=== PATIENT | male | born 1940 | race Caucasian/White ===

== ENCOUNTER → 2018-06-03 15:06 | Outpatient (CLI) | payer MEDICARE, SELFPAY ==
[2018-06-03 17:43] LABS: AST(SGOT) 42 U/L (15-37); Alanine Aminotransfer ALT/SGPT 37 U/L (16-61); Albumin, Serum 3.8 g/dL (3.2-5.0); Alkaline Phosphatase 74 U/L (45-117); Anion Gap 10 (5-15); BUN 15 mg/dL (7-18); BUN/Creat Ratio 14.7 RATIO (10-20); Bilirubin, Direct 0.18 mg/dL (0.00-0.30); Calcium,Total 9.7 mg/dL (8.5-10.1); Chloride 103 mmol/L (98-107); Cholesterol 91 mg/dL (200); Creatinine, Serum 1.02 mg/dL (0.70-1.30); EST Glomerular Filtration Rate 75 mL/min (>60); Est Glom Filt Rate - Afr Amer 90 mL/min (>60); Glucose 198 mg/dL (74-106); High Density Lipoprotein 38 mg/dL; Potassium 4.1 mmol/L (3.5-5.1); Protein, Total 7.8 g/dL (6.4-8.2); Sodium Level 137 mmol/L (136-145); Triglycerides 134 mg/dL; Very Low Density Lipoprotein 27 mg/dL (5-40)
[2018-06-03 17:53] LABS: Hemoglobin A1c 7.8 % (4.2-6.3)
== END ==
PROVIDERS: Visit Provider Family Medicine
DX: E11.9 Type 2 diabetes mellitus without complications (principal)
CPT/HCPCS: 36415; 80048; 80061; 80076; 83036

== ENCOUNTER → 2018-08-23 13:28 | Outpatient (CLI) | payer MEDICARE, SELFPAY ==
--- NOTE | 2018-08-27 16:33 | LEAS_ITS ---
Arterial Study - Arterial Study Arterial Study: This is an 78-year-old male with a history of peripheral arterial occlusive disease. The patient was brought to the noninvasive vascular laboratory at this time for the purpose of bilateral noninvasive lower extremity arterial assessment. Doppler signal assessment was used to evaluate the pulses at ankle level bilaterally. The posterior tibial and dorsalis pedis pulses were triphasic bilaterally. Segmental limb pressures were obtained bilaterally. The right ankle pressure, as determined by posterior tibial pulse, was measured at 138 mmHg. The right ankle pressure, as determined by dorsalis pedis pulse, was measured at 123 mmHg. The right digital pressure was measured at 148 mmHg. The left ankle pressure, as determined by posterior tibial pulse, was measured at 150 mmHg. The left ankle pressure, as determined by dorsalis pedis pulse, was measured at 154 mmHg. The left digital pressure was measured at 154 mmHg. Pulse?volume recordings were obtained bilaterally and segmentally. Waveform amplitudes appeared to be satisfactory at all levels bilaterally, including low thigh, calf, ankle, and digital levels. Resting ankle?brachial indices were calculated bilaterally. The resting right ankle?brachial index was calculated to be 1.01. The resting left ankle?brachial index was calculated to be 1.13. Digital?brachial indices were calculated bilaterally. The right digital- brachial index was calculated to be 1.09. The left digital-brachial index was calculated to be 1.13. Impression: Based upon the findings of this resting noninvasive lower extremity arterial study, there is no evidence of significant atherosclerotic peripheral arterial occlusive disease in the lower extremities bilaterally. Triphasic waveforms were noted at ankle level bilaterally. Resting ankle?brachial indices were bilaterally normal. Digital-brachial indices were also normal bilaterally. In summary, this represents a normal resting noninvasive lower extremity arterial study bilaterally.
== END ==
PROVIDERS: Family Provider Family Medicine; PCP Family Medicine; Visit Provider Podiatrist
DX: I73.9 Peripheral vascular disease, unspecified (principal)
CPT/HCPCS: 93923

== ENCOUNTER → 2018-11-28 10:24 | Outpatient (CLI) | payer MEDICARE, SELFPAY | PROVIDERS: Family Provider Family Medicine; PCP Family Medicine; Visit Provider Family Medicine | DX: R69 Illness, unspecified (principal) ==

== ENCOUNTER → 2018-12-07 16:28 | Outpatient (CLI) | payer MEDICARE, SELFPAY | PROVIDERS: Family Provider Family Medicine; PCP Family Medicine; Visit Provider Family Medicine | DX: R30.0 Dysuria (principal) | CPT/HCPCS: 87086; 87088; 87186 ==

== ENCOUNTER → 2018-12-09 09:57 | Outpatient (CLI) | payer MEDICARE, SELFPAY ==
[2018-12-09 12:22] LABS: Color, Urine Yellow (Yellow); Glucose, Dipstick Normal (Normal); Ketone-Dipstick Negative (Negative); Leukocyte Esterase-Dipstick 500 /ul (Negative); Nitrite-Dipstick Negative (Negative); Occult Blood-Urine 10 /ul (Negative); Protein-Dipstick Negative (Negative); Specific Gravity, Urine 1.015 (1.002-1.030); Urine Bilirubin Dipstick Negative (Negative); Urine Clarity Clear (Clear); Urine Urobilinogen Normal (Normal)
[2018-12-09 12:33] LABS: Anion Gap 11 (5-15); BUN 19 mg/dL (7-18); BUN/Creat Ratio 15.7 RATIO (10-20); Calcium,Total 9.6 mg/dL (8.5-10.1); Chloride 105 mmol/L (98-107); Cholesterol 95 mg/dL (200); Creatinine, Serum 1.21 mg/dL (0.70-1.30); EST Glomerular Filtration Rate 61 mL/min (>60); Est Glom Filt Rate - Afr Amer 74 mL/min (>60); Glucose 160 mg/dL (74-106); High Density Lipoprotein 36 mg/dL; Potassium 4.5 mmol/L (3.5-5.1); Sodium Level 140 mmol/L (136-145); Triglycerides 129 mg/dL; Very Low Density Lipoprotein 26 mg/dL (5-40)
[2018-12-09 12:40] LABS: Hemoglobin A1c 8.5 % (4.2-6.3)
[2018-12-09 13:00] LABS: Vitamin D,25 Hydroxy 33.7 ng/mL (29.95-100.01)
== END ==
PROVIDERS: Family Provider Family Medicine; PCP Family Medicine; Visit Provider Family Medicine
DX: Z00.00 Encounter for general adult medical examination without abnormal findings (principal); R30.0 Dysuria; E55.9 Vitamin D deficiency, unspecified; E11.9 Type 2 diabetes mellitus without complications
CPT/HCPCS: 36415; 80048; 80061; 81002; 82306; 83036

== ENCOUNTER 2018-12-13 11:00 | Outpatient (RCR) | payer MEDICARE, SELFPAY ==
--- NOTE | 2018-10-05 15:48 | HP.PTEVAL_ITS ---
Patient's Visit Information ALCIDES LOREDO is a 78 year old M referred to Physical Therapy by JOANNA Gong with a diagnosis of CVA. Date of Evaluation: 10/05/18 Physical Therapist: Hilario Serrano DPT, OC - Visit Plan Frequency: 2x /Week Duration: 4-6 Weeks Plan: Neurocom balance test then. 2x/week for 3-4 for hip and core strength machines and table and sink and teach for I as safety allows. FW weight shift ex. Balance as indicated on neurocom - Subjective Subjective: Hips and knees not very mobile. Weak and stiff. CVA 10 years ago. Been through therapy numerous times. Neurologist recommended PT to strengthen muscle between knees and hips. Hard to get out of chair. In gym 3x/week on Nustep and back machines, Not doing anything for legs. Foot doctr referred him to neuro for weakness in legs. Uses wh walker if walking for distance but it is too short for him. Tested for arterioal problems in legs but that was OK. Has diabetic neuropathy. WEaker on R side from stroke 10 years ago. Sleep is good. On new drug for essential tremors. Not employed. Activities include puzzles and read. Gym 3x/week. No steps at home. Dresses and basic ADLs I. Feels like balance is worse at times without pattern. Uses wh walker out and about. Has rollator too small and wh walker that fits him. - Objective Walks with rollator walker too short but mod I, walks without walker on firm surface with plenty of light I, short steps and lacks FW weight shift. Needs UE to exit chair and assist to sit from supine. UE AROM WFL, R UE weaker vs L but functional. Patient is hesitant with balance especially at top of step. LE AROM WFL, lack 4 degrees ext R knee in sitting. Pt is slow moving and poor confidence with strength. HS and quads mod tight. reflexes 0/3 patella and a chilles. Sensation diminished to gross light touch in feet. Coordination to reciprocal toe and heel tap min deficits. Strength HIPS: R 3/5 and L 3+/5, can do a bridge barely and slowly. Knee ext 4 L and 4- R. ankles 4/5 B - Balance Scores Functional Gait Assessment Score: 21 % Disability: 30.0000 CATSIB Score (Max score 120 seconds): 98 - Goals Goal 1:: 23/30 FGA to diminish fall risk. Goal Time Frame: 4-6 Weeks Goal 2:: Patient able to exit chair without UE and transfer in bed I and easily Goal Time Frame: 4-6 Weeks Goal 3:: I approp HEP for hip and core strength to add to current strength and fw weight shift/balance Goal Time Frame: 4-6 Weeks Goal 4:: Pt and feel mobility is 50% improved. 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 Rehabilitation Potential: Fair - Anticipated Interventions Patient/Client Instruction: Educate patient on: Condition, Plan of Care For the Purpose of:: To increase tolerance to activity/condition/position, To improve ability of physical actions for home/community/work/leisure, To improve safety Therapeutic Exercise to Include: Strength training, Balance training, Gait and locomotor training For the Purpose of:: To increase tolerance to activity/condition/position, To improve balance Thank you for the opportunity to evaluate your patient. For Medicare and Medicare HMO plans, please review the plan of care and approve it. It will need to be FAXED BACK to us at [phone] for Medicare purposes. Please let me know if there are questions or concerns regarding this plan of care. Physician Signature: Date:
--- NOTE | 2018-10-11 11:49 | HP.PTCOM ---
PT Communication Note 10/11/[address] Iva Valdes, CONSULTANT TECHNOLOGY-C , Thank you for the referral of Polo to [facility] for balance screeening and testing. I have enclosed a copy of the results for your review. In [place], he scored low on the vestibular portion of the Sensory Organization Test. He scored low on forward and right excursion on the Limits of Stability Test. He scored slow on the Motor Control Test. With these reults in mind, I plan to see him 2x/week for 4 weeks to work on forward weight shifts, vestibular balance and LE strength adn progress to and Independent workout. Please do not heistate to call if there are questions regarding his physical therapy. Thank you. Sincerely, Hilario Serrano DPT, OC Contact Information
--- NOTE | 2018-10-11 11:52 | HP.PTCOM_ITS ---
PT Communication Note 10/11/[address] Iva Valdes, HAIR COLORIST-C , Thank you for the referral of Polo to [facility] for balance screeening and testing. I have enclosed a copy of the results for your review. In summat[place], he scored low on the vestibular portion of the Sensory Organization Test. He scored low on forward and right excursion on the Limits of Stability Test. He scored slow on the Motor Control Test. With these reults in mind, I plan to see him 2x/week for 4 weeks to work on forward weight shifts, vestibular balance and LE strength adn progress to and Independent workout. Please do not heistate to call if there are questions regarding his physical therapy. Thank you. Sincerely, Hilario Serrano DPT, OC Contact Information
--- NOTE | 2018-11-10 15:48 | HP.PTREVAL ---
Iva Valdes, ALLERGY SPECIALIST-C, It has been my pleasure to treat ALCIDES LOREDO over the last 10 visits for CVA. Please see the progress note below for an update on the physical therapy plan of care! Subjective: Brought new walker and works much better. Getting up from chair still very hard. Knee pain keeps him from getting up without UE. I can do all the ex in the gym 3x/week. Objective/Function: foot slap on both sides with gait but improved FGA by one point. Pt confident that he can continue himself. wants him to f/u in 4 weeks for compliance and to ensure progress. Plan Plan: f/u 4 weeks as needed to progress ex, check steps and transfer out of chair. Goals Goal 1:: FGA to diminish fall risk. Goal Time Frame: 4-6 Weeks Goal Progress: Progressing Goal 2:: Patient able to exit chair without UE and transfer in bed I and easily Goal Time Frame: 4-6 Weeks Goal Progress: Needs assist mod Goal 3:: I approp HEP for hip and core strength to add to current strength and fw weight shift/balance Goal Time Frame: 4-6 Weeks Goal Progress: Goal Met Goal 4:: Pt and feel mobility is 50% improved. Goal Time Frame: 6-8 Weeks Goal Progress: Goal Met Goal 5:: improved vestibular SOT score and LOS FW excursion score past 30. Goal Time Frame: 4-6 Weeks Goal Progress: not tested. Anticipated Interventions Patient/Client Instruction: Educate patient on: Condition, Plan of Care For the Purpose of:: To increase tolerance to activity/condition/position, To improve ability of physical actions for home/community/work/leisure, To improve safety Therapeutic Exercise to Include: Strength training, Balance training, Gait and locomotor training For the Purpose of:: To increase tolerance to activity/condition/position, To improve balance Please do not hesitate to contact me at [phone] by phone or if you have questions or concerns regarding this new plan of care! Sincerely, Hilario Serrano, DPT, OCS, CSCS
--- NOTE | 2018-12-13 12:03 | HP.PTDCSUM_ITS ---
HP - PT D/C Summary It has been my pleasure to treat ALCIDES LOREDO under orders from Iva Valdes, YVETTE-C, for the diagnosis of CVA for a total of 11 visit(s). Discharge Date: 12/13/18 Please see the following information for a summary of their discharge status. - Subjective Subjective: Has been busy with the holidays and many doctors appointments. Sees neurologist this afternoon. 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 Morning tremors have gotten worse. Lots of things getting worse. Has been exercising and strength is staying the same. 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 Also put on meds for UTI. A shot in both arms to boot from annual check up. exercising 3x/week until last weeks reaction to shots whcih mad e him weak and tired. Been off for the last week b/c of that. - Overall Improvement % Improvement: 60 - Objective Objective/Function: +1 FGA today. Walks with adn without rolaltor without assist, more hesitant without it. Up from chair requires UE and VC to shift weight forward which patient is understandably hesitant to do. Steps require UE to pull up to the next step adn two rails to come down. OVERALL SLOW IMPROVEMENT TO PROBLEMS THAT ARE MOSTLY DUE TO HIS NEUROPATHY AND WILL NEVER FULLY MOUNA. HE IS WILLING TO KEEP WORKING ON IT VIA GYM EXERCISES. - Goals Goal 1:: FGA to diminish fall risk. Goal Progress: Goal Met Goal 2:: Patient able to exit chair without UE and transfer in bed I and easily Goal Progress: Not Progressing Goal 3:: I approp HEP for hip and core strength to add to current strength and fw weight shift/balance Goal Progress: Goal Met Goal 4:: Pt and feel mobility is 50% improved. Goal Progress: Goal Met Goal 5:: improved vestibular SOT score and LOS FW excursion score past 30. Goal Progress: NT - Plan Plan: D/C to gym ex isacc. - D/C Information Discharge Comments: Pt to neurologist today. Will continue exercises on her own. If there are questions or concerns regarding this patient's physical therapy, please feel free to call me at [phone]. Thank you for the referral of this patient. Sincerely, Hilario Serrano, DPT, OCS, CSCS
== END 2018-12-13 19:00 | disposition home or self-care (01) ==
LOC: PT 11:00
PROVIDERS: Family Provider Family Medicine; PCP Family Medicine; Referring Provider Nurse Practitioner Acute Care; Visit Provider Nurse Practitioner Acute Care
DX: G81.91 Hemiplegia, unspecified affecting right dominant side (principal); Z86.73 Personal history of transient ischemic attack (TIA), and cerebral infarction without residual deficits
CPT/HCPCS: 97110; 97163; 97530; 97750

== ENCOUNTER → 2019-01-19 08:24 | Outpatient (CLI) | payer MEDICARE, SELFPAY ==
--- NOTE | 2019-01-18 | LES_PTH ---
PATIENT: ALCIDES LOREDO LOC: [facility] U#:[id number] AGE/SX: 85/M ROOM: RE01/19/[address]: Dr. George Fonseca MD : 1940 BED: DIS: SPEC #: [id number] RECD: 01/19/19 10:08 STATUS: [facility]ITE BO #: [id number] DEWEY: 01/18/19 00:[address]: George Fonseca DEPT: SURGICAL PATHOLOGY RECD BY: Reshma Meadows ENTERED: 01/20/19 09:02 SP TYPE: Lesion OTHR DR: Dr. Randell Sparks MD Tissues: Skin of back, NOS Procedures: Surgery Specimen Level IV HEADER OPERATION: Shave biopsy PRE-OP DIAGNOSIS: Superficial basal cell carcinoma vs other TISSUE SUBMITTED: Left superior medial midback MICROSCOPIC DIAGNOSIS Left superior medial midback, shave biopsy: Basal cell carcinoma with focal superficial ulceration, incompletely excised (0.5 cm in greatest dimension). SJ:shaina 01/20/19 COMMENT The tumor is focally present at the deep resection margin of the spcimen. Case has been reviewed in consultation with Dr. Solis who concurs with the above diagnosis. IDC:AM MICROSCOPIC DESCRIPTION Slides are reviewed. GROSS DESCRIPTION Received in fixative is one container labeled with the patient's name and designated left superior midback. The specimen consists of a piece of elias-white skin measuring 0.6 x 0.2 x 0.1 cm. The specimen is totally submitted in one cassette. / SJ:shaina 01/19/19 TC:0 CPT: 80847
== END ==
PROVIDERS: Family Provider Family Medicine; PCP Family Medicine; Referring Provider Dermatology; Visit Provider Dermatology
DX: C44.519 Basal cell carcinoma of skin of other part of trunk (principal)
CPT/HCPCS: 88305

== ENCOUNTER → 2019-03-27 | Outpatient (CLI) | payer MEDICARE, SELFPAY ==
[2019-03-07 14:44] VITALS: BMI 35.3
--- NOTE | 2019-03-27 12:44 | ECHOCS_ITS ---
Reason For Study: Afib, Aflutter Procedure This was a 2D Doppler, Color Flow transthoracic echocardiogram. The study was technically difficult. Contrast injection was performed. Exam performed in department. Left Ventricle Normal size and thickness. The estimated ejection fraction is 65 %. Unable to assess diastolic dysfunction due to arrhythmia. No regional wall motion abnormalities noted. Right Ventricle Mildly dilated right ventricle. Normal systolic function. Atria The left atrium is mildly enlarged. Normal right atrium. Normal atrial septum. Mitral Valve The mitral valve is structurally normal. No prolapse or stenosis seen. Tricuspid Valve Normal tricuspid valve. Trivial tricuspid valve insufficiency. Right ventricular systolic pressure estimated to be 24 mmHg. Aortic Valve Trisinus/trileaflet aortic valve. Mild diffuse aortic valve thickening. Pulmonic Valve The pulmonic valve is not well visualized. Great Vessels Normal aortic root. Mild atherosclerosis of the aortic arch. Normal inferior vena cava. Inferior vena cava collapse with sniff. Pericardium/Pleural No pericardial effusion. Medication Definity0.3ml given slow IV push to enhance endocardial definition. MMode/2D Measurements & Calculations LVIDd: 4.9 cm IVSd: 0.98 cm Ao root diam: 3.8 cm LVIDs: 3.4 cm LVPWd: 0.80 cm RVDd: 3.9 cm FS: 30.0 % LAV(MOD-bp): 65.1 ml LA A4 area: 23.7 cm2 LA dimension(2D): 4.6 cm LAV(MOD-bp) Indexed: 24.5 ml/m2 LAV(MOD-sp2): 55.7 ml LAV(MOD-sp4): 74.2 ml RA A4 area: 19.8 cm2 Doppler Measurements & Calculations MV E max liv: 77.3 cm/sec Ao V2 max: 90.6 cm/sec LV V1 max: 68.7 cm/sec Ao max P.4 mmHg LV V1 max P.9 mmHg Ao V2 mean: 62.4 cm/sec Ao mean P.8 mmHg Ao V2 VTI: 14.9 cm PA V2 max: 88.3 cm/sec TR max liv: 152.4 cm/sec TR max P.3 mmHg Interpretation Summary The estimated ejection fraction is 65 %. Unable to assess diastolic dysfunction due to arrhythmia. The left atrium is mildly enlarged. Trivial tricuspid valve insufficiency. Right ventricular systolic pressure estimated to be 24 mmHg. Compared to echo report dated 09/25/2017, no appreciable changes noted. Pt appears to be in atrial fibrillation. The study was technically difficult. Contrast injection was performed. Ordering Physician: Brent Ledezma Referring Physician: Randell Sparks Performed By: Dayan Burroughs, VERONICA, RVT
--- NOTE | 2019-03-27 12:44 | CDU_ITS ---
Reason For Study: TIA Rt. Velocities/BP Lt. Velocities/BP Prox CCA 79.9/18.6 cm/sec. Prox CCA 65.4/11.4 cm/sec. Mid CCA 89.1/27.8 cm/sec. Mid CCA 67.9/12.6 cm/sec. Dist CCA 64.3/21.3 cm/sec. Dist CCA 55.6/15.1 cm/sec. Prox ICA 141.2/46.2 cm/sec. Prox ECA 137.5/17.0 cm/sec. Mid ICA 112.0/33.4 cm/sec. Lt. Vert. 34.7/16.0 cm/sec. Dist ICA 66.7/27.4 cm/sec. Rt. ICA/CCA = 1.6. Prox ECA 116.5/14.7 cm/sec. Rt. Vert. 55.6/16.3 cm/sec. Right Extracranial There is intimal thickening but no significant atherosclerotic plaque noted in the right common carotid artery. There is heterogeneous, irregular atherosclerotic plaque noted in the right internal carotid artery. The atherosclerotic plaque causes acoustic shadowing. There is heterogeneous, irregular atherosclerotic plaque noted in the right external carotid artery. Antegrade flow is noted in the right vertebral artery. Left Extracranial There is heterogeneous, irregular atherosclerotic plaque noted in the left common carotid artery. There is heterogeneous, irregular atherosclerotic plaque noted in the left internal carotid artery. There is intimal thickening but no significant atherosclerotic plaque noted in the left external carotid artery. Antegrade flow is noted in the left vertebral artery. Procedure Carotid Duplex 94133. The exam was diagnostic. Exam performed in department. Interpretation Summary Moderate (50-69%) stenosis right extracranial internal carotid. Flow within the vertebral arteries is antegrade bilaterally. 2. Left internal carotid occluded. Ordering Physician: Brent Ledezma Performed By: Tanner Palumbo RVT
== END | disposition home or self-care (01) ==
PROVIDERS: Family Provider Family Medicine; PCP Family Medicine; Referring Provider Internal Medicine Cardiovascular Disease; Visit Provider Internal Medicine Cardiovascular Disease
DX: Z86.73 Personal history of transient ischemic attack (TIA), and cerebral infarction without residual deficits (principal); I48.0 Paroxysmal atrial fibrillation
CPT/HCPCS: 93306; 93880; Q9957; A4216; C8929

== ENCOUNTER → 2019-03-31 | Outpatient (CLI) | payer MEDICARE, SELFPAY ==
[2019-03-07 14:44] VITALS: BMI 35.3
--- NOTE | 2019-03-31 09:31 | STEWCON_ITS ---
Reason For Study: Atrial Fibrillation Stress Results Protocol: Dobutamine Stress Echo Maximum Predicted HR: 140 bpm Target HR: 119 bpm % Maximum Predicted HR: 90 % DurationHeart Rate Stage (mm:ss) (bpm) BP Comment Baseline 86 142/73No Chest Pain; Diluted Definity 4 ML DSE 10 MCG 3:10 96 106/70No Chest Pain DSE 20 MCG 2:57 126 147/73No Chest Pain Recovery 96 120/64No Chest Pain Stress Duration: 6:07 mm:ss Maximum Stress HR: 126 bpm METS: 1 Baseline Echocardiogram Findings The estimated ejection fraction is 65 %. Stress Echo Wall motion Data Resting WM Intermediate WM Stress WM Resting Wall Motion Wall Motion Stress No regional wall motion No regional wall motion abnormalities noted. abnormalities noted. EKG Data Atrial fibrillation. The patient was titrated from 10 mcg to a maximum of 20 mcg of dobutamine during the stress. The maximum heart rate attained was 142 beats per minute. This was 101% of maximum predicted heart rate. During dobutamine infusion, there were no ST or T wave changes noted to suggest ischemia. No clinical angina was noted. Interpretation Summary The estimated ejection fraction is 65 %. Normal, adequate, dobutamine echocardiogram. Negative for ischemia by EKG and echocardiographic criteria. No anginal symptoms noted. Baseline atrial fibrillation throughout procedure. No additional arrhythmias noted. Final LVEF is 75%. Decreased sensitivity due to poor echo windows requiring Definity agent. Test terminated due to the attainment of target heart rate. No complications. The study was technically difficult. Contrast injection was performed. Ordering Physician: Brent Ledezma Referring Physician: Randell Sparks Performed By: Jocelyne Car, RDCS, RVT
== END | disposition home or self-care (01) ==
LOC: CVS 09:28
PROVIDERS: Family Provider Family Medicine; PCP Family Medicine; Referring Provider Internal Medicine Cardiovascular Disease; Visit Provider Internal Medicine Cardiovascular Disease
DX: R06.02 Shortness of breath (principal); I48.0 Paroxysmal atrial fibrillation; E78.5 Hyperlipidemia, unspecified; Z86.79 Personal history of other diseases of the circulatory system
CPT/HCPCS: 93017; 93350; J7040; Q9957; A4216; C8928

== ENCOUNTER → 2019-07-25 | Outpatient (CLI) | payer MEDICARE, SELFPAY ==
[2019-07-18 16:25] VITALS: BMI 35.3
[2019-07-25 12:16] LABS: Absolute Lymphocyte Count 1.74 X10^3/uL (0.83-4.51); Absolute Neutrophil Count 3.2 X10^3/uL (2.0-7.7); Basophil# 0.03 X10^3/uL; Basophil% 0.5 % (0-1); Eosinophil# 0.12 X10^3/uL; Eosinophils% 2.1 % (0-5); Hematocrit 46.6 % (40-54); Hemoglobin 14.8 g/dL (13.0-16.5); Lymphocyte # 1.74 X10^3/ul (4.0); Lymphocyte % 30.2 % (19-41); Mean Corp Hgb Conc 31.8 g/dL (32-36); Mean Corpuscular Hgb 31.9 pg (27.0-32.0); Mean Corpuscular Volume 100.4 fL (80-94); Mean Platelet Vol. 10.7 fl (6.2-12.0); Monocyte# 0.57 X10^3/uL; Monocyte% 9.9 % (0-10); NRBC Flagged by Analyzer 0 % (0-5); Neutrophil % 55.4 % (47-70); Platelet Count 166 K/mm3 (150-450); RBC Distribution Width CV 15.2 % (11.6-14.6); RBC Distribution Width SD 56.1 fl (35.1-43.9); Red Blood Count 4.64 M/mm3 (4.6-6.2); White Blood Count 5.8 K/mm3 (4.4-11.0)
[2019-07-25 12:39] LABS: Anion Gap 6 (5-15); BUN 16 mg/dL (7-18); BUN/Creat Ratio 15.2 RATIO (10-20); Calcium,Total 9.5 mg/dL (8.5-10.1); Chloride 107 mmol/L (98-107); Cholesterol 89 mg/dL (200); Creatinine, Serum 1.05 mg/dL (0.70-1.30); EST Glomerular Filtration Rate 72 mL/min (>60); Est Glom Filt Rate - Afr Amer 87 mL/min (>60); Glucose 253 mg/dL (74-106); High Density Lipoprotein 33 mg/dL; Potassium 4.2 mmol/L (3.5-5.1); Sodium Level 138 mmol/L (136-145); Triglycerides 209 mg/dL; Very Low Density Lipoprotein 42 mg/dL (5-40)
== END | disposition home or self-care (01) ==
LOC: MFPLAB 09:53
PROVIDERS: Family Provider Family Medicine; PCP Family Medicine; Referring Provider Family Medicine; Visit Provider Family Medicine
DX: E78.5 Hyperlipidemia, unspecified (principal); D64.9 Anemia, unspecified; E11.9 Type 2 diabetes mellitus without complications
CPT/HCPCS: 36415; 80048; 80061; 85025

== ENCOUNTER → 2019-10-18 11:32 | Outpatient (CLI) | payer MEDICARE, SELFPAY ==
[2019-07-18 16:25] VITALS: BMI 35.3
[2019-10-18 13:59] LABS: Absolute Lymphocyte Count 1.84 X10^3/uL (0.83-4.51); Absolute Neutrophil Count 4.2 X10^3/uL (2.0-7.7); Basophil# 0.06 X10^3/uL; Basophil% 0.9 % (0-1); Eosinophil# 0.14 X10^3/uL; Hematocrit 47.3 % (40-54); Hemoglobin 14.7 g/dL (13.0-16.5); Lymphocyte # 1.84 X10^3/ul (4.0); Lymphocyte % 26.6 % (19-41); Mean Corp Hgb Conc 31.1 g/dL (32-36); Mean Corpuscular Hgb 31.3 pg (27.0-32.0); Mean Corpuscular Volume 100.9 fL (80-94); Mean Platelet Vol. 10.6 fl (6.2-12.0); Monocyte# 0.56 X10^3/uL; Monocyte% 8.1 % (0-10); NRBC Flagged by Analyzer 0 % (0-5); Neutrophil # 4.22 X10^3/uL (2.7-7.7); Neutrophil % 61.1 % (47-70); Platelet Count 166 K/mm3 (150-450); RBC Distribution Width CV 15.1 % (11.6-14.6); RBC Distribution Width SD 55.9 fl (35.1-43.9); Red Blood Count 4.69 M/mm3 (4.6-6.2); White Blood Count 6.9 K/mm3 (4.4-11.0)
[2019-10-18 14:21] LABS: Anion Gap 8 (5-15); BUN 18 mg/dL (7-18); BUN/Creat Ratio 16.8 RATIO (10-20); Calcium,Total 9.5 mg/dL (8.5-10.1); Chloride 106 mmol/L (98-107); Cholesterol 107 mg/dL (200); Creatinine, Serum 1.07 mg/dL (0.70-1.30); EST Glomerular Filtration Rate 71 mL/min (>60); Est Glom Filt Rate - Afr Amer 85 mL/min (>60); Glucose 296 mg/dL (74-106); High Density Lipoprotein 35 mg/dL; Potassium 4.5 mmol/L (3.5-5.1); Sodium Level 138 mmol/L (136-145); Triglycerides 165 mg/dL; Uric Acid 5.3 mg/dL (3.5-7.2); Very Low Density Lipoprotein 33 mg/dL (5-40)
== END ==
PROVIDERS: Family Provider Family Medicine; PCP Family Medicine; Referring Provider Family Medicine; Visit Provider Family Medicine
DX: E11.9 Type 2 diabetes mellitus without complications (principal); M10.9 Gout, unspecified; D64.9 Anemia, unspecified
CPT/HCPCS: 36415; 80048; 80061; 84550; 85025

== ENCOUNTER → 2019-11-10 12:03 | Outpatient (CLI) | payer MEDICARE, SELFPAY ==
[2019-07-18 16:25] VITALS: BMI 35.3
[2019-11-10 14:42] LABS: Vitamin B12 476 pg/mL (211-911)
[2019-11-10 14:44] LABS: Erythrocyte Sedimentation Rate 15 mm/hr (0-20)
[2019-11-10 15:06] LABS: Rheumatoid Factor < 10.0 IU/mL (<15); Thyroid Stim Hormone (TSH) 1.69 uIU/mL (0.358-3.74)
[2019-11-13 12:07] LABS: RNP Ab 0.6 AI (0.0-0.9); Smith Ab <0.2 AI (0.0-0.9)
[2019-11-13 16:04] LABS: ANTINUCLEAR ANTIBODIES DIRECT Negative (Negative)
[2019-11-13 16:07] LABS: Immunoglobulin A 362 mg/dL (61-437); Immunoglobulin G 1053 mg/dL (700-1600); PROEL- A/G Ratio 1.1 (0.7-1.7); PROEL- Albumin 3.6 g/dL (2.9-4.4); PROEL- Alpha-1 Globulin 0.2 g/dL (0.0-0.4); PROEL- Alpha-2 Globulin 0.7 g/dL (0.4-1.0); PROEL- Beta Globulin 1.2 g/dL (0.7-1.3); PROEL- Gamma Globulin 1.2 g/dL (0.4-1.8); PROEL- Globulin, Total 3.4 g/dL (2.2-3.9)
[2019-11-13 20:09] LABS: Immunoglobulin M 143 mg/dL (15-143)
== END ==
PROVIDERS: Family Provider Family Medicine; PCP Family Medicine; Referring Provider Family Medicine; Visit Provider Family Medicine
DX: R25.1 Tremor, unspecified (principal); G62.9 Polyneuropathy, unspecified; R53.83 Other fatigue
CPT/HCPCS: 36415; 82607; 82746; 82784; 84165; 84443; 85652; 86038; 86235; 86334; 86431

== ENCOUNTER → 2020-05-24 11:48 | Outpatient (CLI) | payer MEDICARE, SELFPAY ==
[2019-11-30 10:59] VITALS: BMI 35.4
[2020-05-24 14:58] LABS: Absolute Neutrophil Count 3.5 X10^3/uL (2.0-7.7); Basophil# 0.02 X10^3/uL; Basophil% 0.4 % (0-1); Eosinophil# 0.11 X10^3/uL; Eosinophils% 1.9 % (0-5); Hematocrit 36.6 % (40-54); Hemoglobin 10.3 g/dL (13.0-16.5); Lymphocyte % 24.6 % (19-41); Mean Corp Hgb Conc 28.1 g/dL (32-36); Mean Corpuscular Hgb 24.9 pg (27.0-32.0); Mean Corpuscular Volume 88.6 fL (80-94); Mean Platelet Vol. 10.6 fl (6.2-12.0); Monocyte% 10.5 % (0-10); NRBC Flagged by Analyzer 0 % (0-5); Neutrophil % 61.5 % (47-70); Platelet Count 211 K/mm3 (150-450); RBC Distribution Width CV 16.7 % (11.6-14.6); Red Blood Count 4.13 M/mm3 (4.6-6.2); White Blood Count 5.7 K/mm3 (4.4-11.0)
[2020-05-24 15:16] LABS: BNP,B-Type NATRIURETIC PEPTIDE 80.8 pg/mL (0-100)
[2020-05-24 15:22] LABS: ALB/GLOB Ratio 0.9 RATIO (0.9-2.4); AST(SGOT) 26 U/L (15-37); Alanine Aminotransfer ALT/SGPT 23 U/L (16-61); Albumin, Serum 3.5 g/dL (3.2-5.0); Alkaline Phosphatase 98 U/L (45-117); Anion Gap 8 (5-15); BUN 17 mg/dL (7-18); BUN/Creat Ratio 18.2 RATIO (10-20); Calcium,Total 9.1 mg/dL (8.5-10.1); Chloride 104 mmol/L (98-107); Creatinine, Serum 0.93 mg/dL (0.70-1.30); EST Glomerular Filtration Rate 83 mL/min (>60); Est Glom Filt Rate - Afr Amer 100 mL/min (>60); Globulin 3.7 g/dL (2.2-4.2); Glucose 230 mg/dL (74-106); Potassium 4.4 mmol/L (3.5-5.1); Protein, Total 7.2 g/dL (6.4-8.2); Sodium Level 137 mmol/L (136-145); Thyroid Stim Hormone (TSH) 0.89 uIU/mL (0.358-3.74)
== END ==
PROVIDERS: PCP Family Medicine; Visit Provider Family Medicine
DX: M25.473 Effusion, unspecified ankle (principal)
CPT/HCPCS: 36415; 80053; 83880; 84443; 85025

== ENCOUNTER → 2021-05-15 | Outpatient (CLI) | payer MEDICARE, SELFPAY ==
[2019-11-30 10:59] VITALS: BMI 35.4
--- NOTE | 2021-05-15 | LES_PTH ---
PATIENT: ALCIDES LOREDO LOC: [facility] U#:[id number] AGE/SX: 80/M ROOM: RE05/15/[address]: Dr. George Fonseca MD : 1940 BED: DIS: 05/15/2021 SPEC #: [id number] RECD: 05/15/21 10:52 STATUS: MAITE BO #: [id number] DEWEY: 05/15/21 00:[address]: George Fonseca DEPT: SURGICAL PATHOLOGY RECD BY: Jin Beth ENTERED: 05/15/21 10:53 SP TYPE: Lesion OTHR DR: Dr. Randell Sparks MD Tissues: Skin of nose, NOS Procedures: Surgery Specimen Level IV HEADER OPERATION: Biopsy PRE-OP DIAGNOSIS: Pearly telangiectatic papule; BCC vs other TISSUE SUBMITTED: Nasal root MICROSCOPIC DIAGNOSIS Nasal root lesion, shave biopsy: Basal cell carcinoma with ulceration and associated acute inflammation. SJ:shaina 05/16/2021 MICROSCOPIC DESCRIPTION Slides are reviewed. GROSS DESCRIPTION Received in fixative is one container labeled with the patient's name and designated nasal root. The specimen consists of a shave biopsy of elias-white skin measuring 0.7 x 0.5 cm and up to 0.1 cm in thickness. The entire specimen is submitted in one cassette. It will be bisected at the time of embedding. / SJ:rg 05/15/21 TC:0 CPT: [id number]
== END | disposition home or self-care (01) ==
LOC: LABSPEC 10:04
PROVIDERS: PCP Family Medicine; Referring Provider Dermatology; Visit Provider Dermatology
DX: D48.5 Neoplasm of uncertain behavior of skin (principal)
CPT/HCPCS: 88305

== ENCOUNTER → 2021-08-15 09:33 | Outpatient (CLI) | payer MEDICARE, SELFPAY ==
[2021-08-15 10:51] LABS: Anion Gap 6 (5-15); BUN 15 mg/dL (7-18); BUN/Creat Ratio 16.8 RATIO (10-20); Chloride 104 mmol/L (98-107); Cholesterol 89 mg/dL (200); Creatinine, Serum 0.89 mg/dL (0.70-1.30); EST Glomerular Filtration Rate 86 mL/min (>60); Est Glom Filt Rate - Afr Amer 104 mL/min (>60); Glucose 185 mg/dL (74-106); High Density Lipoprotein 39 mg/dL; Potassium 4.2 mmol/L (3.5-5.1); Sodium Level 136 mmol/L (136-145); T4 Free Direct 1.33 ng/dL (0.76-1.46); Thyroid Stim Hormone (TSH) 1.41 uIU/mL (0.358-3.74); Triglycerides 91 mg/dL; Very Low Density Lipoprotein 18 mg/dL (5-40)
== END ==
PROVIDERS: PCP Family Medicine; Referring Provider Family Medicine; Visit Provider Family Medicine
DX: Z00.00 Encounter for general adult medical examination without abnormal findings (principal); E03.9 Hypothyroidism, unspecified
CPT/HCPCS: 36415; 80048; 80061; 84439; 84443; 84481

== ENCOUNTER 2022-01-26 13:07 | Outpatient (CLI) | payer MEDICARE, SELFPAY ==
--- NOTE | 2022-01-26 13:12 | CT_ITS ---
STUDY: CT ABDOMEN AND PELVIS WITH CONTRAST REASON FOR EXAM: Male, 81 years old. Diverticulitis RADIATION DOSAGE (If Supplied By Facility): CTDIvol = ( 18.74 ) mGy, DLP = ( 1317.48 ) mGycm TECHNIQUE: Transaxial images were obtained from the dome of the diaphragm to the symphysis pubis with oral contrast. Oral and amp; IV Readi-CAT and amp; 100mL Isovue-300 was administered. Sagittal and coronal images were reconstructed. Individualized dose optimization techniques were used for this CT. COMPARISON: None. FINDINGS: Mild degree of increased linear markings at the lung bases suggestive of bibasilar scarring with thickening of the major fissures. Coronary artery calcification. There is decreased attenuation of the liver consistent with steatosis. There are multiple gallstones. Normal spleen. Normal pancreas. Normal bilateral adrenal glands. Normal right kidney. Normal left kidney. Normal visualized stomach. Normal small intestine. There is a 4.8 cm x 4.2 cm x 5.2 cm soft tissue mass in the cecum at the level of the ileocecal valve. Impacted fecal material should be ruled out. Correlation with endoscopy is recommended. The appendix is visualized and appears normal. There is diffuse atherosclerotic calcification of the abdominal aorta and its major visceral branches, without a demonstrated aneurysm. Normal inferior vena cava. There is borderline retroperitoneal lymphadenopathy with enlarged nodes no greater than 10mm in the short axis diameter. Small caliber urinary bladder. Normal abdominal wall. There are degenerative changes of the visualized lumbar spine. Grade 1 anterolisthesis of L5 on S1 with spondylolysis of the pars interarticularis of the L5 vertebrae. CT/Abdomen/Pelvis WITH Contrast IMPRESSION: Fatty infiltration of the liver. Multiple gallstones. Filling defect in the cecum as described. This may represent either a neoplastic mass versus fecal material. Correlation with endoscopy is recommended. Electronically Signed: Solomon Rowell MD at 15:06 [facility] ,
[2022-01-26 13:26] LABS: CREATININE FINGERSTICK 0.8 mg/dL (0.70-1.30); EGFR FINGERSTICK > 60.0000 mL/min (>60)
== END 2022-01-26 23:59 | disposition home or self-care (01) ==
PROVIDERS: PCP Family Medicine; Referring Provider Internal Medicine Gastroenterology; Visit Provider Internal Medicine Gastroenterology
DX: R10.9 Unspecified abdominal pain (principal)
CPT/HCPCS: 74177; Q9967

== ENCOUNTER → 2022-04-08 | Outpatient (CLI) | payer MEDICARE, SELFPAY ==
[2022-04-08 13:21] LABS: Anion Gap 6 (5-15); BUN 18 mg/dL (7-18); BUN/Creat Ratio 19.6 RATIO (10-20); Calcium,Total 9.2 mg/dL (8.5-10.1); Chloride 104 mmol/L (98-107); Cholesterol 91 mg/dL (200); Creatinine, Serum 0.92 mg/dL (0.70-1.30); EST Glomerular Filtration Rate 84 mL/min (>60); Est Glom Filt Rate - Afr Amer 101 mL/min (>60); Glucose 146 mg/dL (74-106); High Density Lipoprotein 37 mg/dL; Potassium 4.2 mmol/L (3.5-5.1); Sodium Level 138 mmol/L (136-145); T4 Free Direct 1.51 ng/dL (0.76-1.46); Thyroid Stim Hormone (TSH) 0.74 uIU/mL (0.358-3.74); Triglycerides 94 mg/dL; Very Low Density Lipoprotein 19 mg/dL (5-40)
== END | disposition home or self-care (01) ==
LOC: MFPLAB 10:49
PROVIDERS: PCP Family Medicine; Visit Provider Family Medicine
DX: E11.9 Type 2 diabetes mellitus without complications (principal); E03.9 Hypothyroidism, unspecified
CPT/HCPCS: 36415; 80048; 80061; 84439; 84443; 84481

== ENCOUNTER 2022-06-23 10:47 | Day surgery (SDC) | payer MEDICARE, SELFPAY ==
--- NOTE | 2022-06-23 11:02 | PCM.HP.BLA ---
History and Physical Date of Admission: 06/23/22 POLO LOREDO, is a 81 M who presents to the office today for Follow up visit. Polo established with this clinic 01.08.22 for evaluation of urgent diarrhea causing incontinence that has been interrupting his life. He was also [facility] to [facility] and started on PO iron. No history of colonoscopy and does not wish to have one in the future; also does not want to pursue surgical options. CT 01.26.22 found colon cancer in cecum and ascending colon. Medical history includes Diabetes I (metformin, glipizide, lantus), dementia, Parkinsons, tremor, urinary incontinence (urology), IBS, CVA (2007), gout. 01.20 [facility] work from last [facility] brought in with abnormals as follows: cholesterol 89L, HDL 33L, triglyceride 183H, HgbA1C 7.2, AST 37H, RBC 4.11L HGB 12.6L,, hematocrit 38.0L, RDW 17.6H, lymphs%18.2L, positive stool occult. CT abd/pel 01.26.22 found liver steatosis, multiple gallstones, 4.8x4.2x5.2 cm soft tissue mass in the cecum at the level of the ileocecal valve possible impaction versus neoplastic mass recommend correlation with endoscopy, degenerative changes of lumbar spine, borderline lymphadenopathy. Medications recommended by this clinic include protonix 40mg BID; reglan 5mg BID; sucralfate. Plan last visit 02.05.22: Colon cancer ? possible colonic mass in cecal and ascending colon, likely cause of anemia and LGIB and thereby diarrhea. Fecal incontinence ? doing better with cessation of metformin and initiation of actos with good control of BS. Diarrhea ? start sucralfate liquid for dysphagia and diarrhea. Possible gastrocolic reflux with dumping, start low dose reglan as CT did show floor in his stomach. Reports that he is feel good. Diarrhea occurs once every couple of weeks, however it is urgent. Denies incontinent episodes. Wondering if blood in stool r/t possible to esophageal ulcer. [facility] is handling anemia. ROS Const Constitutional: No fatigue, malaise, night sweats, weight change, sleep problems, abnormal sleep pattern or change in appetite ENT ENT: No difficulty swallowing, hoarseness or sore throat Cardio Cardiology: No chest pain at rest Gastro GI: No abdominal pain, belching, bloating, change in bowel habits, change in stool character, coffee ground emesis, constipation, cramping, diarrhea, heartburn, difficulty swallowing, feeling full early, excessive flatus, incontinent of stools, Vomiting blood/hematemesis, Blood in stool, loose stools, Black,tarry stools, nausea/dyspepsia, pain with swallowing, vomiting or other Musc Musculoskeletal: No joint pain Skin Skin: No yellowing of the eye or itchy eyes Neuro Neurology: No behavioral changes Psych Psychiatric: No abnormal sleep pattern, No anxiety, No behavioral changes, No change in appetite and No depression Endo Endocrine: No fatigue or weight change Aller/Imm Allergy/Immunologic: No itchy eyes Luis/Lymp Hematologic/Lymphatic: No easy bleeding or easy bruising Exam Const General: cooperative and comfortable Nutritional Appearance: average body habitus and well nourished [facility] Head: normal to inspection Ears: hearing grossly normal bilaterally Nose: external nose normal Face and sinus: normal facial exam Mouth: oral mucosae normal Throat: posterior oropharynx normal Eyes General: appearance normal, both eyes and all related structures Neck Neck: normal visual inspection Chest Chest palpation & inspection: normal inspection of the chest and normal palpation of entire chest wall Resp Effort & Inspection: normal respiratory effort Auscultation: Bilateral: Clear to Auscultation Cardio Palpation: normal PMI Rate: regular rate Rhythm: regular rhythm GI Inspection: normal to inspection Auscultation: normal bowel sounds Percussion: normal to percussion Palpation: no hepatosplenomegaly Skin General: no rashes or lesions noted Neuro General: patient alert Extrem General: normal to inspection Psych Affect: normal affect Quality Reporting Tobacco Screening ([facility] 138) Smoking Status: Never smoker Assessment and Plan Assessment and Plan (1) Colon cancer: ?Status:?Acute ?Plan - Dr. Hui Friend, DO: Patient is still refusing to have a colonoscopy despite the findings of his CT scan, some blood in his stool and his progressive anemia.? He has agreed to undergo a capsule endoscopy to evaluate his stomach and small bowel for possible other etiologies of GI blood loss anemia. (2) Fecal incontinence: ?Status:?Acute ?Plan - Dr. Hui Friend, DO: His fecal incontinence is almost completely resolved after stopping metformin therapy and introducing Actos.? His blood sugar has been ranging from 80-140 on only Actos therapy.? The patient significant other requested we increase his Actos to 45 mg a day.? I will give him a short-term increase but he has to discuss this with his primary care physician. (3) Diarrhea: ?Status:?Acute Plan Details Other Medications: ?New: ? pioglitazone (Actos) 45 mg? PO DAILY 30 tabs 3RF ? ? ? peg 3350-electrolytes 236-22.74-6.74 -5.86 gram (Golytely) ?? until fecal effluent is clear 240 mL? PO Q10M 4,000 mL 0RF ? ? I have re-examined the patient. There are no clinical changes since date of exam.
[2022-06-23 11:35] VITALS: BP 123/69; PULSE 89; RESP 18; TEMP 36.6; O2SAT 99; BMI 32.8
--- NOTE | 2022-06-23 12:00 | COLBX_PTH ---
PATIENT: ALCIDES LOREDO LOC: EN U#:[id number] AGE/SX: 81/M ROOM: RE06/23/[address]: Dr. Ez Stanley DO : 1940 BED: DIS: 06/23/2022 SPEC #: [id number] RECD: 06/23/22 18:04 STATUS: MAITE ANUPAM #: [id number] DEWEY: 06/23/22 12:[address]: Ez Stanley DEPT: SURGICAL PATHOLOGY RECD BY: Eileen Moreno ENTERED: 06/24/22 09:12 SP TYPE: COLON BX DEJAN DR: Dr. Randell Sparks MD Tissues: A - Ascending colon B - Cecum, NOS C - Transverse colon Procedures: Surgery Specimen Level IV HEADER OPERATION: Colonoscopy (MAC), polyp biopsy, biopsies PRE-OP DIAGNOSIS: Colon cancer, fecal incontinence, diarrhea TISSUE SUBMITTED: A ? Ascending colon polyp biopsy, B ? Cecal mass biopsy, C ? Transverse colon mass biopsy MICROSCOPIC DIAGNOSIS A. Ascending colon polyp, biopsy: Tubular adenoma. B. Cecal mass, biopsy: A fragment of blood clot. See comment. C. Transverse colon mass, biopsy: Fragments of tubulovillous adenoma. Negative for carcinoma. See comment. SJ:rg 06/25/2022 COMMENT B. Colonic tissue is not identified in the specimen. C. Correlation with clinical, endoscopic findings and appropriate follow up are necessary. MICROSCOPIC DESCRIPTION Slides are reviewed. GROSS DESCRIPTION A - Received in fixative is one container labeled with the patient's name and designated ascending colon polyp biopsy. The specimen consists of one irregular fragment of light elias soft tissue that measures 0.3 x 0.3 x 0.1 cm. The specimen is totally submitted in one cassette. B - Received in fixative is one container labeled with the patient's name and designated cecal mass biopsy. The specimen consists of a fragment of hemorrhagic tissue measuring 0.3 x 0.2 x 0.1 cm. The specimen is totally submitted in one cassette. C - Received in fixative is one container labeled with the patient's name and designated transverse colon mass biopsy. The specimen consists of multiple irregular fragments of light elias soft tissue that in aggregate measure 1.2 x 0.3 x 0.1 cm. The specimen is totally submitted in one cassette. / SCOOBY:shaina 06/24/2022 TC:1 CPT: 21797 x3
[2022-06-23 12:10] LABS: Bedside Glucose 147 mg/dL (74-106)
[2022-06-23 13:20] VITALS: BP 123/69; BP 137/80; PULSE 77; RESP 16; TEMP 36.6; O2SAT 92
[2022-06-23 13:25] VITALS: BP 123/69; BP 130/82; PULSE 81; RESP 16; O2SAT 92
[2022-06-23 13:30] VITALS: BP 123/69; BP 131/78; PULSE 81; RESP 16; O2SAT 92
[2022-06-23 13:35] VITALS: BP 117/79; BP 123/69; PULSE 83; RESP 16; TEMP 36.5; O2SAT 94
--- NOTE | 2022-06-23 13:36 | OP.COLON_ITS ---
Patient Name: Polo Guerrero Procedure Date: 06/23/2022 12:07 PM Date of : 1940 Age: 81 Procedure: Colonoscopy Indications: Screening for colorectal malignant neoplasm Providers: Ez Stanley DO Medicines: Monitored Anesthesia Care Patient Profile: This is an 81 year old male. Refer to note in patient chart for documentation of history and physical. Last Colonoscopy: none. The patient's first colonoscopy is today. Complications: No immediate complications. Procedure: Pre-Anesthesia Assessment: - Prior to the procedure, a History and Physical was performed, and patient medications and allergies were reviewed. The patient is competent. The risks and benefits of the procedure and the sedation options and risks were discussed with the patient. All questions were answered and informed consent was obtained. Patient identification and proposed procedure were verified by the physician in the pre-procedure area. Mental Status Examination: alert and oriented. Airway Examination: normal oropharyngeal airway and neck mobility. Respiratory Examination: clear to auscultation. CV Examination: normal. Prophylactic Antibiotics: The patient does not require prophylactic antibiotics. Prior Anticoagulants: The patient has taken no previous anticoagulant or antiplatelet agents. ASA Grade Assessment: II - A patient with mild systemic disease. After reviewing the risks and benefits, the patient was deemed in satisfactory condition to undergo the procedure. The anesthesia plan was to use moderate sedation / analgesia (conscious sedation). Immediately prior to administration of medications, the patient was re-assessed for adequacy to receive sedatives. The heart rate, respiratory rate, oxygen saturations, blood pressure, adequacy of pulmonary ventilation, and response to care were monitored throughout the procedure. The physical status of the patient was re-assessed after the procedure. After I obtained informed consent, the scope was passed under direct vision. Throughout the procedure, the patient's blood pressure, pulse, and oxygen saturations were monitored continuously. The Colonoscope was introduced through the anus and advanced to the cecum, identified by appendiceal orifice and ileocecal valve. The colonoscopy was performed without difficulty. The patient tolerated the procedure well. The quality of the bowel preparation was fair. Scope In: 12:26:01 PM Scope Withdrawal Time 0 hours 23 minutes 20 seconds Scope Out: 1:14:17 PM Total Procedure Duration Time 0 hours 48 minutes 16 seconds Findings: The perianal and digital rectal examinations were normal. A 19 mm polyp was found in the sigmoid colon. The polyp was sessile. A 9 mm polyp was found in the transverse colon ascending colon cecum. The polyp was sessile. A frond-like/villous, polypoid and submucosal partially obstructing large mass was found in the transverse colon. The mass was partially circumferential (involving two-thirds of the lumen circumference). The mass measured four cm in length. In addition, its diameter measured five mm. No bleeding was present. This was biopsied with a cold forceps for histology. Verification of patient identification for the specimen was done. Estimated blood loss was minimal. A frond-like/villous non-obstructing large mass was found in the ascending colon. The mass was non-circumferential. The mass measured three cm in length. In addition, its diameter measured five mm. No bleeding was present. This was biopsied with a cold forceps for histology. Verification of patient identification for the specimen was done. Estimated blood loss was minimal. An ulcerated partially obstructing large mass was found in the cecum. The mass was non-circumferential. Oozing was present. This was biopsied with a cold forceps for histology. Verification of patient identification for the specimen was done. Estimated blood loss was minimal. Impression: - Preparation of the colon was fair. - One 19 mm polyp in the sigmoid colon. - One 9 mm polyp in the transverse colon in the ascending colon in the cecum. - Malignant partially obstructing tumor in the transverse colon. Biopsied. - Likely malignant tumor in the ascending colon. Biopsied. - Malignant partially obstructing tumor in the cecum. Biopsied. Recommendation: - Discharge patient to home. - Resume previous diet. - Continue present medications. - Await pathology results. - Refer to a surgeon today. - Repeat colonoscopy is recommended because the bowel preparation was poor and for surveillance of multiple adenomas. The colonoscopy date will be determined after pathology results from today's exam become available for review. Procedure Code(s): --- Professional --- 02081, Colonoscopy, flexible; with biopsy, single or multiple CPT copyright 2017 [employer]. All rights reserved. The codes documented in this report are preliminary and upon lead installer review may be revised to meet current compliance requirements. Ez Stanley DO 06/23/2022 1:36:04 PM This report has been signed electronically. Number of Addenda: 1 Note Initiated On: 06/23/2022 12:07 PM Addendum Number: 1 Addendum Date: 09/02/2022 6:06:46 AM MAC was used as sedation for this procedure. Ez Stanley DO 09/02/2022 6:06:50 AM This report has been signed electronically.
--- NOTE | 2022-06-23 13:37 | OP.CCLET_ITS ---
09/02/2022 Randell Sparks MD [address] [id number] Re : Colonoscopy procedure for Polo Blanctal Dear Dr. Sparks This procedure was performed on Thursday, June 23, 2022. My impressions and recommendations are as follows: Impressions : - Preparation of the colon was fair. - One 19 mm polyp in the sigmoid colon. - One 9 mm polyp in the transverse colon in the ascending colon in the cecum. - Malignant partially obstructing tumor in the transverse colon. Biopsied. - Likely malignant tumor in the ascending colon. Biopsied. - Malignant partially obstructing tumor in the cecum. Biopsied. Recommendations : - Discharge patient to home. - Resume previous diet. - Continue present medications. - Await pathology results. - Refer to a surgeon today. - Repeat colonoscopy is recommended because the bowel preparation was poor and for surveillance of multiple adenomas. The colonoscopy date will be determined after pathology results from today's exam become available for review. My findings are described in the full procedure note, which is enclosed. If I can be of further assistance, please feel free to contact me at . Sincerely, Ez Stanley DO 06/23/2022 1:36:04 PM This report has been signed electronically.
[2022-06-23 13:48] VITALS: BP 123/69
== END 2022-06-23 14:56 | disposition home or self-care (01) ==
LOC: EN 10:53 → AC 10:53
PROVIDERS: PCP Family Medicine; Referring Provider Family Medicine; Visit Provider Internal Medicine Gastroenterology
PROC: 0DJD8ZZ Inspection of Lower Intestinal Tract, Via Natural or Artificial Opening Endoscopic (ICD-10-PCS; CPT 45378; principal; 2022-06-23 11:55)
DX: D12.2 Benign neoplasm of ascending colon (principal); G20 Parkinson's disease; F03.90 Unspecified dementia, unspecified severity, without behavioral disturbance, psychotic disturbance, mood disturbance, and anxiety; C18.9 Malignant neoplasm of colon, unspecified; I48.0 Paroxysmal atrial fibrillation; E11.9 Type 2 diabetes mellitus without complications; D12.3 Benign neoplasm of transverse colon; I10 Essential (primary) hypertension; Z86.73 Personal history of transient ischemic attack (TIA), and cerebral infarction without residual deficits; G47.33 Obstructive sleep apnea (adult) (pediatric); E78.5 Hyperlipidemia, unspecified; E03.9 Hypothyroidism, unspecified; Z87.19 Personal history of other diseases of the digestive system; K21.9 Gastro-esophageal reflux disease without esophagitis; Z90.49 Acquired absence of other specified parts of digestive tract; Z79.899 Other long term (current) drug therapy; K63.89 Other specified diseases of intestine; Z79.84 Long term (current) use of oral hypoglycemic drugs; K58.9 Irritable bowel syndrome, unspecified; M10.9 Gout, unspecified
CPT/HCPCS: 45380; 82962; 88305; J7120; J2405

== ENCOUNTER → 2022-07-06 | Outpatient (CLI) | payer MEDICARE, SELFPAY ==
--- NOTE | 2022-07-06 10:08 | RAD_ITS ---
STUDY: X-RAY CHEST REASON FOR EXAM: Male, 81 years old. Colon mass TECHNIQUE: PA and lateral views of the chest. COMPARISON: Comparison is made with prior study done 09/24/2017. FINDINGS: Hyperinflation Increased markings at the lung bases more prominent on the left side suggestive of a bibasilar scarring. There is no demonstrated pleural abnormality. Normal size heart. Normal mediastinum and mark. Normal visualized pulmonary arteries. There is atherosclerotic calcification of the aortic arch with tortuosity. There are diffuse degenerative changes of the visualized thoracic spine. There is degenerative osteoarthritis of the bilateral shoulders. Calcification of the splenic artery. RAD/Chest PA and Lateral IMPRESSION: Hyperinflation. Increased markings at the lung bases worse on the left side suggestive of scarring. Electronically Signed: Solomon Rowell MD at 11:03 EDT ,
[2022-07-06 10:22] LABS: Hematocrit 40.5 % (40-54); Hemoglobin 12.7 g/dL (13.0-16.5); Mean Corp Hgb Conc 31.4 g/dL (32-36); Mean Corpuscular Hgb 30.7 pg (27.0-32.0); Mean Corpuscular Volume 97.8 fL (80-94); Mean Platelet Vol. 9.7 fl (6.2-12.0); Platelet Count 183 K/mm3 (150-450); RBC Distribution Width CV 17.1 % (11.6-14.6); RBC Distribution Width SD 61.6 fl (35.1-43.9); Red Blood Count 4.14 M/mm3 (4.6-6.2); White Blood Count 7.2 K/mm3 (4.4-11.0)
[2022-07-06 10:55] LABS: ALB/GLOB Ratio 0.8 RATIO (0.9-2.4); AST(SGOT) 23 U/L (15-37); Alanine Aminotransfer ALT/SGPT 21 U/L (16-61); Albumin, Serum 3.3 g/dL (3.2-5.0); Alkaline Phosphatase 140 U/L (45-117); Anion Gap 5 (5-15); BUN 16 mg/dL (7-18); BUN/Creat Ratio 18.4 RATIO (10-20); Calcium,Total 9.1 mg/dL (8.5-10.1); Chloride 105 mmol/L (98-107); Creatinine, Serum 0.87 mg/dL (0.70-1.30); EST Glomerular Filtration Rate 89 mL/min (>60); Est Glom Filt Rate - Afr Amer 108 mL/min (>60); Globulin 4.1 g/dL (2.2-4.2); Glucose 158 mg/dL (74-106); Magnesium 1.9 mg/dL (1.6-2.6); Potassium 4.3 mmol/L (3.5-5.1); Protein, Total 7.4 g/dL (6.4-8.2); Sodium Level 138 mmol/L (136-145)
== END | disposition home or self-care (01) ==
PROVIDERS: PCP Family Medicine; Referring Provider Surgery; Visit Provider Surgery
DX: K63.89 Other specified diseases of intestine (principal); C18.9 Malignant neoplasm of colon, unspecified; E11.9 Type 2 diabetes mellitus without complications
CPT/HCPCS: 36415; 71046; 80053; 82378; 83036; 83735; 85027

== ENCOUNTER → 2022-07-14 | Outpatient (CLI) | payer MEDICARE, OTHER, SELFPAY ==
--- NOTE | 2022-07-14 13:10 | CDU_ITS ---
Reason For Study: CAROTID STENOSIS Rt. Velocities/BP Lt. Velocities/BP Prox CCA 93.4/21.6 cm/sec. Prox CCA 97.4/13.9 cm/sec. Mid CCA 88.2/21.6 cm/sec. Mid CCA 79.0/9.0 cm/sec. Dist CCA 102.5/26.9 cm/sec. Dist CCA 67.1/10.6 cm/sec. Prox ICA 193.8/53.3 cm/sec. Prox ECA 135.7/13.3 cm/sec. Mid ICA 182.9/55.5 cm/sec. Lt. Vert. 69.9/22.6 cm/sec. Dist ICA 167.5/42.4 cm/sec. Rt. ICA/CCA = 193.8/88.2=2.2. Prox ECA 145.5/18.2 cm/sec. Rt. Vert. 83.1/25.9 cm/sec. Right Extracranial There is intimal thickening but no significant atherosclerotic plaque noted in the right common carotid artery. There is heterogeneous, irregular atherosclerotic plaque noted in the right internal carotid artery. There is heterogeneous, irregular atherosclerotic plaque noted in the right external carotid artery. Antegrade flow is noted in the right vertebral artery. There is heterogeneous, irregular atherosclerotic plaque noted in the right bulb. Left Extracranial There is heterogeneous, irregular atherosclerotic plaque noted in the left common carotid artery. The left internal carotid artery is occluded. There is heterogeneous, smooth atherosclerotic plaque noted in the left external carotid artery. Antegrade flow is noted in the left vertebral artery. There is heterogeneous, irregular atherosclerotic plaque noted in the left bulb. Procedure Carotid Duplex [id number]. The exam was diagnostic. The study was technically difficult. Due to deep respirations and arrhythmia. Exam performed in department. VL/Carotid Duplex Ultrasound Interpretation Summary Irregular calcific plaque with shadowing at the proximal right internal carotid artery with 50 to 69% stenosis. Less than 50% stenosis right external carotid artery Occluded left internal carotid artery. Less than 50% stenosis left external carotid artery Patent antegrade vertebral arteries bilaterally No hemodynamically significant change bilaterally from the previous examination of March 27, 2019 Ordering Physician: Josh Ruiz Referring Physician: Randell Sparks Performed By: Jocelyne Car, VERONICA, RVT
== END | disposition home or self-care (01) ==
LOC: CVS 13:09
PROVIDERS: PCP Family Medicine; Referring Provider Surgery; Visit Provider Surgery
DX: Z86.73 Personal history of transient ischemic attack (TIA), and cerebral infarction without residual deficits (principal)
CPT/HCPCS: 93880

== ENCOUNTER → 2022-07-14 | Outpatient (CLI) | payer MEDICARE, OTHER, SELFPAY ==
--- NOTE | 2022-07-14 12:22 | EKG12_ITS ---
Test Reason : PREOP Blood Pressure : / mmHG Vent. Rate : 096 BPM Atrial Rate : 153 BPM P-R Int : 000 ms QRS Dur : 096 ms QT Int : 356 ms P-R-T Axes : 000 -16 059 degrees QTc Int : 449 ms Atrial fibrillation with PVC's Low voltage QRS Abnormal ECG Reconfirmed by SHARON JUÁREZ, HANDY ([id number]), brands editor JAIRON JARAMILLO ([id number]) on 07/17/2022 1:40:05 PM Referred By: Josh Ruiz Confirmed By:HANDY HERRERA MD
--- NOTE | 2022-07-14 14:41 | CASEMGMT ---
ABI CHURCH Assessment: TC to pt for initial transition planning/care coordination assessment. Pt sig other completed assessment over the phone with pt permission. ABI CHURCH introduced self and role at [facility], pt voices understanding and consents to assessment.Care providers, pharmacy, and demographics verified/updated. Admitting Dx: lap hand assist open extended r marly colectomy PCP:Clare Specialists:Friend, GI; Sara OR; EFREM Potts; sherice Fonseca; Lyly, pulsushila Preferred Pharmacy: [facility] Insurance: [facility], [facility] Prescription Benefit: yes LW/HPOA: Pt has DPOA on file at [facility]. Tiesha Meadows is his DPOA. LNOK: Tiesha Meadows, sig other Living Arrangements: Pt lives with sig other in a single story apt with no steps to enter. Sig other states that pt needs assistance with putting on his compression stockings but otherwise is I in ADL's. Transportation: Pt does not drive, sig other transports pt to medical appts. DME/HHC/SNF: Pt has a BGM as well as insulin with sufficient supplies for both. Pt has 3 walkers, raised toilet seat as well as bipap. Pt has had [facility] in the past and been to [facility]. Pt sig other states that pt would like to return home after hospital stay. She states she will see how pt does and then see as he has previously had a stroke and is 6 ft 5in and 280#. She states she cannot take care of him if he needs great assistance at home. CM to follow. Advised pt/sig other to ask CM if any further question/concerns/needs arise when hospitalized, voices understanding. Pt Goal: Home Plan: TBD
== END | disposition home or self-care (01) ==
LOC: PAT 08-10 09:49
PROVIDERS: PCP Family Medicine Geriatric Medicine; Referring Provider Surgery; Visit Provider Surgery
DX: Z01.818 Encounter for other preprocedural examination (principal)
CPT/HCPCS: 93005

== ENCOUNTER 2022-07-21 11:44 | Inpatient (IN) | payer MEDICARE, OTHER, SELFPAY ==
--- NOTE | 2022-07-20 18:00 | SUR.PREOP ---
talked with dr pham's office earlier today about plan for patient after colonoscopy tomorow and if pt is to stay overnight for surgery on wednesday. trupti ALFARO said that yes, pt is supposed to stay overnight wednesday night for surgery on wednesday this info given to surgery sectretary and pt is supposed to stay wednesday night
[2022-07-21] VITALS (10 sets, daily range): BP systolic 105–144; BP diastolic 40–87; PULSE 75–87; RESP 16–94; TEMP 36.4–37.1; O2SAT 94–97; BMI 33.5
--- NOTE | 2022-07-21 | COLBX_PTH ---
PATIENT: ALCIDES LOREDO LOC: MS3 U#:[id number] AGE/SX: 81/M ROOM: OK317 RE07/23/[address]: Dr. Josh Ruiz MD : 1940 BED: 1 DIS: 07/24/2022 SPEC #: [id number] RECD: 07/21/22 12:37 STATUS: MAITE BO #: [id number] DEWEY: 07/21/22 00:[address]: Josh Ruiz DEPT: SURGICAL PATHOLOGY RECD BY: Jin Beth ENTERED: 07/22/22 11:36 SP TYPE: COLON BX OTHR DR: Dr. Randell Sparks MD Tissues: A - Descending colon B - Sigmoid colon biopsy Procedures: Surgery Specimen Level IV HEADER OPERATION: Colonoscopy (MAC) with biopsy and tattoo PRE-OP DIAGNOSIS: Cecal mass TISSUE SUBMITTED: A ? Descending colon polyp, B ? Distal sigmoid colon polyp MICROSCOPIC DIAGNOSIS A. Descending colon polyp, biopsy: Consistent with fragments of serrated adenoma. B. Distal sigmoid colon polyp, biopsy: Tubulovillous adenoma. AM:shaina 07/23/2022 MICROSCOPIC DESCRIPTION Slides are reviewed. GROSS DESCRIPTION A - Received in fixative is one container labeled with the patient's name and designated descending colon polyp. The specimen consists of multiple irregular fragments of light elias soft tissue that in aggregate measure 1.5 x 0.5 x 0.1 cm. The specimen is totally submitted in one cassette. B - Received in fixative is one container labeled with the patient's name and designated sigmoid colon polyp. The specimen consists of one irregular fragment of light elias soft tissue that measures 1.2 x 0.7 x 0.4 cm. The specimen is bisected and totally submitted in one cassette. / AM:shaina 07/22/2022 TC:5 CPT: 22058 x2
--- NOTE | 2022-07-21 09:10 | PCM.HP.BLA ---
History and Physical Date of Admission: 07/21/22 Visit Reasons:?2 COLON LESIONS Chief Complaint: discuss colon mass/ surgery Account Development Executive Required: No Is patient in pain?: No Allergies niacin Allergy (Intermediate, Verified 07/06/22 12:25) rashadhesive Adverse Reaction (Verified 07/06/22 12:25) Other: takes skin off, inflamed Medications Multivitamin 1 tab PO DAILY VITAMIN 05/10/15 [History Confirmed 07/06/22] allopurinol 100 mg tablet 100 mg PO DAILYCM gout 05/10/15 [History Confirmed 07/06/22] docusate sodium 100 mg capsule 100 mg PO BID constipation 05/10/15 [History Confirmed 07/06/22] finasteride 5 mg tablet 5 mg PO DAILY prostate 05/10/15 [History Confirmed 07/06/22] tamsulosin 0.4 mg capsule 0.4 mg PO DAILY prostate 05/10/15 [History Confirmed 07/06/22] trazodone 100 mg tablet 100 mg PO QHS sleep/mental health 05/10/15 [History Confirmed 07/06/22] trospium 20 mg tablet 20 mg PO QHS bladder 05/10/15 [History Confirmed 07/06/22] glipizide 5 mg tablet 5 mg PO BIDAC diabetes 08/30/15 [History Confirmed 07/06/22] cyanocobalamin (vitamin B-12) 500 mcg tablet 1,000 mcg PO DAILY@0800 supplement 09/24/17 [History Confirmed 07/06/22] ipratropium bromide 42 mcg (0.06 %) nasal spray 2 spray NS TID breathing 09/24/17 [History Confirmed 07/06/22] levothyroxine 150 mcg tablet 150 mcg PO .COMPLEX thyroid 03/06/19 [History Confirmed 07/06/22] loratadine 10 mg tablet 10 mg PO BID allergies 03/06/19 [History Confirmed 07/06/22] quinapril 10 mg tablet 20 mg PO BID 03/07/19 [History Confirmed 07/06/22] doxycycline hyclate 20 mg tablet 20 mg PO BID ocular rosaca 07/18/19 [History Confirmed 07/06/22] Lantus SoloStar Pen 30 units subcut QHS diabetes 11/30/19 [History Confirmed 07/06/22] magnesium oxide 400 mg (241.3 mg magnesium) tablet 400 mg PO BID 11/30/19 [History Confirmed 07/06/22] pioglitazone 45 mg tablet (Actos) 45 mg PO DAILY #30 tabs 04/16/22 [Rx Confirmed 07/06/22] apixaban 2.5 mg tablet (Eliquis) 2.5 mg PO BID 06/19/22 [History Confirmed 07/06/22] atorvastatin 20 mg tablet 20 mg PO QHS 06/19/22 [History Confirmed 07/06/22] cholecalciferol (vitamin D3) 125 mcg (5,000 unit) tablet (Vitamin D3) 50,000 unit PO QMONTH 06/19/22 [History Confirmed 07/06/22] donepezil 5 mg tablet (Aricept) 5 mg PO DAILY 06/19/22 [History Confirmed 07/06/22] ferrous sulfate 325 mg (65 mg iron) tablet 325 mg PO BID 06/19/22 [History Confirmed 07/06/22] melatonin 10 mg tablet 10 mg PO QHS 06/19/22 [History Confirmed 07/06/22] methylcellulose (laxative) 500 mg tablet (Citrucel) 500 mg PO BID 06/19/22 [History Confirmed 07/06/22] metoclopramide HCl 5 mg tablet 5 mg PO QHS 06/19/22 [History Confirmed 07/06/22] pantoprazole 40 mg tablet,delayed release 40 mg PO DAILY 06/19/22 [History Confirmed 07/06/22] propranolol 20 mg tablet 20 mg PO DAILY 06/19/22 [History Confirmed 07/06/22] psyllium husk 0.4 gram capsule (Metamucil) 0.4 g PO BID 06/19/22 [History Confirmed 07/06/22] ropinirole 0.5 mg tablet 0.5 mg PO TID parkinsons 06/19/22 [History Confirmed 07/06/22] sucralfate 1 gram tablet (Carafate) 1 g PO BID esophageal ulcers 06/19/22 [History Confirmed 07/06/22] PFSH Medical History?(Updated 07/06/22 @ 13:[address] Josh Ruiz MD) Asthma BiPAP (biphasic positive airway pressure) dependence Cardiology follow-up encounter Carotid artery disease Diabetes mellitus type 2 with neurological manifestations Diabetes mellitus, type II Difficulty swallowing DM (diabetes mellitus), type 2 with peripheral vascular complications Essential hypertension Gastric reflux Hepatitis History of atrial fibrillation History of CVA (cerebrovascular accident) (2007) History of echocardiogram History of GI bleed History of pericarditis (08/2017) History of stress test Hyperlipidemia Hypothyroidism Non-smoker Obstructive sleep apnea Ocular rosacea Parkinson's disease Paroxysmal atrial fibrillation Peripheral vascular disease due to secondary diabetes Prostate disease Restless legs Short-term memory loss Stroke/cerebrovascular accident Urinary incontinence Venous (peripheral) insufficiency Walker as ambulation aid Wears glasses Wears hearing aid Surgical History?(Updated 07/06/22 @ 13:[address] Josh Ruiz MD) H/O basal cell carcinoma excision History of appendectomy History of cataract extraction History of colonoscopy (~05/2022) Status post surgical removal of malignant neoplasm of skin Family History? Father CAD (coronary artery disease) HypertensionMother Hypertension Social History? Smoking Status:? Never smoker alcohol intake:? never substance use type:? does not use seatbelt use:? always do you feel safe at home:? Yes HPI HPI HPI: ALCIDES LOREDO, is a 81 M who presents to the office today for surgical consultation regarding colonic malignancy.? The patient is referred by Dr. Ez Stanley and a written copy my surgical consult recommendations will return to him.? Primary care is Dr. Randell Sparks.? The patient also receives [facility] care from [facility].? He was first seen by Dr. Ez Stanley on January 08, 2022 for evaluation of urgent diarrhea and anemia requiring oral iron therapy.? The patient refused a colonoscopy.? A CT scan was performed on January 26, 2022 suggesting colon cancer in the cecum and ascending colon.? In addition liver steatosis and multiple gallstones was identified.? The mass in the cecum measured 4.8 cm x 4.2 x 5.2 cm.? There is borderline retroperitoneal adenopathy noted.? At that time his stool was Hemoccult positive and his hemoglobin was 12.6 with a hematocrit of 38.? The patient's diarrhea had been improved by utilization of metformin and Actos.? The patient had a capsule endoscopy done May 07, 2022.? Multiple nonbleeding AVMs were seen throughout the small bowel.? Poor visualization of the large bowel despite a colonoscopy.? But suspected tumor seen with active bleeding.? Colonoscopy was again recommended but the patient declined.? There is evidence however that that Ez Friend was able to complete a colonoscopy on June 23, 2022.? This showed a 19 mm polyp in the sigmoid that was sessile.? A 9 mm polyp in the transverse colon.? A frond-like villous polypoid submucosal partially obstructing large mass found in the transverse colon.? A frond-like villous nonobstructing large mass found in the ascending colon.? An ulcerated partially obstructing large mass found in the cecum.? Pathology suggested cecal mass had blood clot.? Transverse colon mass was a tubulovillous adenoma.? The ascending colon polyp was a tubular adenoma.? The patient's bowel prep was noted to be fair to poor. Pertinent laboratory of April 08, 2022 showed a glucose at that time of 146 with a BUN of 18 and creatinine 0.92 Additional records suggest March 27, 2019 carotid duplex exam obtained by Dr. Tamir Lopez demonstrated 50 to 69% stenosis of the right internal carotid artery with an occluded left internal carotid artery.? He has a history of remote CVA in 2007.? Paroxysmal atrial fibrillation.? In addition type 2 diabetes mellitus and obstructive sleep apnea.? He has bladder outlet obstruction.? Among his other medications he is on apixaban 2.5 mg twice daily. The patient states that he initially declined colonoscopy per Dr. Hui Friend because he has been very anxious entire life as his father at age 51 after dental surgery which then stimulated a myocardial infarction. The patient receives some of his primary care health through Dr. Randell Sparks and [place] through the [facility]. Patient himself denies myocardial infarction.? He did have a CVA approximately 2004.? He is diabetic but he does state that he does check his blood sugar daily at home. His greatest weight was over 300 pounds.? His current weight is 285 pounds.? He is not very mobile.? He presents with a walker device.? 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 Because of leg swelling he wears bilateral lower extremity support hose provided to him by the [facility].? The patient does not get much physical activity. He denies chest pain.? He denies shortness of breath.? He states at a youngster he had some asthma but nothing significant.? He does not climb a flight of stairs.? He does wear CPAP at night but does not require supplemental oxygen.? He states that he was a minimal cigarette smoker in the past.? He was not aware of bibasilar pulmonary scarring on his chest x-ray at least based upon symptoms. He denies any focal neurologic changes currently ROS General General: Yes colon cancer; No weight change, appetite, fatigue, breast cancer or weakness HEENT HEENT: Yes difficulty swallowing; No eye injury, eye surgery, swollen glands or hoarseness Endo Endocrine: Yes diabetes mellitus; No thyroid disease, thyroid cancer, Hair loss, heat intolerance or cold intolerance Musc Musculoskeletal: Yes arthritis and gout; No back problems, rheumatoid arthritis or joint pain Cardio Cardiovascular: Yes atrial fibrillation and high blood pressure; No murmur, pacemaker, heart disease, heart attack, heart stent, palpitations, shortness of breat with exertion or chest pain Psych Psychiatric: No depression, anxiety or hearing voices Resp Respiratory: Yes shortness of breath, Yes sleep apnea, Yes cough, Yes COPD, Yes asthma, Yes emphysema and No wheezing Gastro Gastrointestinal: No abdominal pain, No nausea or vomiting, Yes diarrhea, Yes constipation, Yes blood in stool, Yes acid reflux, No hemorrhoids, No ulcers, No gallbladder problem and No black,tarry stools Luis Hematologic: Yes blood thinners, No blood disorders, Yes bleeding and Yes anemia Neuro Neurologic: No weakness Exam Const General: cooperative, comfortable and no acute distress Nutritional Appearance: obese Orientation: alert, awake and oriented x3 HENMT Head: normal to inspection Eyes General: appearance normal, both eyes and all related structures Neck Neck: normal visual inspection Carotids: normal carotid upstroke Chest Other: Scoliosis, clear breath sounds, Resp Effort & Inspection: normal respiratory effort Auscultation: clear to auscultation bilaterally Cardio Rate: regular rate Rhythm: regular rhythm GI Auscultation: normal bowel sounds Other: Well-healed right periumbilical vertical pararectus incision Musc Cervical Spine: normal cervical lordosis Skin Other: Bilateral extremity support hose on that her zippered Neuro General: patient alert and patient awake Extrem Other: un steady wide-based gait with significant effort to come to a full standing position secondary to knee and hip joint instability Psych Appearance: grossly normal Assessment and Plan Assessment and Plan (1) Colonic mass: ?Status:?Acute (2) Diarrhea: ?Status:?Acute (3) Colon cancer: ?Status:?Acute (4) Diabetes mellitus, type II: ?Status:?Chronic (5) Carotid artery disease: ?Status:?Chronic ?Comment: per carotid U/S 02/06/2013 done @ [facility] (6) Paroxysmal atrial fibrillation: ?Status:?Chronic (7) History of CVA (cerebrovascular accident): ?Status:?Chronic ?Comment: Left hemispheric/left carotid occlusion (8) Obstructive sleep apnea: ?Status:?Chronic ?Comment: Uses CPAP (9) Venous (peripheral) insufficiency: ?Status:?Chronic ? ? ? Orders: Orders Comprehensive Metabolic Profil Today K63.89 - Other specified diseases of intestine ? Magnesium Today K63.89 - Other specified diseases of intestine ? CBC-Complete Blood Cnt No Diff Today K63.89 - Other specified diseases of intestine ? Chest PA and Lateral Today K63.89 - Other specified diseases of intestine ? Carcinoembryonic Antigen Today C18.9 - Malignant neoplasm of colon, unspecified, K63.89 - Other specified diseases of intestine ? Carotid Duplex Ultrasound Today I77.9 - Disorder of arteries and arterioles, unspecified, Z86.73 - Personal history of transient ischemic attack (TIA), and cerebral infarction without residual deficits ? Hemoglobin A1c Today E11.9 - Type 2 diabetes mellitus without complications ? Medications: Discontinued peg 3350-electrolytes 236-22.74-6.74 -5.86 gram (Golytely) ?? until fecal effluent is clear ?? Discontinued Reason:? Order Completed 240 mL? PO Q10M 4,000 mL 0RF ? ? peg 3350-electrolytes 236-22.74-6.74 -5.86 gram (Golytely) ?? until fecal effluent is clear ?? Discontinued Reason:? Order Completed 240 mL? PO Q10M 4,000 mL 0RF ? ? Plan 81-year-old gentleman with a very complicated presentation.? He would appear to have a cecal malignancy with blood loss anemia.? Additional mass of the ascending colon and transverse colon.? Bowel prep was fair to poor.? Biopsies do not confirm malignancy however CT imaging suggests.? The patient has been hesitant to pursue colonoscopy based upon his father's demise after medical treatment. Patient states that Dr. Randell Sparks provides much of his care although he does get some support through the [facility].? He is accompanied by long-term live-in significant other.? She also participated in assisting with care and treatment options. He has occlusion of his left carotid and needs updating of his carotid duplex.? He is anticoagulated because of his atrial fibrillation will need to have this held prior to his colonoscopy and surgery. I made him aware that his chest x-ray was abnormal he will continue to use his CPAP machine and continue to stress activity and maximize his pulmonary condition. He has prostate disorder with outlet obstruction and incontinence.? He will need to be managed perioperatively with a Benoit catheter. His Parkinson's disease is not yet to the point of critical nature.? The patient does have a wide-based somewhat unsteady gait and does rely upon a walker.? He is quite tall and large at 6 foot 5 inch and 285 pounds. We do not yet know the location of his transverse colon lesion.? I am recommending a repeat colonoscopy for cecal biopsy and tattooing of the transverse colon lesion.? Because of his age and medical complexity we will then plan to proceed the following day with hopeful a laparoscopic possible hand-assisted possible open extended right colectomy.? I anticipate also a laparoscopic cholecystectomy because of his abnormal gallbladder on CT imaging.? I anticipate an enhanced recovery program and bilateral transversus abdominis plane block.? Patient is aware that conversion to hand-assisted or open might be required.? He is aware of the potential need for diverting ileostomy or colostomy.? He is aware of the potential that there is already metastatic disease. He has venous insufficiency and we will need to mobilize him as soon as possible postoperatively.? We will need to involve physical therapy.? In addition I will need to utilize the hospitalist service to assist with his multiple medical management including his atrial fibrillation and diabetes and history of stroke. He has had an opportunity to ask any questions answered.? We will schedule procedure at his discretion. Copy: [facility] and Dr. Randell Sparks and Dr. Hui Friend Josh Ruiz M.D., F.A.C.S. I have re-examined the patient. There are no clinical changes since date of exam. Josh Ruiz M.D., F.A.C.S.
[2022-07-21] MEDS: Lactated Ringers 1,000 ML 15 ML IV (09:25)
[2022-07-21 10:31] LABS: Bedside Glucose 124 mg/dL (74-106)
--- NOTE | 2022-07-21 11:36 | OP.CCLET_ITS ---
07/21/2022 Randell Sparks MD [address] [id number] Re : Colonoscopy procedure for Polo Blanctal Dear Dr. Sparks This procedure was performed on Thursday, July 21, 2022. My impressions and recommendations are as follows: Impressions : - Non-thrombosed external hemorrhoids, non-thrombosed internal hemorrhoids, internal hemorrhoids that prolapse with straining, but spontaneously regress to the resting position (Grade II) and enlarged prostate found on digital rectal exam. - Tumor in the cecum. - Tumor in the ascending colon. - Tumor in the proximal transverse colon. Tattooed. - One 7 mm polyp in the mid descending colon, removed with a hot snare. Resected and retrieved. - One 15 mm polyp in the distal sigmoid colon, removed with a hot snare. Resected and retrieved. Clips were placed. Recommendations : - Repeat colonoscopy in 1 year for surveillance Plan for right colectomy tomorrow. - Continue present medications. My findings are described in the full procedure note, which is enclosed. If I can be of further assistance, please feel free to contact me at Doctor phone number(s): Work: . Sincerely, Josh Ruiz MD 07/21/2022 11:36:15 AM This report has been signed electronically.
--- NOTE | 2022-07-21 11:36 | OP.COLON_ITS ---
Patient Name: Polo Guerrero Procedure Date: 07/21/2022 10:52 AM Date of : 1940 Age: 81 Procedure: Colonoscopy Indications: Therapeutic procedure Providers: Josh Riuz MD Referring MD: Josh Ruiz MD Medicines: See the Anesthesia note for documentation of the administered medications Patient Profile: Last Colonoscopy: within the past month. Complications: No immediate complications. Procedure: Pre-Anesthesia Assessment: - Prior to the procedure, a History and Physical was performed, and patient medications and allergies were reviewed. The patient's tolerance of previous anesthesia was also reviewed. The risks and benefits of the procedure and the sedation options and risks were discussed with the patient. All questions were answered, and informed consent was obtained. Prior Anticoagulants: The patient has taken no previous anticoagulant or antiplatelet agents. ASA Grade Assessment: III - A patient with severe systemic disease. After reviewing the risks and benefits, the patient was deemed in satisfactory condition to undergo the procedure. After I obtained informed consent, the scope was passed under direct vision. Throughout the procedure, the patient's blood pressure, pulse, and oxygen saturations were monitored continuously. The adult colonoscope was introduced through the anus and advanced to the cecum, identified by appendiceal orifice and ileocecal valve. The colonoscopy was performed without difficulty. The patient tolerated the procedure well. The quality of the bowel preparation was good. Scope In: 11:00:03 AM Scope Out: 11:26:44 AM Total Procedure Duration Time 0 hours 26 minutes 41 seconds Findings: The digital rectal exam findings include non-thrombosed external hemorrhoids, non-thrombosed internal hemorrhoids, internal hemorrhoids that prolapse with straining, but spontaneously regress to the resting position (Grade II) and enlarged prostate. A frond-like/villous non-obstructing large mass was found in the cecum. The mass was non-circumferential. A fungating mass was found in the ascending colon. No bleeding was present. A frond-like/villous non-obstructing large mass was found in the proximal transverse colon. The mass was non-circumferential. No bleeding was present. Area was tattooed with an injection of 4 mL of Ayah ink. A 7 mm polyp was found in the mid descending colon. The polyp was sessile. The polyp was removed with a hot snare. Resection and retrieval were complete. A 15 mm polyp was found in the distal sigmoid colon. The polyp was sessile. The polyp was removed with a hot snare. Resection and retrieval were complete. To prevent bleeding post-intervention, two hemostatic clips were successfully placed. There was no bleeding at the end of the procedure. Impression: - Non-thrombosed external hemorrhoids, non-thrombosed internal hemorrhoids, internal hemorrhoids that prolapse with straining, but spontaneously regress to the resting position (Grade II) and enlarged prostate found on digital rectal exam. - Tumor in the cecum. - Tumor in the ascending colon. - Tumor in the proximal transverse colon. Tattooed. - One 7 mm polyp in the mid descending colon, removed with a hot snare. Resected and retrieved. - One 15 mm polyp in the distal sigmoid colon, removed with a hot snare. Resected and retrieved. Clips were placed. Recommendation: - Repeat colonoscopy in 1 year for surveillance Plan for right colectomy tomorrow. - Continue present medications. Procedure Code(s): --- Professional --- 85197, Colonoscopy, flexible; with removal of tumor(s), polyp(s), or other lesion(s) by snare technique 96351, Colonoscopy, flexible; with directed submucosal injection(s), any substance Diagnosis Code(s): --- Professional --- D49.0, Neoplasm of unspecified behavior of digestive system D12.4, Benign neoplasm of descending colon D12.5, Benign neoplasm of sigmoid colon K64.1, Second degree hemorrhoids K64.4, Residual hemorrhoidal skin tags N40.0, Benign prostatic hyperplasia without lower urinary tract symptoms CPT copyright 2017 [employer]. All rights reserved. The codes documented in this report are preliminary and upon pencil maker review may be revised to meet current compliance requirements. Josh Ruiz MD 07/21/2022 11:36:15 AM This report has been signed electronically. Number of Addenda: 0 Note Initiated On: 07/21/2022 10:52 AM
[2022-07-21] MEDS: Lactated Ringers 1,000 ML 40 ML IV (12:35)
[2022-07-21] MEDS: metroNIDAZOLE 500 MG Tablet 1000 MG PO ×3 (12:57→22:07)
--- NOTE | 2022-07-21 15:33 | CHAPLAIN ---
Type of Pastoral Visit _x__ Initial Visit ___ Follow-up Visit ___ On-call Visit ___ General Patient Visit ___ Spiritual Assessment ___ Family Conference ___ Bereavement ___ Rapid Response ___ Code Blue ___ Other (describe below) Pastoral Care Referral From _x__ Patient ___ Family ___ Nurse ___ Physician ___ Computer Installation Engineer ___ Semiconductor Assembler ___ Other (describe below) Sacrament/Intervention _x__ Active listening ___ Anointing ___ Roman Catholic ___ Bereavement ___ Communion ___ Noreen exploration ___ _x__ Life review _x__ Prayer ___ Reconciliation ___ Sacrament of Sick _x__ Supportive presence ___ Wedding ___ Other (describe below) Pastoral Comments offer of support to patient and his significant other; pt will have surgery tomorrow and that could be good or bad depending... according to the patient; discussion about his feelings and perspective on situation; pt admits to some anxiety and says that I have not been in hospital since I was [age] years old; pt says that his family is all scattered out of state but [facility] is the one with him now; ptis member of local taoism and would like prayer spoken for him
[2022-07-21] MEDS: Polyethylene Glycol 3350 BOWEL PREP PO (15:52)
[2022-07-21 21:45] LABS: Bedside Glucose 259 mg/dL (74-106)
[2022-07-22] VITALS (16 sets, daily range): BP systolic 107–144; BP diastolic 67–93; PULSE 83–103; RESP 15–18; TEMP 36.2–36.6; O2SAT 94–100; BMI 33.5
--- NOTE | 2022-07-22 | IMM_PTH ---
PATIENT: ALCIDES LOREDO LOC: MS3 U#:[id number] AGE/SX: 81/M ROOM: PA317 RE07/23/[address]: Dr. Josh Ruiz MD : 1940 BED: 1 DIS: 07/24/2022 SPEC #: [id number] RECD: 07/27/22 13:44 STATUS: SOUT REQ #: [id number] DEWEY: 07/22/22 00:[address]: Josh Ruiz DEPT: IMMUNOHISTOCHEMISTRY RECD BY: Reshma Meadows ENTERED: 07/27/22 13:46 SP TYPE: IMMUNO OTHR DR: MD Dr. Dinorah Thompson MD Dr. Mary Catherine Sementi, MD Brent Chavez Dr., MD Dr. Eric Jopperi, DO MD Dr. Dion King MD Dr. James Mooney, MD Dr. Jonathan Vogt, DO Dr. Dannielle Sigala, DO Dr. Jh Schulte, DO MD Dr. Shaq Jaimes MD Dr. Prakash Chand, MD Dr. Paul Nielsen, MD Dr. Paige Pierce, MD Dr. Ryan Burkholder, MD Danielle Knoble, HEAD OF HISTORY-C Ashley May, HEAD OF HISTORY-C Tissues: C - Right colon Procedures: MSH2 (add) MLH-1 (add) MSH6 (add) Anti-PMS2 (add) DURBIN-2 (add) KI-67 (add) P53 (add) HER-2-GILMAR (initial) PHYSICIAN [facility] INSTIT[facility] [address] [address] SPECIMEN INFORMATION: Tissue Source: C - Right colon, extended right hemicolectomy Clinical Info: Colonic mass, colon cancer, abnormal gallbladder on CT Specimen Number: [id number] CPT code: 99400, 99353 x7 METHODOLOGY: Deparaffinized sections of prefer/formalin-fixed tissue or PAP/DQ stained slides are incubated with monoclonal/polyclonal antibodies/oligonucleotide probes. Localization is made via biotin free immunoperoxidase method. Appropriate controls are performed and reacted as expected. Results on target cell population are indicated in the following table: RESULTS: ANTIBODY / CLONE RESULT Her-2neu (CB11) negative (0) DURBIN-2 (SP21) positive MLH-1 (M1) negative MSH2 (25D12) positive MSH6 (44) positive PMS2 (SVX4894) positive Ki-67 (30-9) positive, high P53 (DO-7) negative These tests were developed and their performance characteristics determined by [facility]. They may not have been cleared or approved by the U.S. Food and Drug Administration. The FDA has determined that such clearance or approval is not necessary. The above immunohistochemical/dualISH markers are ordered and reviewed by the Pathologist. INTERPRETATION: C. Right colon, extended right hemicolectomy: Invasive adenocarcinoma. Result of Microsatellite Instability Study: Positive (loss of mismatch protein; microsatellite instability detected). Complete loss of MLH1. SJ:shaina 07/28/2022
--- NOTE | 2022-07-22 | COL._PTH ---
PATIENT: ALCIDES LOREDO LOC: MS3 U#:[id number] AGE/SX: 81/M ROOM: OK317 RE07/23/[address]: Dr. Josh Ruiz MD : 1940 BED: 1 DIS: 07/24/2022 SPEC #: [id number] RECD: 07/22/22 10:51 STATUS: MAITE BO #: [id number] DEWEY: 07/22/22 00:[address]: Josh Ruiz DEPT: SURGICAL PATHOLOGY RECD BY: Jin Beth ENTERED: 07/22/22 11:51 SP TYPE: COLON OTHR DR: Dr. Randell Sparks MD Tissues: A - Gallbladder, NOS B - Liver, NOS C - Colon, NOS Procedures: PAS with Diastase (control) Trichrome (control) Special Stain Group II PAS Stain (control) Surgery Specimen Level III Surgery Specimen Level V Surgery Specimen Level Retic (control) Iron Stain (control) HEADER OPERATION: ERAS, laparoscopic, open extended right colectomy PRE-OP DIAGNOSIS: Colonic mass, colon cancer, abnormal gallbladder on CT TISSUE SUBMITTED: A ? Gallbladder, B ? Liver biopsy, C ? Extended right colon MICROSCOPIC DIAGNOSIS A. Gallbladder, cholecystectomy: Chronic cholecystitis and cholelithiasis. B. Liver, biopsy: Consistent with cirrhosis. Negative for metastatic carcinoma. See microscopic description. C. Right colon, extended right hemicolectomy: Cecum - Moderate to poorly differentiated carcinoma with mucinous differentiation Ascending colon - Well differentiated adenocarcinoma arising in the background of tubulovillous adenoma, Transverse colon - Tubulovillous adenoma. See cancer summary in the comment section. SJ:shaina 07/27/2022 COMMENT C. COLON CANCER SUMMARY Procedure: Extended right hemicolectomy Tumor site: Cecum and ascending colon Tumor size: Cecum ? 7 x 5.5 x 1.8 cm Ascending colon ? 3.5 x 1 x 1 cm Histologic type: Cecum ? adenocarcinoma with mucinous differentiation (mucinous differentiation is noted in ~50% of the tumor) Ascending colon ? adenocarcinoma Histologic grade: Cecum ? grade 2-3, moderately to poorly differentiated Ascending colon tumor ? well differentiated Tumor extension: Cecal mass - tumor invades through the muscularis propria into pericolonic adipose tissue. Ascending colon mass - tumor invades into the submucosa. Margins: All margins are uninvolved by invasive carcinoma, high grade dysplasia, intramucosal carcinoma and adenoma. - The cecal mass is 10.9 cm away from the closest proximal resection margin. - Ascending colon mass also is 14.5 cm from the closest proximal margin. Treatment effect: No known presurgical therapy. Lymphvascular invasion: Not identified Perineural invasion: Not identified Type of polyp in which invasive carcinoma arose: Ascending colon tumor arising in the background of tubulovillous adenoma. Tumor deposits: None identified Regional lymph nodes: Number of lymph nodes examined: 22 Number of lymph nodes involved: 0 Ancillary studies: See microsatellite instability study by IHC ([id number]) for complete details. Positive (loss of mismatch protein; microsatellite instability detected). Complete loss of MLH1 Additional pathologic findings: Tubulovillous adenoma transverse colon (4.6 cm from distal resection margin). PATHOLOGIC STAGE: pT3(m) pN0 pMx The above summary is in compliance with [employer] [place] [employer] (CAP) Cancer Protocols Checklist and [place] [employer] Joint Committee on Cancer (AJCC), Staging Manual, 8th Ed. Please make reference to previous specimen ([id number]) ascending colon polyp, biopsy with diagnosis of tubular adenoma, cecal mass, biopsy with diagnosis of a fragment of blood clot and transverse colon mass, biopsy with diagnosis of fragments of tubulovillous adenoma. Case has been reviewed in consultation with Dr. Solis who concurs with the above diagnosis. IDC:AM MICROSCOPIC DESCRIPTION Slides are reviewed. The specimen shows liver parenchymal tissue with replacement of normal lobular architecture into multiple nodules divided by fibrous septae. Hepatocytes in the fibrous septae appears to show mild reactive changes. Significant inflammation is not seen in the nodules. Fibrous septae in between the nodules show mild to moderate chronic inflammation. Interface inflammation is not seen. Iron stain shows absent iron. Trichrome stain and reticulin stain highlights the fibrous septae. PAS stain with and without diastase do not show any abnormal accumulation of protein. All stains are performed with appropriate matched controls. No evidence of metastatic carcinoma. GROSS DESCRIPTION A - Received is one container labeled with the patient's name and designated gallbladder. The specimen consists of a gallbladder measuring 9.3 x 3 x 2.5 cm. The external surface is smooth and glistening. Focally, it is granular, hemorrhagic and contains cautery artifact. The lumen of the gallbladder contains yellow-green mucoid bile and multiple calculi ranging in size from <0.1 to 2 cm in greatest dimension. The mucosa is bile-stained and without any mass lesions. The gallbladder wall averages 0.2 cm in thickness and is free of mass lesions. Surgical Aide sections of the gallbladder and the cystic duct at margin of resection are submitted in one cassette. / AM: 07/22/2022 B - Received in fixative is one container labeled with the patient's name and designated liver biopsy. The specimen consists of an elongated fragment of elias tissue measuring 0.7 x 0.2 x 0.1 cm. The specimen is totally submitted in one cassette. / AM: 07/22/2022 C - Received fresh labeled with the patient's name and designated extended right colon. The specimen consists of a colectomy specimen received fresh. The colonic portion measures 32 cm in length. The attached small bowel segment measures 9.5 cm in length. Located 2 cm distal to the ileocecal valve and within the cecum is a fungating, firm, indurated mass measuring 7 x 5.5 x 1.8 cm. At a distance of 5 cm distal to the ileocecal valve is a second polypoid mass measuring 3.5 x 1 x 1 cm and located 4.6 cm from the distal margin of resection is a third polypoid mass measuring 6 x 4 x 1.8 cm. The large fungating mass in the cecum is located approximately 10.9 cm from its closest (proximal) mucosal small bowel margin of excision. An appendix is not present. The serosal surfaces adjacent to the lesions are inked in black ink. Serial sections of the fungating mass from the cecum reveal extension into underlying soft tissue. Serial sections of the other lesions distal to ileocecal valve and close to distal margin of resection do not reveal extension into underlying soft tissue. The attached fibrofatty tissue contains a number of nodules resembling lymph nodes. Surgical Aide sections are submitted as follows: 1 - proximal and distal mucosal margins, 2 - ileocecal valve, 3-5 - large fungating mass of cecum, 6-9 - polypoid mass distal to ileocecal valve, 10-12 - polypoid mass near distal margin of resection 13 - sales utility representative uninvolved sections of small and large bowel, 14-20 - multiple lymph nodes in each cassette. Note, sections are submitted after additional fixation. / AM:shaina 07/23/2022 TC:0 CPT: 91421, 62986, 94043, 25542 x5
[2022-07-22 05:51] LABS: Absolute Lymphocyte Count 1.51 X10^3/uL (0.83-4.51); Absolute Neutrophil Count 4.7 X10^3/uL (2.0-7.7); Basophil# 0.02 X10^3/uL; Basophil% 0.3 % (0-1); Eosinophil# 0.05 X10^3/uL; Eosinophils% 0.7 % (0-5); Hematocrit 40.8 % (40-54); Hemoglobin 12.9 g/dL (13.0-16.5); Lymphocyte # 1.51 X10^3/ul (0.83-4.51); Lymphocyte % 21.5 % (19-41); Mean Corp Hgb Conc 31.6 g/dL (32-36); Mean Corpuscular Hgb 30.1 pg (27.0-32.0); Mean Corpuscular Volume 95.1 fL (80-94); Mean Platelet Vol. 9.6 fl (6.2-12.0); Monocyte# 0.75 X10^3/uL; Monocyte% 10.7 % (0-10); NRBC Flagged by Analyzer 0 % (0-5); Neutrophil # 4.66 X10^3/uL (2.7-7.7); Neutrophil % 66.4 % (47-70); Platelet Count 190 K/mm3 (150-450); RBC Distribution Width CV 16.3 % (11.6-14.6); RBC Distribution Width SD 57.1 fl (35.1-43.9); Red Blood Count 4.29 M/mm3 (4.6-6.2)
[2022-07-22 05:55] LABS: Bedside Glucose 106 mg/dL (74-106)
[2022-07-22 06:17] LABS: Anion Gap 4 (5-15); BUN 7 mg/dL (7-18); BUN/Creat Ratio 7.8 RATIO (10-20); Calcium,Total 9.5 mg/dL (8.5-10.1); Chloride 106 mmol/L (98-107); EST Glomerular Filtration Rate 86 mL/min (>60); Est Glom Filt Rate - Afr Amer 104 mL/min (>60); Estimated Creatinine Clearance 78.38 ml/min; Glucose 150 mg/dL (74-106); Potassium 3.6 mmol/L (3.5-5.1); Sodium Level 139 mmol/L (136-145)
--- NOTE | 2022-07-22 06:38 | NURSING ---
pt to AC via bed
--- NOTE | 2022-07-22 06:58 | DCINST_ITS ---
Discharge Instructions Procedure General Surgery Diet Discharge Diet: Light diet - advance as tolerated (if you have questions about your diet instructions, please talk to you doctor.) Activity Discharge Activity: May Not Drive (for 3-5 days or while taking narcotic pain medicine.) and May Shower Lifting Restrictions: 10 pounds Dressing / Incision Call your doctor if your incision/area has: Continuous Slow Oozing, Sudden Increased Bleeding, Increased Pain/ Swelling, Increased Redness and Foul Smelling Discharge Call your doctor if you observe: Fever of 101 or Higher Suture Line Care: Avoid Pulling/Pushing and Avoid Pinching/Bending Remove Dressing in: 2 days Additional Dressing/Incision Instructions:: Change or remove dressing in 4 days. Leave steri-strips in place for 1 week. You may resume your Eliquis on Wednesday, July 27, 2022 Follow Up Care Please Follow Up With: Josh Ruiz MD When: Call [phone] to make an appointment to be seen in about 10 days. Test Results: Test results from this visit will be discussed in further detail at your follow- up appointment, if applicable. 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 Prescriptions: New oxycodone 5 mg Tablet 5 mg PO Q4H PRN PRN (Reason: Pain Score 4-5) 3 Days Qty: 10 0RF Continued quinapril 10 mg tablet 20 mg PO DAILY doxycycline hyclate 20 mg tablet 20 mg PO BID magnesium oxide 400 mg (241.3 mg magnesium) tablet 400 mg PO BID pioglitazone [Actos] 45 mg tablet 45 mg PO DAILY Qty: 30 3RF Citrucel 500 mg tablet 500 mg PO DAILY allopurinol 100 MG tablet 100 mg PO DAILYCM tamsulosin 0.4 MG capsule 0.4 mg PO DAILY trazodone 100 MG tablet 100 mg PO QHS docusate sodium 100 MG capsule 100 mg PO BID finasteride 5 MG tablet 5 mg PO DAILY trospium 20 MG tablet 20 mg PO QHS Label Comments: bladder Multivitamin 1 tab PO DAILY levothyroxine 150 mcg tablet 225 mcg PO MOWEFR Label Comments: 150 mcg PO ; 1 tab daily 1/2 tab extra on m w f loratadine 10 mg tablet 10 mg PO DAILY glipizide 5 MG tablet 5 mg PO BIDAC Lantus SoloStar Pen 30 units SC QHS cyanocobalamin (vitamin B-12) 500 MCG tablet 1,000 mcg PO DAILY@0800 ipratropium bromide 15 ML spray,non-aerosol 2 spray NS TID PRN (Reason: ALLERGIES) atorvastatin 20 mg Tablet 20 mg PO QHS donepezil [Aricept] 5 mg Tablet 5 mg PO DAILY ferrous sulfate 325 mg (65 mg iron) Tablet 325 mg PO TID propranolol 20 mg Tablet 20 mg PO BID cholecalciferol (vitamin D3) [Vitamin D3] 125 mcg (5,000 unit) Tablet 50,000 unit PO QMONTH melatonin 10 mg Tablet 10 mg PO QHS psyllium husk [Metamucil] 0.4 gram Capsule 0.4 g PO BID ropinirole 0.5 mg tablet 1 mg PO TID Eliquis 2.5 mg tablet 5 mg PO BID polyethylene glycol 3350 [Miralax] 17 gram Powder In Packet 17 g PO DAILY levothyroxine 150 mcg Tablet 150 mcg PO [facility] zctmovtc-teosaidnx-idjgbxqcu 3.5-10,000-10 mg-unit-mg/gram Cream 1 applic TOPICAL DAILY roczsdrjsl-bfxoxhwcupww-tyevcs 1-1-4 % Gel 1 ea TOPICAL DAILY metoclopramide HCl 5 mg tablet 5 mg PO QHS Qty: 30 5RF Rx Instructions: administer 30 minutes before meals pantoprazole 40 mg tablet,delayed release (DR/EC) 40 mg PO DAILY Qty: 30 5RF sucralfate [Carafate] 1 gram tablet 1 g PO BID Qty: 60 5RF Referrals / Follow Up: Randell Sparks MD [Primary Care Provider] -
[2022-07-22] MEDS: Acetaminophen 500 MG Tablet 1000 MG PO (07:30)
[2022-07-22] MEDS: Gabapentin 600 MG Tablet PO (07:30)
[2022-07-22] MEDS: Cefotetan 2 GM in 0.9% NS 100 ML IV (07:45)
[2022-07-22] MEDS: Magnesium 2 GM IV (08:27)
[2022-07-22] MEDS: Lactated Ringers 1,000 ML 40 ML IV ×2 (08:45→22:14)
[2022-07-22] MEDS: Bupivacaine 0.25% 30 ML Vial (11:15)
[2022-07-22] MEDS: BUPIVACAINE LIPOSOME/PF 20 ML VIAL OPERA.SITE (11:15)
--- NOTE | 2022-07-22 11:17 | OP.PCM_ITS ---
Report of Operation Date of Procedure: 07/22/22 Pre-Operative Diagnosis: cecum, ascending colon, transverse colon masses. Chronic cholecystitis cholelithiasis Post-Operative Diagnosis: Cecum, ascending colon, transverse colon masses Chronic cholecystitis cholelithiasis Suspected cirrhosis Surgery/Procedure Performed:: Laparoscopic extended right colectomy. Laparoscopic cholecystectomy Kayden-Cut needle core right liver biopsy Laparoscopically guided bilateral transverses abdominal plane block Description of Surgical Findings:: Timeout and informed consent was obtained. 81-year-old gentleman was taken to the operating placed supine on the table underwent general endotracheal ovation esthesia and cefotetan 2 g were given to venously preoperatively the abdomen was sterilely prepped and draped Ioban draping was used as well Exparel diluted with 0.25% Marcaine diluted with saline 250 cc was used for the transabdominal pain block and and local administration. Superior to the umbilicus local was instilled vertical incision was created sharp dissection carried down through the subtenons tissue holding sutures of 0 Vicryl placed varies needle inserted saline drop test performed the abdomen was insufflated with CO2 to a pressure of 12 mmHg pressure 10 mm trocar inserted 10 the laparoscope inserted no maternal trocar injuries inspection revealed that the liver had a diffuse very heavy coarse nodular feel. Clinically this was felt to be consistent with cirrhosis. A 5 mm trocar was placed in the epigastrium and 2 more 5 mm trochars were placed in the right mid abdomen. The gallbladder was addressed first the peritoneum overlying the infundibulum was carefully bluntly dissected free hemostasis was copiously obtained with Hem-o-cuco clips were needed harmonic scalpel cystic duct identified the cystic artery identified small hole in the very dependent portion of the gallbladder released some stones which were rapidly aspirated free. The critical view was achieved 2 Hem-o-cuco clips were placed on the cystic duct st ump and one on the gallbladder prior to transecting it cystic artery was clipped twice proximally once distally. The gallbladder is then dissected free from the liver bed using the harmonic. The gallbladder was immediately placed in retrieval bag. I exited that in the umbilicus and changed out the 10 mm port for a 10 mm Handy. A very tiny incision was made in the right upper quadrant and 14-gauge Kayden-Cut needle was inserted under visualization Kayden-Cut core biopsy was taken the right lobe of the liver hemostasis attained electrocautery that was submitted on Telfa in formalin immediately. The Ayah ink dye was noted to be in the mid transverse colon's to slightly to the left transverse colon. The greater omentum was raised off of the transverse colon for the entire length using the harmonic scalpel. Then the white line of Toldt on the right was incised completely freeing up the ascending colon and terminal ileum. Once I had superb mobilization of the colon I then extended the supraumbilical incision incorporated that with one of my 5 mm port sites placed in wound medium wound protector was able to remove the colon out this defect and then tediously and carefully transected the mesentery at its root using the harmonic scalpel and where needed Hem-o-cuco clips. Complete hemostasis was intact. Was able to get distal to the Ayah ink marked areas which represented the most distal of the 3 known tumors. Transected the terminal ileum with a 75 mm NANCY stapler and then did the same of the transverse colon the specimen was delivered from the field. A functional end-to-end anastomosis created by placing this terminal ileum to the side of the transverse colon 4-0 silk suture was placed 2 small enterotomies were made the stapler was inserted approximating the small and large bowel [id number] stapler was then fired. The enterotomy site was closed with a TA 60. A crotch suture of 4-0 silk was placed. A portion of the staple line was reinforced by overlapping some of the fibrofatty tissue present with a running 4-0 silk. Hemostasis was intact. The lumen was widely patent. The bowel was nicely viable. There has been no spillage. Was dropped back within the abdomen the abdomen was reinsufflated the bowel was inspected and noted to be nicely intact the greater omentum was placed overlying. Now the trochars were then removed gowns and gloves were changed. The midline fascia was closed with a running #1 PDS. It is of note that at the very start of the operation I did a bilateral transabdominal plane block under laparoscopic visualization with the local as provided above. Very careful inspection was performed bilaterally and I felt that I had good regional block. Multiple needle punctures and injections were performed to provide what was felt to be a dense block. At the end of the operation now having close the midline fascia I placed additional local into the fascia surrounding that incision as well as in the subcutaneous tissues. Wounds including the port sites and midline fascia were closed with interrupted or running subicular 4-0 Monocryl. Steri-Strips Telfa OpSite dressings applied. Sponge and instrument and needle counts were reported to the surgeon to be correct. Specimen gallbladder and core right lobe liver biopsy and extended right colectomy, blood loss 50 cc. Drains none. The patient was taken to recovery room in satisfactory addition without apparent complication Josh Ruiz M.D., F.A.C.S. Surgeon: Josh Ruiz Type of Anesthesia: General and Local Anesthesiologist: Juan Hicks
--- NOTE | 2022-07-22 12:03 | PN.HOSP_ITS ---
Documented by User: Staci Gamez NP-C 07/22/22 12:14 Subjective Subjective Patient seen and examined in PACU. Patient awakens to verbal stimuli however patient is still drowsy. Patient currently denies any pain. Objective Data Objective Data Vital Signs: Vital Signs Temp Pulse Resp BP Pulse Ox O2 Del Method O2 Flow Rate 97.8 F 91 16 130/73 H 96 Nasal Cannula 4 07/22/22 11:45 07/22/22 12:00 07/22/22 12:00 07/22/22 12:00 07/22/22 12:00 07/22/22 12:00 07/22/22 12:00 Oxygen Flow Rate (L/min) 4 Oxygen Delivery Method Nasal Cannula Weight: 281 lb 15.539 oz Body Mass Index (BMI) 33.5 Intake & Output: Intake and Output for Last 24 Hours 07/20/22 07/21/22 07/22/22 23:59 23:59 23:59 Intake Total 918 / 918 1204 / 1204 Output Total 150 / 150 250 / 250 Balance 768 / 768 954 / 954 Lab / Micro Data Result Diagrams: 07/22/22 05:42 07/22/22 05:42 Labs: Laboratory Results - last 24 hr 07/21/22 21:24: POC Glucose 259 H 07/22/22 05:30: POC Glucose 106 07/22/22 05:42: WBC 7.0, RBC 4.29 L, Hgb 12.9 L, Hct 40.8, MCV 95.1 H, MCH 30.1, MCHC 31.6 L, RDW Std Deviation 57.1 H, RDW Coeff of Mariluz 16.3 H, Plt Count 190, MPV 9.6, Immature Gran % (Auto) 0.400, Neut % (Auto) 66.4, Lymph % (Auto) 21.5, Barber % (Auto) 10.7 H, Eos % (Auto) 0.7, Baso % (Auto) 0.3, Absolute Neuts (auto) 4.7, Absolute Lymphs (auto) 1.51, Nucleated RBC % 0 07/22/22 05:42: Sodium 139, Potassium 3.6, Chloride 106, Carbon Dioxide 29.0, Anion Gap 4 L, BUN 7, Creatinine 0.90, Estim Creat Clear Calc 78.38, Est GFR (MDRD) Af Amer 104, Est GFR (MDRD) Non-Af 86, BUN/Creatinine Ratio 7.8 L, Glucose 150 H, Calcium 9.5 Physical Exam Const Constitutional Narrative: Patient lethargic following general anesthesia for surgery Orientation / Consciousness: lethargic HEENT head/scalp atraumatic and moist oral mucous membranes Head and Scalp: normocephalic Eyes conjunctivae normal and no scleral icterus Neck no lymphadenopathy and supple Resp normal respiratory effort, normal air movement and clear to auscultation bilaterally Effort and Inspection: able to speak in complete sentences and symmetric chest movement Cardio regular rate, regular rhythm, S1 normal heart sound and S2 normal heart sound Rate: tachycardic GI normal to inspection, nondistended, normoactive bowel sounds, soft to palpation and non-tender Extremity normal to inspection, full ROM and no clubbing, cyanosis or edema Neuro moves all extremities, no focal motor deficits and no sensory deficits noted Assessment & Plan Assessment/Plan (1) Colon cancer: (2) Longstanding persistent atrial fibrillation: (3) Diabetes mellitus, type II: PLAN: Plan 1. Paroxysmal A. fib -Restart Eliquis at surgeon's discretion -Continue propranolol -CBC and BMP ordered daily 2. Hyperlipidemia -Continue atorvastatin 3. Dementia -Continue Aricept 4. Diabetes mellitus type 2 -Continue Lantus -ACH S blood sugars are sliding scale insulin ordered 5. Hypothyroidism -Continue levothyroxine 6. Hypertension -Continue lisinopril 7. BPH -Continue trospium, finasteride, tamsulosin. 8. Status post colectomy and cholecystectomy -PT ordered -Clear liquid diet -Pain management regimen ordered per surgeon -Encourage I-S DVT prophylaxis-SCDs This patient was seen by Staci Gamez NP-C under the supervision of Dr. Schulte. 14 minutes spent in clinical coordination of patient's plan of care. Documented by User: Dr. Jh Schulte DO 07/22/22 16:06 Objective Data Lab / Micro Data Result Diagrams: 07/22/22 05:42 07/22/22 05:42 Assessment & Plan Assessment/Plan (1) Colon cancer: (2) Longstanding persistent atrial fibrillation: (3) Diabetes mellitus, type II: Charges/Coding Addendum Addendum: Patient was seen and salmon today independently of Rossana Gamez, he underwent surgery for a right hemicolectomy due to colon cancer, at the same time a cholecystectomy was performed and a liver biopsy. Patient has been refusing treatment for suspected colon cancer for several months. Past medical history includes BPH, dementia, Parkinson's disease, type 2 diabetes, and essential hypertension. On examination he appeared older than his stated age, he was a poor informant. Vital signs as documented. Skin warm and dry and without overt rashes. Neck without JVD, neck was supple, trachea midline, thyroid was normal. Lungs clear bilaterally, normal air movement was noted. Heart exam notable for irregular rhythm, normal sounds and absence of murmurs, rubs or gallops. Abdomen unremarkable and without evidence of organomegaly, masses, or abdominal aortic enlargement. Bowel sounds are present, abdomen is not distended. Extremities nonedematous, no cyanosis was noted, no clubbing was noted. Neuro: Cranial nerves II through XII are grossly intact, no focal motor deficits were noted, sensation to light touch and pinprick intact, motor exam 5/5 throughout. Psych: Patient is alert, he is a poor informant, he does not appear anxious or a gitated. Impression: #1 type 2 diabetes-patient's blood sugars will be monitored with fingerstick blood sugars, sliding scale insulin will be administered per fingerstick reading #2 persistent atrial fibrillation-patient is on rate limiting medication (propranolol) and was taking Eliquis as an outpatient. The Eliquis will be held at this time #3 hyperlipidemia-patient is on atorvastatin #4 dementia-patient takes Aricept as an outpatient, this will be continued #5 essential hypertension-patient's home medications or the equivalent will be continued #6 Parkinson's disease-continue outpatient meds-Requip #7 rosacea-patient is on several medications for rosacea, these will be continued during his hospitalization #8 iron deficiency anemia-secondary to chronic GI blood loss from colon cancer- patient's hemoglobin today was 12.9, his iron can be held while he is in the hospital. #9 chronic obstructive pulmonary disease-patient will be placed on albuterol aerosols as needed #10 hypothyroidism-patient is on Synthroid, this will be continued #11 cerebrovascular disease #12 peripheral vascular disease secondary to type 2 diabetes #13 BPH-patient takes Flomax, this will be continued #14 chronic use of anticoagulants-patient is chronically on Eliquis, this will be held at least for the time being. I have reviewed Rossana Gamez's progress note including her medical assessment a nd plan of care and with the above additions endorse it. Total clinical time spent by myself addressing the patient's medical issues, reviewing the data, and collaborating with patient's care team: 25 minutes Visit Charges OBSV E&M: 33345 Subsequent observation care L3
--- NOTE | 2022-07-22 12:16 | CHAPLAIN ---
Type of Pastoral Visit ___ Initial Visit _x__ Follow-up Visit ___ On-call Visit ___ General Patient Visit ___ Spiritual Assessment ___ Family Conference ___ Bereavement ___ Rapid Response ___ Code Blue ___ Other (describe below) Pastoral Care Referral From ___ Patient _x__ Family ___ Nurse ___ Physician ___ Customer Advocate ___ Strand And Binder Controller ___ Other (describe below) Sacrament/Intervention _x__ Active listening ___ Anointing ___ Oriental Orthodox ___ Bereavement ___ Communion ___ Noreen exploration ___ ___ Life review ___ Prayer ___ Reconciliation ___ Sacrament of Sick ___ Supportive presence ___ Wedding ___ Other (describe below) Pastoral Comments SO is in room at this time while patient is in recovery; SO states that we had some good news as DR spoke of great success in surgery; final results will not be known for a few days but SO speaks of being encouraged, hopeful, and thankful to God for answering my prayers; SO is talkative about the experience; SO says she is thankful for the support of the internal audit senior manager
[2022-07-22] MEDS: Insulin Lispro 100 UNIT/ML INSULN.PEN SC ×3 (12:23→22:12)
[2022-07-22 12:30] LABS: Bedside Glucose 221 mg/dL (74-106)
--- NOTE | 2022-07-22 14:17 | CASEMGMT ---
ABI CHURCH in to discuss NEIL form with patient. ABI CHURCH explained NEIL form, patient voiced understanding. Pt states he cannot sign the form now. Asked patient if he would like ABI CHURCH to call his sig other and he states he does not want to. Made him aware ABI CHURCH will state on form that he did not want to sign and give him a copy. Filed in chart. Pt provided with a copy of NEIL form. Patient had no further questions or concerns at this time.
[2022-07-22] MEDS: 0.9% Saline Lock 10 ML Syringe IV (15:27)
[2022-07-22] MEDS: HYDROmorphone 0.5 MG/0.5 ML SYRINGE IV (15:27)
[2022-07-22] MEDS: Tamsulosin HCl 0.4 MG Capsule PO (15:31)
[2022-07-22] MEDS: Pantoprazole Sodium 40 MG Tablet PO (15:31)
[2022-07-22] MEDS: Finasteride 5 MG Tablet PO (15:32)
[2022-07-22] MEDS: Loratadine 10 MG Tablet PO (15:32)
[2022-07-22] MEDS: Donepezil HCl 5 MG Tablet PO (15:32)
--- NOTE | 2022-07-22 16:28 | PN.SURG_ITS ---
Subjective Subjective Patient found resting in bed. He does not appear to be in any distress Objective Data Objective Data Vital Signs: Vital Signs Temp Pulse Resp BP Pulse Ox O2 Del Method O2 Flow Rate 97.8 F 90 18 140/93 H 96 Room Air 2 07/22/22 15:15 07/22/22 15:15 07/22/22 15:15 07/22/22 15:15 07/22/22 15:15 07/22/22 15:15 07/22/22 14:01 Oxygen Flow Rate (L/min) 2 Oxygen Delivery Method Room Air Weight: 281 lb 15.539 oz Body Mass Index (BMI) 33.5 Intake & Output: Intake and Output for Last 24 Hours 07/20/22 07/21/22 07/22/22 23:59 23:59 23:59 Intake Total 918 / 918 1400 / 1400 Output Total 150 / 150 400 / 400 Balance 768 / 768 1000 / 1000 Lab / Micro Data Result Diagrams: 07/22/22 05:42 07/22/22 05:42 Labs: Laboratory Results - last 24 hr 07/21/22 21:24: POC Glucose 259 H 07/22/22 05:30: POC Glucose 106 07/22/22 05:42: WBC 7.0, RBC 4.29 L, Hgb 12.9 L, Hct 40.8, MCV 95.1 H, MCH 30.1, MCHC 31.6 L, RDW Std Deviation 57.1 H, RDW Coeff of Mariluz 16.3 H, Plt Count 190, MPV 9.6, Immature Gran % (Auto) 0.400, Neut % (Auto) 66.4, Lymph % (Auto) 21.5, Braxton % (Auto) 10.7 H, Eos % (Auto) 0.7, Baso % (Auto) 0.3, Absolute Neuts (auto) 4.7, Absolute Lymphs (auto) 1.51, Nucleated RBC % 0 07/22/22 05:42: Sodium 139, Potassium 3.6, Chloride 106, Carbon Dioxide 29.0, Anion Gap 4 L, BUN 7, Creatinine 0.90, Estim Creat Clear Calc 78.38, Est GFR (MDRD) Af Amer 104, Est GFR (MDRD) Non-Af 86, BUN/Creatinine Ratio 7.8 L, Glucose 150 H, Calcium 9.5 07/22/22 12:13: POC Glucose 221 H Physical Exam Resp Resp Narrative: Poor respiratory effort, diminished in the bases Assessment & Plan Assessment/Plan (1) Colonic mass: PLAN: I have vigorously encouraged the patient that early mobilization is critical to his recovery. With nursing present I have instructed the patient that I do expect mobilization today. Even if that is just simply getting this set at the bedside at his body frame and weight I feel that it is incredibly important to get him to participate in his activity. It is of note that in the operating room he had significant difficulty just transferring himself from the transfer bed to the operating room table. Preoperatively he did admit to quite a sedentary lifestyle. He therefore presents already and had deconditioned status. Josh Ruiz M.D., F.A.C.S.
[2022-07-22 16:56] LABS: Bedside Glucose 197 mg/dL (74-106)
[2022-07-22] MEDS: Sucralfate 1 GM Tablet PO (22:11)
[2022-07-22] MEDS: Docusate Sodium 100 MG Capsule PO (22:12)
[2022-07-22] MEDS: Tolterodine Tartrate 2 MG CAP.SA PO (22:12)
[2022-07-22] MEDS: Propranolol 10 MG Tablet 20 MG PO (22:13)
[2022-07-22] MEDS: Insulin Glargine-YFGN 100 UNIT/ML Pen 30 UNIT SC (22:13)
[2022-07-22] MEDS: Atorvastatin Calcium 20 MG Tablet PO (22:14)
[2022-07-22] MEDS: Metoclopramide 5 MG TABLET PO (22:14)
[2022-07-22] MEDS: Psyllium 1 PACKET PO (22:14)
[2022-07-22] MEDS: Magnesium Chloride 64 MG Delay Rel.Tablet 128 MG PO (22:14)
[2022-07-22] MEDS: Pramipexole Di-HCl 0.5 MG Tablet PO (22:14)
[2022-07-22] MEDS: MELATONIN 10 MG TABLET PO (22:14)
[2022-07-22 22:45] LABS: Bedside Glucose 176 mg/dL (74-106)
[2022-07-23] VITALS (8 sets, daily range): BP systolic 106–129; BP diastolic 56–68; PULSE 79–96; RESP 16–18; TEMP 36.6–36.9; O2SAT 92–96
[2022-07-23] MEDS: oxyCODONE 5 MG Tablet PO ×2 (04:36→14:26)
--- NOTE | 2022-07-23 05:16 | NURSING ---
Patient ambulated 3 laps during nightshift - 1 lap after midnight & 2 before.
[2022-07-23 05:32] LABS: Hematocrit 37.5 % (40-54); Hemoglobin 11.8 g/dL (13.0-16.5); Mean Corp Hgb Conc 31.5 g/dL (32-36); Mean Corpuscular Hgb 29.9 pg (27.0-32.0); Mean Corpuscular Volume 95.2 fL (80-94); Mean Platelet Vol. 9.8 fl (6.2-12.0); Platelet Count 167 K/mm3 (150-450); RBC Distribution Width CV 16.3 % (11.6-14.6); RBC Distribution Width SD 57.9 fl (35.1-43.9); Red Blood Count 3.94 M/mm3 (4.6-6.2); White Blood Count 8.9 K/mm3 (4.4-11.0)
[2022-07-23 05:57] LABS: ALB/GLOB Ratio 0.8 RATIO (0.9-2.4); AST(SGOT) 25 U/L (15-37); Alanine Aminotransfer ALT/SGPT 22 U/L (16-61); Albumin, Serum 2.9 g/dL (3.2-5.0); Alkaline Phosphatase 118 U/L (45-117); Anion Gap 5 (5-15); BUN 6 mg/dL (7-18); BUN/Creat Ratio 6.7 RATIO (10-20); Calcium,Total 8.4 mg/dL (8.5-10.1); Chloride 105 mmol/L (98-107); Creatinine, Serum 0.89 mg/dL (0.70-1.30); EST Glomerular Filtration Rate 87 mL/min (>60); Est Glom Filt Rate - Afr Amer 105 mL/min (>60); Estimated Creatinine Clearance 79.26 ml/min; Globulin 3.6 g/dL (2.2-4.2); Glucose 182 mg/dL (74-106); Potassium 3.8 mmol/L (3.5-5.1); Protein, Total 6.5 g/dL (6.4-8.2); Sodium Level 138 mmol/L (136-145)
--- NOTE | 2022-07-23 06:00 | PCM.PN.SRG ---
Subjective Subjective Patient notes mid abdominal discomfort likely from his incision. He did undergo an extensive tap block during surgery. He has however been able to get up out of bed and he has been ambulating in the halls with assistance. No current nausea. Objective Data Objective Data Vital Signs: Vital Signs Temp Pulse Resp BP Pulse Ox O2 Del Method O2 Flow Rate 98.3 F 96 16 129/68 H 93 Room Air 2 07/23/22 02:15 07/23/22 02:15 07/23/22 02:15 07/23/22 02:15 07/23/22 02:15 07/23/22 02:15 07/22/22 14:01 Oxygen Flow Rate (L/min) 2 Oxygen Delivery Method Room Air Weight: 273 lb 5.971 oz Body Mass Index (BMI) 33.5 Intake & Output: Intake and Output for Last 24 Hours 07/21/22 07/22/22 07/23/22 23:59 23:59 23:59 Intake Total 918 / 918 1793.33 / 2443.33 650 / 650 Output Total 150 / 150 650 / 1000 350 / 350 Balance 768 / 768 1143.33 / 1443.33 300 / 300 Lab / Micro Data Result Diagrams: 07/23/22 05:05 07/23/22 05:05 Labs: Laboratory Results - last 24 hr 07/22/22 05:42: Sodium 139, Potassium 3.6, Chloride 106, Carbon Dioxide 29.0, Anion Gap 4 L, BUN 7, Creatinine 0.90, Estim Creat Clear Calc 78.38, Est GFR (MDRD) Af Amer 104, Est GFR (MDRD) Non-Af 86, BUN/Creatinine Ratio 7.8 L, Glucose 150 H, Calcium 9.5 07/22/22 12:13: POC Glucose 221 H 07/22/22 16:22: POC Glucose 197 H 07/22/22 22:05: POC Glucose 176 H 07/23/22 05:05: WBC 8.9, RBC 3.94 L, Hgb 11.8 L, Hct 37.5 L, MCV 95.2 H, MCH 29.9, MCHC 31.5 L, RDW Std Deviation 57.9 H, RDW Coeff of Mariluz 16.3 H, Plt Count 167, MPV 9.8 07/23/22 05:05: Sodium 138, Potassium 3.8, Chloride 105, Carbon Dioxide 28.0, Anion Gap 5, BUN 6 L, Creatinine 0.89, Estim Creat Clear Calc 79.26, Est GFR (MDRD) Af Amer 105, Est GFR (MDRD) Non-Af 87, BUN/Creatinine Ratio 6.7 L, Glucose 182 H, Calcium 8.4 L, Total Bilirubin 1.10 H, AST 25, ALT 22, Alkaline Phosphatase 118 H, Total Protein 6.5, Albumin 2.9 L, Globulin 3.6, Albumin/Globulin Ratio 0.8 L Physical Exam Narrative Patient is much more alert. He appears comfortable in no distress. Resp normal respiratory effort Resp Narrative: Still diminished in his bases. GI GI Narrative: Abdomen is soft, slightly distended, dressings are clean and dry, bowel sounds are present. Assessment & Plan Assessment/Plan (1) Colonic mass: PLAN: Plan Preop CEA level was 6. The patient is actually making good progress. I suspect the mid abdominal discomfort is his incision required for specimen removal. I have continue to encourage him to spend the majority of the day out of bed. We will continue to proceed with the ERAS protocol. Josh Ruiz M.D., F.A.C.S.
[2022-07-23] MEDS: Levothyroxine 150 MCG Tablet PO (06:34)
[2022-07-23] MEDS: Insulin Lispro 100 UNIT/ML INSULN.PEN SC ×4 (06:34→21:19)
[2022-07-23] MEDS: Pramipexole Di-HCl 0.5 MG Tablet PO ×3 (06:34→21:21)
[2022-07-23] MEDS: Sucralfate 1 GM Tablet PO ×2 (06:35→21:18)
[2022-07-23 07:05] LABS: Bedside Glucose 182 mg/dL (74-106)
[2022-07-23] MEDS: Magnesium Chloride 64 MG Delay Rel.Tablet 128 MG PO ×2 (08:20→21:21)
[2022-07-23] MEDS: Propranolol 10 MG Tablet 20 MG PO ×2 (08:21→21:20)
[2022-07-23] MEDS: Lisinopril 20 MG Tablet PO (08:21)
[2022-07-23] MEDS: Tamsulosin HCl 0.4 MG Capsule PO (08:22)
[2022-07-23] MEDS: Psyllium 1 PACKET PO ×2 (08:22→21:21)
[2022-07-23] MEDS: Loratadine 10 MG Tablet PO (08:22)
[2022-07-23] MEDS: Donepezil HCl 5 MG Tablet PO (08:22)
[2022-07-23] MEDS: Gabapentin 100 MG Capsule PO ×3 (08:22→16:51)
[2022-07-23] MEDS: Allopurinol 100 MG Tablet PO (08:22)
[2022-07-23] MEDS: Docusate Sodium 100 MG Capsule PO ×2 (08:22→21:18)
[2022-07-23] MEDS: Enoxaparin 30 MG/0.3 ML Syringe SC (08:23)
[2022-07-23] MEDS: Finasteride 5 MG Tablet PO (08:23)
[2022-07-23] MEDS: Pantoprazole Sodium 40 MG Tablet PO (08:26)
--- NOTE | 2022-07-23 10:58 | CASEMGMT ---
07/14/22 14:41 - Case Management Note by Lea Gaitan Acct Num: [id number] : 1940 Patient Age: 81 RN CM Assessment: TC to pt for initial transition planning/care coordination assessment. Pt sig other completed assessment over the phone with pt permission. RN CM introduced self and role at [facility], pt voices understanding and consents to assessment.Care providers, pharmacy, and demographics verified/updated. Admitting Dx: lap hand assist open extended r marly colectomy PCP:Clare Specialists:Jaden, GI; ETHAN Ruiz; PottsEFREM; sherice Fonseca; carter Desouza Preferred Pharmacy: [facility] [place] Insurance: [facility], [facility] Prescription Benefit: yes LW/HPOA: Pt has DPOA on file at [facility]. Tiesha Meadows is his DPOA. LNOK: Tiesha Meadows, sig other Living Arrangements: Pt lives with sig other in a single story apt with no steps to enter. Sig other states that pt needs assistance with putting on his compression stockings but otherwise is I in ADL's. Transportation: Pt does not drive, sig other transports pt to medical appts. DME/HHC/SNF: Pt has a BGM as well as insulin with sufficient supplies for both. Pt has 3 walkers, raised toilet seat as well as bipap. Pt has had [facility] HHC in the past and been to [facility]. Pt sig other states that pt would like to return home after hospital stay. She states she will see how pt does and then see as he has previously had a stroke and is 6 ft 5in and 280#. She states she cannot take care of him if he needs great assistance at home. CM to follow. Advised pt/sig other to ask CM if any further question/concerns/needs arise when hospitalized, voices understanding. Pt Goal: Home Plan: TBD Initialized on 07/14/22 14:41 - END OF NOTE
[2022-07-23 11:15] LABS: Bedside Glucose 183 mg/dL (74-106)
--- NOTE | 2022-07-23 14:20 | PN.HOSP_ITS ---
Documented by User: Ashley May NP, BLOCK TESTER-C 07/23/22 14:30 Subjective Subjective Patient seen and examined. Reports abdominal pain. Denies nausea, vomiting. Tolerating diet. Has not yet moved bowels. Objective Data Objective Data Vital Signs: Vital Signs Temp Pulse Resp BP Pulse Ox O2 Del Method O2 Flow Rate 98.4 F 93 18 111/56 L 92 Room Air 2 07/23/22 11:47 07/23/22 11:47 07/23/22 11:47 07/23/22 11:47 07/23/22 11:47 07/23/22 11:47 07/22/22 14:01 Oxygen Flow Rate (L/min) 2 Oxygen Delivery Method Room Air Weight: 273 lb 5.971 oz Body Mass Index (BMI) 33.5 Intake & Output: Intake and Output for Last 24 Hours 07/21/22 07/22/22 07/23/22 23:59 23:59 23:59 Intake Total 918 / 918 1793.33 / 2443.33 1979.33 / 1979.33 Output Total 150 / 150 650 / 1000 950 / 950 Balance 768 / 768 1143.33 / 1443.33 1029.33 / 1029.33 Lab / Micro Data Result Diagrams: 07/23/22 05:05 07/23/22 05:05 Labs: Laboratory Results - last 24 hr 07/22/22 16:22: POC Glucose 197 H 07/22/22 22:05: POC Glucose 176 H 07/23/22 05:05: WBC 8.9, RBC 3.94 L, Hgb 11.8 L, Hct 37.5 L, MCV 95.2 H, MCH 29.9, MCHC 31.5 L, RDW Std Deviation 57.9 H, RDW Coeff of Mariluz 16.3 H, Plt Count 167, MPV 9.8 07/23/22 05:05: Sodium 138, Potassium 3.8, Chloride 105, Carbon Dioxide 28.0, Anion Gap 5, BUN 6 L, Creatinine 0.89, Estim Creat Clear Calc 79.26, Est GFR (MDRD) Af Amer 105, Est GFR (MDRD) Non-Af 87, BUN/Creatinine Ratio 6.7 L, Glucose 182 H, Calcium 8.4 L, Total Bilirubin 1.10 H, AST 25, ALT 22, Alkaline Phosphatase 118 H, Total Protein 6.5, Albumin 2.9 L, Globulin 3.6, Albumin/Globulin Ratio 0.8 L 07/23/22 06:30: POC Glucose 182 H 07/23/22 10:52: POC Glucose 183 H Physical Exam Const alert and oriented x3 HEENT normocephalic and moist oral mucous membranes Eyes PERRL, EOMs intact bilaterally and conjunctivae normal Neck no lymphadenopathy Resp clear to auscultation bilaterally Auscultation: diminished lung sounds Cardio regular rate, regular rhythm and no murmurs Peripheral Pulses: pulses 2+ throughout GI normal to inspection, nondistended, normoactive bowel sounds, non-tender and non-distended GI Narrative: Dressings clean, dry and intact Extremity normal to inspection Skin no rashes or lesions noted Lesions: no lesions Rashes: no rashes Trauma: no lacerations or abrasions Neuro CN's II-XII intact bilaterally, no focal motor deficits, no sensory deficits noted and deep tendon reflexes 2+ bilaterally Psych mental status grossly normal and affect normal Assessment & Plan Assessment/Plan (1) Colonic mass: PLAN: Plan 1. Colon mass-surgery following. Underwent laparoscopic extended right colectomy with laparoscopic cholecystectomy as well as right liver biopsy. Man agement per surgery. 2. Type 2 diabetes uopyateu-Fwee-Fhcen with sliding scale insulin. 3. Persistent atrial fibrillation-Eliquis held. Continue propanolol. 4. Hypertension-stable, continue home regimen. 5. Hyperlipidemia-continue statin. 6. Dementia, unknown behavioral disturbance history-continue Aricept. 7. Parkinson's disease-on Requip. 8. Rosacea-continue home regimen. 9. Iron deficiency anemia/chronic blood loss related to colon cancer-stable, trend CBC. 10. COPD-as needed albuterol aerosol. 11. History of CVA-continue statin. Eliquis on hold. 12. Peripheral vascular disease-continue statin. 13. BPH-continue Flomax. DVT prophylaxis- SCDs This patient was seen by JOANNA Paredes under the supervision of Dr. Schulte. Time spent examining patient, reviewing data and subsequent management of care: 14 minutes Documented by User: Dr. Jh Schulte DO 07/23/22 17:18 Objective Data Lab / Micro Data Result Diagrams: 07/23/22 05:05 07/23/22 05:05 Assessment & Plan Assessment/Plan (1) Colonic mass: Charges/Coding Addendum Addendum: Patient was seen and examined independently of Ashley May, he is alert, he has been walking in the ow[place] today and appears to be walking with minimal assistance. Blood sugars appear to be under fair control. On examination he appeared in good health and spirits. Vital signs as documented. Skin warm and dry and without overt rashes. Neck without JVD, neck was supple, trachea midline, thyroid was normal. Lungs clear bilaterally, normal air movement was noted. Heart exam notable for irregular rhythm, normal sounds and absence of murmurs, rubs or gallops. Abdomen- abdomen is not distended. Extremities nonedematous, no cyanosis was noted, no clubbing was noted. Neuro: Cranial nerves II through XII are grossly intact, no focal motor deficits were noted, sensation to light touch and pinprick intact, motor exam 5/5 throughout. Psych: Patient is alert and oriented x3, he does not appear anxious or depressed, he does not appear agitated. #1 type 2 diabetes-patient's blood sugars will be monitored with fingerstick bl ood sugars, sliding scale insulin will be administered per fingerstick reading #2 persistent atrial fibrillation-patient is on rate limiting medication (propranolol) and was taking Eliquis as an outpatient.? The Eliquis will be held at this time #3 hyperlipidemia-patient is on atorvastatin #4 dementia-patient takes Aricept as an outpatient, this will be continued #5 essential hypertension-patient's home medications or the equivalent will be continued #6 Parkinson's disease-continue outpatient meds-Requip #7 rosacea-patient is on several medications for rosacea, these will be held during his hospitalization, I talked with his material dispatcher office yesterday #8 iron deficiency anemia-secondary to chronic GI blood loss from colon cancer- patient's hemoglobin today was 12.9, his iron can be held while he is in the hospital. #9 chronic obstructive pulmonary disease-at this time, I do not believe the patient needs aerosol treatments #10 hypothyroidism-patient is on Synthroid, this will be continued #11 cerebrovascular disease #12 peripheral vascular disease secondary to type 2 diabetes #13 BPH-patient takes Flomax, this will be continued #14 chronic use of anticoagulants-patient is chronically on Eliquis, this will be held at least for the time being. I have reviewed Ashley May's progress note including her medical assessment and plan of care and with the above additions endorse it. Total clinical time spent by myself addressing the patient's medical issues, reviewing the data, and collaborating with patient's care team: 22 minutes Visit Charges Inpatient E&M: 47954 Subs Hosp L2
[2022-07-23] MEDS: Acetaminophen 325 MG Tablet 650 MG PO (16:14)
--- NOTE | 2022-07-23 16:29 | CASEMGMT ---
Social Work - MS3 Handoff from Francesca BURNETTE for need for referral to snf level of care. Met with patient in room, introducing to self and social work role. Reviewed discharge planning, and possible need for snf facility. Patient in agreement with this and voiced preference to go to [facility] transitional care unit. This short story writer provided patient with a list of snf facilities and patient's geographic region, including quality and data resource information; Medicare star ratings. Verbally reviewed list with the patient, including which facilities are known to be in the patient's insurance network. Patient maintains first choice is the [place] transitional care unit, and second choice if the [place] T[facility] does not have a bed would be [facility]. Confirmed with Lea nurse director of casework services on discharge timeframe which is anticipated to be Wednesday. Referral to Vashti at the [facility] transitional care unit. There would be a bed available and Vashti will review referral and start precert. Updated patient. Patient requested this short story writer update the patient significant other. Phone call with patient's significant other, Tiesha Meadows ([phone]). Updated to discharge planning process. Reviewed that snf facility is dependent on insurance approval. Significant other did express concern about bringing the patient home immediately after discharge, but did acknowledge that patient has had home health care in the past. Significant other did express hope that snf facility, even for a very short time to allow patient to gain strength will work out. Emotional support provided. Plan: [facility] TCU pending insurance precertification. Patient and significant other would like to be updated when updates are known. -LUIS Kaiser, SHOE SPRAYER
[2022-07-23 16:30] LABS: Bedside Glucose 197 mg/dL (74-106)
[2022-07-23] MEDS: Tolterodine Tartrate 2 MG CAP.SA PO (21:19)
[2022-07-23] MEDS: Atorvastatin Calcium 20 MG Tablet PO (21:20)
[2022-07-23] MEDS: Insulin Glargine-YFGN 100 UNIT/ML Pen 30 UNIT SC (21:20)
[2022-07-23] MEDS: MELATONIN 10 MG TABLET PO (21:21)
[2022-07-23] MEDS: Metoclopramide 5 MG TABLET PO (21:21)
[2022-07-23 22:15] LABS: Bedside Glucose 181 mg/dL (74-106)
[2022-07-24 03:00] VITALS: BP 118/67; PULSE 89; RESP 15; TEMP 36.8; O2SAT 96
--- NOTE | 2022-07-24 06:27 | PCM.PN.SRG ---
Subjective Subjective Patient notes generalized abdominal soreness. No nausea. Had an egg last night. No flatus or stool. He does have some difficulty getting out of bed and into bed. Once up and moving he does very well. He has been able to ambulate 400 feet. Objective Data Objective Data Vital Signs: Vital Signs Temp Pulse Resp BP Pulse Ox O2 Del Method O2 Flow Rate 98.3 F 89 15 118/67 96 Bi-pap 2 07/24/22 03:00 07/24/22 03:00 07/24/22 03:00 07/24/22 03:00 07/24/22 03:00 07/24/22 03:00 07/22/22 14:01 Oxygen Flow Rate (L/min) 2 Oxygen Delivery Method Bi-pap Weight: 273 lb 9.498 oz Body Mass Index (BMI) 33.5 Intake & Output: Intake and Output for Last 24 Hours 07/22/22 07/23/22 07/24/22 23:59 23:59 23:59 Intake Total 1793.33 / 2443.33 2479.33 / 2829.33 350 / 350 Output Total 650 / 1000 950 / 1050 100 / 100 Balance 1143.33 / 1443.33 1529.33 / 1779.33 250 / 250 Lab / Micro Data Result Diagrams: 07/23/22 05:05 07/23/22 05:05 Labs: Laboratory Results - last 24 hr 07/23/22 06:30: POC Glucose 182 H 07/23/22 10:52: POC Glucose 183 H 07/23/22 16:06: POC Glucose 197 H 07/23/22 21:13: POC Glucose 181 H Physical Exam Narrative Alert, comfortable, no acute distress, no IV fluid running, no IV medications Resp normal respiratory effort GI GI Narrative: Soft, obese, diffusely tender, very active bowel sounds, dressings clean and dry Assessment & Plan Assessment/Plan (1) Colonic mass: PLAN: 81-year-old gentleman making excellent progress. My understanding is that perhaps home health can be arranged. I anticipate discharge tomorrow. I have continued to encourage him to mobilize. He does find a hospital bed particularly challenging to get in of and out of. He may have better luck at his own home. He is already on a transitional diet. Pain medicine is oral. Josh Ruiz M.D., F.A.C.S.
[2022-07-24] MEDS: Insulin Lispro 100 UNIT/ML INSULN.PEN SC ×3 (06:48→15:55)
[2022-07-24] MEDS: Levothyroxine 75 MCG Tablet PO (06:48)
[2022-07-24] MEDS: Levothyroxine 150 MCG Tablet PO (06:48)
[2022-07-24] MEDS: Pramipexole Di-HCl 0.5 MG Tablet PO ×2 (06:48→13:35)
[2022-07-24] MEDS: Sucralfate 1 GM Tablet PO (06:48)
[2022-07-24 07:10] LABS: Bedside Glucose 220 mg/dL (74-106)
[2022-07-24 07:23] LABS: Absolute Lymphocyte Count 1.64 X10^3/uL (0.83-4.51); Absolute Neutrophil Count 5.8 X10^3/uL (2.0-7.7); Basophil# 0.02 X10^3/uL; Basophil% 0.2 % (0-1); Eosinophil# 0.12 X10^3/uL; Eosinophils% 1.4 % (0-5); Hematocrit 35.5 % (40-54); Hemoglobin 11.3 g/dL (13.0-16.5); Lymphocyte # 1.64 X10^3/ul (0.83-4.51); Lymphocyte % 18.9 % (19-41); Mean Corp Hgb Conc 31.8 g/dL (32-36); Mean Corpuscular Hgb 30.9 pg (27.0-32.0); Mean Platelet Vol. 10.3 fl (6.2-12.0); Monocyte% 11.5 % (0-10); NRBC Flagged by Analyzer 0 % (0-5); Neutrophil # 5.83 X10^3/uL (2.7-7.7); Neutrophil % 67.4 % (47-70); Platelet Count 159 K/mm3 (150-450); RBC Distribution Width CV 16.7 % (11.6-14.6); RBC Distribution Width SD 59.7 fl (35.1-43.9); Red Blood Count 3.66 M/mm3 (4.6-6.2); White Blood Count 8.7 K/mm3 (4.4-11.0)
[2022-07-24 07:43] LABS: Anion Gap 6 (5-15); BUN 9 mg/dL (7-18); BUN/Creat Ratio 11.2 RATIO (10-20); Calcium,Total 8.5 mg/dL (8.5-10.1); Chloride 107 mmol/L (98-107); EST Glomerular Filtration Rate 97 mL/min (>60); Est Glom Filt Rate - Afr Amer 118 mL/min (>60); Estimated Creatinine Clearance 88.17 ml/min; Glucose 221 mg/dL (74-106); Potassium 3.2 mmol/L (3.5-5.1); Sodium Level 139 mmol/L (136-145)
[2022-07-24] MEDS: Loratadine 10 MG Tablet PO (07:48)
[2022-07-24] MEDS: Docusate Sodium 100 MG Capsule PO (07:48)
[2022-07-24] MEDS: Propranolol 10 MG Tablet 20 MG PO (07:48)
[2022-07-24] MEDS: Donepezil HCl 5 MG Tablet PO (07:48)
[2022-07-24] MEDS: Magnesium Chloride 64 MG Delay Rel.Tablet 128 MG PO (07:48)
[2022-07-24] MEDS: Allopurinol 100 MG Tablet PO (07:48)
[2022-07-24] MEDS: Gabapentin 100 MG Capsule PO ×2 (07:48→12:03)
[2022-07-24] MEDS: Tamsulosin HCl 0.4 MG Capsule PO (07:49)
[2022-07-24] MEDS: Psyllium 1 PACKET PO (07:49)
[2022-07-24] MEDS: Pantoprazole Sodium 40 MG Tablet PO (07:49)
[2022-07-24] MEDS: Lisinopril 20 MG Tablet PO (07:49)
[2022-07-24] MEDS: Enoxaparin 30 MG/0.3 ML Syringe SC (07:49)
[2022-07-24] MEDS: Finasteride 5 MG Tablet PO (07:50)
[2022-07-24 08:09] VITALS: BP 124/66; PULSE 92; RESP 18; TEMP 36.8; O2SAT 95
[2022-07-24 09:52] VITALS: O2SAT 94
[2022-07-24 11:25] LABS: Bedside Glucose 219 mg/dL (74-106)
--- NOTE | 2022-07-24 11:53 | CASEMGMT ---
Social Work SW spoke w/pt, let him know that based on PT/OT notes, he may not be approved to go to TCU. Pt states understanding, is concerned about going home however. He states it is difficult to get in and out of bed. He would be agreeable to home health should TCU not be approved. SW explained will keep him informed of what the insurance says once we hear back. Pt states understanding. SW will continue to follow. LUIS Aviles
--- NOTE | 2022-07-24 11:59 | CASEMGMT ---
Social Work POA for Healthcare scanned into summary tab of echart, with Living Will provision initialed. Tiesha Meadows is listed as pt's healthcare POA. LUIS Aviles
--- NOTE | 2022-07-24 12:21 | PCM.PN.HOSP ---
Documented by User: Ashley May NP, [employer] 07/24/22 12:25 Subjective Subjective Patient reports episode of difficulty swallowing during breakfast with feeling of food getting stuck. Ambulating without difficulty. Abdominal pain improved. Objective Data Objective Data Vital Signs: Vital Signs Temp Pulse Resp BP Pulse Ox O2 Del Method O2 Flow Rate 98.3 F 92 18 124/66 H 94 Room Air 2 07/24/22 08:09 07/24/22 08:09 07/24/22 08:09 07/24/22 08:09 07/24/22 09:52 07/24/22 08:15 07/22/22 14:01 Oxygen Flow Rate (L/min) 2 Oxygen Delivery Method Room Air Weight: 273 lb 9.498 oz Body Mass Index (BMI) 33.5 Intake & Output: Intake and Output for Last 24 Hours 07/22/22 07/23/22 07/24/22 23:59 23:59 23:59 Intake Total 1793.33 / 2443.33 2479.33 / 2829.33 1250 / 1250 Output Total 650 / 1000 950 / 1050 300 / 300 Balance 1143.33 / 1443.33 1529.33 / 1779.33 950 / 950 Lab / Micro Data Result Diagrams: 07/24/22 06:15 07/24/22 06:15 Labs: Laboratory Results - last 24 hr 07/23/22 16:06: POC Glucose 197 H 07/23/22 21:13: POC Glucose 181 H 07/24/22 06:15: WBC 8.7, RBC 3.66 L, Hgb 11.3 L, Hct 35.5 L, MCV 97.0 H, MCH 30.9, MCHC 31.8 L, RDW Std Deviation 59.7 H, RDW Coeff of Mariluz 16.7 H, Plt Count 159, MPV 10.3, Immature Gran % (Auto) 0.600, Neut % (Auto) 67.4, Lymph % (Auto) 18.9 L, [place] % (Auto) 11.5 H, Eos % (Auto) 1.4, Baso % (Auto) 0.2, Absolute Neuts (auto) 5.8, Absolute Lymphs (auto) 1.64, Nucleated RBC % 0 07/24/22 06:15: Sodium 139, Potassium 3.2 L, Chloride 107, Carbon Dioxide 26.0, Anion Gap 6, BUN 9, Creatinine 0.80, Estim Creat Clear Calc 88.17, Est GFR (MDRD) Af Amer 118, Est GFR (MDRD) Non-Af 97, BUN/Creatinine Ratio 11.2, Glucose 221 H, Calcium 8.5 07/24/22 06:47: POC Glucose 220 H 07/24/22 11:01: POC Glucose 219 H Physical Exam Const alert and oriented x3 HEENT normocephalic and moist oral mucous membranes Eyes PERRL, EOMs intact bilaterally and conjunctivae normal Neck no lymphadenopathy Resp clear to auscultation bilaterally Auscultation: diminished lung sounds Cardio regular rate, regular rhythm and no murmurs Peripheral Pulses: pulses 2+ throughout GI normal to inspection, nondistended, normoactive bowel sounds, non-tender and non-distended GI Narrative: Dressings intact Extremity normal to inspection Skin no rashes or lesions noted Lesions: no lesions Rashes: no rashes Trauma: no lacerations or abrasions Neuro CN's II-XII intact bilaterally, no focal motor deficits, no sensory deficits noted and deep tendon reflexes 2+ bilaterally Psych mental status grossly normal and affect normal Assessment & Plan Assessment/Plan (1) Colonic mass: PLAN: Plan 1. Colon mass-surgery following.? Underwent laparoscopic extended right colectomy with laparoscopic cholecystectomy as well as right liver biopsy.? Management per surgery. 2.? Type 2 diabetes yrupqnme-Mcqf-Dmbtn with sliding scale insulin. 3.? Persistent atrial fibrillation-Eliquis held.? Continue propanolol. 4.? Hypertension-stable, continue home regimen. 5.? Hyperlipidemia-continue statin. 6.? Dementia, unknown behavioral disturbance history-continue Aricept. 7.? Parkinson's disease-on Requip. 8.? Rosacea-continue home regimen. 9.? Iron deficiency anemia/chronic blood loss related to colon cancer-stable, trend CBC. 10.? COPD-as needed albuterol aerosol. 11.? History of CVA-continue statin.? Eliquis on hold. 12.? Peripheral vascular disease-continue statin. 13.? BPH-continue Flomax. DVT prophylaxis- SCDs This patient was seen by JOANNA Paredes under the supervision of Dr. Schulte. Time spent examining patient, reviewing data and subsequent management of care: 12 minutes Documented by User: Dr. Jh Schulte, 07/24/22 16:23 Objective Data Lab / Micro Data Result Diagrams: 07/24/22 06:15 07/24/22 06:15 Assessment & Plan Assessment/Plan (1) Colonic mass: Charges/Coding Addendum Addendum: Patient was seen and examined today independently of Ashley May, he appeared medically stable today and I talked with surgery who was okay with the patient going to TCU for rehab services. On examination he appeared in good health and spirits. Vital signs as documented. Skin warm and dry and without overt rashes. Neck without JVD, neck was supple, trachea midline, thyroid was normal. Lungs clear bilaterally, normal air movement was noted. Heart exam notable for irregular rhythm, normal sounds and absence of murmurs, rubs or gallops. Abdomen- abdomen is not distended.? Extremities nonedematous, no cyanosis was noted, no clubbing was noted.? Neuro: Cranial nerves II through XII are grossly intact, no focal motor deficits were noted, sensation to light touch and pinprick intact, motor exam 5/5 throughout.? Psych: Patient is alert and oriented x3, he does not appear anxious or depressed, he does not appear agitated. #1 type 2 diabetes-patient's blood sugars will be monitored with fingerstick blood sugars, sliding scale insulin will be administered per fingerstick reading #2 persistent atrial fibrillation-patient is on rate limiting medication (propranolol) and was taking Eliquis as an outpatient.? The Eliquis will be held at this time #3 hyperlipidemia-patient is on atorvastatin #4 dementia-patient takes Aricept as an outpatient, this will be continued #5 essential hypertension-patient's home medications or the equivalent will be continued #6 Parkinson's disease-continue outpatient meds-Requip #7 rosacea-patient is on several medications for rosacea, these will be held during his hospitalization, I talked with his plastic surgery specialist office yesterday #8 iron deficiency anemia-secondary to chronic GI blood loss from colon cancer-patient's hemoglobin today was 12.9, his iron can be held while he is in the hospital. #9 chronic obstructive pulmonary disease-at this time, I do not believe the patient needs aerosol treatments #10 hypothyroidism-patient is on Synthroid, this will be continued #11 cerebrovascular disease #12 peripheral vascular disease secondary to type 2 diabetes #13 BPH-patient takes Flomax, this will be continued #14 chronic use of anticoagulants-patient is chronically on Eliquis, this will be held at least for the time being. #15 colonic neoplasm-probable colon carcinoma-await pathology report I completed documentation for the patient be transferred to TCU this afternoon, I talked with Dr. Ruiz and this was okay with . I have reviewed Ashley May's progress note including her medical assessment and plan of care and with the above additions endorse it. Total clinical time spent by myself addressing the patient's medical issues, reviewing the data, and collaborating with patient's care team: 35 minutes Visit Charges Inpatient E&M: 78658 Subs Hosp L3
[2022-07-24] MEDS: Potassium Chloride Oral Tablet 20 MEQ 40 MEQ PO (12:34)
[2022-07-24 13:32] VITALS: BP 114/66; PULSE 101; RESP 20; TEMP 36.7; O2SAT 96
--- NOTE | 2022-07-24 14:18 | CASEMGMT ---
Addendum entered by Lea Gaitan 07/24/22 14:51: Pt received approval for [facility] TCU unit, pt notified. Original Note: ABI CHURCH in to pt room to discuss HHC should pt be denied by insurance for TCU. Pt states that if that is the case he is agreeable to HHC. Patient was provided a list of HHC providers including quality and resource use data and consistent with the patient?s preferred geographic region, medical needs, and insurance network. Patient states he would like to discuss with his sig other prior to deciding. ABI CHURCH to check back.
--- NOTE | 2022-07-24 14:58 | PCM.TXEXTCAR ---
Diet Diet Order/Speech Therapy: 07/23/22 06:05 Diet: Transitional Is pt able to select menu?: Yes Diet Comments: As tolerated per protocol Routine Orders/Code Status Routine Lab Work: BMP (in one week) and - (Fingerstick blood sugars fasting and 4 pm:Humalog SQ per blood sugar: 011=790: 5 units, 251-300:8 units, 301-350:12 units) Code Status: Full Code Wound(s) ABDOMEN: Wound Type: Surgical Incision Therapies Weight Bearing: Full weight bearing Problem/Diagnosis (1) Colonic mass: Status: Acute Code(s): K63.89 - Other specified diseases of intestine (2) Colon cancer: Status: Acute Code(s): C18.9 - Malignant neoplasm of colon, unspecified Plan 1. Colon mass-suspected to be cancer-surgery following. Underwent laparoscopic extended right colectomy with laparoscopic cholecystectomy as well as right liver biopsy. Management per surgery. 2. Type 2 diabetes hfqzfjme-Vkoh-Zjchv with sliding scale insulin. 3. Persistent atrial fibrillation-Eliquis held. Continue propanolol. 4. Hypertension-stable, continue home regimen. 5. Hyperlipidemia-continue statin. 6. Dementia, unknown behavioral disturbance history-continue Aricept. 7. Parkinson's disease-on Requip. 8. Rosacea-continue home regimen. 9. Iron deficiency anemia/chronic blood loss related to colon cancer-stable, trend CBC. 10. COPD-as needed albuterol aerosol. 11. History of CVA-continue statin. Eliquis on hold. 12. Peripheral vascular disease-continue statin. 13. BPH-continue Flomax. DVT prophylaxis- SCDs This patient was seen by JOANNA Paredes under the supervision of Dr. Schulte. Time spent examining patient, reviewing data and subsequent management of care: 14 minutes Allergies/Procedures Done in Hospital Allergies niacin Allergy (Intermediate, Verified 07/21/22 09:45) rash adhesive Adverse Reaction (Verified 07/21/22 09:45) Other: takes skin off, inflamed Procedures: - (laparoscopic extended right colectomy, laparoscopic cholecystectomy, right liver biopsy(needle)) Type of Care/Length of Stay Estimated LOS: Convalescent Care Less Than 30 days Type of Care Needed: Skilled Rehab Potential: Good Prognosis: Good Additional Orders/Day of Discharge H&P will serve as current which was dated: 07/21/22 Day of Discharge: 07/24/22 Dietary and Speech Recommendations Dietitian Recommendations/Changes: ADAT to Regular diet when medically able. Continue Ensure Enlive BID 120mL Follow Up Care Please Follow Up With: Josh Ruiz MD Discharge Plan Admission Admit Date/Time: 07/23/22 08:34 Primary Reason for Your Visit: Colon masses x3 Attending Provider: Josh Ruiz Primary Care Provider: Randell Sparks Consulting Providers: Tara Lion ; Dinorah Bonilla ; Bibi Bianchi ; Carrillo Ortiz ; Brent Santos ; Hilario Baires ; Kayla Yost ; Dion Roa ; Abdi Perez ; Jossue Knight ; Dannielle Sigala ; Jh Schulte ; Padma Fang ; Shaq Duran ; Kishan Dash ; Randell Sparks ; Vandana Canales ; Damir Canela ; Staci Gamez ; Ashley May SEWAGE DISPOSAL WORKER Instructions Additional Instructions / Restrictions: Dressing off in 3 days, then may shower Discharge Orders/Prescriptions Prescriptions: New oxycodone 5 mg Tablet 5 mg PO Q4H PRN PRN (Reason: Pain Score 4-5) 3 Days Qty: 10 0RF acetaminophen [Tylenol] 325 mg Tablet 650 mg PO Q6H PRN PRN (Reason: Pain Score 1-10/Temp > 100.7 F) Qty: 0 0RF enoxaparin 30 mg/0.3 mL Syringe 30 mg subcut DAILY Qty: 0 0RF Rx Instructions: stop om 07/27/22 Ensure Enlive 0.08 gram-1.5 kcal/mL Liquid 120 ml PO BID Qty: 0 0RF gabapentin 100 mg Capsule 100 mg PO TIDCM Qty: 0 0RF oxycodone 5 mg tablet 5 mg PO Q6H PRN (Reason: pain) 7 Days Qty: 10 0RF Continued quinapril 10 mg tablet 20 mg PO DAILY doxycycline hyclate 20 mg tablet 20 mg PO BID magnesium oxide 400 mg (241.3 mg magnesium) tablet 400 mg PO BID pioglitazone [Actos] 45 mg tablet 45 mg PO DAILY Qty: 30 3RF Citrucel 500 mg tablet 500 mg PO DAILY allopurinol 100 MG tablet 100 mg PO DAILYCM tamsulosin 0.4 MG capsule 0.4 mg PO DAILY trazodone 100 MG tablet 100 mg PO QHS docusate sodium 100 MG capsule 100 mg PO BID finasteride 5 MG tablet 5 mg PO DAILY trospium 20 MG tablet 20 mg PO QHS Label Comments: bladder Multivitamin 1 tab PO DAILY levothyroxine 150 mcg tablet 225 mcg PO MOWEFR Label Comments: 150 mcg PO ; 1 tab daily 1/2 tab extra on m w Lantus SoloStar Pen 30 units SC QHS cyanocobalamin (vitamin B-12) 500 MCG tablet 1,000 mcg PO DAILY@0800 ipratropium bromide 15 ML spray,non-aerosol 2 spray NS TID PRN (Reason: ALLERGIES) atorvastatin 20 mg Tablet 20 mg PO QHS ferrous sulfate 325 mg (65 mg iron) Tablet 325 mg PO TID propranolol 20 mg Tablet 20 mg PO BID cholecalciferol (vitamin D3) [Vitamin D3] 125 mcg (5,000 unit) Tablet 50,000 unit PO QMONTH melatonin 10 mg Tablet 10 mg PO QHS psyllium husk [Metamucil] 0.4 gram Capsule 0.4 g PO BID ropinirole 0.5 mg tablet 1 mg PO TID polyethylene glycol 3350 [Miralax] 17 gram Powder In Packet 17 g PO DAILY levothyroxine 150 mcg Tablet 150 mcg PO [facility] aumofhwx-dusxahudy-lrqnglufp 3.5-10,000-10 mg-unit-mg/gram Cream 1 applic TOPICAL DAILY npwbtntfuv-yvedaplabbcw-epeybj 1-1-4 % Gel 1 ea TOPICAL DAILY metoclopramide HCl 5 mg tablet 5 mg PO QHS Qty: 30 5RF Rx Instructions: administer 30 minutes before meals pantoprazole 40 mg tablet,delayed release (DR/EC) 40 mg PO DAILY Qty: 30 5RF sucralfate [Carafate] 1 gram tablet 1 g PO BID Qty: 60 5RF Changed donepezil [Aricept] 5 mg Tablet 10 mg PO DAILY Qty: 1 0RF Held Eliquis 2.5 mg tablet 5 mg PO BID Hold Instructions: resume 07/27/22 Discontinued loratadine 10 mg tablet 10 mg PO DAILY glipizide 5 MG tablet 5 mg PO BIDAC Referrals / Follow Up: Randell Sparks MD [Primary Care Provider] - Within 2 Weeks (after discharge from TCU) Josh Ruiz MD [Med Staff - Active Staff] - See Referral Note (in 1-2 weeks after discharge from TCU) Disposition Disposition (needs filled in before D/C Order can be placed): [facility]
--- NOTE | 2022-07-24 15:59 | CASEMGMT ---
Social Work SW faxed orders to TCU, updated pt and SO of discharge today. Pt declined this SW calling other family to inform of transfer. Copies of orders on pt file and originals with pt. Vashti with TCU informed pt will transfer today. JEANIE Gerardo
[2022-07-24 18:06] LABS: Bedside Glucose 257 mg/dL (74-106)
--- NOTE | 2022-07-27 11:35 | DS.PCM_ITS ---
Providers Date of Admission: 07/21/22 Date of Discharge: 07/24/22 Primary Care Physician: Dr. Randell Sparks MD Consultations 07/22/22 13:53 Consult: Hospitalist Routine Consulting Provider: [facility] Reason for Consult: General medical conditions (DM, HTN) EMERGENT Consult: No MD Notified: Yes Date Notified: 07/22/22 Time Notified: 11:35 Method of Notification: Verbal Method of Consult:: In-Person Diagnosis Discharge Diagnosis (1) Colonic mass: Status: Acute Code(s): K63.89 - Other specified diseases of intestine Medications at Discharge Home Medications Multivitamin 1 tab PO DAILY VITAMIN 05/10/15 allopurinol 100 mg tablet 100 mg PO DAILYCM gout 05/10/15 docusate sodium 100 mg capsule 100 mg PO BID constipation 05/10/15 finasteride 5 mg tablet 5 mg PO DAILY prostate 05/10/15 tamsulosin 0.4 mg capsule 0.4 mg PO DAILY prostate 05/10/15 trazodone 100 mg tablet 100 mg PO QHS sleep/mental health 05/10/15 trospium 20 mg tablet 20 mg PO QHS bladder 05/10/15 cyanocobalamin (vitamin B-12) 500 mcg tablet 1,000 mcg PO DAILY@0800 supplement 09/24/17 ipratropium bromide 42 mcg (0.06 %) nasal spray 2 spray NS TID PRN ALLERGIES 09/24/17 levothyroxine 150 mcg tablet 225 mcg PO MOWEFR thyroid 03/06/19 quinapril 10 mg tablet 20 mg PO DAILY BP 03/07/19 doxycycline hyclate 20 mg tablet 20 mg PO BID ocular rosaca 07/18/19 Lantus SoloStar Pen 30 units subcut QHS diabetes 11/30/19 magnesium oxide 400 mg (241.3 mg magnesium) tablet 400 mg PO BID supplement 11/30/19 atorvastatin 20 mg tablet 20 mg PO QHS cholesterol 06/19/22 cholecalciferol (vitamin D3) 125 mcg (5,000 unit) tablet (Vitamin D3) 50,000 unit PO QMONTH supplement 06/19/22 ferrous sulfate 325 mg (65 mg iron) tablet 325 mg PO TID iron 06/19/22 melatonin 10 mg tablet 10 mg PO QHS sleep 06/19/22 propranolol 20 mg tablet 20 mg PO BID BP 06/19/22 psyllium husk 0.4 gram capsule (Metamucil) 0.4 g PO BID bowels 06/19/22 sucralfate 1 gram tablet (Carafate) 1 g PO BID esophageal ulcers #60 tabs 07/10/22 ivermectin 1 %-metronidazole 1 %-niacinamide 4 % topical gel 1 ea topical DAILY ROSECA 07/13/22 levothyroxine 150 mcg tablet 150 mcg PO SUTUTHSA thyroid 07/13/22 ikuxtbnh-pkbftvzub-zhmupvitw 3.5 mg-10,000 unit-10 mg/gram top cream 1 applic topical DAILY LEFT EYE 07/13/22 polyethylene glycol 3350 17 gram oral powder packet (Miralax) 17 g PO DAILY constipation 07/13/22 apixaban 2.5 mg tablet (Eliquis) 5 mg PO BID blood thinner 07/17/22 methylcellulose (laxative) 500 mg tablet (Citrucel) 500 mg PO DAILY bowels 07/17/22 ropinirole 0.5 mg tablet 1 mg PO TID parkinsons 07/17/22 acetaminophen 325 mg tablet (Tylenol) 650 mg PO Q6H PRN PRN Pain Score 1-10/Temp > 100.7 F #0 tabs 07/24/22 donepezil 5 mg tablet (Aricept) 10 mg PO DAILY memory 07/24/22 enoxaparin 30 mg/0.3 mL subcutaneous syringe 30 mg subcut DAILY blood thinner 07/24/22 food supplemt, lactose-reduced 0.08 gram-1.5 kcal/mL oral liquid (Ensure Enlive) 120 ml PO BID supplement 07/24/22 gabapentin 100 mg capsule 100 mg PO TIDCM nerve pain 07/24/22 metoclopramide HCl 5 mg tablet 5 mg PO QHS stomach 07/24/22 oxycodone 5 mg tablet 5 mg PO Q4H PRN PRN Pain Score 4-5 3 days #10 tabs 07/24/22 pantoprazole 40 mg tablet,delayed release 40 mg PO DAILY acid reflux 07/24/22 pioglitazone 45 mg tablet (Actos) 45 mg PO DAILY diabetes 07/24/22 Hospital Course Operations - (Laparoscopic extended right colectomy. Laparoscopic cholecystectomy Kayden-Cut needle core right liver biopsy Laparoscopically guided bilateral transverses abdominal plane block) Procedures Colonoscopy Summary of Care Provided Minutes Spent on Discharge: 25 Hospital Course: Patient presented for a colonoscopy on 07/21 secondary to a colonic mass. Dr. Ruiz performed a colonoscopy on 07/21 which demonstrated the following: Findings: ?? ? The digital rectal exam findings include non-thrombosed external ?? ? hemorrhoids, non-thrombosed internal hemorrhoids, internal hemorrhoids ?? ? that prolapse with straining, but spontaneously regress to the resting ?? ? position (Grade II) and enlarged prostate. ?? ? A frond-like/villous non-obstructing large mass was found in the cecum. ?? ? The mass was non-circumferential. ?? ? A fungating mass was found in the ascending colon. No bleeding was ?? ? present. ?? ? A frond-like/villous non-obstructing large mass was found in the ?? ? proximal transverse colon. The mass was non-circumferential. No bleeding ?? ? was present. Area was tattooed with an injection of 4 mL of Ayah ink. ?? ? A 7 mm polyp was found in the mid descending colon. The polyp was ?? ? sessile. The polyp was removed with a hot snare. Resection and retrieval ?? ? were complete. ?? ? A 15 mm polyp was found in the distal sigmoid colon. The polyp was ?? ? sessile. The polyp was removed with a hot snare. Resection and retrieval ?? ? were complete. To prevent bleeding post-intervention, two hemostatic ?? ? clips were successfully placed. There was no bleeding at the end of the ?? ? procedure. Patient was admitted over night in preparation for a right hemicolectomy the following day. Patient was provided ERAS protocol for mechanical and oral bowel preparation. Dr. Ruiz performed a Laparoscopic extended right colectomy. Laparoscopic cholecystectomy. Kayden-Cut needle core right liver biopsy. Laparoscopically guided bilateral transverses abdominal plane block on 07/22. Patient tolerated the procedure well. He had an uneventful hospitalization. Patient is requiring further rehabilitation at discharge, as patient's significant other is not capable of taking care of the patient immediately post- operatively. Insurance approved patient to be discharged to transitional care unit at [facility]. Upon discharge, patient was tolerating transitional diet well. He has been ambulating. Denies nausea, vomiting, fever. Patient had met criteria to be transferred to TCU. Physical Exam GI soft to palpation Inspection: incision intact and healing well Palpation: soft and tender other (generalized) Weight / BMI Weight Weight: 273 lb 9.498 oz Body Mass Index (BMI) 33.5 ABG / Lab / Microbiology Data Result Diagrams: 07/24/22 06:15 07/24/22 06:15 Microbiology: Microbiology 07/24/22 14:45 Nasal Secretion SARS-CoV-2 Antigen (Rapid) - Final D/C Instructions Discharge Diet: Light diet - advance as tolerated (if you have questions about your diet instructions, please talk to you doctor.) May shower in (days): 1 Call your doctor if your incision/area has: Continuous Slow Oozing, Sudden Increased Bleeding, Increased Pain/ Swelling, Increased Redness and Foul Smelling Discharge Call your doctor if you observe: Fever of 101 or Higher Suture Line Care: Avoid Pulling/Pushing and Avoid Pinching/Bending Additional Dressing/Incision Instructions: Change or remove dressing in 4 days. Leave steri-strips in place for 1 week. You may resume your Eliquis on Wednesday, July 27, 2022 Please Follow Up With: Josh Ruiz MD When: Call [phone] to make an appointment to be seen in about 10 days. Meaningful Use Info Meaningful Use Diagnoses (Choose all that apply): None applicable Discharge Plan Admission Admit Date/Time: 07/23/22 08:34 Primary Reason for Your Visit: Colon masses x3 Attending Provider: Josh Ruiz Primary Care Provider: Randell Sparks Consulting Providers: Tara Lion ; Dinorah Bonilla ; Bibi Bianchi ; Carrillo Ortiz ; Brent Santos ; Hilario Baires ; Kayla Yost ; Dion Roa ; Abdi Perez ; Jossue Knight ; Dannielle Sigala ; Jh Schulte ; Padma Fang ; Shaq Duran ; Kishan Dash ; Randell Sparks ; Vandana Canales ; Damir Canela ; Staci Gamez ; Ashley May CERTIFIED RESIDENTIAL MEDICATION AIDE Instructions Additional Instructions / Restrictions: Dressing off in 3 days, then may shower Discharge Orders/Prescriptions Prescriptions: New oxycodone 5 mg Tablet 5 mg PO Q4H PRN PRN (Reason: Pain Score 4-5) 3 Days Qty: 10 0RF acetaminophen [Tylenol] 325 mg Tablet 650 mg PO Q6H PRN PRN (Reason: Pain Score 1-10/Temp > 100.7 F) Qty: 0 0RF Continued quinapril 10 mg tablet 20 mg PO DAILY doxycycline hyclate 20 mg tablet 20 mg PO BID magnesium oxide 400 mg (241.3 mg magnesium) tablet 400 mg PO BID Citrucel 500 mg tablet 500 mg PO DAILY allopurinol 100 MG tablet 100 mg PO DAILYCM tamsulosin 0.4 MG capsule 0.4 mg PO DAILY trazodone 100 MG tablet 100 mg PO QHS docusate sodium 100 MG capsule 100 mg PO BID finasteride 5 MG tablet 5 mg PO DAILY trospium 20 MG tablet 20 mg PO QHS Label Comments: bladder Multivitamin 1 tab PO DAILY levothyroxine 150 mcg tablet 225 mcg PO MOWEFR Label Comments: 150 mcg PO ; 1 tab daily 1/2 tab extra on m w f Lantus SoloStar Pen 30 units SC QHS cyanocobalamin (vitamin B-12) 500 MCG tablet 1,000 mcg PO DAILY@0800 ipratropium bromide 15 ML spray,non-aerosol 2 spray NS TID PRN (Reason: ALLERGIES) atorvastatin 20 mg Tablet 20 mg PO QHS ferrous sulfate 325 mg (65 mg iron) Tablet 325 mg PO TID propranolol 20 mg Tablet 20 mg PO BID cholecalciferol (vitamin D3) [Vitamin D3] 125 mcg (5,000 unit) Tablet 50,000 unit PO QMONTH melatonin 10 mg Tablet 10 mg PO QHS psyllium husk [Metamucil] 0.4 gram Capsule 0.4 g PO BID ropinirole 0.5 mg tablet 1 mg PO TID polyethylene glycol 3350 [Miralax] 17 gram Powder In Packet 17 g PO DAILY levothyroxine 150 mcg Tablet 150 mcg PO SUTUTHSA nwnkzegf-rhalfidtv-kemvoekwx 3.5-10,000-10 mg-unit-mg/gram Cream 1 applic TOPICAL DAILY [id number]-nxhxqdxkslnn-zcnfjc 1-1-4 % Gel 1 ea TOPICAL DAILY sucralfate [Carafate] 1 gram tablet 1 g PO BID Qty: 60 5RF Held Eliquis 2.5 mg tablet 5 mg PO BID Hold Instructions: resume 07/27/22 Discontinued loratadine 10 mg tablet 10 mg PO DAILY glipizide 5 MG tablet 5 mg PO BIDAC donepezil [Aricept] 5 mg Tablet 5 mg PO DAILY No Action donepezil [Aricept] 5 mg tablet 10 mg PO DAILY pioglitazone [Actos] 45 mg tablet 45 mg PO DAILY metoclopramide HCl 5 mg tablet 5 mg PO QHS Rx Instructions: administer 30 minutes before meals pantoprazole 40 mg tablet,delayed release (DR/EC) 40 mg PO DAILY gabapentin 100 mg capsule 100 mg PO TIDCM enoxaparin 30 mg/0.3 mL syringe 30 mg subcut DAILY Rx Instructions: stop om 07/27/22 Ensure Enlive 0.08 gram-1.5 kcal/mL liquid 120 ml PO BID Referrals / Follow Up: Randell Sparks MD [Primary Care Provider] - Within 2 Weeks (after discharge from TCU) Josh Ruiz MD [Med Staff - Active Staff] - See Referral Note (in 1-2 weeks after discharge from TCU) Disposition Disposition (needs filled in before D/C Order can be placed): Detention Facility Charges/Coding Visit Charges Inpatient E&M: 00947 Disch Hosp (No charge; post-op)
== END 2022-07-24 18:03 | disposition skilled nursing facility (03) | DRG 330 ==
LOC: EN 12:24 → MS3 12:40
PROVIDERS: Nurse Practitioner Family; Physician Assistant; Admitting Provider Surgery; PCP Family Medicine; Referring Provider Family Medicine; Visit Provider Surgery
PROC: 0DJD8ZZ Inspection of Lower Intestinal Tract, Via Natural or Artificial Opening Endoscopic (ICD-10-PCS; CPT 45378; principal; 2022-07-21 10:25)
PROC: (CPT 44205; principal; 2022-07-22 07:10)
DX: C18.2 Malignant neoplasm of ascending colon (principal); I48.19 Other persistent atrial fibrillation; K80.10 Calculus of gallbladder with chronic cholecystitis without obstruction; C18.0 Malignant neoplasm of cecum; D12.3 Benign neoplasm of transverse colon; D50.9 Iron deficiency anemia, unspecified; E11.49 Type 2 diabetes mellitus with other diabetic neurological complication; G25.81 Restless legs syndrome; E11.51 Type 2 diabetes mellitus with diabetic peripheral angiopathy without gangrene; J44.9 Chronic obstructive pulmonary disease, unspecified; K74.60 Unspecified cirrhosis of liver; G20 Parkinson's disease; D12.4 Benign neoplasm of descending colon; D12.5 Benign neoplasm of sigmoid colon; E03.9 Hypothyroidism, unspecified; E78.5 Hyperlipidemia, unspecified; I10 Essential (primary) hypertension; K21.9 Gastro-esophageal reflux disease without esophagitis; G47.33 Obstructive sleep apnea (adult) (pediatric); I87.2 Venous insufficiency (chronic) (peripheral); I65.29 Occlusion and stenosis of unspecified carotid artery; K64.1 Second degree hemorrhoids; K64.4 Residual hemorrhoidal skin tags; L71.9 Rosacea, unspecified; Z86.73 Personal history of transient ischemic attack (TIA), and cerebral infarction without residual deficits; Z87.19 Personal history of other diseases of the digestive system; Z85.828 Personal history of other malignant neoplasm of skin; N40.0 Benign prostatic hyperplasia without lower urinary tract symptoms
CPT/HCPCS: 36415; 80048; 80053; 82962; 85025; 85027; 87426; 88304; 88305; 88307; 88309; 88313; 88341; 88342; 92610; 94762; 97162; 97166; 97530; 97535; 99251; J7120; A4216; A4648; G0463

== ENCOUNTER 2022-07-24 18:15 | Inpatient (IN) | payer MEDICARE, OTHER, SELFPAY ==
[2022-07-24 20:01] VITALS: BP 117/64; PULSE 89; RESP 20; TEMP 36; O2SAT 95
--- NOTE | 2022-07-24 20:01 | NURSING ---
Per dayshift RN, pharmacist called stating patient needs to provide from home: doxycyline, sycegnvhdb-okuvzquxzmcjx-jlpgxy, neomycin-polymixin pramoxine eye gtts and requests last dose taken of vitamin d qmonth. 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 Pt. rep (Tiesha) as listed on facesheet contacted via telephone at this time and states she will bring in needed medications tomorrow. Tiesha states needed medications are related to patient rosacea that he has on his face and left eye
[2022-07-24 20:21] VITALS: PULSE 97; RESP 16; O2SAT 96
[2022-07-24 20:29] VITALS: BP 106/66; PULSE 72
[2022-07-24 20:36] VITALS: BMI 32.5
[2022-07-24] MEDS: Metoclopramide 5 MG TABLET PO (22:12)
[2022-07-24] MEDS: Ferrous Sulfate 325 MG Tablet PO (22:12)
[2022-07-24] MEDS: MELATONIN 10 MG TABLET PO (22:12)
[2022-07-24] MEDS: Pramipexole Di-HCl 0.5 MG Tablet PO (22:12)
[2022-07-24] MEDS: Atorvastatin Calcium 20 MG Tablet PO (22:12)
[2022-07-24] MEDS: traZODone 100 MG Tablet PO (22:12)
[2022-07-24] MEDS: Tolterodine Tartrate 2 MG CAP.SA PO (22:13)
[2022-07-24] MEDS: Insulin Glargine-YFGN 100 UNIT/ML Pen 30 UNIT SC (22:14)
[2022-07-24] MEDS: 0.9% Saline Lock 10 ML Syringe IV (22:18)
--- NOTE | 2022-07-24 22:33 | HP.PCM_ITS ---
[facility] - General General Date of Admission: 07/24/22 Date of Service: 07/27/22 Chief Complaint: Here for rehab. HPI Narrative ALCIDES LOREDO, is a 81 Male who presents with followin07/21/2022 Dr. Ruiz colonoscopy showed hemorrhoids, Cecal tumor, Ascending tumor, Proximal transverse colon tumor. Right colectomy recommended. 07/22/2022 Dr. Ruiz performed laparoscopic extended right colectomy, laparoscopic cholecystectomy, right liver biopsy. Laparoscopic guided bilateral transverses abdominal plane block. 07/23/2022 Abdominal pain, no bowel movement yet. 07/24/2022 Dysphagia with breakfast, abdominal pain improved. 07/24/2022 Admit to TCU with debility, here for rehabilitation, strenghthening, prior to discharge home with significant other. [facility] Medical History Asthma BiPAP (biphasic positive airway pressure) dependence Cardiology follow-up encounter Carotid artery disease Diabetes mellitus type 2 with neurological manifestations Diabetes mellitus, type II Difficulty swallowing DM (diabetes mellitus), type 2 with peripheral vascular complications Essential hypertension Gastric reflux Hepatitis History of atrial fibrillation History of CVA (cerebrovascular accident) (2007) History of echocardiogram History of GI bleed History of pericarditis (08/2017) History of stress test Hyperlipidemia Hypothyroidism Insulin dependent diabetes mellitus Longstanding persistent atrial fibrillation Non-smoker Obstructive sleep apnea Ocular rosacea Parkinson's disease Paroxysmal atrial fibrillation Peripheral vascular disease due to secondary diabetes Prostate disease Restless legs Short-term memory loss Skin tear Stroke/cerebrovascular accident Urinary incontinence Venous (peripheral) insufficiency Walker as ambulation aid Wears glasses Wears hearing aid Home Medications Multivitamin 1 tab PO DAILY VITAMIN 05/10/15 [History Last Taken Unknown] allopurinol 100 mg tablet 100 mg PO DAILYCM gout 05/10/15 [History Last Taken Unknown] docusate sodium 100 mg capsule 100 mg PO BID constipation 05/10/15 [History Last Taken 09/24/17] finasteride 5 mg tablet 5 mg PO DAILY prostate 05/10/15 [History Last Taken Unknown] tamsulosin 0.4 mg capsule 0.4 mg PO DAILY prostate 05/10/15 [History Last Taken Unknown] trazodone 100 mg tablet 100 mg PO QHS sleep/mental health 05/10/15 [History Last Taken Unknown] trospium 20 mg tablet 20 mg PO QHS bladder 05/10/15 [History Last Taken Unknown] cyanocobalamin (vitamin B-12) 500 mcg tablet 1,000 mcg PO DAILY@0800 supplement 09/24/17 [History Last Taken Unknown] ipratropium bromide 42 mcg (0.06 %) nasal spray 2 spray NS TID PRN ALLERGIES 09/24/17 [History Last Taken Unknown] levothyroxine 150 mcg tablet 225 mcg PO MOWEFR thyroid 03/06/19 [History Last Taken 06/23/22 08:00] quinapril 10 mg tablet 20 mg PO DAILY BP 03/07/19 [History Last Taken 07/21/22] doxycycline hyclate 20 mg tablet 20 mg PO BID ocular rosaca 07/18/19 [History Last Taken Unknown] Lantus SoloStar Pen 30 units subcut QHS diabetes 11/30/19 [History Last Taken Unknown] magnesium oxide 400 mg (241.3 mg magnesium) tablet 400 mg PO BID supplement 11/30/19 [History Last Taken Unknown] atorvastatin 20 mg tablet 20 mg PO QHS cholesterol 06/19/22 [History Last Taken Unknown] cholecalciferol (vitamin D3) 125 mcg (5,000 unit) tablet (Vitamin D3) 50,000 unit PO QMONTH supplement 06/19/22 [History Last Taken Unknown] ferrous sulfate 325 mg (65 mg iron) tablet 325 mg PO TID iron 06/19/22 [History Last Taken 07/17/22] melatonin 10 mg tablet 10 mg PO QHS sleep 06/19/22 [History Last Taken Unknown] propranolol 20 mg tablet 20 mg PO BID BP 06/19/22 [History Last Taken 07/21/22] psyllium husk 0.4 gram capsule (Metamucil) 0.4 g PO BID bowels 06/19/22 [History Last Taken Unknown] sucralfate 1 gram tablet (Carafate) 1 g PO BID esophageal ulcers #60 tabs 07/10/22 [Rx Last Taken Unknown] ivermectin 1 %-metronidazole 1 %-niacinamide 4 % topical gel 1 ea topical DAILY ROSECA 07/13/22 [History Last Taken Unknown] levothyroxine 150 mcg tablet 150 mcg PO SUTUTHSA thyroid 07/13/22 [History Last Taken 07/21/22] uquazpla-eeharmryv-sjljxdvbl 3.5 mg-10,000 unit-10 mg/gram top cream 1 applic topical DAILY LEFT EYE 07/13/22 [History Last Taken Unknown] polyethylene glycol 3350 17 gram oral powder packet (Miralax) 17 g PO DAILY constipation 07/13/22 [History Last Taken Unknown] apixaban 2.5 mg tablet (Eliquis) 5 mg PO BID blood thinner 07/17/22 [History Last Taken 07/17/22] methylcellulose (laxative) 500 mg tablet (Citrucel) 500 mg PO DAILY bowels 07/17/22 [History Last Taken Unknown] ropinirole 0.5 mg tablet 1 mg PO TID parkinsons 07/17/22 [History Last Taken 07/21/22] acetaminophen 325 mg tablet (Tylenol) 650 mg PO Q6H PRN PRN Pain Score 1-10/Temp > 100.7 F #0 tabs 07/24/22 [Rx Last Taken Unknown] donepezil 5 mg tablet (Aricept) 10 mg PO DAILY memory 07/24/22 [History Last Taken Unknown] enoxaparin 30 mg/0.3 mL subcutaneous syringe 30 mg subcut DAILY blood thinner 07/24/22 [History Last Taken Unknown] food supplemt, lactose-reduced 0.08 gram-1.5 kcal/mL oral liquid (Ensure Enlive) 120 ml PO BID supplement 07/24/22 [History Last Taken Unknown] gabapentin 100 mg capsule 100 mg PO TIDCM nerve pain 07/24/22 [History Last Taken Unknown] metoclopramide HCl 5 mg tablet 5 mg PO QHS stomach 07/24/22 [History Last Taken Unknown] oxycodone 5 mg tablet 5 mg PO Q4H PRN PRN Pain Score 4-5 3 days #10 tabs 07/24/22 [Rx Last Taken Unknown] pantoprazole 40 mg tablet,delayed release 40 mg PO DAILY acid reflux 07/24/22 [History Last Taken Unknown] pioglitazone 45 mg tablet (Actos) 45 mg PO DAILY diabetes 07/24/22 [History Last Taken Unknown] Allergy/AdvReac Type Severity Reaction Status Date / Time niacin Allergy Intermediate rash Verified 07/21/22 09:45 adhesive AdvReac Other: Verified 07/21/22 09:45 takes skin off, inflamed Family History Father CAD (coronary artery disease) Hypertension Mother Hypertension Surgical History H/O basal cell carcinoma excision History of appendectomy History of cataract extraction History of colonoscopy (~05/2022) Status post surgical removal of malignant neoplasm of skin Social History (Updated 07/24/22 @ 22:[address] Erasmo Dumas MD) household members: significant other Smoking Status: Never smoker alcohol intake: never substance use type: does not use seatbelt use: always do you feel safe at home: Yes ROS Constitutional Constitutional: Denies chills, fever(s) or weight gain ENT HEENT: Denies headache(s), nasal congestion or nasal discharge Cardiovascular Cardiovascular: Denies chest pain or palpitations Respiratory/Chest Respiratory/Chest: Denies cough, excessive phlegm production or shortness of breath with exertion Gastrointestinal Gastrointestinal: Denies abdominal pain, nausea or vomiting Genitourinary Genitourinary: Denies dysuria Musculoskeletal Musculoskeletal: Denies joint pain or joint swelling Integumentary Integumentary: Denies rash or wounds Neurologic Neurologic: Denies focal weakness, numbness or tingling Psychiatric Psychiatric: Denies anxiety, auditory hallucinations, depression, homicidal ideation or suicidal ideation Vital Signs Vital Signs Vital Signs: 07/24/22 20:01 Temperature 96.8 F L Temperature Source Temporal Pulse Rate 89 Respiratory Rate 20 H Blood Pressure 117/64 Blood Pressure Mean 81 Blood Pressure Source Monitor Pulse Ox 95 Oxygen Delivery Method Room Air Weight Weight: 124.284 kg Body Mass Index (BMI) 32.5 Physical Exam Const alert General Appearance: cooperative HEENT normocephalic Eyes PERRL and EOMs intact bilaterally Neck supple, no JVD and no carotid bruits Resp normal respiratory effort, normal air movement and clear to auscultation bilaterally Cardio regular rate and regular rhythm GI normal to inspection, nondistended, normoactive bowel sounds, non-tender and non-distended GI Narrative: Abdominal incisions dressed. Extremity normal capillary refill General Extremity: Negative for edema Skin no rashes or lesions noted General Skin Exam: no breakdown Psych affect normal Appearance: appropriate Results Lab / Micro Data Result Diagrams: 07/27/22 05:17 07/27/22 05:17 Assessment & Plan Assessment/Plan (1) Debility: (2) Colon cancer: (3) Gout: (4) Benign prostatic hyperplasia: (5) Insomnia: (6) Overactive bladder: (7) Diabetes mellitus: (8) Allergic rhinitis: (9) Hypothyroidism: (10) Sleep apnea: (11) Hypomagnesemia: (12) Alzheimer disease: (13) Atrial fibrillation: (14) Hyperlipidemia: (15) Gastroparesis: (16) Gastroesophageal reflux disease: (17) Restless leg syndrome: PLAN: Plan 81 year old male with below past medical history significant for colon cancer, hospitalized for right colectomy per Dr. Ruiz 07/22/2022, admitted to TCU with debility, here for rehabilitation, strenghening, prior to discharge home with significant oher. * Debility - PT/OT. * Dysphagia - ST. * Pain - Tylenol 1000mg q6h prn pain (1-3), Oxycodone 5mg q4h prn pain (4-10). * Bowel - Miralax 17gm daily, Colace 100mg bid, Citrucel 2gm daily, Metamucil 1 packet po bid. * Adult immunization - Administer pneumonia vaccine, covid19 vaccine, flu vaccine as appropriate. * DVT prophylaxis - Lovenox 30mg sc daily. * Gout - Allopurinol 100mg daily. * Atrial fibrillation - Propranolol 20mg bid, Eliquis 5mg bid. * Hyperlipidemia - Atorvastatin 20mg qhs. * Vitamin B12 deficiency - B12 1000mcg daily. * Alzheimer Disease - Donepezil 10mg daily. * Rosacea - Doxycycline 50mg daily. * Nutrition - Ensure Enlive 120ml po bid, MVI daily. * Vitamin D deficiency - D 1.25mg qmonth. * Iron deficiency anemia - Ferrous sulfate 325mg po tidcm. * BPH - Finasteride 5mg daily, Tamsulosin 0.4mg daily. * Diabetic polyneuropathy - Gabapentin 100mg po tid. * Diabetes Mellitus II - Glargine 30 units qhs, Pioglitazone 45mg daily, Glucagon 1mg im x 1 prn. * Allergic rhinitis - Atrovent 2 sprays nasal tid prn. * Hypothyroidism - Levothyroxine 150mcg 4 days/week, 225mcg 3 days/week. * Coronary Artery Disease - Propranolol 20mg bid, Lisinopril 20mg daily. * Hypomagnesemia - Magnesium chloride 128mg bid. * Insomnia- Trazodone 100mg qhs, Melatonin 10mg qhs. * Skin irritation - Calmoseptine topical bid. * Gastroparesis - Reglan 5mg qhs. * GERD - Pantoprazole 40mg daily, Sucralfate 1gm bid. * Restless leg syndrome - Mirapex 0.5mg tid. * Overactive bladder - Tolterodine 2mg qhs.
--- NOTE | 2022-07-25 03:00 | NURSING ---
HS blood glucose did not transfers, RN RESEARCH obtained at 2100 with result 175
[2022-07-25] MEDS: Pantoprazole Sodium 40 MG Tablet PO (05:44)
[2022-07-25] MEDS: Levothyroxine 150 MCG Tablet PO (05:44)
[2022-07-25] MEDS: Propranolol 10 MG Tablet 20 MG PO ×2 (05:44→17:42)
[2022-07-25] MEDS: Tamsulosin HCl 0.4 MG Capsule PO (05:44)
[2022-07-25] MEDS: Donepezil HCl 10 MG Tablet PO (05:44)
[2022-07-25] MEDS: Magnesium Chloride 64 MG Delay Rel.Tablet 128 MG PO ×2 (05:44→17:42)
[2022-07-25] MEDS: Docusate Sodium 100 MG Capsule PO ×2 (05:44→17:42)
[2022-07-25] MEDS: Lisinopril 20 MG Tablet PO (05:44)
[2022-07-25] MEDS: Pramipexole Di-HCl 0.5 MG Tablet PO ×3 (05:44→22:22)
[2022-07-25] MEDS: Psyllium 1 PACKET PO ×2 (05:45→17:42)
[2022-07-25] MEDS: Polyethylene Glycol 3350 17 GM PACKET PO (05:45)
[2022-07-25] MEDS: Enoxaparin 30 MG/0.3 ML Syringe SC (05:45)
[2022-07-25] MEDS: Menthol/Lanolin/Calamine/Znox 113 GM Tube 1 APPLIC TOPICAL ×2 (06:00→17:48)
[2022-07-25 06:35] LABS: Bedside Glucose 176 mg/dL (74-106)
[2022-07-25] MEDS: Finasteride 5 MG Tablet PO (06:36)
--- NOTE | 2022-07-25 06:37 | NURSING ---
Baseline careplan provided to patient
[2022-07-25 08:18] LABS: Absolute Lymphocyte Count 1.26 X10^3/uL (0.83-4.51); Absolute Neutrophil Count 5.6 X10^3/uL (2.0-7.7); Basophil# 0.03 X10^3/uL; Basophil% 0.4 % (0-1); Eosinophil# 0.14 X10^3/uL; Eosinophils% 1.8 % (0-5); Hematocrit 38.7 % (40-54); Lymphocyte # 1.26 X10^3/ul (0.83-4.51); Lymphocyte % 15.8 % (19-41); Mean Corpuscular Volume 96.8 fL (80-94); Mean Platelet Vol. 10.5 fl (6.2-12.0); Monocyte# 0.91 X10^3/uL; Monocyte% 11.4 % (0-10); NRBC Flagged by Analyzer 0 % (0-5); Neutrophil # 5.61 X10^3/uL (2.7-7.7); Platelet Count 195 K/mm3 (150-450); RBC Distribution Width CV 16.7 % (11.6-14.6); RBC Distribution Width SD 59.3 fl (35.1-43.9)
[2022-07-25] MEDS: Acetaminophen 500 MG Tablet 1000 MG PO (08:21)
[2022-07-25] MEDS: Gabapentin 100 MG Capsule PO ×3 (08:21→17:48)
[2022-07-25] MEDS: Cyanocobalamin 500 MCG Tablet 1000 MCG PO (08:21)
[2022-07-25] MEDS: Ferrous Sulfate 325 MG Tablet PO ×3 (08:22→17:44)
[2022-07-25] MEDS: Allopurinol 100 MG Tablet PO (08:22)
[2022-07-25] MEDS: Sucralfate 1 GM Tablet PO ×2 (08:22→17:42)
[2022-07-25] MEDS: Multivitamins,Therapeutic Tablet 1 TABLET PO (08:22)
[2022-07-25] MEDS: Pioglitazone Hydrochloride 45 MG Tablet PO (08:23)
[2022-07-25] MEDS: Methylcellulose 2 GM Bottle PO (08:23)
[2022-07-25] MEDS: 0.9% Saline Lock 10 ML Syringe IV (08:30)
[2022-07-25 08:36] LABS: Anion Gap 6 (5-15); BUN 13 mg/dL (7-18); BUN/Creat Ratio 14.4 RATIO (10-20); Calcium,Total 9.2 mg/dL (8.5-10.1); Chloride 109 mmol/L (98-107); EST Glomerular Filtration Rate 85 mL/min (>60); Est Glom Filt Rate - Afr Amer 103 mL/min (>60); Estimated Creatinine Clearance 78.38 ml/min; Glucose 213 mg/dL (74-106); Potassium 3.6 mmol/L (3.5-5.1); Sodium Level 140 mmol/L (136-145)
[2022-07-25] MEDS: Tuberculin,Purif.prot.deriv. 50 TU/ML Vial 0.1 ML ID (09:46)
--- NOTE | 2022-07-25 09:48 | NURSING ---
Therapy noted pt had skin to to right elbow, pt stated he hit his elbow on the bathroom hand rail. DSD appiled.
[2022-07-25 10:36] LABS: Bedside Glucose 175 mg/dL (74-106)
[2022-07-25 16:00] VITALS: BP 112/61; PULSE 86; RESP 18; TEMP 36.8; O2SAT 95
[2022-07-25 16:40] LABS: Bedside Glucose 226 mg/dL (74-106)
[2022-07-25 16:40] LABS: Bedside Glucose 270 mg/dL (74-106)
[2022-07-25] MEDS: Glucerna Shake 120 ML LIQUID PO (17:47)
[2022-07-25 22:00] LABS: Bedside Glucose 226 mg/dL (74-106)
[2022-07-25] MEDS: traZODone 100 MG Tablet PO (22:22)
[2022-07-25] MEDS: Metoclopramide 5 MG TABLET PO (22:22)
[2022-07-25] MEDS: Atorvastatin Calcium 20 MG Tablet PO (22:22)
[2022-07-25] MEDS: MELATONIN 10 MG TABLET PO (22:22)
[2022-07-25] MEDS: Tolterodine Tartrate 2 MG CAP.SA PO (22:23)
[2022-07-25] MEDS: Insulin Glargine-YFGN 100 UNIT/ML Pen 30 UNIT SC (22:23)
[2022-07-25 22:30] VITALS: O2SAT 94
[2022-07-26] MEDS: Enoxaparin 30 MG/0.3 ML Syringe SC (05:48)
[2022-07-26] MEDS: Docusate Sodium 100 MG Capsule PO ×2 (05:48→17:11)
[2022-07-26] MEDS: Pantoprazole Sodium 40 MG Tablet PO (05:49)
[2022-07-26] MEDS: Propranolol 10 MG Tablet 20 MG PO ×2 (05:49→17:11)
[2022-07-26] MEDS: Donepezil HCl 10 MG Tablet PO (05:49)
[2022-07-26] MEDS: Levothyroxine 150 MCG Tablet PO (05:49)
[2022-07-26] MEDS: Magnesium Chloride 64 MG Delay Rel.Tablet 128 MG PO ×2 (05:49→17:10)
[2022-07-26 05:50] VITALS: BP 119/69; PULSE 100; TEMP 36.4
[2022-07-26] MEDS: Menthol/Lanolin/Calamine/Znox 113 GM Tube 1 APPLIC TOPICAL ×2 (05:50→17:11)
[2022-07-26] MEDS: Finasteride 5 MG Tablet PO (05:50)
[2022-07-26] MEDS: Sucralfate 1 GM Tablet PO ×2 (05:50→17:10)
[2022-07-26] MEDS: Tamsulosin HCl 0.4 MG Capsule PO (05:50)
[2022-07-26] MEDS: Lisinopril 20 MG Tablet PO (05:50)
[2022-07-26] MEDS: Pramipexole Di-HCl 0.5 MG Tablet PO ×3 (05:51→21:58)
[2022-07-26] MEDS: Polyethylene Glycol 3350 17 GM PACKET PO (06:01)
--- NOTE | 2022-07-26 06:03 | NURSING ---
Pt wishes to have creams applied after faced washed. Would like Metamucil after breakfast.
[2022-07-26 07:01] LABS: Bedside Glucose 183 mg/dL (74-106)
[2022-07-26] MEDS: Pioglitazone Hydrochloride 45 MG Tablet PO (08:05)
[2022-07-26] MEDS: Ferrous Sulfate 325 MG Tablet PO ×3 (08:05→17:11)
[2022-07-26] MEDS: Methylcellulose 2 GM Bottle PO (08:05)
[2022-07-26] MEDS: Multivitamins,Therapeutic Tablet 1 TABLET PO (08:05)
[2022-07-26] MEDS: Allopurinol 100 MG Tablet PO (08:05)
[2022-07-26] MEDS: Psyllium 1 PACKET PO ×2 (08:05→17:10)
[2022-07-26] MEDS: Cyanocobalamin 500 MCG Tablet 1000 MCG PO (08:06)
[2022-07-26] MEDS: Neomycin/Polymyxin/Dexameth OINT 3.5GM OPTH.TUBE 1 APPLIC TOPICAL (08:06)
[2022-07-26] MEDS: Glucerna Shake 120 ML LIQUID PO ×3 (08:09→17:13)
[2022-07-26] MEDS: Gabapentin 100 MG Capsule PO ×3 (08:09→17:13)
[2022-07-26 10:00] VITALS: PULSE 80; RESP 16; O2SAT 94
[2022-07-26 11:41] LABS: Bedside Glucose 299 mg/dL (74-106)
[2022-07-26 14:51] VITALS: BP 109/61; PULSE 89; RESP 14; TEMP 37; O2SAT 94
[2022-07-26] MEDS: 0.9% Saline Lock 10 ML Syringe IV (17:11)
[2022-07-26 17:16] LABS: Bedside Glucose 285 mg/dL (74-106)
[2022-07-26 21:30] LABS: Bedside Glucose 205 mg/dL (74-106)
[2022-07-26] MEDS: traZODone 100 MG Tablet PO (21:58)
[2022-07-26] MEDS: Metoclopramide 5 MG TABLET PO (21:59)
[2022-07-26] MEDS: Tolterodine Tartrate 2 MG CAP.SA PO (21:59)
[2022-07-26] MEDS: MELATONIN 10 MG TABLET PO (21:59)
[2022-07-26 22:00] VITALS: BP 133/71; PULSE 92; RESP 20; TEMP 36.8; O2SAT 96
[2022-07-26] MEDS: Insulin Glargine-YFGN 100 UNIT/ML Pen 40 UNIT SC (22:00)
[2022-07-26] MEDS: Atorvastatin Calcium 20 MG Tablet PO (22:00)
--- NOTE | 2022-07-26 22:00 | NURSING ---
Pt reports increased moist, productive cough since 4pm today. Denies dysphagia. Significant other in to visit today per pt and he denies that she was ill or has been around anyone else who has been ill. Denies chest pain, myalgias, arthralgias, or loss of taste or smell. Clear, thin nasal drainage which is not a new finding. Reports clear, white sputum of medium consistency. Reports shortness of breath. Is unable to lay flat, on either side, or sit upright in bed without any relief. No conversational dyspnea noted. Pt is mildly distressed. HS meds administered. Vitals obtained and recorded. Lungs w/ rales to rt base, rhonchi to lt base, and fine crackles noted to b/l upper lobes posterior which clears w/ cough. HR slightly irregular.
--- NOTE | 2022-07-26 22:30 | NURSING ---
Pagekatina Dumas w/ immediate return phone call. Updated on pt's assessment and vital signs. New orders received for CXR PA and lateral, repeat CBC w/ diff and BMP tomorrow, rapid COVID swab- if positive obtain PCR, and Levaquin 500 mg po daily x 7 days w/ first dose tonight.
--- NOTE | 2022-07-26 22:55 | RAD_ITS ---
STUDY: X-RAY CHEST REASON FOR EXAM: Male, 81 years old. Productive cough, adventitious lung sounds TECHNIQUE: PA and lateral views of the chest. COMPARISON: 07/06/22 FINDINGS: There is hyperinflation of the lungs consistent with chronic obstructive lung disease (COPD). No acute airspace disease. Normal size heart. Normal mediastinum and mark. Normal visualized pulmonary arteries. Normal visualized aortic arch and descending thoracic aorta. Normal visualized thoracic spine. Normal visualized ribs, clavicles, and shoulders. There is no demonstrated abnormality of the visualized soft tissue structures of the upper abdomen. RAD/Chest PA and Lateral IMPRESSION: No acute cardiopulmonary disease Electronically Signed: Diego Webb DO at 0:04 EDT ,
[2022-07-26] MEDS: levoFLOXacin 500 MG Tablet PO (23:00)
[2022-07-27 05:39] LABS: Absolute Lymphocyte Count 1.16 X10^3/uL (0.83-4.51); Absolute Neutrophil Count 4.6 X10^3/uL (2.0-7.7); Basophil# 0.02 X10^3/uL; Basophil% 0.3 % (0-1); Eosinophil# 0.17 X10^3/uL; Eosinophils% 2.4 % (0-5); Hematocrit 35.3 % (40-54); Hemoglobin 11.2 g/dL (13.0-16.5); Lymphocyte # 1.16 X10^3/ul (0.83-4.51); Lymphocyte % 16.7 % (19-41); Mean Corp Hgb Conc 31.7 g/dL (32-36); Mean Corpuscular Hgb 30.6 pg (27.0-32.0); Mean Corpuscular Volume 96.4 fL (80-94); Mean Platelet Vol. 10.3 fl (6.2-12.0); Monocyte# 0.87 X10^3/uL; Monocyte% 12.5 % (0-10); NRBC Flagged by Analyzer 0 % (0-5); Neutrophil # 4.61 X10^3/uL (2.7-7.7); Neutrophil % 66.4 % (47-70); Platelet Count 174 K/mm3 (150-450); RBC Distribution Width CV 16.3 % (11.6-14.6); RBC Distribution Width SD 57.9 fl (35.1-43.9); Red Blood Count 3.66 M/mm3 (4.6-6.2)
[2022-07-27] MEDS: Polyethylene Glycol 3350 17 GM PACKET PO (05:48)
[2022-07-27] MEDS: Levothyroxine 150 MCG Tablet 225 MCG PO (05:50)
[2022-07-27] MEDS: Propranolol 10 MG Tablet 20 MG PO ×2 (05:54→17:48)
[2022-07-27] MEDS: Tamsulosin HCl 0.4 MG Capsule PO (05:54)
[2022-07-27] MEDS: Finasteride 5 MG Tablet PO (05:54)
[2022-07-27] MEDS: Pramipexole Di-HCl 0.5 MG Tablet PO ×3 (05:55→21:39)
[2022-07-27] MEDS: Docusate Sodium 100 MG Capsule PO ×2 (05:55→17:49)
[2022-07-27] MEDS: Sucralfate 1 GM Tablet PO ×2 (05:55→16:41)
[2022-07-27] MEDS: Magnesium Chloride 64 MG Delay Rel.Tablet 128 MG PO ×2 (05:55→17:48)
[2022-07-27] MEDS: Pantoprazole Sodium 40 MG Tablet PO (05:55)
[2022-07-27] MEDS: Lisinopril 20 MG Tablet PO (05:56)
[2022-07-27] MEDS: APIXABAN 5 MG TABLET PO ×2 (05:56→17:47)
[2022-07-27] MEDS: Menthol/Lanolin/Calamine/Znox 113 GM Tube 1 APPLIC TOPICAL ×2 (05:57→17:44)
[2022-07-27] MEDS: Donepezil HCl 10 MG Tablet PO (05:57)
[2022-07-27] MEDS: 0.9% Saline Lock 10 ML Syringe IV (06:01)
[2022-07-27 06:08] LABS: Anion Gap 5 (5-15); BUN 16 mg/dL (7-18); BUN/Creat Ratio 17.4 RATIO (10-20); Calcium,Total 8.9 mg/dL (8.5-10.1); Chloride 110 mmol/L (98-107); Creatinine, Serum 0.92 mg/dL (0.70-1.30); EST Glomerular Filtration Rate 84 mL/min (>60); Est Glom Filt Rate - Afr Amer 101 mL/min (>60); Estimated Creatinine Clearance 76.67 ml/min; Glucose 233 mg/dL (74-106); Potassium 3.9 mmol/L (3.5-5.1); Sodium Level 141 mmol/L (136-145)
[2022-07-27 06:10] VITALS: BP 108/62; PULSE 92; TEMP 35.5; O2SAT 95
--- NOTE | 2022-07-27 06:12 | NURSING ---
Declines to have scheduled creams applied at this time until after bathing. Will report to oncoming nurse.
[2022-07-27 06:46] LABS: Bedside Glucose 212 mg/dL (74-106)
[2022-07-27] MEDS: Allopurinol 100 MG Tablet PO (08:04)
[2022-07-27] MEDS: Cyanocobalamin 500 MCG Tablet 1000 MCG PO (08:04)
[2022-07-27] MEDS: Methylcellulose 2 GM Bottle PO (08:04)
[2022-07-27] MEDS: Ferrous Sulfate 325 MG Tablet PO ×3 (08:04→17:46)
[2022-07-27] MEDS: Pioglitazone Hydrochloride 45 MG Tablet PO (08:04)
[2022-07-27] MEDS: Glucerna Shake 120 ML LIQUID PO ×3 (08:04→17:59)
[2022-07-27] MEDS: Multivitamins,Therapeutic Tablet 1 TABLET PO (08:04)
[2022-07-27] MEDS: Gabapentin 100 MG Capsule PO ×3 (08:04→17:59)
[2022-07-27] MEDS: Neomycin/Polymyxin/Dexameth OINT 3.5GM OPTH.TUBE 1 APPLIC TOPICAL (08:05)
--- NOTE | 2022-07-27 10:11 | PCM.DC.SUM ---
Providers Date of Admission: 07/24/22 Primary Care Physician: Dr. Randell Sparks MD Reason For Visit: COLON CANCER Diagnosis Discharge Diagnosis (1) Debility: Status: Acute Code(s): R53.81 - Other malaise (2) Colon cancer: Status: Acute Code(s): C18.9 - Malignant neoplasm of colon, unspecified (3) Gout: Status: Acute Code(s): M10.9 - Gout, unspecified (4) Benign prostatic hyperplasia: Status: Acute Code(s): N40.0 - Benign prostatic hyperplasia without lower urinary tract symptoms (5) Insomnia: Status: Acute Code(s): G47.00 - Insomnia, unspecified (6) Overactive bladder: Status: Acute Code(s): N32.81 - Overactive bladder (7) Diabetes mellitus: Status: Acute Code(s): E11.9 - Type 2 diabetes mellitus without complications (8) Allergic rhinitis: Status: Acute Code(s): J30.9 - Allergic rhinitis, unspecified (9) Hypothyroidism: Status: Acute Code(s): E03.9 - Hypothyroidism, unspecified (10) Sleep apnea: Status: Acute Code(s): G47.30 - Sleep apnea, unspecified (11) Hypomagnesemia: Status: Acute Code(s): E83.42 - Hypomagnesemia (12) Alzheimer disease: Status: Acute Code(s): G30.9 - Alzheimer's disease, unspecified; F02.80 - Dementia in other diseases classified elsewhere without behavioral disturbance (13) Atrial fibrillation: Status: Acute Code(s): I48.91 - Unspecified atrial fibrillation (14) Hyperlipidemia: Status: Acute Code(s): E78.5 - Hyperlipidemia, unspecified (15) Gastroparesis: Status: Acute Code(s): K31.84 - Gastroparesis (16) Gastroesophageal reflux disease: Status: Acute Code(s): K21.9 - Gastro-esophageal reflux disease without esophagitis (17) Restless leg syndrome: Status: Acute Code(s): G25.81 - Restless legs syndrome Medications at Discharge Home Medications Multivitamin 1 tab PO DAILY VITAMIN 05/10/15 allopurinol 100 mg tablet 100 mg PO DAILYCM gout 05/10/15 docusate sodium 100 mg capsule 100 mg PO BID constipation 05/10/15 finasteride 5 mg tablet 5 mg PO DAILY prostate 05/10/15 tamsulosin 0.4 mg capsule 0.4 mg PO DAILY prostate 05/10/15 trazodone 100 mg tablet 100 mg PO QHS sleep/mental health 05/10/15 trospium 20 mg tablet 20 mg PO QHS bladder 05/10/15 cyanocobalamin (vitamin B-12) 500 mcg tablet 1,000 mcg PO DAILY@0800 supplement 09/24/17 ipratropium bromide 42 mcg (0.06 %) nasal spray 2 spray NS TID PRN ALLERGIES 09/24/17 levothyroxine 150 mcg tablet 225 mcg PO MOWEFR thyroid 03/06/19 quinapril 10 mg tablet 20 mg PO DAILY BP 03/07/19 doxycycline hyclate 20 mg tablet 20 mg PO BID ocular rosaca 07/18/19 Lantus SoloStar Pen 30 units subcut QHS diabetes 11/30/19 magnesium oxide 400 mg (241.3 mg magnesium) tablet 400 mg PO BID supplement 11/30/19 atorvastatin 20 mg tablet 20 mg PO QHS cholesterol 06/19/22 cholecalciferol (vitamin D3) 125 mcg (5,000 unit) tablet (Vitamin D3) 50,000 unit PO QMONTH supplement 06/19/22 ferrous sulfate 325 mg (65 mg iron) tablet 325 mg PO TID iron 06/19/22 melatonin 10 mg tablet 10 mg PO QHS sleep 06/19/22 propranolol 20 mg tablet 20 mg PO BID BP 06/19/22 psyllium husk 0.4 gram capsule (Metamucil) 0.4 g PO BID bowels 06/19/22 sucralfate 1 gram tablet (Carafate) 1 g PO BID esophageal ulcers #60 tabs 07/10/22 ivermectin 1 %-metronidazole 1 %-niacinamide 4 % topical gel 1 ea topical DAILY ROSECA 07/13/22 levothyroxine 150 mcg tablet 150 mcg PO SUTUTHSA thyroid 07/13/22 dxukmwfb-qrwqcqftd-sbckgosvs 3.5 mg-10,000 unit-10 mg/gram top cream 1 applic topical DAILY LEFT EYE 07/13/22 polyethylene glycol 3350 17 gram oral powder packet (Miralax) 17 g PO DAILY constipation 07/13/22 apixaban 2.5 mg tablet (Eliquis) 5 mg PO BID blood thinner 07/17/22 methylcellulose (laxative) 500 mg tablet (Citrucel) 500 mg PO DAILY bowels 07/17/22 ropinirole 0.5 mg tablet 1 mg PO TID parkinsons 07/17/22 acetaminophen 325 mg tablet (Tylenol) 650 mg PO Q6H PRN PRN Pain Score 1-10/Temp > 100.7 F #0 tabs 07/24/22 donepezil 5 mg tablet (Aricept) 10 mg PO DAILY memory 07/24/22 enoxaparin 30 mg/0.3 mL subcutaneous syringe 30 mg subcut DAILY blood thinner 07/24/22 food supplemt, lactose-reduced 0.08 gram-1.5 kcal/mL oral liquid (Ensure Enlive) 120 ml PO BID supplement 07/24/22 gabapentin 100 mg capsule 100 mg PO TIDCM nerve pain 07/24/22 metoclopramide HCl 5 mg tablet 5 mg PO QHS stomach 07/24/22 oxycodone 5 mg tablet 5 mg PO Q4H PRN PRN Pain Score 4-5 3 days #10 tabs 07/24/22 pantoprazole 40 mg tablet,delayed release 40 mg PO DAILY acid reflux 07/24/22 pioglitazone 45 mg tablet (Actos) 45 mg PO DAILY diabetes 07/24/22 Weight / BMI Weight Weight: 273 lb 15.989 oz Body Mass Index (BMI) 32.5 ABG / Lab / Microbiology Data Result Diagrams: 07/27/22 05:17 07/27/22 05:17 Laboratory: Laboratory Results - last 24 hr 07/26/22 11:15: POC Glucose 299 H 07/26/22 16:56: POC Glucose 285 H 07/26/22 21:06: POC Glucose 205 H 07/27/22 05:17: Sodium 141, Potassium 3.9, Chloride 110 H, Carbon Dioxide 26.0, Anion Gap 5, BUN 16, Creatinine 0.92, Estim Creat Clear Calc 76.67, Est GFR (MDRD) Af Amer 101, Est GFR (MDRD) Non-Af 84, BUN/Creatinine Ratio 17.4, Glucose 233 H, Calcium 8.9 07/27/22 05:17: WBC 7.0, RBC 3.66 L, Hgb 11.2 L, Hct 35.3 L, MCV 96.4 H, MCH 30.6, MCHC 31.7 L, RDW Std Deviation 57.9 H, RDW Coeff of Mariluz 16.3 H, Plt Count 174, MPV 10.3, Immature Gran % (Auto) 1.700 H, Neut % (Auto) 66.4, Lymph % (Auto) 16.7 L, [place] % (Auto) 12.5 H, Eos % (Auto) 2.4, Baso % (Auto) 0.3, Absolute Neuts (auto) 4.6, Absolute Lymphs (auto) 1.16, Nucleated RBC % 0 07/27/22 06:21: POC Glucose 212 H Microbiology: Microbiology 07/26/22 22:35 Nasal Secretion SARS-CoV-2 Antigen (Rapid) - Final Radiography Diagnostic Testing: Radiology Impression Chest X-Ray 07/26/22 22:55 IMPRESSION: No acute cardiopulmonary disease Electronically Signed: Diego Webb DO at 0:04 EDT Reading Location ID and State: [address] [place] [address] Tel , Service support , D/C Instructions Please Follow Up With: Josh Ruiz MD Discharge Plan Admission Admit Date/Time: 07/24/22 18:43 Attending Provider: Erasmo Dumas Chi Primary Care Provider: Randell Sparks Discharge Orders/Prescriptions Prescriptions: No Action quinapril 10 mg tablet 20 mg PO DAILY doxycycline hyclate 20 mg tablet 20 mg PO BID magnesium oxide 400 mg (241.3 mg magnesium) tablet 400 mg PO BID Citrucel 500 mg tablet 500 mg PO DAILY allopurinol 100 MG tablet 100 mg PO DAILYCM tamsulosin 0.4 MG capsule 0.4 mg PO DAILY trazodone 100 MG tablet 100 mg PO QHS docusate sodium 100 MG capsule 100 mg PO BID finasteride 5 MG tablet 5 mg PO DAILY trospium 20 MG tablet 20 mg PO QHS Label Comments: bladder Multivitamin 1 tab PO DAILY levothyroxine 150 mcg tablet 225 mcg PO MOWEFR Label Comments: 150 mcg PO ; 1 tab daily 1/2 tab extra on m w f Lantus SoloStar Pen 30 units SC QHS cyanocobalamin (vitamin B-12) 500 MCG tablet 1,000 mcg PO DAILY@0800 ipratropium bromide 15 ML spray,non-aerosol 2 spray NS TID PRN (Reason: ALLERGIES) atorvastatin 20 mg Tablet 20 mg PO QHS ferrous sulfate 325 mg (65 mg iron) Tablet 325 mg PO TID propranolol 20 mg Tablet 20 mg PO BID cholecalciferol (vitamin D3) [Vitamin D3] 125 mcg (5,000 unit) Tablet 50,000 unit PO QMONTH melatonin 10 mg Tablet 10 mg PO QHS psyllium husk [Metamucil] 0.4 gram Capsule 0.4 g PO BID ropinirole 0.5 mg tablet 1 mg PO TID Eliquis 2.5 mg tablet 5 mg PO BID Hold Instructions: resume 07/27/22 polyethylene glycol 3350 [Miralax] 17 gram Powder In Packet 17 g PO DAILY levothyroxine 150 mcg Tablet 150 mcg PO SUTUTHSA hvhijwfv-volxaimte-ybcodfngf 3.5-10,000-10 mg-unit-mg/gram Cream 1 applic TOPICAL DAILY mthvyszqil-cfvjvlwvmdvm-nltqyg 1-1-4 % Gel 1 ea TOPICAL DAILY oxycodone 5 mg Tablet 5 mg PO Q4H PRN PRN (Reason: Pain Score 4-5) 3 Days Qty: 10 0RF acetaminophen [Tylenol] 325 mg Tablet 650 mg PO Q6H PRN PRN (Reason: Pain Score 1-10/Temp > 100.7 F) Qty: 0 0RF donepezil [Aricept] 5 mg tablet 10 mg PO DAILY pioglitazone [Actos] 45 mg tablet 45 mg PO DAILY metoclopramide HCl 5 mg tablet 5 mg PO QHS Rx Instructions: administer 30 minutes before meals pantoprazole 40 mg tablet,delayed release (DR/EC) 40 mg PO DAILY gabapentin 100 mg capsule 100 mg PO TIDCM enoxaparin 30 mg/0.3 mL syringe 30 mg subcut DAILY Rx Instructions: stop om 07/27/22 Ensure Enlive 0.08 gram-1.5 kcal/mL liquid 120 ml PO BID sucralfate [Carafate] 1 gram tablet 1 g PO BID Qty: 60 5RF Referrals / Follow Up: Randell Sparks MD [Primary Care Provider] -
--- NOTE | 2022-07-27 11:07 | PCM.PN.SRG ---
Subjective Subjective Bowel complaint. He is sitting in a chair. Denies abdominal pain. Appears to be tolerating a diet. Objective Data Objective Data Vital Signs: Vital Signs Temp Pulse Resp BP Pulse Ox O2 Del Method 95.9 F L 92 20 H 108/62 95 Room Air 07/27/22 06:10 07/27/22 06:10 07/26/22 22:00 07/27/22 06:10 07/27/22 06:10 07/27/22 06:10 Oxygen Delivery Method Room Air Weight: 273 lb 15.989 oz Body Mass Index (BMI) 32.5 Intake & Output: Intake and Output for Last 24 Hours 07/25/22 07/26/22 07/27/22 23:59 23:59 23:59 Intake Total 540 / 540 780 / 780 120 / 120 Balance 540 / 540 780 / 780 120 / 120 Lab / Micro Data Result Diagrams: 07/27/22 05:17 07/27/22 05:17 Labs: Laboratory Results - last 24 hr 07/26/22 11:15: POC Glucose 299 H 07/26/22 16:56: POC Glucose 285 H 07/26/22 21:06: POC Glucose 205 H 07/27/22 05:17: Sodium 141, Potassium 3.9, Chloride 110 H, Carbon Dioxide 26.0, Anion Gap 5, BUN 16, Creatinine 0.92, Estim Creat Clear Calc 76.67, Est GFR (MDRD) Af Amer 101, Est GFR (MDRD) Non-Af 84, BUN/Creatinine Ratio 17.4, Glucose 233 H, Calcium 8.9 07/27/22 05:17: WBC 7.0, RBC 3.66 L, Hgb 11.2 L, Hct 35.3 L, MCV 96.4 H, MCH 30.6, MCHC 31.7 L, RDW Std Deviation 57.9 H, RDW Coeff of Mariluz 16.3 H, Plt Count 174, MPV 10.3, Immature Gran % (Auto) 1.700 H, Neut % (Auto) 66.4, Lymph % (Auto) 16.7 L, [place] % (Auto) 12.5 H, Eos % (Auto) 2.4, Baso % (Auto) 0.3, Absolute Neuts (auto) 4.6, Absolute Lymphs (auto) 1.16, Nucleated RBC % 0 07/27/22 06:21: POC Glucose 212 H Micro: Microbiology 07/26/22 22:35 Nasal Secretion SARS-CoV-2 Antigen (Rapid) - Final Radiography Diagnostic Testing: Radiology Impression Chest X-Ray 07/26/22 22:55 IMPRESSION: No acute cardiopulmonary disease Electronically Signed: Diego Webb DO at 0:04 EDT Reading Location ID and State: [facility] / [place] Tel , Service support , Physical Exam GI GI Narrative: Abdomen soft, dressings were removed incisions clean and dry Assessment & Plan Assessment/Plan (1) Colonic mass: PLAN: Plan Right colon masses x3. Pathology pending Postoperative course progressing well. Patient states he had coughing eating a dry donut. He has been cautioned about risk to his epigastric incision and herniation. Pathology still pending. I anticipate further outpatient follow-up in the office. Josh Ruiz M.D., F.A.C.S.
[2022-07-27 11:40] LABS: Bedside Glucose 252 mg/dL (74-106)
--- NOTE | 2022-07-27 14:14 | PHA.CONS_ITS ---
TCU RX Drug Regimen Review Subjective: 81 YOM admitted to TCU post hospitalization at [facility] for a right colectomy. Admitted to TCU for rehabilitation and strengthening prior to discharge. Objective: Allergies niacin Allergy (Intermediate, Verified 07/21/22 09:45) rash adhesive Adverse Reaction (Verified 07/21/22 09:45) Other: takes skin off, inflamed Current Medications Generic Name Dose Route Start Last Admin Trade Name Freq PRN Reason Stop Dose Admin Acetaminophen 1,000 mg 07/24/22 23:06 07/25/22 08:21 Acetaminophen 500 Mg Tablet PO 1,000 mg Q6H PRN PRN Administration Pain Score 1-3 Allopurinol 100 mg 07/25/22 08:00 07/27/22 08:04 Allopurinol 100 Mg Tablet PO 100 mg DAILYCM ENRIQUE Administration Apixaban 5 mg 07/27/22 06:00 07/27/22 05:56 Apixaban 5 Mg Tablet PO 5 mg BID ENRIQUE Administration Atorvastatin Calcium 20 mg 07/24/22 22:00 07/26/22 22:00 Atorvastatin Calcium 20 Mg Tablet PO 20 mg QHS ENRIQUE Administration Calamine/Phenol 1 applic 07/25/22 06:00 07/27/22 05:57 Menthol/Lanolin/Calamine/Znox 113 Gm Tube TOPICAL 1 applic BID ENRIQUE Administration Protocol Cyanocobalamin 1,000 mcg 07/25/22 08:00 07/27/22 08:04 Cyanocobalamin 500 Mcg Tablet PO 1,000 mcg DAILYCM ENRIQUE Administration Dextrose 0 gm 07/24/22 18:54 Dextrose 50%-Water 25 Gm/50 Ml Disp.Syrin IV X1 PRN Hypoglycemia Protocol Docusate Sodium 100 mg 07/25/22 06:00 07/27/22 05:55 Docusate Sodium 100 Mg Capsule PO 100 mg BID ENRIQUE Administration Donepezil HCl 10 mg 07/25/22 06:00 07/27/22 05:57 Donepezil Hcl 10 Mg Tablet PO 10 mg DAILY ENRIQUE Administration Doxycycline Hyclate 20 mg 07/25/22 18:00 07/27/22 05:56 Doxycycline Hyclate 20 Mg Tablet PO 20 mg BID ENRIQUE Administration Ergocalciferol 1.25 mg 08/17/22 06:00 Ergocalciferol 1.25 Mg (50, 000 Unit) Capsule PO QMONTH ENRIQUE Ferrous Sulfate 325 mg 07/24/22 22:00 07/27/22 08:04 Ferrous Sulfate 325 Mg Tablet PO 325 mg TIDCM [facility] Administration Finasteride 5 mg 07/25/22 06:00 07/27/22 05:54 Finasteride 5 Mg Tablet PO 5 mg DAILY ENRIQUE Administration Gabapentin 100 mg 07/25/22 07:45 07/27/22 08:04 Gabapentin 100 Mg Capsule PO 100 mg TIDCM [facility] Administration Glucagon 1 mg 07/24/22 18:54 Glucagon 1 Mg/Ml Syringe IM X1 PRN Hypoglycemia Insulin Glargine 40 unit 07/26/22 22:00 07/26/22 22:00 Insulin Glargine-Yfgn 100 Unit/Ml Pen SC 40 unit QHS [facility] Administration Ipratropium [place] 2 spray 07/24/22 18:40 Ipratropium [place] 0.06% Nasal [place] NASAL TID PRN ALLERGIES Levofloxacin 500 mg 07/26/22 22:39 07/26/22 23:00 Levofloxacin 500 Mg Tablet PO 500 mg QHS [facility] Administration Levothyroxine Sodium 150 mcg 07/25/22 06:00 07/26/22 05:49 Levothyroxine 150 Mcg Tablet PO 150 mcg SuTuThSa@0600 [facility] Administration Levothyroxine Sodium 225 mcg 07/27/22 06:00 07/27/22 05:50 Levothyroxine 150 Mcg Tablet PO 225 mcg MoWeFr@0600 [facility] Administration Lisinopril 20 mg 07/25/22 06:00 07/27/22 05:56 Lisinopril 20 Mg Tablet PO 20 mg DAILY [facility] Administration Magnesium Chloride 128 mg 07/25/22 06:00 07/27/22 05:55 Magnesium Chloride 64 Mg Delay Rel.Tablet PO 128 mg BID ENRIQUE Administration Melatonin 10 mg 07/24/22 22:00 07/26/22 21:59 Melatonin 10 Mg Tablet PO 10 mg QHS [facility] Administration Methylcellulose 2 gm 07/25/22 08:00 07/27/22 08:04 Methylcellulose 2 Gm Bottle PO 2 gm DAILYCM [facility] Administration Metoclopramide HCl 5 mg 07/24/22 22:00 07/26/22 21:59 Metoclopramide 5 Mg Tablet PO 5 mg QHS [facility] Administration Multivitamins 1 tablet 07/25/22 08:00 07/27/22 08:04 Multivitamins,Therapeutic Tablet PO 1 tablet BREAKFAST ENRIQUE Administration Neomycin/Polymyxin/Dexamethasone 1 applic 07/26/22 06:00 07/27/22 08:05 Neomycin/Polymyxin/Dexameth Oint 3.5gm Opth.Tube TOPICAL 1 applic DAILY ENRIQUE Administration Ivermectin- 1 each 07/26/22 06:00 07/27/22 08:06 Metronidazol-Niacin TOPICAL 1 each 1-1-4 % Gel DAILY ENRIQUE Administration Nutritional Formula (Lactose Free) 120 ml 07/25/22 12:45 07/27/22 08:04 Glucerna Shake 120 Ml Liquid PO 120 ml TIDCM ENRIQUE Administration Oxycodone HCl 5 mg 07/24/22 18:40 Oxycodone 5 Mg Tablet PO Q4H PRN PRN Pain Score 4-10 Pantoprazole Sodium 40 mg 07/25/22 06:00 07/27/22 05:55 Pantoprazole Sodium 40 Mg Tablet PO 40 mg DAILY ENRIQUE Administration Pioglitazone HCl 45 mg 07/25/22 08:00 07/27/22 08:04 Pioglitazone Hydrochloride 45 Mg Tablet PO 45 mg DAILYCM [facility] Administration Polyethylene Glycol 17 gm 07/25/22 06:00 07/27/22 05:48 Polyethylene Glycol 3350 17 Gm Packet PO 17 gm DAILY [facility] Administration Pramipexole Dihydrochloride 0.5 mg 07/24/22 22:00 07/27/22 05:55 Pramipexole Di-Hcl 0.5 Mg Tablet PO 0.5 mg TID ENRIQUE Administration Propranolol HCl 20 mg 07/25/22 06:00 07/27/22 05:54 Propranolol 10 Mg Tablet PO 20 mg BID [facility] Administration Psyllium Hydrophilic Mucilloid 1 packet 07/26/22 08:00 07/27/22 08:12 Psyllium 1 Packet PO Not Given BIDCM [facility] Sodium Chloride 10 - 40 ml 07/24/22 21:56 07/27/22 06:01 0.9% Saline Lock 10 Ml Syringe IV 10 ml UD PRN Administration SALINE FLUSH Sucralfate 1 gm 07/25/22 07:00 07/27/22 05:55 Sucralfate 1 Gm Tablet PO 1 gm BIDAC ENRIQUE Administration Tamsulosin HCl 0.4 mg 07/25/22 06:00 07/27/22 05:54 Tamsulosin Hcl 0.4 Mg Capsule PO 0.4 mg DAILY ENRIQUE Administration Tolterodine Tartrate 2 mg 07/24/22 22:00 07/26/22 21:59 Tolterodine Tartrate 2 Mg Cap.Sa PO 2 mg QHS ENRIQUE Administration Trazodone HCl 100 mg 07/24/22 22:00 07/26/22 21:58 Trazodone 100 Mg Tablet PO 100 mg QHS ENRIQUE Administration Tuberculin PPD 0.1 ml 08/01/22 10:00 Tuberculin,Purif.Prot.Deriv. 50 Tu/Ml Vial ID 08/01/22 10:01 X1 ONE Problem List (Last Updated 07/27/22 @ 11:[address] Josh Ruiz MD) Colonic mass (Acute) Restless leg syndrome (Acute) Gastroesophageal reflux disease (Acute) Gastroparesis (Acute) Hyperlipidemia (Acute) Atrial fibrillation (Acute) Alzheimer disease (Acute) Hypomagnesemia (Acute) Sleep apnea (Acute) Hypothyroidism (Acute) Allergic rhinitis (Acute) Diabetes mellitus (Acute) Overactive bladder (Acute) Insomnia (Acute) Benign prostatic hyperplasia (Acute) Gout (Acute) Colon cancer (Acute) Debility (Acute) Vital Signs Temp Pulse Resp BP Pulse Ox O2 Del Method 95.9 F L 92 20 H 108/62 95 Room Air 07/27/22 06:10 07/27/22 06:10 07/26/22 22:00 07/27/22 06:10 07/27/22 06:10 07/27/22 06:10 Oxygen Delivery Method Room Air Weight: 124.284 kg Body Mass Index (BMI) 32.5 Sodium 141 mmol/L (136-145) 07/27/22 05:17 Potassium 3.9 mmol/L (3.5-5.1) 07/27/22 05:17 Chloride 110 mmol/L (98-107) H 07/27/22 05:17 Carbon Dioxide 26.0 mmol/L (21.0-32.0) 07/27/22 05:17 Anion Gap 5 (5-15) 07/27/22 05:17 BUN 16 mg/dL (7-18) 07/27/22 05:17 Creatinine 0.92 mg/dL (0.70-1.30) 07/27/22 05:17 Est GFR (MDRD) Af Amer 101 mL/min (>60) 07/27/22 05:17 Est GFR (MDRD) Non-Af 84 mL/min (>60) 07/27/22 05:17 BUN/Creatinine Ratio 17.4 RATIO (10-20) 07/27/22 05:17 Glucose 233 mg/dL (74-106) H 07/27/22 05:17 Assessment/Plan: 1.Pain - Tylenol 1000mg q6h prn pain (1-5), Oxycodone 5mg q4h prn pain (4-10). Resident has received 2 tablets of acetaminophen for a pain score of 3 in the abdominal area. Patient reports pain of 0 post-medication. No oxycodone has been used yet. Please continue to monitor for increased pain, PRN usage, constipation, and respiratory depression. Last documented bowel movement 07/26/22 2. Bowel - Miralax 17gm daily, Colace 100mg bid, Citrucel 2gm daily, Metamucil 1 packet po bid. Please continue to monitor for constipation. Last documented bowel movement 07/26/22 3. Gout - Allopurinol 100mg daily. Please continue to monitor for S/S of gout, and uric acid level (last 5.3 mg/dl)? 4. Atrial fibrillation/CAD - Propranolol 20mg bid, Eliquis 5mg bid, Lisinopril 20mg daily. Please continue to monitor BP (last 108/62), HR (last 92), S/S of bleeding, hemoglobin (last 11.2g/dL), sodium (last 141mmol/L), potassium (last 3.9mmol/L), and renal function. Eliquis is appropriate for renal function and age. 5. Hyperlipidemia - Atorvastatin 20mg qhs. Please continue to monitor lipid panel (last 04/08/22) and muscle pain.? 6. Vitamin B12 deficiency - B12 1000mcg daily. Please continue to monitor vitamin B level (476 last 11/10/19) 7. Rosacea - Doxycycline 20mg BID. Please continue to monitor for rosacea, nausea/vomiting and diarrhea? 8. Nutrition - MVI daily. Please continue to monitor? 9. Vitamin D deficiency - D 1.25mg once monthly. Please continue to monitor vitamin D level (33.7 last 12/09/18)? 10. Iron deficiency anemia - Ferrous sulfate 325mg po tidcm. Please continue to monitor hemoglobin (last 11.2g/dL), constipation and dark stools. 11. BPH - Finasteride 5mg daily, Tamsulosin 0.4mg daily.? Please continue to monitor BP (108/62), urinary retention and S/S of BPH.? 12. Diabetes Mellitus II - Glargine 40 units qhs, Pioglitazone 45mg daily, Glucagon 1mg IM x 1 prn.? Please continue to monitor glucose (last 233mg/dL), S/S of hypoglycemia, A1c (last 07/06/22 7.0%), and PRN usage. Has not used glucagon yet? 13. Restless leg syndrome - Mirapex 0.5mg tid. Please continue to monitor for S/S of RLS. CrCl of 88.8 mL/min no dose adjustment needed. Please continue to monitor.? 14. Alzheimer's Disease - Donepezil 10mg daily. Please continue to monitor resident neurologic function, vivid dreams/nightmares 15. Allergic rhinitis - Atrovent 2 sprays nasal tid prn. Please continue to monitor for PRN usage, and S/S of allergies. Has not used yet? 16. Hypothyroidism - Levothyroxine 150mcg 4 days/week, 225mcg 3 days/week. Please continue to monitor TSH (last 04/08/22 0.74) and for S/S of hypo/hyperthyroidism.? 17. Hypomagnesemia - Magnesium chloride 128mg bid. Please continue to monitor magnesium level (1.9 mg/dl) 18. Insomnia- Trazodone 100mg qhs, Melatonin 10mg qhs. Please continue to monitor patient sleeping habits, BP (108/62), and HR (92)? 19. Gastroparesis - Reglan 5mg qhs. Please continue to monitor for S/S of gastroparesis? 20. GERD - Pantoprazole 40mg daily, Sucralfate 1gm bid. Please continue to monitor for S/S of GERD and diarrhea. May also encourage non-pharmacologic treatments to help minimize GERD flare-ups. 21. Overactive bladder - Tolterodine 2mg qhs. Please continue to monitor for S/S of overactive bladder, and dry mouth? Assessment/Plan for indications treated with psychotropic medications: 22. Diabetic polyneuropathy - Gabapentin 100mg po tid. Based on CrCl of 88.8 mL/min, the recommended dose of gabapentin is 3600mg/day. Please consider a GDR by 12/2022 if clinically indicated, thank you. Please continue to monitor for confusion and renal function. Medical chart and medication regimen reviewed. The following medication irregularities or issues were identified: 1. Diabetic polyneuropathy - Gabapentin 100mg po tid. Based on CrCl of 88.8 mL/min, the recommended dose of gabapentin is 3600mg/day. Please consider a GDR by 12/2022 if clinically indicated, thank you. Please continue to monitor for confusion and renal function. 2. Vitamin B12 level: Please consider having a B12 level drawn as the resident has not had one done since 11/10/19. Thank you 3. Vitamin D level: Please consider having a vitamin D level drawn as the resident has not had one done since 12/09/18. Thank you 4. Levofloxacin 500 mg PO QHS: Please consider adding an indication for medication or discontinue. Thank you Date of Note:: 07/27/22
[2022-07-27 15:01] VITALS: BP 116/59; PULSE 86; RESP 18; TEMP 36.1; O2SAT 93
--- NOTE | 2022-07-27 15:25 | CASEMGMT ---
Social Work Met with patient to complete initial assessment. Introduced self and role. S.O. present in room. Pt granted permission to complete assessment with SO present. Verified contacts. Discussed code status and MOLST form. Pt confirms full code. MOLST communicated to Dr and placed in chart. Explained [facility] with [facility]D 07/29 and continued stay is not guaranteed with each review. Pts goal is to return home with SO. SW to continue to follow for DC planning. Gladis Arango, CANCELING MACHINE OPERATOR SUPERVISOR MAPPING
--- NOTE | 2022-07-27 16:21 | CHAPLAIN ---
Type of Pastoral Visit ___ Initial Visit _x__ Follow-up Visit ___ On-call Visit ___ General Patient Visit ___ Spiritual Assessment ___ Family Conference ___ Bereavement ___ Rapid Response ___ Code Blue ___ Other (describe below) Pastoral Care Referral From _x__ Patient ___ Family ___ Nurse ___ Physician ___ Vp [employer] ___ Animal Doctor ___ Other (describe below) Sacrament/Intervention _x__ Active listening ___ Anointing ___ Anabaptism ___ Bereavement ___ Communion ___ Noreen exploration ___ _x__ Life review _x_ Prayer ___ Reconciliation ___ Sacrament of Sick _x__ Supportive presence ___ Wedding ___ Other (describe below) Pastoral Comments follow up to patient that was met last week in [facility]; pt describes his current situation and has positive attitude about his results; pt states that he has a goal to be discharged in next couple of days because I have to be home before my 82th birthday on Wednesday; pt said his only needs at this time are to overcome any boredom and to see reduction in how many pills he must take; pt welcomes presence and prayer
[2022-07-27] MEDS: Psyllium 1 PACKET PO (16:41)
[2022-07-27 16:50] LABS: Bedside Glucose 248 mg/dL (74-106)
--- NOTE | 2022-07-27 16:52 | NURSING ---
Updated pt and in room on positive covid patient and employee.
[2022-07-27] MEDS: Insulin Lispro 100 UNIT/ML INSULN.PEN SC (17:43)
[2022-07-27 21:31] LABS: Bedside Glucose 373 mg/dL (74-106)
[2022-07-27 21:34] VITALS: PULSE 100; RESP 16; O2SAT 92
[2022-07-27] MEDS: Insulin Glargine-YFGN 100 UNIT/ML Pen 40 UNIT SC (21:35)
[2022-07-27] MEDS: levoFLOXacin 500 MG Tablet PO (21:38)
[2022-07-27] MEDS: Tolterodine Tartrate 2 MG CAP.SA PO (21:38)
[2022-07-27] MEDS: Atorvastatin Calcium 20 MG Tablet PO (21:38)
[2022-07-27] MEDS: traZODone 100 MG Tablet PO (21:38)
[2022-07-27] MEDS: Metoclopramide 5 MG TABLET PO (21:39)
[2022-07-27] MEDS: MELATONIN 10 MG TABLET PO (21:39)
[2022-07-28] MEDS: Polyethylene Glycol 3350 17 GM PACKET PO (05:59)
[2022-07-28] MEDS: Donepezil HCl 10 MG Tablet PO (05:59)
[2022-07-28] MEDS: Tamsulosin HCl 0.4 MG Capsule PO (05:59)
[2022-07-28] MEDS: Lisinopril 20 MG Tablet PO (06:00)
[2022-07-28] MEDS: Propranolol 10 MG Tablet 20 MG PO ×2 (06:00→17:27)
[2022-07-28] MEDS: Levothyroxine 150 MCG Tablet PO (06:00)
[2022-07-28] MEDS: APIXABAN 5 MG TABLET PO ×2 (06:00→17:27)
[2022-07-28] MEDS: Sucralfate 1 GM Tablet PO ×2 (06:00→17:25)
[2022-07-28] MEDS: Pantoprazole Sodium 40 MG Tablet PO (06:00)
[2022-07-28] MEDS: Pramipexole Di-HCl 0.5 MG Tablet PO ×3 (06:00→21:27)
[2022-07-28] MEDS: Docusate Sodium 100 MG Capsule PO ×2 (06:00→17:26)
[2022-07-28] MEDS: Magnesium Chloride 64 MG Delay Rel.Tablet 128 MG PO ×2 (06:01→17:27)
[2022-07-28] MEDS: Finasteride 5 MG Tablet PO (06:01)
[2022-07-28] MEDS: Neomycin/Polymyxin/Dexameth OINT 3.5GM OPTH.TUBE 1 APPLIC TOPICAL (06:08)
[2022-07-28 06:26] LABS: Bedside Glucose 193 mg/dL (74-106)
[2022-07-28] MEDS: Pioglitazone Hydrochloride 45 MG Tablet PO (08:14)
[2022-07-28] MEDS: Insulin Lispro 100 UNIT/ML INSULN.PEN SC ×2 (08:14→12:05)
[2022-07-28] MEDS: Cyanocobalamin 500 MCG Tablet 1000 MCG PO (08:14)
[2022-07-28] MEDS: Ferrous Sulfate 325 MG Tablet PO ×3 (08:14→17:25)
[2022-07-28] MEDS: Glucerna Shake 120 ML LIQUID PO ×3 (08:14→17:24)
[2022-07-28] MEDS: Multivitamins,Therapeutic Tablet 1 TABLET PO (08:14)
[2022-07-28] MEDS: Allopurinol 100 MG Tablet PO (08:14)
[2022-07-28] MEDS: Psyllium 1 PACKET PO (08:15)
[2022-07-28] MEDS: Methylcellulose 2 GM Bottle PO (08:15)
[2022-07-28] MEDS: Gabapentin 100 MG Capsule PO ×3 (08:18→17:24)
[2022-07-28 11:40] LABS: Bedside Glucose 226 mg/dL (74-106)
[2022-07-28 14:20] VITALS: BP 123/56; PULSE 97; RESP 19; TEMP 35.4; O2SAT 92
[2022-07-28 15:01] VITALS: PULSE 74
--- NOTE | 2022-07-28 15:12 | CASEMGMT ---
Social Work SW notified by therapy pt requesting DC home 07/30. SW spoke with pt and pt confirmed request. IDT agreeable. Pt requesting outpatient therapy at [facility] for PT/OT. Denies DME needs. to transport. Care plan meeting held with pt and tomorrow to confirm and finalize. Plan: DC home with 07/30, [facility] PT/OT YOMAIRA SpencerW
--- NOTE | 2022-07-28 15:28 | NURSING ---
Updated regarding covid positive staff member
[2022-07-28 16:50] LABS: Bedside Glucose 237 mg/dL (74-106)
[2022-07-28] MEDS: Insulin Lispro 100 UNIT/ML INSULN.PEN 10 UNIT SC (17:29)
[2022-07-28] MEDS: Menthol/Lanolin/Calamine/Znox 113 GM Tube 1 APPLIC TOPICAL (17:39)
--- NOTE | 2022-07-28 17:41 | NURSING ---
dr dumas spoke with pt about DC, pt requesting Dr Dumas to be his new PCP.
--- NOTE | 2022-07-28 19:04 | DS.PCM_ITS ---
Providers Date of Admission: 07/24/22 Primary Care Physician: Dr. Randell Sparks MD Reason For Visit: COLON CANCER Diagnosis Discharge Diagnosis (1) Colonic mass: Status: Acute Code(s): K63.89 - Other specified diseases of intestine Plan 81 year old male with below past medical history significant for colon cancer, hospitalized for right colectomy per Dr. Ruiz 07/22/2022, admitted to TCU with debility, here for rehabilitation, strenghening, prior to discharge home with significant oher. * Debility - PT/OT. * Dysphagia - ST. * Pain - Tylenol 1000mg q6h prn pain (1-3), Oxycodone 5mg q4h prn pain (4-10). * Bowel - Miralax 17gm daily, Colace 100mg bid, Citrucel 2gm daily, Metamucil 1 packet po bid. * Adult immunization - Administer pneumonia vaccine, covid19 vaccine, flu vaccine as appropriate. * DVT prophylaxis - Lovenox 30mg sc daily. * Gout - Allopurinol 100mg daily. * Atrial fibrillation - Propranolol 20mg bid, Eliquis 5mg bid. * Hyperlipidemia - Atorvastatin 20mg qhs. * Vitamin B12 deficiency - B12 1000mcg daily. * Alzheimer Disease - Donepezil 10mg daily. * Rosacea - Doxycycline 50mg daily. * Nutrition - Ensure Enlive 120ml po bid, MVI daily. * Vitamin D deficiency - D 1.25mg qmonth. * Iron deficiency anemia - Ferrous sulfate 325mg po tidcm. * BPH - Finasteride 5mg daily, Tamsulosin 0.4mg daily. * Diabetic polyneuropathy - Gabapentin 100mg po tid. * Diabetes Mellitus II - Glargine 30 units qhs, Pioglitazone 45mg daily, Glucagon 1mg im x 1 prn. * Allergic rhinitis - Atrovent 2 sprays nasal tid prn. * Hypothyroidism - Levothyroxine 150mcg 4 days/week, 225mcg 3 days/week. * Coronary Artery Disease - Propranolol 20mg bid, Lisinopril 20mg daily. * Hypomagnesemia - Magnesium chloride 128mg bid. * Insomnia- Trazodone 100mg qhs, Melatonin 10mg qhs. * Skin irritation - Calmoseptine topical bid. * Gastroparesis - Reglan 5mg qhs. * GERD - Pantoprazole 40mg daily, Sucralfate 1gm bid. * Restless leg syndrome - Mirapex 0.5mg tid. * Overactive bladder - Tolterodine 2mg qhs. Medications at Discharge Home Medications Multivitamin 1 tab PO DAILY VITAMIN 05/10/15 allopurinol 100 mg tablet 100 mg PO DAILYCM gout 05/10/15 docusate sodium 100 mg capsule 100 mg PO BID constipation 05/10/15 finasteride 5 mg tablet 5 mg PO DAILY prostate 05/10/15 tamsulosin 0.4 mg capsule 0.4 mg PO DAILY prostate 05/10/15 trazodone 100 mg tablet 100 mg PO QHS sleep/mental health 05/10/15 trospium 20 mg tablet 20 mg PO QHS bladder 05/10/15 cyanocobalamin (vitamin B-12) 500 mcg tablet 1,000 mcg PO DAILY@0800 supplement 09/24/17 ipratropium bromide 42 mcg (0.06 %) nasal spray 2 spray NS TID PRN ALLERGIES 09/24/17 levothyroxine 150 mcg tablet 225 mcg PO MOWEFR thyroid 03/06/19 quinapril 10 mg tablet 20 mg PO DAILY BP 03/07/19 doxycycline hyclate 20 mg tablet 20 mg PO BID ocular rosaca 07/18/19 Lantus SoloStar Pen 30 units subcut QHS diabetes 11/30/19 magnesium oxide 400 mg (241.3 mg magnesium) tablet 400 mg PO BID supplement 11/30/19 atorvastatin 20 mg tablet 20 mg PO QHS cholesterol 06/19/22 cholecalciferol (vitamin D3) 125 mcg (5,000 unit) tablet (Vitamin D3) 50,000 unit PO QMONTH supplement 06/19/22 ferrous sulfate 325 mg (65 mg iron) tablet 325 mg PO TID iron 06/19/22 melatonin 10 mg tablet 10 mg PO QHS sleep 06/19/22 propranolol 20 mg tablet 20 mg PO BID BP 06/19/22 psyllium husk 0.4 gram capsule (Metamucil) 0.4 g PO BID bowels 06/19/22 sucralfate 1 gram tablet (Carafate) 1 g PO BID esophageal ulcers #60 tabs 07/10/22 ivermectin 1 %-metronidazole 1 %-niacinamide 4 % topical gel 1 ea topical DAILY ROSECA 07/13/22 levothyroxine 150 mcg tablet 150 mcg PO SUTUTHSA thyroid 07/13/22 moikbpcv-yuhfcwzhh-ijmyztaks 3.5 mg-10,000 unit-10 mg/gram top cream 1 applic topical DAILY LEFT EYE 07/13/22 polyethylene glycol 3350 17 gram oral powder packet (Miralax) 17 g PO DAILY constipation 07/13/22 apixaban 2.5 mg tablet (Eliquis) 5 mg PO BID blood thinner 07/17/22 methylcellulose (laxative) 500 mg tablet (Citrucel) 500 mg PO DAILY bowels 07/17/22 ropinirole 0.5 mg tablet 1 mg PO TID parkinsons 07/17/22 donepezil 5 mg tablet (Aricept) 10 mg PO DAILY memory 07/24/22 gabapentin 100 mg capsule 100 mg PO TIDCM nerve pain 07/24/22 metoclopramide HCl 5 mg tablet 5 mg PO QHS stomach 07/24/22 pantoprazole 40 mg tablet,delayed release 40 mg PO DAILY acid reflux 07/24/22 pioglitazone 45 mg tablet (Actos) 45 mg PO DAILY diabetes 07/24/22 acetaminophen 500 mg tablet 1,000 mg PO Q6H PRN PRN Pain Score 1-3 #0 tabs 07/28/22 Hospital Course Operations colectomy (Right.) Procedures None Summary of Care Provided Minutes Spent on Discharge: 35 Hospital Course: 81 year old male with below past medical history significant for colon cancer, hospitalized for right colectomy per Dr. Ruiz 07/22/2022, admitted to TCU with debility, here for rehabilitation, strenghening, prior to discharge home with significant oher. Discharge home with significant other 07/30/2022, Mytonomy PT/OT. Physical Exam Const alert General Appearance: cooperative HEENT normocephalic Eyes PERRL and EOMs intact bilaterally Neck supple, no JVD and no carotid bruits Resp normal respiratory effort, normal air movement and clear to auscultation bilaterally Cardio regular rate and regular rhythm GI normal to inspection, nondistended, normoactive bowel sounds, non-tender and non-distended Extremity normal capillary refill General Extremity: Negative for edema Skin no rashes or lesions noted General Skin Exam: no breakdown Psych affect normal Appearance: appropriate Weight / BMI Weight Weight: 125.554 kg Body Mass Index (BMI) 32.5 ABG / Lab / Microbiology Data Result Diagrams: 07/27/22 05:17 07/27/22 05:17 Laboratory: Laboratory Results - last 24 hr 07/27/22 21:11: POC Glucose 373 H 07/28/22 06:04: POC Glucose 193 H 07/28/22 10:58: POC Glucose 226 H 07/28/22 16:29: POC Glucose 237 H Microbiology: Microbiology 07/26/22 22:35 Nasal Secretion SARS-CoV-2 Antigen (Rapid) - Final D/C Instructions Discharge Diet: No restrictions Discharge Activity: Return to Normal Activity, May Shower and Use Walker Weight Bearing Status: Weight bearing as tolerated Call your doctor if you observe: Fever of 101 or Higher, Inability to urinate, Inability to have a bowel movement, Shortness of breath, Dizziness, Fainting spells, Swelling in the ankles, Chest pain and Uncontrolled pain Additional Instructions: Discharge home with significant other 07/30/2022, Mytonomy PT/OT. Please Follow Up With: Josh Ruiz MD When: As scheduled. Meaningful Use Info Meaningful Use Diagnoses (Choose all that apply): None applicable Discharge Plan Admission Admit Date/Time: 07/24/22 18:15 Primary Reason for Your Visit: Debility. Attending Provider: Erasmo Dumas Chi Primary Care Provider: Randell Sparks Instructions Additional Instructions / Restrictions: Discharge home with significant other 07/30/2022, Mytonomy PT/OT. Discharge Orders/Prescriptions Prescriptions: New acetaminophen 500 mg Tablet 1,000 mg PO Q6H PRN PRN (Reason: Pain Score 1-3) Qty: 0 0RF Continued quinapril 10 mg tablet 20 mg PO DAILY doxycycline hyclate 20 mg tablet 20 mg PO BID magnesium oxide 400 mg (241.3 mg magnesium) tablet 400 mg PO BID Citrucel 500 mg tablet 500 mg PO DAILY allopurinol 100 MG tablet 100 mg PO DAILYCM tamsulosin 0.4 MG capsule 0.4 mg PO DAILY trazodone 100 MG tablet 100 mg PO QHS docusate sodium 100 MG capsule 100 mg PO BID finasteride 5 MG tablet 5 mg PO DAILY trospium 20 MG tablet 20 mg PO QHS Label Comments: bladder Multivitamin 1 tab PO DAILY levothyroxine 150 mcg tablet 225 mcg PO MOWEFR Label Comments: 150 mcg PO ; 1 tab daily 1/2 tab extra on m w Lantus SoloStar Pen 30 units SC QHS cyanocobalamin (vitamin B-12) 500 MCG tablet 1,000 mcg PO DAILY@0800 ipratropium bromide 15 ML spray,non-aerosol 2 spray NS TID PRN (Reason: ALLERGIES) atorvastatin 20 mg Tablet 20 mg PO QHS ferrous sulfate 325 mg (65 mg iron) Tablet 325 mg PO TID propranolol 20 mg Tablet 20 mg PO BID cholecalciferol (vitamin D3) [Vitamin D3] 125 mcg (5,000 unit) Tablet 50,000 unit PO QMONTH melatonin 10 mg Tablet 10 mg PO QHS psyllium husk [Metamucil] 0.4 gram Capsule 0.4 g PO BID ropinirole 0.5 mg tablet 1 mg PO TID Eliquis 2.5 mg tablet 5 mg PO BID Hold Instructions: resume 07/27/22 polyethylene glycol 3350 [Miralax] 17 gram Powder In Packet 17 g PO DAILY levothyroxine 150 mcg Tablet 150 mcg PO [facility] wjuzfuwj-ybqupbjsj-vmwfvladf 3.5-10,000-10 mg-unit-mg/gram Cream 1 applic TOPICAL DAILY dbrmjahgzl-iyghcvkjxwnb-tnygrb 1-1-4 % Gel 1 ea TOPICAL DAILY donepezil [Aricept] 5 mg tablet 10 mg PO DAILY pioglitazone [Actos] 45 mg tablet 45 mg PO DAILY metoclopramide HCl 5 mg tablet 5 mg PO QHS Rx Instructions: administer 30 minutes before meals pantoprazole 40 mg tablet,delayed release (DR/EC) 40 mg PO DAILY gabapentin 100 mg capsule 100 mg PO TIDCM sucralfate [Carafate] 1 gram tablet 1 g PO BID Qty: 60 5RF Discontinued oxycodone 5 mg Tablet 5 mg PO Q4H PRN PRN (Reason: Pain Score 4-5) 3 Days Qty: 10 0RF acetaminophen [Tylenol] 325 mg Tablet 650 mg PO Q6H PRN PRN (Reason: Pain Score 1-10/Temp > 100.7 F) Qty: 0 0RF enoxaparin 30 mg/0.3 mL syringe 30 mg subcut DAILY Rx Instructions: stop om 07/27/22 Ensure Enlive 0.08 gram-1.5 kcal/mL liquid 120 ml PO BID Referrals / Follow Up: Erasmo Dumas Chi, MD [Med Staff - Active Staff] - Within 1 Week Disposition Disposition (needs filled in before D/C Order can be placed): Home, Self Care
[2022-07-28] MEDS: Tolterodine Tartrate 2 MG CAP.SA PO (21:26)
[2022-07-28] MEDS: MELATONIN 10 MG TABLET PO (21:26)
[2022-07-28] MEDS: traZODone 100 MG Tablet PO (21:27)
[2022-07-28] MEDS: Metoclopramide 5 MG TABLET PO (21:27)
[2022-07-28] MEDS: Atorvastatin Calcium 20 MG Tablet PO (21:28)
[2022-07-28] MEDS: Insulin Glargine-YFGN 100 UNIT/ML Pen 40 UNIT SC (21:29)
[2022-07-28 21:31] LABS: Bedside Glucose 190 mg/dL (74-106)
[2022-07-29] MEDS: APIXABAN 5 MG TABLET PO ×2 (05:47→17:30)
[2022-07-29] MEDS: Docusate Sodium 100 MG Capsule PO ×2 (05:47→17:30)
[2022-07-29] MEDS: Finasteride 5 MG Tablet PO (05:47)
[2022-07-29] MEDS: Propranolol 10 MG Tablet 20 MG PO ×2 (05:47→17:30)
[2022-07-29] MEDS: Pantoprazole Sodium 40 MG Tablet PO (05:47)
[2022-07-29] MEDS: Magnesium Chloride 64 MG Delay Rel.Tablet 128 MG PO ×2 (05:47→17:30)
[2022-07-29] MEDS: Donepezil HCl 10 MG Tablet PO (05:49)
[2022-07-29] MEDS: Tamsulosin HCl 0.4 MG Capsule PO (05:50)
[2022-07-29] MEDS: Pramipexole Di-HCl 0.5 MG Tablet PO ×3 (05:51→22:01)
[2022-07-29] MEDS: Levothyroxine 150 MCG Tablet 225 MCG PO (05:56)
[2022-07-29 06:00] VITALS: BP 135/64; PULSE 78
[2022-07-29] MEDS: Neomycin/Polymyxin/Dexameth OINT 3.5GM OPTH.TUBE 1 APPLIC TOPICAL (06:02)
[2022-07-29] MEDS: Lisinopril 20 MG Tablet PO (06:05)
[2022-07-29 06:35] LABS: Bedside Glucose 162 mg/dL (74-106)
[2022-07-29] MEDS: Methylcellulose 2 GM Bottle PO (07:56)
[2022-07-29] MEDS: Psyllium 1 PACKET PO ×2 (07:56→17:31)
[2022-07-29] MEDS: Ferrous Sulfate 325 MG Tablet PO ×3 (07:56→17:30)
[2022-07-29] MEDS: Insulin Lispro 100 UNIT/ML INSULN.PEN 10 UNIT SC ×3 (07:56→17:30)
[2022-07-29] MEDS: Sucralfate 1 GM Tablet PO ×2 (07:56→17:31)
[2022-07-29] MEDS: Pioglitazone Hydrochloride 45 MG Tablet PO (07:56)
[2022-07-29] MEDS: Cyanocobalamin 500 MCG Tablet 1000 MCG PO (07:56)
[2022-07-29] MEDS: Allopurinol 100 MG Tablet PO (07:56)
[2022-07-29] MEDS: Multivitamins,Therapeutic Tablet 1 TABLET PO (07:56)
[2022-07-29] MEDS: Glucerna Shake 120 ML LIQUID PO (08:00)
[2022-07-29] MEDS: Gabapentin 100 MG Capsule PO ×3 (08:00→17:30)
--- NOTE | 2022-07-29 09:16 | CASEMGMT ---
Social Work IDT met with patient and SO for care plan meeting. Discussed patient's progress in PT/OT/SN. Explained [employer] insurance with NRD 07/29. Confirmed with pt and SO, DC remains 07/30 with [employer] PT/OT. No DME needs. No other needs. Gladis Arango, STORAGE SPECIALIST ACCOUNT UNDERWRITER
[2022-07-29 12:00] LABS: Bedside Glucose 225 mg/dL (74-106)
[2022-07-29 16:00] VITALS: BP 128/69; PULSE 96; RESP 17; TEMP 36.5; O2SAT 98
[2022-07-29 16:11] LABS: Bedside Glucose 210 mg/dL (74-106)
--- NOTE | 2022-07-29 16:28 | NURSING ---
pt notified that a patient was positivie for covid19, pt stated that he did not way anyone notified.
[2022-07-29] MEDS: Menthol/Lanolin/Calamine/Znox 113 GM Tube 1 APPLIC TOPICAL (17:31)
[2022-07-29 20:00] VITALS: PULSE 86; RESP 16; O2SAT 95
[2022-07-29 21:35] LABS: Bedside Glucose 176 mg/dL (74-106)
[2022-07-29] MEDS: traZODone 100 MG Tablet PO (22:01)
[2022-07-29] MEDS: Insulin Glargine-YFGN 100 UNIT/ML Pen 40 UNIT SC (22:01)
[2022-07-29] MEDS: Atorvastatin Calcium 20 MG Tablet PO (22:01)
[2022-07-29] MEDS: Metoclopramide 5 MG TABLET PO (22:01)
[2022-07-29] MEDS: MELATONIN 10 MG TABLET PO (22:01)
[2022-07-29] MEDS: Tolterodine Tartrate 2 MG CAP.SA PO (22:01)
[2022-07-30 05:15] VITALS: BP 119/75; PULSE 85; RESP 16
[2022-07-30] MEDS: Donepezil HCl 10 MG Tablet PO (05:20)
[2022-07-30] MEDS: Lisinopril 20 MG Tablet PO (05:20)
[2022-07-30] MEDS: Tamsulosin HCl 0.4 MG Capsule PO (05:20)
[2022-07-30] MEDS: Levothyroxine 150 MCG Tablet PO (05:20)
[2022-07-30] MEDS: Propranolol 10 MG Tablet 20 MG PO (05:20)
[2022-07-30] MEDS: APIXABAN 5 MG TABLET PO (05:21)
[2022-07-30] MEDS: Finasteride 5 MG Tablet PO (05:21)
[2022-07-30] MEDS: Magnesium Chloride 64 MG Delay Rel.Tablet 128 MG PO (05:21)
[2022-07-30] MEDS: Polyethylene Glycol 3350 17 GM PACKET PO (05:21)
[2022-07-30] MEDS: Docusate Sodium 100 MG Capsule PO (05:21)
[2022-07-30] MEDS: Pramipexole Di-HCl 0.5 MG Tablet PO (05:22)
[2022-07-30] MEDS: Menthol/Lanolin/Calamine/Znox 113 GM Tube 1 APPLIC TOPICAL (05:22)
[2022-07-30] MEDS: Pantoprazole Sodium 40 MG Tablet PO (05:24)
[2022-07-30] MEDS: Neomycin/Polymyxin/Dexameth OINT 3.5GM OPTH.TUBE 1 APPLIC TOPICAL (05:27)
[2022-07-30 06:30] LABS: Bedside Glucose 169 mg/dL (74-106)
[2022-07-30] MEDS: Psyllium 1 PACKET PO (08:38)
[2022-07-30] MEDS: Methylcellulose 2 GM Bottle PO (08:39)
[2022-07-30] MEDS: Gabapentin 100 MG Capsule PO (08:39)
[2022-07-30] MEDS: Ferrous Sulfate 325 MG Tablet PO (08:39)
[2022-07-30] MEDS: Sucralfate 1 GM Tablet PO (08:39)
[2022-07-30] MEDS: Cyanocobalamin 500 MCG Tablet 1000 MCG PO (08:39)
[2022-07-30] MEDS: Allopurinol 100 MG Tablet PO (08:39)
[2022-07-30] MEDS: Multivitamins,Therapeutic Tablet 1 TABLET PO (08:40)
[2022-07-30] MEDS: Insulin Lispro 100 UNIT/ML INSULN.PEN 10 UNIT SC (08:40)
[2022-07-30] MEDS: Pioglitazone Hydrochloride 45 MG Tablet PO (08:50)
[2022-07-30 10:29] VITALS: BP 101/54; PULSE 83; RESP 18; TEMP 2.4; TEMP 36.3; O2SAT 100
[2022-07-30 10:33] VITALS: O2SAT 100
--- NOTE | 2022-07-30 15:39 | CASEMGMT ---
Social Work BIMS (10/13) and PHQ-9 () for MDS assessment. Gladis Arango, REAL ESTATE OFFICE MANAGER WATER SKI ASSEMBLER
--- NOTE | 2022-07-31 10:59 | NURSING ---
Dairy Manufacturing Technologist Note: MDS Section F complete.
--- NOTE | 2022-08-05 11:08 | MDS.RN ---
Information for the mds was obtained from review of the clinical record, interview of resident, staff, and direct observation of resident's care.
== END 2022-07-30 10:35 | disposition home or self-care (01) | DRG 949 ==
PROVIDERS: Admitting Provider Family Medicine Geriatric Medicine; PCP Family Medicine; Visit Provider Family Medicine Geriatric Medicine
DX: Z48.815 Encounter for surgical aftercare following surgery on the digestive system (principal); I48.11 Longstanding persistent atrial fibrillation; C18.9 Malignant neoplasm of colon, unspecified; E11.42 Type 2 diabetes mellitus with diabetic polyneuropathy; D50.9 Iron deficiency anemia, unspecified; E03.9 Hypothyroidism, unspecified; G25.81 Restless legs syndrome; E11.51 Type 2 diabetes mellitus with diabetic peripheral angiopathy without gangrene; E11.59 Type 2 diabetes mellitus with other circulatory complications; F02.80 Dementia in other diseases classified elsewhere, unspecified severity, without behavioral disturbance, psychotic disturbance, mood disturbance, and anxiety; G30.9 Alzheimer's disease, unspecified; Z79.4 Long term (current) use of insulin; K31.84 Gastroparesis; I10 Essential (primary) hypertension; K21.9 Gastro-esophageal reflux disease without esophagitis; M10.9 Gout, unspecified; E78.5 Hyperlipidemia, unspecified; E55.9 Vitamin D deficiency, unspecified; G47.33 Obstructive sleep apnea (adult) (pediatric); I25.10 Atherosclerotic heart disease of native coronary artery without angina pectoris; L71.9 Rosacea, unspecified; E53.8 Deficiency of other specified B group vitamins; Z79.01 Long term (current) use of anticoagulants; N32.81 Overactive bladder; N40.0 Benign prostatic hyperplasia without lower urinary tract symptoms; Z79.899 Other long term (current) drug therapy; Z79.890 Hormone replacement therapy; R33.8 Other retention of urine; N40.1 Benign prostatic hyperplasia with lower urinary tract symptoms
CPT/HCPCS: 36415; 71046; 80048; 82962; 85025; 87811; 92610; 97110; 97116; 97162; 97166; 97530; 97535; A4216

== ENCOUNTER → 2022-07-30 | Outpatient (CLI) | payer MEDICARE, OTHER, SELFPAY ==
[2022-07-30 12:33] LABS: Absolute Neutrophil Count 4.9 X10^3/uL (2.0-7.7); Basophil# 0.04 X10^3/uL; Basophil% 0.5 % (0-1); Eosinophil# 0.14 X10^3/uL; Eosinophils% 1.9 % (0-5); Hematocrit 37.1 % (40-54); Hemoglobin 11.7 g/dL (13.0-16.5); Lymphocyte % 19.9 % (19-41); Mean Corp Hgb Conc 31.5 g/dL (32-36); Mean Corpuscular Hgb 30.2 pg (27.0-32.0); Mean Corpuscular Volume 95.6 fL (80-94); Mean Platelet Vol. 10.4 fl (6.2-12.0); Monocyte# 0.65 X10^3/uL; Monocyte% 8.6 % (0-10); NRBC Flagged by Analyzer 0 % (0-5); Neutrophil # 4.85 X10^3/uL (2.7-7.7); Neutrophil % 64.3 % (47-70); Platelet Count 247 K/mm3 (150-450); RBC Distribution Width CV 16.3 % (11.6-14.6); RBC Distribution Width SD 57.8 fl (35.1-43.9); Red Blood Count 3.88 M/mm3 (4.6-6.2); White Blood Count 7.5 K/mm3 (4.4-11.0)
[2022-07-30 13:01] LABS: ALB/GLOB Ratio 0.6 RATIO (0.9-2.4); AST(SGOT) 49 U/L (15-37); Alanine Aminotransfer ALT/SGPT 59 U/L (16-61); Albumin, Serum 2.5 g/dL (3.2-5.0); Alkaline Phosphatase 260 U/L (45-117); Anion Gap 7 (5-15); BUN 19 mg/dL (7-18); BUN/Creat Ratio 23.3 RATIO (10-20); Calcium,Total 9.2 mg/dL (8.5-10.1); Chloride 109 mmol/L (98-107); Creatinine, Serum 0.81 mg/dL (0.70-1.30); EST Glomerular Filtration Rate 96 mL/min (>60); Est Glom Filt Rate - Afr Amer 116 mL/min (>60); Globulin 4.3 g/dL (2.2-4.2); Glucose 205 mg/dL (74-106); Potassium 3.9 mmol/L (3.5-5.1); Protein, Total 6.8 g/dL (6.4-8.2); Sodium Level 141 mmol/L (136-145); Thyroid Stim Hormone (TSH) 0.34 uIU/mL (0.358-3.74)
[2022-07-30 13:36] LABS: Hepatitis C Antibody Non-Reactive (Nonreactive); Vitamin D,25 Hydroxy 40.7 ng/mL
== END | disposition home or self-care (01) ==
LOC: POLAB3 11:58
PROVIDERS: PCP Family Medicine Geriatric Medicine; Visit Provider Family Medicine Geriatric Medicine
DX: E11.65 Type 2 diabetes mellitus with hyperglycemia (principal); E55.9 Vitamin D deficiency, unspecified; R53.83 Other fatigue; Z13.89 Encounter for screening for other disorder
CPT/HCPCS: 36415; 80053; 82306; 84443; 85025; 86803

== ENCOUNTER 2022-09-07 13:00 | Outpatient (RCR) | payer MEDICARE, OTHER, SELFPAY ==
--- NOTE | 2022-08-11 12:56 | HP.OTEVAL ---
Patient's Visit Information ALCIDES LOREDO is a 82 year old M, referred to Occupational Therapy by Dr. Erasmo Dumas MD, with a diagnosis of debility. Date of Evaluation: 08/11/22 Occupational Therapist: Laure Stanley, KRISTAR/Kemi, CHT - Subjective pt arrives to OT with dx debility and decline in ADLs. pt states he just was also dx with colon Cancer- sx was 07/22/22- pt states he was in hospital for 5 days on TCU. pt d/c on 07/28/22. pt states he does have some trouble standing from seated position unless he has arm on chairs- can not walk long distance as he was doing prior to sx. 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 pt and pts family would like him to get strength back. - ADLs Comments: pt lives with sig. other one story apt two bedroom two bathroom-. pt ambulates with rollator with bench-. WW. has lift chair. raised toilet chair. grab bars in bath with walk in shower. pt states he is ind, with bathing and dressing- stands in shower. can get small meals. back to reading - Pain hips /hands 1 Pain Intensity Range: 1 - ROM ROM Comments: pt demo ROM WNL - Strength Shoulder: right shoulder # left 14/18# peak force Elbow: right 06/17 left Assembly Line Upholsterer: right 38# left 40# Lateral Pinch: right 6# left 4# Tripod Pinch: right 5# left 7# Strength Comments: pt demo with generalized weakness increasing need of assist with functional mobility - Quick DASH-Disab of Arm,Shoulder& Hand Quick DASH Score: 32.5000 - Goals Goal:: pt will demo a increase in peak force resistance of UE by 10# or greater indicating increase in pts functional strength by d.c. pt will demo a increase in bilateral solar energy sales specialist strength by 10# to increase pts ind. with ADLs and IADLs by d/c - Rehabilitation General Assessment: pt demo with a decrease in UB strength and endurance increasing need of assistance with functional transfers and mobility- pt would benefit from skilled OT services 1-2x week for 4 weeks to initiate UB strengthening and transition to health and wellness program. pt agrees to POC. Rehabilitation Potential: Good - Anticipated Interventions Strengthening, Caregiver Training, Home Program, Other Other Interventions: transition to health and wellness program - Visit Plan Frequency: 1-2x /Week Duration: 4 Weeks General Plan: will initiate free wt UB strengthening and transition to gym eq. as kelly. and as restrictions allow. TEXT: Thank you for the opportunity to evaluate your patient. For Medicare and Medicare HMO plans, please review the plan of care and approve it. It will need to be FAXED BACK to us at [phone] for Medicare purposes. Please let me know if there are questions or concerns regarding this plan of care. Physician Signature: Date:
--- NOTE | 2022-08-12 07:00 | HP.PTEVAL ---
Patient's Visit Information ALCIDES LOREDO is a 82 year old M referred to Physical Therapy by Dr. Erasmo Dumas MD with a diagnosis of Generalized Weakness. Date of Evaluation: 08/11/22 Physical Therapist: Darby Gutierrez DPT - Visit Plan Frequency: 2x /Week Duration: 4 Weeks Plan: Focus on LE and core strength/stabilization, proprioception and endurance. No more than#20 lifting restriction - Subjective Patient reports that he needs new legs. From the knees up he feels weakness into the hips that he does not feel other places. No pain just weakness. This weakness has been going on for years. Its a combo of CVA (15 years ago), Parkinsons, OA, old age and decreased activity. He had abdominal surgery Jul 22 due to colon cancer- has a follow up on Aug 25 to see what comes next. He has had one fall- Jul- in [employer]- had to go to the ER- then had home therapy. He does not have the strength to get up out of a chair. He has used a rollator for about 3 years- he uses it all the time. No OCONNOR, blurred vision. Does report dizziness- sometimes when he stands up its there and then its gone. He was coming in 3x a week for 12 years then COVID hit- has not been back since for Health and Wellness- they feel like its okay to come back. Compression stockings- to his knees- he wears them unless he is in bed- has been in them about a year. Single story home with his with no stairs. Does have a lift chair PMHx/Meds: see chart. - Objective Posture: FH, SS, increased kyphosis- can correct with verbal and tactile cues but does not maintain. Gait: short steps- forward lean on FWW- decreased stride length. Transfers: requires UE A from chair. Stairs: asc/desc 8 recip with 2 HR- poor endurance. ROM: WFL. Strength: Core: fair minus, Right: Hip: 4/5, Knee: 4+/5, Ankle: 5/5 Left: Hip: 4+/5, Knee: 5/5, Ankle: 5/5. Flex: HS: severe, Gastroc: severe - Balance/Special Test Scores Functional Gait Assessment Score: 15 % Disability: 50.0000 Lower Extremity Functional Score: 30 TUG Test Time Seconds: 27 - Goals Goal 1:: Patient will be I with HEP and progression Goal Time Frame: 4-6 Weeks Goal 2:: Patient will sit to stand without UE A Goal Time Frame: 4-6 Weeks Goal 3:: Patient will asc/desc 8 recip x 3 trips without SOB Goal Time Frame: 4-6 Weeks Goal 4:: Patient will report 80% improvement Goal Time Frame: 4-6 Weeks - Rehabilitation Potential Physical Therapy Diagnosis: Patient presents with hypomobility- he has decreased LE and core strength/stabilization, flex and muscular endurance leading to poor posture and decreased ability to perform ADL's. Rehabilitation Potential: Good - Anticipated Interventions Patient/Client Instruction: Educate patient on: Benefits of Fitness Program Therapeutic Exercise to Include: Strength training, Endurance training, Balance training, Coordination, Agility training, Body mechanics, Postural training, Gait and locomotor training, Neuromotor development, Dynamic Lumbar Stabilization, Scapular Strength/Stabilization For the Purpose of:: To improve muscle performance and motor function Cryotherapy (ice pack, ice massage): Yes Thermo therapy (hot pack): Yes Ultrasound (thermal/non thermal): No Thank you for the opportunity to evaluate your patient. For Medicare and Medicare HMO plans, please review the plan of care and approve it. It will need to be FAXED BACK to us at [phone] for Medicare purposes. For Medicare only, by signing this I certify the plan of care. Please let me know if there are questions or concerns regarding this plan of care. Physician Signature: Date:
--- NOTE | 2022-09-07 13:07 | HP.OTDCSUM_ITS ---
It has been my pleasure to treat ALCIDES LOREDO under orders from Dr. Erasmo Dumas MD, for the diagnosis of debility for a total of 6 visit(s). Please see the following information for a summary of their discharge status. % Improvement: 75 Objective/Function: right family day care provider strength 405# Left 45# this is increase from initial eval. right lateral pinch 8# left 6# this is increase from initial eval. right tripod pinch 6# left 4# this also increased. FET2 shoulder testing peak force from initial eval did stay the same- pt is demo transitions from sit to stand at IND level. Pt and pts family agree to d/c so they can transition to health and wellness program. Patient Goals: Regain Strength, Be More Independent in ADLS Goal:: pt will demo a increase in peak force resistance of UE by 10# or greater indicating increase in pts functional strength by d.c. pt will demo a increase in bilateral family day care provider strength by 10# to increase pts ind. with ADLs and IADLs by d/c Plan: D/C Discharge Comments: pt was seen for 6 OT visits to increase strength and endurance for pt to perform ADLs at a KRYSTYNA level- pt and pts family also state they are transitioning to a health and wellness program to continue to improve his strength. family and pt agree to D/C. If there are questions or concerns regarding this patient's occupational therapy, please fell free to call me at [phone]. Thank you for the referral of this patient. Sincerely, Laure Stanley, OTR/L, CHT
== END 2022-09-07 19:00 | disposition home or self-care (01) ==
LOC: PT 13:00
PROVIDERS: PCP Family Medicine Geriatric Medicine; Referring Provider Family Medicine Geriatric Medicine; Visit Provider Family Medicine Geriatric Medicine
DX: R53.81 Other malaise (principal)
CPT/HCPCS: 97110; 97162; 97166; 97530

== ENCOUNTER → 2022-09-07 | Outpatient (CLI) | payer MEDICARE, OTHER, SELFPAY ==
--- NOTE | 2022-09-07 15:32 | CT_ITS ---
STUDY: CT CHEST, ABDOMEN T PELVIS WITH CONTRAST REASON FOR EXAM: Male, 82 years old. COLON CANCER. IV CONTRAST ONLY PER DR. LEE RADIATION DOSAGE (If Supplied By Facility): CTDIvol = ( 25.62 ) mGy, DLP = ( 2382.97 ) mGycm TECHNIQUE: Transaxial imaging was performed following intravenous administration of IV 100mL Isovue-370. Individualized dose optimization techniques were used for this CT. COMPARISON: No relevant priors. FINDINGS: CHEST The lungs demonstrate moderate fibrosis in both lower lobes. There is mild lingular fibrosis. Posterior medially in the right base on series 6 image 90 there is a 5 mm micronodule. There is no demonstrated pleural abnormality. Normal heart and pericardium. No evidence of mediastinal adenopathy. There is diffuse distention of the esophagus mild degree. This could be due to distal esophageal stricture. Occult mass cannot be excluded. Normal hilar regions. Normal unenhanced pulmonary arteries. Normal aorta arch and descending thoracic aorta. Normal osseous structures. There is no demonstrated abnormality of the visualized upper abdomen. ABDOMEN The visualized lung bases are unremarkable. The visualized portions of the heart are within normal limits. Normal liver. Inflammatory changes seen extending anteriorly from the caudal aspect of the right lobe of the liver into the mid abdominal region. Surgical clips are seen in this region. There are findings suggestive of right hemicolectomy. There is moderate sigmoid diverticulosis. There is no evidence of diverticulitis. The stomach is incompletely distended limiting evaluation. The small bowel is normal in appearance. Normal gallbladder and extrahepatic biliary system. Normal spleen. Age concordant pancreatic atrophy. Normal bilateral adrenal glands. Mild cortical thinning of the kidneys. Renal function and excretion. Normal abdominal aorta. Normal inferior vena cava. Normal retroperitoneum. Normal abdominal wall. Diffuse degenerative change lower thoracic spine lower lumbar spine. No evidence of lytic or sclerotic metastatic disease. PELVIS Normal urinary bladder. Normal visualized small intestine. Mild sigmoid diverticulosis. There is no pelvic fluid. There is no pelvic lymphadenopathy or mass lesion. Normal visualized pelvic arteries. Normal abdominal wall. Normal osseous structures. CT/CT Chest, Abd, Pel w/Contrast IMPRESSION: Probable prior right hemicolectomy. Inflammatory change seen extending caudally from the right lobe of the liver likely representing normal postoperative change. Other etiology cannot be completely excluded. Micronodule right lower lobe. Distended esophagus which could be due to distal esophageal stricture or could be due to occult mass. Mild cortical thinning of the kidneys. Degenerative changes of the lower thoracic and lower lumbar spine. Electronically Signed: Jh Mabry MD, ISHA at 16:35 EDT ,
== END | disposition home or self-care (01) ==
LOC: CT 15:28
PROVIDERS: PCP Family Medicine; Referring Provider Internal Medicine Medical Oncology; Visit Provider Internal Medicine Medical Oncology
DX: C18.9 Malignant neoplasm of colon, unspecified (principal)
CPT/HCPCS: 71260; 74177; Q9967

== ENCOUNTER 2022-09-15 08:49 | Day surgery (SDC) | payer MEDICARE, OTHER, SELFPAY ==
--- NOTE | 2022-09-15 09:14 | HP.PCM_ITS ---
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 Is patient in pain?: No Allergies niacin Allergy (Intermediate, Verified 09/11/22 12:54) rashadhesive Adverse Reaction (Verified 09/11/22 12:54) Other: takes skin off, inflamed Medications Multivitamin 1 tab PO DAILY VITAMIN 05/10/15 [History Confirmed 09/11/22] allopurinol 100 mg tablet 100 mg PO DAILYCM gout 05/10/15 [History Confirmed 09/11/22] docusate sodium 100 mg capsule 100 mg PO BID constipation 05/10/15 [History Confirmed 09/11/22] finasteride 5 mg tablet 5 mg PO DAILY prostate 05/10/15 [History Confirmed 09/11/22] tamsulosin 0.4 mg capsule 0.4 mg PO DAILY prostate 05/10/15 [History Confirmed 09/11/22] trazodone 100 mg tablet 100 mg PO QHS sleep/mental health 05/10/15 [History Confirmed 09/11/22] trospium 20 mg tablet 20 mg PO QHS bladder 05/10/15 [History Confirmed 09/11/22] cyanocobalamin (vitamin B-12) 500 mcg tablet 1,000 mcg PO DAILY@0800 supplement 09/24/17 [History Confirmed 09/11/22] ipratropium bromide 42 mcg (0.06 %) nasal spray 2 spray NS TID PRN ALLERGIES 09/24/17 [History Confirmed 09/11/22] levothyroxine 150 mcg tablet 225 mcg PO MOWEFR thyroid 03/06/19 [History Confirmed 09/11/22] quinapril 10 mg tablet 20 mg PO DAILY BP 03/07/19 [History Confirmed 09/11/22] doxycycline hyclate 20 mg tablet 20 mg PO BID ocular rosaca 07/18/19 [History Confirmed 09/11/22] Lantus SoloStar Pen 30 units subcut QHS diabetes 11/30/19 [History Confirmed 09/11/22] magnesium oxide 400 mg (241.3 mg magnesium) tablet 400 mg PO BID supplement 11/30/19 [History Confirmed 09/11/22] atorvastatin 20 mg tablet 20 mg PO QHS cholesterol 06/19/22 [History Confirmed 09/11/22] cholecalciferol (vitamin D3) 125 mcg (5,000 unit) tablet (Vitamin D3) 50,000 unit PO QMONTH supplement 06/19/22 [History Confirmed 09/11/22] ferrous sulfate 325 mg (65 mg iron) tablet 325 mg PO TID iron 06/19/22 [History Confirmed 09/11/22] melatonin 10 mg tablet 10 mg PO QHS sleep 06/19/22 [History Confirmed 09/11/22] propranolol 20 mg tablet 20 mg PO BID BP 06/19/22 [History Confirmed 09/11/22] psyllium husk 0.4 gram capsule (Metamucil) 0.4 g PO BID bowels 06/19/22 [History Confirmed 09/11/22] sucralfate 1 gram tablet (Carafate) 1 g PO BID esophageal ulcers #60 tabs 07/10/22 [Rx Confirmed 09/11/22] ivermectin 1 %-metronidazole 1 %-niacinamide 4 % topical gel 1 ea topical DAILY ROSECA 07/13/22 [History Confirmed 09/11/22] levothyroxine 150 mcg tablet 150 mcg PO SUTUTHSA thyroid 07/13/22 [History Confirmed 09/11/22] gzxeuaxg-cxjawsylk-qelzlnfmx 3.5 mg-10,000 unit-10 mg/gram top cream 1 applic topical DAILY LEFT EYE 07/13/22 [History Confirmed 09/11/22] polyethylene glycol 3350 17 gram oral powder packet (Miralax) 17 g PO DAILY constipation 07/13/22 [History Confirmed 09/11/22] apixaban 2.5 mg tablet (Eliquis) 5 mg PO BID blood thinner 07/17/22 [History Confirmed 09/11/22] methylcellulose (laxative) 500 mg tablet (Citrucel) 500 mg PO DAILY bowels 07/17/22 [History Confirmed 09/11/22] ropinirole 0.5 mg tablet 1 mg PO TID parkinsons 07/17/22 [History Confirmed 09/11/22] donepezil 5 mg tablet (Aricept) 10 mg PO DAILY memory 07/24/22 [History Confirmed 09/11/22] gabapentin 100 mg capsule 100 mg PO TIDCM nerve pain 07/24/22 [History Confirmed 09/11/22] metoclopramide HCl 5 mg tablet 5 mg PO QHS stomach 07/24/22 [History Confirmed 09/11/22] pantoprazole 40 mg tablet,delayed release 40 mg PO DAILY acid reflux 07/24/22 [History Confirmed 09/11/22] pioglitazone 45 mg tablet (Actos) 45 mg PO DAILY diabetes 07/24/22 [History Confirmed 09/11/22] acetaminophen 500 mg tablet 1,000 mg PO Q6H PRN PRN Pain Score 1-3 #0 tabs 07/01 [Rx Confirmed 09/11/22] glipizide 5 mg tablet 5 mg PO BID 08/27/22 [History Confirmed 09/11/22] PFSH Medical History? 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 Diabetes mellitus, type II Difficulty swallowing DM (diabetes mellitus), type 2 with peripheral vascular complications Essential hypertension Gastric reflux Hepatitis History of atrial fibrillation History of CVA (cerebrovascular accident) (2007) History of echocardiogram History of GI bleed History of pericarditis (08/2017) History of stress test Hyperlipidemia Hypothyroidism Insulin dependent diabetes mellitus Longstanding persistent atrial fibrillation Non-smoker Obstructive sleep apnea Ocular rosacea Parkinson's disease Paroxysmal atrial fibrillation Peripheral vascular disease due to secondary diabetes Prostate disease Restless legs Short-term memory loss Skin tear Stroke/cerebrovascular accident Urinary incontinence Venous (peripheral) insufficiency Walker as ambulation aid Wears glasses Wears hearing aid Surgical History? H/O basal cell carcinoma excision History of appendectomy History of cataract extraction History of colonoscopy (~05/2022) Status post surgical removal of malignant neoplasm of skin Family History?(Updated 09/11/22 @ 12:50 by Darby Wednesday) Father CAD (coronary artery disease) Hypertension Heart diseaseMother HypertensionSister Breast cancer CVA (cerebral vascular accident)Brother Kidney disease Social History? household members:? significant other Smoking Status:? Never smoker alcohol intake:? never substance use type:? does not use seatbelt use:? always do you feel safe at home:? Yes HPI HPI HPI: 82-year-old gentleman is referred back by Dr. Dion Andrade for surgical consultation regarding potential distal esophageal problems.? It is of note that I had him hospitalized from July 21 through July 24, 2022 and performed a laparoscopic stated right hemicolectomy with laparoscopic cholecystectomy and Kayden-Cut core biopsy of the liver and a bilateral tap block.? Pathology showed chronic cholecystitis cholelithiasis and cirrhosis of the liver moderately to poorly differentiated carcinoma with mucinous differentiation invading through the muscularis propria.? The ascending colon lesion was well differentiated adenocarcinoma arising the background of tubulovillous adenoma.? The transverse colon lesion was a tubulovillous adenoma.? 22 lymph nodes were negative.? Stage IIa. Had a CT of the chest abdomen pelvis on September 07, 2022.? This suggested changes from his right hemicolectomy.? Distended esophagus possible distal esophageal stricture cannot exclude mass.The patient is being referred for surgical consultation evaluation regarding this distal esophageal problem. By report the patient's actually had trouble swallowing for multiple years.? Bread in particular will cause trouble.? He senses discomfort in the superior retrosternal area.? He has never had an upper endoscopy.? As noted prior to his colon surgery he had declined colonoscopy and an upper endoscopy.? In lieu of that on June 03, 2022 he did agree to allowing Dr. Stanley to have a capsule endoscopy performed.? There were felt to be possibly an ulcer.? [place] to be nonbleeding AVMs of the small bowel.? There is felt to be possibly a colon tumor. ROS General General: Yes fatigue and colon cancer; No weight change, appetite, breast cancer or weakness HEENT HEENT: Yes difficulty swallowing; No eye injury, eye surgery, swollen glands or hoarseness Endo Endocrine: Yes diabetes mellitus; No thyroid disease, thyroid cancer, Hair loss, heat intolerance or cold intolerance Skin Skin: No rash or changing moles Musc Musculoskeletal: Yes arthritis; No back problems, rheumatoid arthritis, gout or joint pain Cardio Cardiovascular: Yes atrial fibrillation and high blood pressure; No murmur, pacemaker, heart disease, heart attack, heart stent, palpitations, shortness of breat with exertion or chest pain Psych Psychiatric: No depression, anxiety or hearing voices Resp Respiratory: No shortness of breath, Yes sleep apnea, Yes cough, No COPD, No asthma, No emphysema and No wheezing Gastro Gastrointestinal: No abdominal pain, No nausea or vomiting, Yes diarrhea, No constipation, No blood in stool, No acid reflux, No hemorrhoids, Yes ulcers, No gallbladder problem and No black,tarry stools Luis Hematologic: Yes blood thinners, No blood disorders, No bleeding, No anemia and No blood clots Neuro Neurologic: No system reviewed and no additional complaints, except as documented, No as per HPI, No abnormal gait, No abnormal hearing, No abnormal movements, No abnormal speech, No behavioral changes, No burning sensations, No confusion, No convulsions, No disequilibrium, No dizziness, No localized weakness, No frequent falls, No headache(s), No lack of coordination, No loss of vision, No memory loss, Yes numbness, No other visual disturbances, No radicular pain, No restless legs, No sensory deficit, No syncope, Yes tingling, No tremor(s), No weakness and No other Exam Const General: cooperative, comfortable and no acute distress HENMT Head: normal to inspection Neck Neck: normal visual inspection Chest Chest palpation & inspection: normal inspection of the chest Resp Effort & Inspection: normal respiratory effort Auscultation: clear to auscultation bilaterally Cardio Rate: regular rate Rhythm: regular rhythm GI Palpation: soft Other: Nicely healed epigastric midline incision, abdomen soft and nontender Skin General: no rashes or lesions noted Neuro General: patient alert, patient awake and patient oriented x3 Extrem Other: Bilateral lower extremity support hose in place Psych Appearance: grossly normal Assessment and Plan Assessment and Plan (1) Esophagus disorder: ?Status:?Acute ?Comment: Distended esophagus R/O obstruction ?Plan: I recommended the patient esophagogastroduodenoscopy with possible biopsy or polypectomy or dilatation if indicated.? He is aware of the technique, benefit, risk, alternatives.? We will schedule and proceed at his discretion.? I appreciate the opportunity of assisting with the surgical care.? We will schedule and proceed at patient discretion.? He is aware that due to the chronicity of his disease that great care will be taken if dilatation is required. Copy: Dr. Randell Sparks and Dr. Dion Ruiz M.D., F.A.C.S. I have re-examined the patient. There are no clinical changes since date of exam. Josh Ruiz M.D., F.A.C.S.
[2022-09-15 09:29] VITALS: BP 115/76; PULSE 78; RESP 18; TEMP 36.4; O2SAT 96; BMI 33.5
[2022-09-15] MEDS: Lactated Ringers 1,000 ML 15 ML IV (09:39)
[2022-09-15 10:00] LABS: Bedside Glucose 164 mg/dL (74-106)
--- NOTE | 2022-09-15 10:00 | IMM_PTH ---
PATIENT: ALCIDES LOREDO LOC: EN U#:[id number] AGE/SX: 82/M ROOM: RE09/15/[address]: Dr. Josh Ruiz MD : 1940 BED: DIS: 09/15/2022 SPEC #: [id number] RECD: 09/15/22 12:46 STATUS: MAITE ANUPAM #: [id number] DEWEY: 09/15/22 10:[address]: Josh Ruiz DEPT: IMMUNOHISTOCHEMISTRY RECD BY: Reshma Meadows ENTERED: 09/15/22 12:46 SP TYPE: IMMUNO OTHR DR: Dr. Randell Sparks MD Tissues: A - Stomach, NOS Procedures: H Pylori (initial) PHYSICIAN & INSTITUTION [place] [id number] SPECIMEN INFORMATION: Tissue Source: A ? Antral biopsy Clinical Info: Esophagus disorder, distended esophagus Specimen Number: [id number] CPT code: 28593 METHODOLOGY: Deparaffinized sections of prefer/formalin-fixed tissue or PAP/DQ stained slides are incubated with monoclonal/polyclonal antibodies/oligonucleotide probes. Localization is made via biotin free immunoperoxidase method. Appropriate controls are performed and reacted as expected. Results on target cell population are indicated in the following table: RESULTS: ANTIBODY / CLONE RESULT Block A H Pylori (polyclonal) negative These tests were developed and their performance characteristics determined by [facility]. They may not have been cleared or approved by the U.S. Food and Drug Administration. The FDA has determined that such clearance or approval is not necessary. The above immunohistochemical/dualISH markers are ordered and reviewed by the Pathologist. INTERPRETATION: A. Antral biopsy: Negative for Helicobacter pylori organisms. AM:shaina 09/16/2022
--- NOTE | 2022-09-15 10:00 | EGD_PTH ---
PATIENT: ALCIDES LOREDO LOC: EN U#:[id number] AGE/SX: 82/M ROOM: RE09/15/[address]: Dr. Josh Ruiz MD : 1940 BED: DIS: 09/15/2022 SPEC #: [id number] RECD: 09/15/22 10:31 STATUS: MAITE ANUPAM #: [id number] DEWEY: 09/15/22 10:[address]: Josh Ruiz DEPT: SURGICAL PATHOLOGY RECD BY: Eileen Moreno ENTERED: 09/15/22 12:17 SP TYPE: EGD BIOPSY OT DR: Dr. Randell Sparks MD Tissues: A - Gastric mucous membrane B - Esophagus, NOS Procedures: Special Stain Group II Surgery Specimen Level IV Alcian Blue/PAS (control) HEADER OPERATION: EGD ([facility]) PRE-OP DIAGNOSIS: Esophagus disorder, distended esophagus, rule out obstruction TISSUE SUBMITTED: A ? Antral biopsy, H. pylori, B ? Distal esophagus biopsy MICROSCOPIC DIAGNOSIS A. Gastric antrum, biopsy: Mild chronic gastritis. See comment. B. Distal esophagus, biopsy: Gastroesophageal junctional mucosa with chronic inflammation. No evidence of goblet cell metaplasia. See comment. AM:shaina 09/16/2022 COMMENT A. The results of immunohistochemistry for Helicobacter pylori will be reported separately ([id number]). B. Alcian blue/PAS stain with matched control supports the above diagnosis. MICROSCOPIC DESCRIPTION Slides are reviewed. GROSS DESCRIPTION A - Received in fixative is one container labeled with the patient's name and designated antrum biopsy. The specimen consists of one irregular fragment of light elias soft tissue that measures 0.4 x 0.3 x 0.1 cm. The specimen is totally submitted in one cassette. B - Received in fixative is one container labeled with the patient's name and designated distal esophagus biopsy. The specimen consists of two irregular fragments of light elias soft tissue that in aggregate measure 0.6 x 0.4 x 0.1 cm. The specimen is totally submitted in one cassette. / SJ:shaina 09/15/2022 TC:3 CPT: 26809 x2, 65184
[2022-09-15 10:25] VITALS: BP 110/69; BP 115/76; PULSE 71; RESP 18; TEMP 36.7; O2SAT 93
--- NOTE | 2022-09-15 10:27 | OP.EGD_ITS ---
Patient Name: Polo Guerrero Procedure Date: 09/15/2022 10:01 AM Date of : 1940 Age: 82 Procedure: Upper GI endoscopy Indications: Dysphagia Providers: Josh Ruiz MD Medicines: See the Anesthesia note for documentation of the administered medications Complications: No immediate complications. Procedure: Pre-Anesthesia Assessment: - Prior to the procedure, a History and Physical was performed, and patient medications and allergies were reviewed. The patient's tolerance of previous anesthesia was also reviewed. The risks and benefits of the procedure and the sedation options and risks were discussed with the patient. All questions were answered, and informed consent was obtained. Prior Anticoagulants: The patient has taken no previous anticoagulant or antiplatelet agents. ASA Grade Assessment: II - A patient with mild systemic disease. After reviewing the risks and benefits, the patient was deemed in satisfactory condition to undergo the procedure. After obtaining informed consent, the endoscope was passed under direct vision. Throughout the procedure, the patient's blood pressure, pulse, and oxygen saturations were monitored continuously. The gastroscope was introduced through the mouth, and advanced to the second part of duodenum. The upper GI endoscopy was accomplished without difficulty. The patient tolerated the procedure well. Scope In: 10:10:35 AM Scope Out: 10:18:25 AM Total Procedure Duration Time 0 hours 7 minutes 50 seconds Findings: Esophagitis with no bleeding was found 40 cm from the incisors. Biopsies were taken with a cold forceps for histology. A 1 cm hiatal hernia was present. Non-bleeding grade I varices were found in the middle third of the esophagus,. No red nina signs were present. Diffuse mildly erythematous mucosa without bleeding was found in the gastric antrum. Biopsies were taken with a cold forceps for histology. The examined duodenum was normal. Impression: - Reflux esophagitis. Biopsied. - 1 cm hiatal hernia. - Non-bleeding grade I esophageal varices. - Erythematous mucosa in the antrum.Biopsies were taken with a cold forceps for histology. - Normal examined duodenum. Recommendation: - Discharge patient to home. - Resume previous diet. - Continue present medications. - Telephone my office for pathology results in 1 week. I did not find clinical support for the CT imaging of stricture or stenosis of the distal esophagus. Patient may have a motility disorder but that would require manometry and the patient is otherwise doing well enough not to pursue this at this time. Procedure Code(s): --- Professional --- 10980, Esophagogastroduodenoscopy, flexible, transoral; with biopsy, single or multiple Diagnosis Code(s): --- Professional --- K21.0, Gastro-esophageal reflux disease with esophagitis K44.9, Diaphragmatic hernia without obstruction or gangrene I85.00, Esophageal varices without bleeding K31.89, Other diseases of stomach and duodenum R13.10, Dysphagia, unspecified CPT copyright 2017 [employer]. All rights reserved. The codes documented in this report are preliminary and upon barrel raiser review may be revised to meet current compliance requirements. Josh Ruiz MD 09/15/2022 10:27:24 AM This report has been signed electronically. Number of Addenda: 0 Note Initiated On: 09/15/2022 10:01 AM
--- NOTE | 2022-09-15 10:27 | OP.CCLET_ITS ---
09/15/2022 Dion Andrade MD [address] [facility] [address] [place] [address] Re : Upper GI endoscopy procedure for Polo Guerrero Dear Dr. Andrade This procedure was performed on Thursday, September 15, 2022. My impressions and recommendations are as follows: Impressions : - Reflux esophagitis. Biopsied. - 1 cm hiatal hernia. - Non-bleeding grade I esophageal varices. - Erythematous mucosa in the antrum.Biopsies were taken with a cold forceps for histology. - Normal examined duodenum. Recommendations : - Discharge patient to home. - Resume previous diet. - Continue present medications. - Telephone my office for pathology results in 1 week. I did not find clinical support for the CT imaging of stricture or stenosis of the distal esophagus. Patient may have a motility disorder but that would require manometry and the patient is otherwise doing well enough not to pursue this at this time. My findings are described in the full procedure note, which is enclosed. If I can be of further assistance, please feel free to contact me at Doctor phone number(s): Work: . Sincerely, Josh Ruiz MD 09/15/2022 10:27:24 AM This report has been signed electronically.
[2022-09-15 10:30] VITALS: BP 115/76; BP 87/51; PULSE 75; RESP 18; O2SAT 96
[2022-09-15 10:35] VITALS: BP 111/67; BP 115/76; PULSE 79; RESP 18; O2SAT 95
[2022-09-15 10:40] VITALS: BP 105/67; BP 115/76; PULSE 79; RESP 18; TEMP 36.7; O2SAT 96
[2022-09-15 10:55] VITALS: BP 115/76
== END 2022-09-15 11:18 | disposition home or self-care (01) ==
LOC: EN 08:50 → AC 08:51
PROVIDERS: PCP Family Medicine; Referring Provider Family Medicine; Visit Provider Surgery
PROC: 0DJ08ZZ Inspection of Upper Intestinal Tract, Via Natural or Artificial Opening Endoscopic (ICD-10-PCS; CPT 43235; principal; 2022-09-15 09:55)
DX: K29.50 Unspecified chronic gastritis without bleeding (principal); C22.9 Malignant neoplasm of liver, not specified as primary or secondary; I85.00 Esophageal varices without bleeding; G20 Parkinson's disease; E11.51 Type 2 diabetes mellitus with diabetic peripheral angiopathy without gangrene; K74.60 Unspecified cirrhosis of liver; E11.49 Type 2 diabetes mellitus with other diabetic neurological complication; I48.11 Longstanding persistent atrial fibrillation; Z79.4 Long term (current) use of insulin; K21.00 Gastro-esophageal reflux disease with esophagitis, without bleeding; K44.9 Diaphragmatic hernia without obstruction or gangrene; R13.10 Dysphagia, unspecified; J45.909 Unspecified asthma, uncomplicated; I10 Essential (primary) hypertension; E03.9 Hypothyroidism, unspecified; E78.5 Hyperlipidemia, unspecified; G25.81 Restless legs syndrome; R32 Unspecified urinary incontinence; N32.81 Overactive bladder; G47.00 Insomnia, unspecified; G47.33 Obstructive sleep apnea (adult) (pediatric); Z87.19 Personal history of other diseases of the digestive system; Z86.010 Personal history of colon polyps; Z80.3 Family history of malignant neoplasm of breast; Z82.3 Family history of stroke; Z86.73 Personal history of transient ischemic attack (TIA), and cerebral infarction without residual deficits; Z85.828 Personal history of other malignant neoplasm of skin; Z85.030 Personal history of malignant carcinoid tumor of large intestine
CPT/HCPCS: 43239; 82962; 88305; 88313; 88342; J7120; J2405

== ENCOUNTER → 2022-11-06 | Outpatient (CLI) | payer MEDICARE, OTHER, SELFPAY ==
[2022-11-06 12:35] LABS: Anion Gap 4 (5-15); BUN 14 mg/dL (7-18); Calcium,Total 9.6 mg/dL (8.5-10.1); Chloride 106 mmol/L (98-107); Cholesterol 119 mg/dL (200); Creatinine, Serum 0.87 mg/dL (0.70-1.30); EST Glomerular Filtration Rate 88 mL/min (>60); Est Glom Filt Rate - Afr Amer 107 mL/min (>60); Glucose 143 mg/dL (74-106); High Density Lipoprotein 45 mg/dL; Potassium 4.4 mmol/L (3.5-5.1); Sodium Level 140 mmol/L (136-145); Triglycerides 163 mg/dL; Very Low Density Lipoprotein 33 mg/dL (5-40)
[2022-11-06 12:44] LABS: Hemoglobin A1c 6.9 % (3.8-5.6)
== END | disposition home or self-care (01) ==
LOC: MFPLAB 10:32
PROVIDERS: PCP Family Medicine; Referring Provider Family Medicine; Visit Provider Family Medicine
DX: E11.9 Type 2 diabetes mellitus without complications (principal)
CPT/HCPCS: 36415; 80048; 80061; 83036

== ENCOUNTER 2022-12-09 00:29 | Emergency (ER) | payer MEDICARE, OTHER, SELFPAY ==
[2022-12-09 00:30] VITALS: BP 156/81; PULSE 79; RESP 16; TEMP 36.4; O2SAT 98; BMI 35.6
--- NOTE | 2022-12-09 00:44 | CT_ITS ---
EXAM: CT brain without contrast HISTORY: head injury TECHNIQUE: CT Head or Brain W/O Contrast Injection A radiation dose optimization technique was used for this scan. COMPARISON: None. LIMITATIONS: None. BRAIN: Chronic left basal ganglia infarct. VENTRICLES: Ex vacuo dilatation of the left lateral ventricle. Bilateral periventricular hypoattenuation, nonspecific however likely represents chronic microvascular ischemic changes. EXTRA-AXIAL SPACES: No hemorrhages, fluid collections, or masses. CALVARIUM/SKULL BASE: Normal. FACE/SINUSES: Visualized portions normal. SOFT TISSUES: Right superior periauricular intermediate density within the subcutaneous tissues, likely hematoma. OTHER: Vascular calcifications. Status post left ophthalmologic surgery. CT/Brain/Head without Contrast IMPRESSION: No intracranial hemorrhage or depressed calvarial fracture. Chronic left basal ganglia infarct. Electronically Signed: Jossue Ruvalcaba MD at 1:28 EST ,
--- NOTE | 2022-12-09 00:44 | CT_ITS ---
INDICATION: injury EXAMINATION: CT CERVICAL SPINE - CT Spine Cervical W/O Contrast Injection TECHNIQUE: Helically acquired images were obtained of the cervical spine. 2D reformatted images were reviewed. A radiation dose optimization technique was used for this scan. COMPARISON: None. FINDINGS: ALIGNMENT: Nonspecific straightening of the normal cervical lordosis. VERTEBRAL BODIES: No fracture or acute abnormality. DISC SPACES: Multilevel degenerative changes with intervertebral disc space narrowing and disc osteophyte complex formation and uncovertebral facet hypertrophy worst between C5 and T1 contributing to moderate to severe spinal canal and neuroforaminal narrowing, left greater than right. Prominent pannus formation posterior to the dens. POSTERIOR ELEMENTS: Normal. SPINAL CANAL: Normal. PARASPINAL SOFT TISSUES: Normal. LUNG APICES: Visualized portions normal. OTHER: None. CT/Spine Cervical without Contras IMPRESSION: No acute fracture or subluxation. Moderate to severe degenerative changes. Electronically Signed: Jossue Ruvalcaba MD at 1:32 EST ,
--- NOTE | 2022-12-09 00:44 | RAD_ITS ---
INDICATION: injury EXAMINATION/TECHNIQUE: X-RAY - XR Pelvis 1 or 2 Views COMPARISON: None. FINDINGS: PELVIC BONES: No displaced fracture, destructive or sclerotic lesions. Note that overlapping bowel shadows may however obscure fine detail. Sacroiliac joints are unremarkable. No widening of the pubic symphysis. Degenerative changes in the visualized spine. HIPS: The articular structures are unremarkable. No displaced fracture seen in this frontal view. SOFT TISSUES: No soft tissue swelling or gas. Vascular calcifications. RAD/Pelvis 1 or 2 Views IMPRESSION: No evidence of displaced pelvic or hip fracture. Electronically Signed: Jossue Ruvalcaba MD at 1:13 EST ,
[2022-12-09] MEDS: Lidocaine 2% (20 ml mdv) 20 ML Vial INFILT (01:00)
--- NOTE | 2022-12-09 02:11 | EX.ED.DYSGE1 ---
HPI History of Present Illness Chief Complaint: Fall Narrative Narrative: Patient is 82-year-old male with past medical history of diabetes atrial fibrillation previous stroke hypertension hyperlipidemia and long-term use of anticoagulation as well as debility and he states he uses a walker to get around. He reports roughly 1 hour prior to arrival he was in the closet with his walker taking his shirt off when he lost his balance as he was pulling the shirt over his head and fell down. He reports striking his head and right arm. He denies any loss of consciousness. The patient's significant other states that she saw the event happened and that she agrees there was no LOC. She states that she cannot get the patient up and therefore called EMS to bring him in for evaluation. Patient and significant other state that he was not on the ground for more than 20 to 30 minutes. However based on the trauma to his head and history of blood thinner use there was concern that he had underlying brain injury and that his wound would need sutured. Patient does state his tetanus status is up-to-date 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 Diabetes mellitus, type II Difficulty swallowing DM (diabetes mellitus), type 2 with peripheral vascular complications Essential hypertension Gastric reflux Hepatitis History of atrial fibrillation History of CVA (cerebrovascular accident) (2007) History of echocardiogram History of GI bleed History of pericarditis (08/2017) History of stress test Hyperlipidemia Hypothyroidism Insulin dependent diabetes mellitus Longstanding persistent atrial fibrillation Non-smoker Obstructive sleep apnea Ocular rosacea Parkinson's disease Paroxysmal atrial fibrillation Peripheral vascular disease due to secondary diabetes Prostate disease Restless legs Short-term memory loss Skin tear Stroke/cerebrovascular accident Urinary incontinence Venous (peripheral) insufficiency Walker as ambulation aid Wears glasses Wears hearing aid Home Medications Multivitamin 1 tab PO DAILY VITAMIN 05/10/15 [History Last Taken Unknown] allopurinol 100 mg tablet 100 mg PO DAILYCM gout 05/10/15 [History Last Taken Unknown] docusate sodium 100 mg capsule 100 mg PO BID constipation 05/10/15 [History Last Taken 09/24/17] finasteride 5 mg tablet 5 mg PO DAILY prostate 05/10/15 [History Last Taken Unknown] tamsulosin 0.4 mg capsule 0.4 mg PO DAILY prostate 05/10/15 [History Last Taken Unknown] trazodone 100 mg tablet 100 mg PO QHS sleep/mental health 05/10/15 [History Last Taken Unknown] trospium 20 mg tablet 20 mg PO QHS bladder 05/10/15 [History Last Taken Unknown] cyanocobalamin (vitamin B-12) 500 mcg tablet 1,000 mcg PO DAILY@0800 supplement 09/24/17 [History Last Taken Unknown] ipratropium bromide 42 mcg (0.06 %) nasal spray 2 spray NS TID PRN ALLERGIES 09/24/17 [History Last Taken Unknown] levothyroxine 150 mcg tablet 225 mcg PO MOWEFR thyroid 03/06/19 [History Last Taken 06/23/22 08:00] quinapril 10 mg tablet 20 mg PO DAILY BP 03/07/19 [History Last Taken 09/15/22] doxycycline hyclate 20 mg tablet 20 mg PO BID ocular rosaca 07/18/19 [History Last Taken Unknown] Lantus SoloStar Pen 30 units subcut QHS diabetes 11/30/19 [History Last Taken Unknown] magnesium oxide 400 mg (241.3 mg magnesium) tablet 400 mg PO BID supplement 11/30/19 [History Last Taken Unknown] atorvastatin 20 mg tablet 20 mg PO QHS cholesterol 06/19/22 [History Last Taken Unknown] cholecalciferol (vitamin D3) 125 mcg (5,000 unit) tablet (Vitamin D3) 50,000 unit PO QMONTH supplement 06/19/22 [History Last Taken Unknown] ferrous sulfate 325 mg (65 mg iron) tablet 325 mg PO TID iron 06/19/22 [History Last Taken 07/17/22] melatonin 10 mg tablet 10 mg PO QHS sleep 06/19/22 [History Last Taken Unknown] propranolol 20 mg tablet 20 mg PO BID BP 06/19/22 [History Last Taken 09/15/22] psyllium husk 0.4 gram capsule (Metamucil) 0.4 g PO BID bowels 06/19/22 [History Last Taken Unknown] sucralfate 1 gram tablet (Carafate) 1 g PO BID esophageal ulcers #60 tabs 07/10/22 [Rx Last Taken Unknown] ivermectin 1 %-metronidazole 1 %-niacinamide 4 % topical gel 1 ea topical DAILY ROSECA 07/13/22 [History Last Taken Unknown] levothyroxine 150 mcg tablet 150 mcg PO SUTUTHSA thyroid 07/13/22 [History Last Taken 09/15/22] pasvwsyu-trjodhenm-gsvnfcsvq 3.5 mg-10,000 unit-10 mg/gram top cream 1 applic topical DAILY LEFT EYE 07/13/22 [History Last Taken Unknown] polyethylene glycol 3350 17 gram oral powder packet (Miralax) 17 g PO DAILY constipation 07/13/22 [History Last Taken Unknown] apixaban 2.5 mg tablet (Eliquis) 5 mg PO BID blood thinner 07/17/22 [History Last Taken 09/12/22] methylcellulose (laxative) 500 mg tablet (Citrucel) 500 mg PO DAILY bowels 07/17/22 [History Last Taken Unknown] ropinirole 0.5 mg tablet 1 mg PO TID parkinsons 07/17/22 [History Last Taken 09/15/22] donepezil 5 mg tablet (Aricept) 10 mg PO DAILY memory 07/24/22 [History Last Taken Unknown] gabapentin 100 mg capsule 100 mg PO TIDCM nerve pain 07/24/22 [History Last Taken Unknown] metoclopramide HCl 5 mg tablet 5 mg PO QHS stomach 07/24/22 [History Last Taken Unknown] pantoprazole 40 mg tablet,delayed release 40 mg PO DAILY acid reflux 07/24/22 [History Last Taken 09/15/22] pioglitazone 45 mg tablet (Actos) 45 mg PO DAILY diabetes 07/24/22 [History Last Taken Unknown] acetaminophen 500 mg tablet 1,000 mg PO Q6H PRN PRN Pain Score 1-3 #0 tabs 07/28/22 [Rx Last Taken Unknown] glipizide 5 mg tablet 5 mg PO BID 08/27/22 [History Last Taken Unknown] Allergy/AdvReac Type Severity Reaction Status Date / Time niacin Allergy Intermediate rash Verified 09/23/22 11:21 adhesive AdvReac Other: Verified 09/23/22 11:21 takes skin off, inflamed Family History Father CAD (coronary artery disease) Hypertension Heart disease Mother Hypertension Sister Breast cancer CVA (cerebral vascular accident) Brother Kidney disease Surgical History H/O basal cell carcinoma excision History of appendectomy History of cataract extraction History of colectomy History of colonoscopy (~05/2022) Status post surgical removal of malignant neoplasm of skin Social History household members: significant other Smoking Status: Never smoker alcohol intake: never substance use type: does not use seatbelt use: always do you feel safe at home: Yes ROS ROS ED Constitutional Constitutional ED: Denies chills or fever(s) Eyes Eyes: Denies change in vision ENT ENT ED: Denies sore throat Cardiovascular Cardiovascular: Denies chest pain Respiratory/Chest Respiratory/Chest: Denies cough or dyspnea Gastrointestinal Gastrointestinal: Denies abdominal pain, diarrhea, nausea or vomiting Genitourinary Genitourinary ED: Denies dysuria Musculoskeletal Musculoskeletal: Denies back pain, myalgias or neck pain Integumentary Reports other Details: Positive laceration and skin tear/abrasion Neurologic Neurologic: Denies headache(s) Hematologic/Lymphatic Hematologic/Lymphatic: Reports easy bleeding and easy bruising EXAM Physical Exam Const Vital Signs: 12/09/22 00:30 12/09/22 00:34 Temperature 97.6 F L Temperature Source Temporal Pulse Rate 79 Respiratory Rate 16 Respiratory Effort Normal Non-Labored Respiratory Depth Normal Respiratory Pattern Normal Blood Pressure 156/81 H Blood Pressure Mean 106 Pulse Ox 98 Oxygen Delivery Method Room Air Room Air Positive well nourished, well developed and obese General Appearance ED: well developed Nutritional Appearance: obese HEENT HEENT Narrative: Patient has soft tissue swelling along the right lateral portion of the face near the ear and there is a 3.5 cm subcutaneous layer deep linear laceration at the site as well with minimal ooze of blood and no foreign body Otherwise no signs of depressed or basilar skull fracture Eyes PERRL and EOMs intact bilaterally Neck supple Neck Narrative: No bony deformity or step-off of the cervical spine no midline pain on palpation Chest Wall palpation of chest normal Chest Narrative: No bony deformity or crepitance noted Resp normal respiratory effort and clear to auscultation bilaterally Cardio regular rate and regular rhythm GI normal to inspection, nondistended, normoactive bowel sounds, non-tender, non-distended and no masses Auscultation: normoactive bowel sounds Palpation: soft Back/Spine Back/Spine Narrative: No bony deformity or step-off of the thoracic or lumbar spine no midline pain with palpation Extremity Extremity Narrative: Pelvis is stable there is no shortening or external rotation of either lower extremity Patient has superficial skin tears to the midportion of the right forearm and over top the olecranon surface of the right elbow. These are only epidermal layer deep without active bleeding or foreign body. Patient can move all extremities at baseline Neuro oriented x3 and CN's II-XII intact bilaterally Sensorium / Orientation: alert Psych mental status grossly normal Skin Skin Narrative: Laceration to the right face and skin tears to the right arm as documented above MDM MDM MDM Narrative Medical decision making narrative: Patient presented to the ER with a mechanical fall so I felt no need for cardiac or syncope work-up. He is on anticoagulation and with the head trauma there is concern for underlying brain bleed so CTs of the head and cervical spine were obtained. These revealed no acute traumatic injuries. The patient was able to move his upper extremities without any difficulty without any bony deformity or joint effusion or signs of ligamentous or tendon injury. We discussed obtaining x-rays to confirm no underlying bone trauma but based on his physical exam patient and significant other do not feel it is necessary. Therefore no extremity x-rays were obtained other than the 1 view pelvis to ensure that he did not have any trauma from the fall. Pelvis x-ray was negative as well. Therefore patient had the wound of his right face sutured as documented below. There was no need to provide tetanus as he states it is up-to-date. Therefore at this time with his wound closed and imaging revealing no signs of acute trauma he is otherwise safe for discharge Patient had the right facial wound cleaned with chlorhexidine. It was anesthetized using 8 mL of 2% lidocaine without epinephrine in local fashion. The wound was copiously irrigated with normal saline. Then seven 4-0 Ethilon sutures were placed in simple interrupted fashion. This brought the wound together good approximation. Patient tolerated procedure well without complication Radiography Diagnostic Testing: Clinical Impression(s) from Imaging Studies Brain CT 12/09/22 00:44 IMPRESSION: No intracranial hemorrhage or depressed calvarial fracture. Chronic left basal ganglia infarct. Electronically Signed: Jossue Ruvalcaba MD at 1:28 EST , Cervical Spine CT 12/09/22 00:44 IMPRESSION: No acute fracture or subluxation. Moderate to severe degenerative changes. Electronically Signed: Jossue Ruvalcaba MD at 1:32 EST Reading Location ID and State: [facility] / [place] Tel , Service support , Pelvis X-Ray 12/09/22 00:44 IMPRESSION: No evidence of displaced pelvic or hip fracture. Electronically Signed: Jossue Ruvalcaba MD at 1:13 EST , 1 view x-ray of the pelvis as interpreted by the emergency medicine physician reveals no acute fracture or dislocation Discharge Plan Triage Chief Complaint: Fall ED Provider: Korey Mosher Dx/Rx/DC Orders Clinical Impression: Facial laceration, Accidental fall, Current use of residential anticoagulation, Diabetes mellitus, type II, Skin tear Instructions: ED Head Injury (Adult), ED Laceration: All Closures, ED Skin Avulsion Prescriptions: No Action quinapril 10 mg tablet 20 mg PO DAILY doxycycline hyclate 20 mg tablet 20 mg PO BID magnesium oxide 400 mg (241.3 mg magnesium) tablet 400 mg PO BID Citrucel 500 mg tablet 500 mg PO DAILY glipizide 5 mg tablet 5 mg PO BID allopurinol 100 MG tablet 100 mg PO DAILYCM tamsulosin 0.4 MG capsule 0.4 mg PO DAILY trazodone 100 MG tablet 100 mg PO QHS docusate sodium 100 MG capsule 100 mg PO BID finasteride 5 MG tablet 5 mg PO DAILY trospium 20 MG tablet 20 mg PO QHS Label Comments: bladder Multivitamin 1 tab PO DAILY levothyroxine 150 mcg tablet 225 mcg PO MOWEFR Label Comments: 150 mcg PO ; 1 tab daily 1/2 tab extra on m w f Lantus SoloStar Pen 30 units SC QHS cyanocobalamin (vitamin B-12) 500 MCG tablet 1,000 mcg PO DAILY@0800 ipratropium bromide 15 ML spray,non-aerosol 2 spray NS TID PRN (Reason: ALLERGIES) atorvastatin 20 mg Tablet 20 mg PO QHS ferrous sulfate 325 mg (65 mg iron) Tablet 325 mg PO TID propranolol 20 mg Tablet 20 mg PO BID cholecalciferol (vitamin D3) [Vitamin D3] 125 mcg (5,000 unit) Tablet 50,000 unit PO QMONTH melatonin 10 mg Tablet 10 mg PO QHS psyllium husk [Metamucil] 0.4 gram Capsule 0.4 g PO BID ropinirole 0.5 mg tablet 1 mg PO TID Eliquis 2.5 mg tablet 5 mg PO BID Hold Instructions: resume 07/27/22 polyethylene glycol 3350 [Miralax] 17 gram Powder In Packet 17 g PO DAILY levothyroxine 150 mcg Tablet 150 mcg PO SUTUTHSA lhmbgrbx-ktnzcchxl-enquscbnj 3.5-10,000-10 mg-unit-mg/gram Cream 1 applic TOPICAL DAILY szwlwrptnj-bxknqpysjigf-omotmi 1-1-4 % Gel 1 ea TOPICAL DAILY donepezil [Aricept] 5 mg tablet 10 mg PO DAILY pioglitazone [Actos] 45 mg tablet 45 mg PO DAILY metoclopramide HCl 5 mg tablet 5 mg PO QHS Rx Instructions: administer 30 minutes before meals pantoprazole 40 mg tablet,delayed release (DR/EC) 40 mg PO DAILY gabapentin 100 mg capsule 100 mg PO TIDCM acetaminophen 500 mg Tablet 1,000 mg PO Q6H PRN PRN (Reason: Pain Score 1-3) Qty: 0 0RF sucralfate [Carafate] 1 gram tablet 1 g PO BID Qty: 60 5RF Primary Care Provider: Randell Sparks Referrals: Randell Sparks MD [Primary Care Provider] - Activity Restrictions/Additional Instructions: Please your family doctor or return to the ER in 7 to 10 days for suture removal. Please bandage the skin tears on your right arm and wash them with soap and water to prevent infection and return to the ER should you have any further concerns Disposition Disposition: Home, Self Care Discharge Date/Time: 12/09/22 02:24
== END 2022-12-09 02:24 | disposition home or self-care (01) ==
PROVIDERS: Emergency Provider Emergency Medicine; PCP Family Medicine; Visit Provider Emergency Medicine
DX: S01.81XA Laceration without foreign body of other part of head, initial encounter (principal); I48.91 Unspecified atrial fibrillation; Z79.4 Long term (current) use of insulin; E11.9 Type 2 diabetes mellitus without complications; Z79.01 Long term (current) use of anticoagulants; E78.5 Hyperlipidemia, unspecified; I10 Essential (primary) hypertension; Z86.73 Personal history of transient ischemic attack (TIA), and cerebral infarction without residual deficits; J45.909 Unspecified asthma, uncomplicated; W18.00XA Striking against unspecified object with subsequent fall, initial encounter
CPT/HCPCS: 12013; 70450; 72125; 72170; 99284

== ENCOUNTER → 2023-02-17 | Outpatient (CLI) | payer MEDICARE, OTHER, SELFPAY ==
--- NOTE | 2023-02-17 11:48 | SP.MBSS_ITS ---
Modified Barium Swallow - Patient Information Study Date: 02/17/23 Study Time: 13:00 Direct Billable Minutes: 95 Total Minutes procedure & reportin Diagnosis: Dysphagia (R13.10) Referring Physician: Josh Ruiz Reason for Referral: Objectively assess swallow function, assess risk for aspiration, and determine recommendations for least restrictive diet textures and compensatory strategies to improve safety of swallow. Medical History: The patient is a 82-year-old male with PMH below. He was referred for MBSS after reporting concerns to Dr. Ruiz for difficulty swallowing characterized by coughing with food and drink, as well as sensation of food becoming stuck in his throat. Per patient and , the patient has had swallowing difficulty for ~2 years. He frequently coughs at meals, but sometimes he experiences coughing episodes when he is not eating and drinking. He associates a runny nose and post nasal drip with his swallowing difficulty. He denies hx of PNA. He experienced a fall in November when he hit his head, but scans of his brain came back clear of injury per . He throws up at the table at least 1X/week. He regurgitated more often prior to Dr. Stanley prescribing him pantoprazole and one other medication per 's report. He did undergo an EGD 09/15/[address] Ruiz, which revealed reflux esophagitis and 1cm hiatal hernia (SEE study for full impressions and report). He is planned for barium esophagram 02/22/2023. PMH: asthma, DM type II, CAD, colon cancer, difficulty swallowing, GERD, hx of GI bleed, PD, HTN, short term memory loss, hx of CVA (SEE EMR for full PMH). Current Diet Ordered: Regular textures / Thin liquids Respiratory Status: Oxygenating on Room Air - Penetration-Aspiration Scale Penetration-Aspiration Scale: OBJECTIVE ASSESSMENT OF SWALLOW FUNCTION (QUANTITATIVE ? PER TRIAL): PENETRATION / ASPIRATION SCALE (ARELLANO): 1 = does not enter airway 2 = enters airway/above vocal folds/ejected 3 = enters airway/above vocal folds/not ejected 4 = enters airway/contacts vocal folds/ejected 5 = enters airway/contacts vocal folds/not ejected 6 = enters airway/below vocal folds/ejected 7 = enters airway/below vocal folds/not ejected despite effort 8 = enters airway/below vocal folds/no effort VIDEOFLOROSCOPIC SCALE SCORE (ARELLANO): Grade I = aspiration of material that has penetrated into the laryngeal vestibule, intact cough reflex Grade II = aspiration < 10 % of the bolus, intact cough reflex Grade III = aspiration of < 10 % of the bolus, reduced cough reflex or aspiration of > 10 % of the bolus, intact cough reflex Grade IV = aspiration of > 10 % of the bolus, reduced cough reflex - Penetration-Aspiration Scale Score Thin Liquid via teaspoon Result: 1= does not enter airway Thin Liquid via teaspoon Trial 2 Result: 1= does not enter airway Thin Liquid via large single sip from cup Result: 1= does not enter airway [place] Thick Liquid via small single sip from cup Result: 1= does not enter airway Pudding via teaspoon with esophageal screen Result: 1= does not enter airway Thin Liquid via sequential sips from straw with esophageal screen Result: 2= enter airway/above vocal folds/ejected 1/2 Cookie Result: 1= does not enter airway - Oral Phase Labial Seal: No Labial Escape Tongue Control During Bolus Hold: Posterior escape of greater than half of bolus - thin liquids via large sequential straw sips Bolus Preparation/Mastication: Timely and efficient chewing and mashing Bolus Transport/Lingual Motion: Delayed initiation of tongue motion - thin liquids via large sequential straw sips Oral Residue: Residue collection on oral structures - thin liquids via large sequential straw sips - Pharyngeal Phase Initiation of Pharyngeal Swallow: Bolus head in pyriforms Soft Palate Elevation: No bolus between soft palate and pharyngeal wall Laryngeal Elevation: Comp. Superior move thyroid cart w/comp. apprx arytenoid cart-epig pet Anterior Hyoid Excursion: Partial anterior movement Epiglottic Movement: Complete inversion Laryngeal Vestibule Closure at Height of Swallow: Incomplete; narrow column of air/contrast in laryngeal vestibule - trace laryngeal penetration with full ejection with thin liquids via large sequential straw sip Pharyngeal Stripping Wave: Present - complete Pharyngoesophageal Segment Opening: Complete distension and complete duration; no obstruction of flow Tongue Base Retraction: Narrow column of contrast between tongue base & post. pharyngeal wall Pharyngeal Residue: Trace residue within or on pharyngeal structures - Esophageal Phase Esophageal Clearance: Esophageal retention w/ retrograde flow below pharyngoesophageal seg. - Diagnosis/Impression Diagnosis: Oropharyngeal swallow function grossly WNL; Esophageal dysphagia (R13.14) Impression: The oropharyngeal phase is grossly WNL. When consuming large and sequential sips via straw, he demonstrated mild delay in swallow onset and experienced trace laryngeal penetration; however, contrast fully ejected from the laryngeal vestibule during the swallow. Mild oral residue from large sip spilled to the pharynx after the swallow. The patient demonstrated good airway closure throughout the study - no aspiration was observed. Unable to definitively rule out aspiration due to patient's body habitus. [employer] unable to view the entirety of the laryngeal vestibule or trachea before or after the swallow, but vocal folds and trachea appeared clear of barium contrast during the swallow. The esophageal phase of the swallow was primarily marked by... -Esophageal retention of pudding by tsp in mid and lower esophagus with retrograde flow remaining below the upper esophageal sphincter (UES). Attempted liquid wash, which also resulted in esophageal retention in the mid and lower esophagus with retrograde flow remaining below the UES. SEE esophageal screens of Pudding via tsp and Thin liquids via sequential straw in PACS. - Recommendations Diet: Regular Textures, Thin Liquids Comment: Will recommend 4-5 smaller, more frequent meals vs. 2-3 larger meals per day. Compensatory Strategies: Small Bites, Small Sips, Slow Rate, Sitting upright, Remain sitting upright for 30 minutes after PO intake Recommend Repeat Modified Barium Swallow: No Need for Skilled Speech Therapy Services: No Recommended Referrals: GI Consult - Continue to follow with Dr. Ruiz and Dr. Stanley to manage reflux, as well as esophageal retention observed during the study. Patient is safe to proceed with barium esophagram. Education Completed: 1. Described result of evaluation. Comment: Additional education provided re: foods/drinks to avoid or limit to help manage reflux (e.g. acidic foods, fatty foods, chocolate, coffee, alcohol, carbonated beverages). [employer] also recommended increasing hydration throughout his day. Education well received by and patient. - Status Active ST Patient: Active - Contact Information [facility] Speech Therapy:: Alem Boss M.A. [facility]-[employer] Speech-Language Pathologist [facility] [address] [place] [address] [email or web address] [phone] 02/17/23 14:32
== END | disposition home or self-care (01) ==
LOC: RAD 12:44
PROVIDERS: PCP Family Medicine; Referring Provider Surgery; Visit Provider Surgery
DX: R13.10 Dysphagia, unspecified (principal)
CPT/HCPCS: 74230; 92611

== ENCOUNTER → 2023-02-24 | Outpatient (CLI) | payer MEDICARE, OTHER, SELFPAY ==
--- NOTE | 2023-02-24 09:51 | RAD_ITS ---
EXAMINATION: UPPER GI SERIES INDICATION: Male, 82 years dysphasia. FLUOROSCOPY TIME (if supplied): (0:50) minutes/seconds. 17 images were obtained. 75.3 mGy TECHNIQUE: Radiographic and fluoroscopic images of the distal esophagus, stomach, and proximal small intestine were obtained following the oral ingestion of barium. COMPARISON: None. FINDINGS: There is no evidence for organomegaly, abnormal calcifications, or abnormal bowel gas pattern. The psoas margins and flank stripes are normal. The visualized osseous structures are normal. The mucosa of the esophagus, stomach and duodenum is normal in appearance without evidence for stricture, ulceration, mass or diverticulum. There is no evidence for hiatal hernia or gastroesophageal reflux. The stomach and duodenum are unremarkable. No evidence of ulceration. No mass lesion is seen. RAD/Upper GI w/BA Swallow IMPRESSION: 1. Unremarkable air contrast upper GI series. Electronically Signed: Solomon Rowell MD at 10:55 EDT ,
== END | disposition home or self-care (01) ==
LOC: RAD 09:47
PROVIDERS: PCP Family Medicine; Referring Provider Surgery; Visit Provider Surgery
DX: R13.10 Dysphagia, unspecified (principal)
CPT/HCPCS: 74246

== ENCOUNTER 2023-04-01 09:12 | Day surgery (SDC) | payer MEDICARE, OTHER, SELFPAY ==
[2023-04-01] VITALS (7 sets, daily range): BP systolic 101–131; BP diastolic 64–90; PULSE 76–88; RESP 16–18; TEMP 36.1–36.2; O2SAT 94–99; BMI 35.2
--- NOTE | 2023-04-01 09:32 | PCM.HP.BLA ---
History and Physical 82y.o.man was seen in December [address] scan on 01/26/2022 showed 5.2 cm mass in the cecum.? He refused colonoscopy so pill endoscopy was done on 05/07/2022 which showed multiple non-bleeding AVMs throughout the small bowel, poor visualization of the large bowel however suspected tumors were seen with active bleeding.? He had colonoscopy copy on 06/23/2022 which showed malignant partially obstructing tumor in the transverse colon, tumor in the ascending colon, malignant partially obstructing tumor in the cecum.? He had colonoscopy again on 07/21/2022 which showed tumor in the proximal transverse colon, ascending colon and cecum.? He underwent extended right hemicolectomy and cholecystectomy on 07/22/[address] Ruiz.? 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 He was referred for further evaluation and management. CT c/a/p to stage disease on 09/07/2022 showed distended esophagus, s/p R hemicolectomy with no evidence of metastatic disease.? He is on observation and comes for follow up. [facility] Medical History? 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 Diabetes mellitus, type II Difficulty swallowing DM (diabetes mellitus), type 2 with peripheral vascular complications Dysphagia Essential hypertension Gastric reflux Hepatitis History of atrial fibrillation History of CVA (cerebrovascular accident) (2007) History of echocardiogram History of GI bleed History of pericarditis (08/2017) History of stress test Hyperlipidemia Hypothyroidism Insulin dependent diabetes mellitus Longstanding persistent atrial fibrillation Non-smoker Obstructive sleep apnea Ocular rosacea Parkinson's disease Paroxysmal atrial fibrillation Peripheral vascular disease due to secondary diabetes Prostate disease Restless legs Short-term memory loss Skin tear Stroke/cerebrovascular accident Urinary incontinence Venous (peripheral) insufficiency Walker as ambulation aid Wears glasses Wears hearing aid Surgical History? H/O basal cell carcinoma excision History of appendectomy History of cataract extraction History of colectomy History of colonoscopy (~05/2022) Status post surgical removal of malignant neoplasm of skin Family History? Father CAD (coronary artery disease) Hypertension Heart diseaseMother HypertensionSister Breast cancer CVA (cerebral vascular accident)Brother Kidney disease Social History? household members:? significant other Smoking Status:? Never smoker alcohol intake:? never substance use type:? does not use seatbelt use:? always do you feel safe at home:? Yes ROS Constitutional Constitutional: Denies chills, fever(s) or weight gain ENT HEENT: Denies headache(s), nasal congestion or nasal discharge Cardiovascular Cardiovascular: Denies chest pain or palpitations Respiratory/Chest Respiratory/Chest: Denies cough, excessive phlegm production or shortness of breath with exertion Gastrointestinal Gastrointestinal: Denies abdominal pain, nausea or vomiting Genitourinary Genitourinary: Denies dysuria Musculoskeletal Musculoskeletal: Reports difficulty walking and other Details: using a walker to ambulate. ; Denies joint pain or joint swelling Integumentary Integumentary: Denies rash or wounds Neurologic Neurologic: Denies focal weakness, numbness or tingling Psychiatric Psychiatric: Denies anxiety, auditory hallucinations, depression, homicidal ideation or suicidal ideation Endocrine Endocrinology: Reports systems reviewed and no addt'l complaints, except as documented Hematologic/Lymphatic Hematologic/Lymphatic: Reports systems reviewed and no addt'l complaints, except as documented Allergic/Immunologic Allergic/Immunologic: Reports systems reviewed and no addt'l complaints, except as documented Intake Vital Signs ? 09/23/2211:24 03/24/2313:55 03/24/2314:00 Height 6 ft 5 in 6 ft 5 in 6 ft 5 in Weight: ? ? 135.171 kg BMI ? ? 35.3 BP ? ? 146/82 H Blood Pressure Location ? ? Rt brachial Position ? ? Sitting Respiration ? ? 20 H Pulse ? ? 73 Pulse Source ? ? Monitor Temp ? ? 97.7 F L Temperature Source ? ? Temporal Artery Pulse Oximetry (%) ? ? 95 Oxygen Delivery Method ? ? room air Intake Accompanied by: Is patient in pain?: No Allergies niacin Allergy (Intermediate, Verified 03/24/23 13:59) rashadhesive Adverse Reaction (Verified 03/24/23 13:59) Other: takes skin off, inflamed Medications Multivitamin 1 tab PO DAILY VITAMIN 05/10/15 [History Confirmed 03/24/23] allopurinol 100 mg tablet 100 mg PO DAILYCM gout 05/10/15 [History Confirmed 03/24/23] docusate sodium 100 mg capsule 100 mg PO BID constipation 05/10/15 [History Confirmed 03/24/23] finasteride 5 mg tablet 5 mg PO DAILY prostate 05/10/15 [History Confirmed 03/24/23] tamsulosin 0.4 mg capsule 0.4 mg PO DAILY prostate 05/10/15 [History Confirmed 03/24/23] trazodone 100 mg tablet 100 mg PO QHS sleep/mental health 05/10/15 [History Confirmed 03/24/23] trospium 20 mg tablet 20 mg PO QHS bladder 05/10/15 [History Confirmed 03/24/23] cyanocobalamin (vitamin B-12) 500 mcg tablet 1,000 mcg PO DAILY@0800 supplement 09/24/17 [History Confirmed 03/24/23] ipratropium bromide 42 mcg (0.06 %) nasal spray 2 spray NS TID PRN ALLERGIES 09/24/17 [History Confirmed 03/24/23] levothyroxine 150 mcg tablet 225 mcg PO MOWEFR thyroid 03/06/19 [History Confirmed 03/24/23] quinapril 10 mg tablet 20 mg PO DAILY BP 03/07/19 [History Confirmed 03/24/23] doxycycline hyclate 20 mg tablet 20 mg PO BID ocular rosaca 07/18/19 [History Confirmed 03/24/23] Lantus SoloStar Pen 30 units subcut QHS diabetes 11/30/19 [History Confirmed 03/24/23] magnesium oxide 400 mg (241.3 mg magnesium) tablet 400 mg PO BID supplement 11/30/19 [History Confirmed 03/24/23] atorvastatin 20 mg tablet 20 mg PO QHS cholesterol 06/19/22 [History Confirmed 03/24/23] cholecalciferol (vitamin D3) 125 mcg (5,000 unit) tablet (Vitamin D3) 50,000 unit PO QMONTH supplement 06/19/22 [History Confirmed 03/24/23] ferrous sulfate 325 mg (65 mg iron) tablet 325 mg PO TID iron 06/19/22 [History Confirmed 03/24/23] melatonin 10 mg tablet 10 mg PO QHS sleep 06/19/22 [History Confirmed 03/24/23] propranolol 20 mg tablet 20 mg PO BID BP 06/19/22 [History Confirmed 03/24/23] psyllium husk 0.4 gram capsule (Metamucil) 0.4 g PO BID bowels 06/19/22 [History Confirmed 03/24/23] sucralfate 1 gram tablet (Carafate) 1 g PO BID esophageal ulcers #60 tabs 07/10/22 [Rx Confirmed 03/24/23] ivermectin 1 %-metronidazole 1 %-niacinamide 4 % topical gel 1 ea topical DAILY ROSECA 07/13/22 [History Confirmed 03/24/23] levothyroxine 150 mcg tablet 150 mcg PO SUTUTHSA thyroid 07/13/22 [History Confirmed 03/24/23] mirdbgno-fscwgzftm-qhfxvvnqv 3.5 mg-10,000 unit-10 mg/gram top cream 1 applic topical DAILY LEFT EYE 07/13/22 [History Confirmed 03/24/23] polyethylene glycol 3350 17 gram oral powder packet (Miralax) 17 g PO DAILY constipation 07/13/22 [History Confirmed 03/24/23] apixaban 2.5 mg tablet (Eliquis) 5 mg PO BID blood thinner 07/17/22 [History Confirmed 03/24/23] methylcellulose (laxative) 500 mg tablet (Citrucel) 500 mg PO DAILY bowels 07/17/22 [History Confirmed 03/24/23] ropinirole 0.5 mg tablet 1 mg PO TID parkinsons 07/17/22 [History Confirmed 03/24/23] donepezil 5 mg tablet (Aricept) 10 mg PO DAILY memory 07/24/22 [History Confirmed 03/24/23] gabapentin 100 mg capsule 100 mg PO TIDCM nerve pain 07/24/22 [History Confirmed 03/24/23] pioglitazone 45 mg tablet (Actos) 45 mg PO DAILY diabetes 07/24/22 [History Confirmed 03/24/23] acetaminophen 500 mg tablet 1,000 mg PO Q6H PRN PRN Pain Score 1-3 #0 tabs 07/28/22 [Rx Confirmed 03/24/23] glipizide 5 mg tablet 5 mg PO BID 08/27/22 [History Confirmed 03/24/23] metoclopramide HCl 5 mg tablet 5 mg PO QHS #30 tabs 02/17/23 [Rx Confirmed 03/24/23] pantoprazole 40 mg tablet,delayed release 40 mg PO DAILY #30 tabs 02/17/23 [Rx Confirmed 03/24/23] Central Venous Access Central Venous Access: No Exam Physical Exam Narrative Elderly man Const alert, oriented x3 and no apparent distress HEENT normocephalic, external ears normal and external nose normal Eyes PERRL, conjunctivae normal and no scleral icterus Neck full ROM and supple Lymph Lymphatic: no lymphadenopathy noted Chest inspection of chest normal Resp normal respiratory effort and clear to auscultation bilaterally Cardio regular rhythm, S1 normal heart sound, S2 normal heart sound and no murmurs GI normal to inspection, nondistended, normoactive bowel sounds no CVA tenderness Back/Spine thoracic and lumbar spine normal to inspection Extremity no clubbing, cyanosis or edema Skin no rashes or lesions noted Neuro oriented x3, CN's II-XII intact bilaterally and moves all extremities Neuro Narrative: Using a walker Psych mental status grossly normal Coding Level of Care Code Off vis,est,level 3 Exam Problem Focused Diagnoses Colon cancer? C18.2 ? ? ? Colon location: ascending Assessment and Plan Assessment and Plan (1) Colon cancer: ?Status:?Chronic ?Qualifiers: ?Colon location:?ascending? Qualified Code(s):?C18.2 - Malignant neoplasm of ascending colon ?Comment: Synchronous Cecal and ascending colon cancer, Cecal carcinoma invades into pericolonic fat pT3, ascending colon invades submucosa pT1, Lymph nodes 22 negative pN0. MMR deficient. Stage II(pT3 pN0 M0) ?S/P R extented hemicolectomy.? CEA on 07/06/2022 was 6. Post-operative CEA on 08/27/2022 was 2. Pt is on observation. Comes for follow up, labs reviewed. ?Plan: To continue observation and surveillance for recurrence with CEA and CT scan. He will undergo surveillance colonoscopy. He was explained alternatives, risk, benefits including not withstanding bleeding, infection, sepsis, perforation, need for emergent surgery . He will have an ASA of 3. I have examined the patient and the H&P has been reviewed. There are no clinical changes since date of exam.
[2023-04-01] MEDS: Lactated Ringers 1,000 ML 15 ML IV (10:02)
[2023-04-01 10:26] LABS: Bedside Glucose 147 mg/dL (74-106)
--- NOTE | 2023-04-01 10:30 | IMM_PTH ---
PATIENT: ALCIDES LOREDO LOC: EN U#:[id number] AGE/SX: 82/M ROOM: RE04/01/[address]: Dr. Ez Stanley DO : 1940 BED: DIS: 04/01/2023 SPEC #: [id number] RECD: 04/02/23 13:31 STATUS: MAITE REClarissa #: [id number] DEWEY: 04/01/23 10:[address]: Ez Stanley DEPT: IMMUNOHISTOCHEMISTRY RECD BY: Reshma Meadows ENTERED: 04/02/23 13:32 SP TYPE: IMMUNO OTHR DR: Dr. Randell Sparks MD Tissues: Stomach, NOS Procedures: H Pylori (initial) PHYSICIAN & INSTITUTION [place] [id number] SPECIMEN INFORMATION: Tissue Source: Lesser curvature Clinical Info: Dysphagia, history of colon cancer Specimen Number: [id number] CPT code: 50459 METHODOLOGY: Deparaffinized sections of prefer/formalin-fixed tissue or PAP/DQ stained slides are incubated with monoclonal/polyclonal antibodies/oligonucleotide probes. Localization is made via biotin free immunoperoxidase method. Appropriate controls are performed and reacted as expected. Results on target cell population are indicated in the following table: RESULTS: ANTIBODY / CLONE RESULT H Pylori (polyclonal) negative These tests were developed and their performance characteristics determined by [facility]. They may not have been cleared or approved by the U.S. Food and Drug Administration. The FDA has determined that such clearance or approval is not necessary. The above immunohistochemical/dualISH markers are ordered and reviewed by the Pathologist. INTERPRETATION: Lesser curvature, biopsy: Negative for Helicobacter pylori organisms. SJ:shaina 04/05/2023
--- NOTE | 2023-04-01 10:30 | EGD_PTH ---
PATIENT: ALCIDES LOREDO LOC: EN U#:[id number] AGE/SX: 82/M ROOM: RE04/01/[address]: Dr. Ez Stanley DO : 1940 BED: DIS: 04/01/2023 SPEC #: [id number] RECD: 04/01/23 14:52 STATUS: MAITE ANUPAM #: [id number] DEWEY: 04/01/23 10:[address]: Ez Stanley DEPT: SURGICAL PATHOLOGY RECD BY: Eileen Moreno ENTERED: 04/02/23 12:35 SP TYPE: EGD BIOPSY DEJAN DR: Dr. Randell Sparks MD Tissues: Stomach, NOS Procedures: Surgery Specimen Level IV HEADER OPERATION: EGD with biopsy (MAC) PRE-OP DIAGNOSIS: Dysphagia, history of colon cancer TISSUE SUBMITTED: Lesser curvature biopsy MICROSCOPIC DIAGNOSIS Stomach, lesser curvature, biopsy: Chronic gastritis. Focal benign histiocytic reaction to polarizable material. Focal changes suggestive of fundic gland polyp. See comment. AM:shaina 04/05/2023 COMMENT The results of immunohistochemistry for Helicobacter pylori will be reported separately ([id number]). MICROSCOPIC DESCRIPTION Slides are reviewed. GROSS DESCRIPTION Received in fixative is one container labeled with the patient's name and designated lesser curvature biopsy. The specimen consists of multiple irregular fragments of light elias soft tissue that in aggregate measure 1.4 x 0.3 x 0.1 cm. The specimen is totally submitted in one cassette. / SJ:shaina 04/02/2023 TC:3 CPT: 96346
--- NOTE | 2023-04-01 11:20 | OP.EGD_ITS ---
Patient Name: Polo Guerrero Procedure Date: 04/01/2023 10:39 AM Date of : 1940 Age: 82 Procedure: Upper GI endoscopy Indications: Dysphagia Providers: Ez Stanley DO Referring MD: Ez Stanley DO Medicines: Monitored Anesthesia Care Patient Profile: This is an 82 year old male. Refer to note in patient chart for documentation of history and physical. Patient has symptoms of chronic dysphagia. Complications: No immediate complications. Procedure: Pre-Anesthesia Assessment: - Prior to the procedure, a History and Physical was performed, and patient medications and allergies were reviewed. The patient is competent. The risks and benefits of the procedure and the sedation options and risks were discussed with the patient. All questions were answered and informed consent was obtained. Patient identification and proposed procedure were verified by the physician in the pre-procedure area. Mental Status Examination: alert and oriented. Airway Examination: normal oropharyngeal airway and neck mobility. Respiratory Examination: clear to auscultation. CV Examination: normal. Prophylactic Antibiotics: The patient does not require prophylactic antibiotics. Prior Anticoagulants: The patient has taken no previous anticoagulant or antiplatelet agents. ASA Grade Assessment: III - A patient with severe systemic disease. After reviewing the risks and benefits, the patient was deemed in satisfactory condition to undergo the procedure. The anesthesia plan was to use monitored anesthesia care (MAC). Immediately prior to administration of medications, the patient was re-assessed for adequacy to receive sedatives. The heart rate, respiratory rate, oxygen saturations, blood pressure, adequacy of pulmonary ventilation, and response to care were monitored throughout the procedure. The physical status of the patient was re-assessed after the procedure. After obtaining informed consent, the endoscope was passed under direct vision. Throughout the procedure, the patient's blood pressure, pulse, and oxygen saturations were monitored continuously. The gastroscope was introduced through the mouth, and advanced to the second part of duodenum. The upper GI endoscopy was accomplished without difficulty. The patient tolerated the procedure well. Scope In: 10:57:06 AM Scope Out: 11:03:51 AM Total Procedure Duration Time 0 hours 6 minutes 45 seconds Findings: Grade I varices were found in the upper third of the esophagus. They were 5 mm in largest diameter. Abnormal motility was noted in the middle third of the esophagus. The cricopharyngeus was abnormal. There is a decrease in motility of the esophageal body. The distal esophagus/lower esophageal sphincter is spastic, but gives up passage to the endoscope. Tertiary peristaltic waves are noted. Patchy mild inflammation characterized by congestion (edema), erosions and erythema was found on the lesser curvature of the stomach. Biopsies were taken with a cold forceps for histology. Mildly erythematous mucosa without active bleeding and with no stigmata of bleeding was found in the duodenal bulb. Impression: - Grade I esophageal varices. - Abnormal esophageal motility, suspicious for presbyesophagus. - Gastritis. Biopsied. - Erythematous duodenopathy. Recommendation: - Await pathology results. - Repeat upper endoscopy to check healing. - Continue present medications. Procedure Code(s): --- Professional --- 57738, Esophagogastroduodenoscopy, flexible, transoral; with biopsy, single or multiple CPT copyright 2017 [employer]. All rights reserved. The codes documented in this report are preliminary and upon flooring helper review may be revised to meet current compliance requirements. Ez Stanley DO 04/01/2023 11:20:05 AM This report has been signed electronically. Number of Addenda: 0 Note Initiated On: 04/01/2023 10:39 AM
--- NOTE | 2023-04-01 11:21 | OP.CCLET_ITS ---
04/01/2023 Randell Sparks MD [address] [id number] Re : Upper GI endoscopy procedure for Polo Yolanda Dear Dr. Sparks This procedure was performed on March. My impressions and recommendations are as follows: Impressions : - Grade I esophageal varices. - Abnormal esophageal motility, suspicious for presbyesophagus. - Gastritis. Biopsied. - Erythematous duodenopathy. Recommendations : - Await pathology results. - Repeat upper endoscopy to check healing. - Continue present medications. My findings are described in the full procedure note, which is enclosed. If I can be of further assistance, please feel free to contact me at . Sincerely, Ez Stanley, 04/01/2023 11:20:05 AM This report has been signed electronically.
== END 2023-04-01 11:59 | disposition home or self-care (01) ==
LOC: EN 09:12 → AC 09:13
PROVIDERS: PCP Family Medicine; Referring Provider Internal Medicine Gastroenterology; Visit Provider Internal Medicine Gastroenterology
PROC: 0DJ08ZZ Inspection of Upper Intestinal Tract, Via Natural or Artificial Opening Endoscopic (ICD-10-PCS; CPT 43235; principal; 2023-04-01 10:25)
DX: C18.2 Malignant neoplasm of ascending colon (principal); I85.00 Esophageal varices without bleeding; G20 Parkinson's disease; E13.51 Other specified diabetes mellitus with diabetic peripheral angiopathy without gangrene; C18.0 Malignant neoplasm of cecum; C18.4 Malignant neoplasm of transverse colon; E13.59 Other specified diabetes mellitus with other circulatory complications; I77.9 Disorder of arteries and arterioles, unspecified; I48.19 Other persistent atrial fibrillation; Z79.4 Long term (current) use of insulin; J45.909 Unspecified asthma, uncomplicated; I87.2 Venous insufficiency (chronic) (peripheral); K29.70 Gastritis, unspecified, without bleeding; R19.09 Other intra-abdominal and pelvic swelling, mass and lump; R32 Unspecified urinary incontinence; Z82.3 Family history of stroke; N42.9 Disorder of prostate, unspecified; I10 Essential (primary) hypertension; R13.10 Dysphagia, unspecified; K21.9 Gastro-esophageal reflux disease without esophagitis; E78.5 Hyperlipidemia, unspecified; G47.33 Obstructive sleep apnea (adult) (pediatric); E03.9 Hypothyroidism, unspecified
CPT/HCPCS: 43239; 82962; 88305; 88342; J7120

== ENCOUNTER 2023-06-01 04:33 | Observation (INO) | payer MEDICARE, OTHER, SELFPAY ==
[2023-06-01] VITALS (7 sets, daily range): BP systolic 119–161; BP diastolic 65–79; PULSE 76–95; RESP 16–18; TEMP 36.4–37; O2SAT 94–98; BMI 35.9; BMI 35.2
--- NOTE | 2023-06-01 04:55 | RAD_ITS ---
EXAM: XR PELVIS, 1 OR 2 VIEWS CLINICAL INDICATION: pain TECHNIQUE: Frontal view of the pelvis. COMPARISON: 12/09/2022. FINDINGS: BONES/JOINTS: Unremarkable. No displaced fracture. No destructive or sclerotic lesions. Note that overlapping bowel shadows may however obscure fine detail. Sacroiliac joints are unremarkable. No widening of the pubic symphysis. The articular structures are unremarkable. SOFT TISSUES: Unremarkable. No soft tissue swelling or gas. VASCULATURE: Diffuse vascular calcifications. RAD/Pelvis 1 or 2 Views IMPRESSION: No acute findings in the pelvis. Electronically Signed: German Bloom MD at 5:49 EDT ,
--- NOTE | 2023-06-01 04:55 | RAD_ITS ---
EXAM: XR LEFT RIBS AND AP CHEST, 3 OR MORE VIEWS CLINICAL INDICATION: pain TECHNIQUE: Frontal and oblique views of the left ribs and frontal view of the chest. COMPARISON: Previous chest radiographs of 07/26/2022. FINDINGS: LUNGS AND PLEURAL SPACES: Unremarkable. No consolidation or edema. No pneumothorax. No effusion. HEART: Heart size remains within normal limits. MEDIASTINUM: Supine patient positioning accentuates the mediastinum and upper lobe pulmonary vascular markings. Stable mild elongation of the thoracic aorta. BONES/JOINTS: Questionable nondisplaced fracture of the anterior left seventh rib. No evidence of displaced rib fractures. RAD/Ribs Uni Min 3V w/PA Chest IMPRESSION: Questionable nondisplaced fracture of the anterior left seventh rib. Otherwise negative left rib series. No displaced rib fracture or pneumothorax. Electronically Signed: Raulito Salgado MD at 5:46 EDT ,
--- NOTE | 2023-06-01 04:55 | CT_ITS ---
EXAM: CT HEAD WITHOUT INTRAVENOUS CONTRAST CLINICAL INDICATION: head injury TECHNIQUE: Multiple axial images were obtained of the head without intravenous contrast. This CT exam was performed using one or more of the following dose reduction techniques: automated exposure control, adjustment of the mA and/or kV according to patient size, and/or use of iterative reconstruction technique. RADIATION DOSE: CTDIvol = 44.99 mGy, DLP = 880.47 mGy-cm COMPARISON: 12/09/2022. 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 Moderate generalized atrophy. Moderate low density bilaterally in the deep white matter. No intra- or extra-axial hemorrhage. No intracranial mass or mass effect. Posterior fossa structures are unremarkable. No hydrocephalus. Basal cisterns are patent. BONES/JOINTS: Unremarkable. No discrete lytic or blastic abnormalities. SINUSES: Unremarkable as visualized. Clear. MASTOID AIR CELLS: Unremarkable. Clear. ORBITS: Visualized globes, extraocular muscles, optic nerves and retrobulbar fat appear unremarkable. CT/Brain/Head without Contrast IMPRESSION: 1. 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 2. Moderate generalized atrophy. Moderate low density bilaterally in the deep white matter. This likely represents chronic small vessel ischemic changes in the deep white matter. Electronically Signed: German Bloom MD at 5:50 EDT ,
--- NOTE | 2023-06-01 04:55 | CT_ITS ---
We are attempting to reach an attending provider to discuss findings. An addendum with communication details will be sent when the communication is complete. EXAM: CT LUMBAR SPINE WITHOUT INTRAVENOUS CONTRAST CLINICAL INDICATION: back pain TECHNIQUE: Helically acquired images were obtained of the lumbar spine without intravenous contrast. 2D reformats were reviewed. This CT exam was performed using one or more of the following dose reduction techniques: automated exposure control, adjustment of the mA and/or kV according to patient size, and/or use of iterative reconstruction technique. RADIATION DOSE: CTDIvol = 45.46 mGy, DLP = 1820.86 mGy-cm COMPARISON: . FINDINGS: VERTEBRAE: Mild compression fracture of L2 that demonstrates areas of sclerosis and lucency. 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 Hemangiomas T12 and L4 vertebral bodies. DISCS/SPINAL CANAL/NEURAL FORAMINA: Unremarkable. Disc heights are preserved. No critical stenosis. VASCULATURE: Visualized abdominal aorta is not dilated. LYMPH NODES: Unremarkable. No retroperitoneal adenopathy. CT/Spine Lumbar without Contrast IMPRESSION: 1. Probable mild pathologic compression fracture of L2. 2. 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 3. Hemangiomas T12 and L4 vertebral bodies. Electronically Signed: German Bloom MD at 6:01 EDT ,
--- NOTE | 2023-06-01 04:55 | CT_ITS ---
EXAM: CT CERVICAL SPINE WITHOUT INTRAVENOUS CONTRAST CLINICAL INDICATION: pain TECHNIQUE: Helically acquired images were obtained of the cervical spine without intravenous contrast. 2D reformatted images were reviewed. This CT exam was performed using one or more of the following dose reduction techniques: automated exposure control, adjustment of the mA and/or kV according to patient size, and/or use of iterative reconstruction technique. RADIATION DOSE: CTDIvol = 31.63 mGy, DLP = 732.79 mGy-cm COMPARISON: 12/09/2022. FINDINGS: VERTEBRAE: Severe multilevel bilateral cervical vertebral facet arthropathy. No fracture. No traumatic subluxation. No discrete lytic or blastic abnormality. Normal alignment. Normal craniocervical junction and cervicothoracic junction. DISCS/SPINAL CANAL/NEURAL FORAMINA: Severe multilevel cervical degenerative disc disease. No critical stenosis. SOFT TISSUES: Unremarkable. No prevertebral soft tissue swelling. LYMPH NODES: Unremarkable. No cervical adenopathy. LUNG APICES: Unremarkable as visualized. Clear. CT/Spine Cervical without Contras IMPRESSION: Severe cervical degenerative changes. No acute fractures or subluxations. No significant change since prior exam. Electronically Signed: German Bloom MD at 5:54 EDT ,
[2023-06-01] MEDS: oxyCODONE 5 MG Tablet PO (05:33)
[2023-06-01 07:24] LABS: ALB/GLOB Ratio 0.9 RATIO (0.9-2.4); AST(SGOT) 22 U/L (15-37); Alanine Aminotransfer ALT/SGPT 23 U/L (16-61); Alkaline Phosphatase 142 U/L (45-117); Anion Gap 5 (5-15); BUN 21 mg/dL (7-18); BUN/Creat Ratio 22.1 RATIO (10-20); Chloride 107 mmol/L (98-107); Creatinine, Serum 0.95 mg/dL (0.70-1.30); EST Glomerular Filtration Rate 80 mL/min (>60); Est Glom Filt Rate - Afr Amer 97 mL/min (>60); Estimated Creatinine Clearance 72.95 ml/min; Globulin 3.4 g/dL (2.2-4.2); Glucose 225 mg/dL (74-106); Potassium 3.6 mmol/L (3.5-5.1); Protein, Total 6.4 g/dL (6.4-8.2); Sodium Level 139 mmol/L (136-145)
[2023-06-01 07:53] LABS: Hematocrit 42.7 % (40-54); Mean Corp Hgb Conc 32.8 g/dL (32-36); Mean Corpuscular Hgb 34.1 pg (27.0-32.0); Mean Corpuscular Volume 104.1 fL (80-94); Mean Platelet Vol. 9.8 fl (6.2-12.0); POSITIVE COUNT YES; POSITIVE MORPHOLOGY YES; Platelet Count 142 K/mm3 (150-450); RBC Distribution Width CV 15.5 % (11.6-14.6); RBC Distribution Width SD 59.5 fl (35.1-43.9); White Blood Count 7.6 K/mm3 (4.4-11.0)
[2023-06-01 07:56] LABS: Differential Indicated MANUAL DIFF
--- NOTE | 2023-06-01 08:29 | EDS_ITS ---
HPI History of Present Illness Chief Complaint: Fall Informant: patient and spouse/S.O. Narrative Narrative: Patient is 82-year-old male from home with past medical history of hypertension hyperlipidemia morbid obesity cirrhosis diabetes and atrial fibrillation cu rrently on Eliquis. He also has a past medical history of colon cancer that was reportedly resected and treated roughly 1 year ago. He states roughly 5 weeks ago he was hanging something up and he felt a pop and since that time has been having pain in his low back that slowly is been worsening. He denies any direct trauma any loss of bowel or bladder control or IV drug use. He states that this morning he was trying to get up out of bed and was having difficulty secondary to his persistent pain and as he was trying to do so fell out of bed in between the bed and the nightstand and could not get back up. He denies striking his head or any loss of consciousness but does admit to the blood thinner use. states she was up at the same time using the bathroom and heard the commotion a nd found him awake and alert. 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 Diabetes mellitus, type II Difficulty swallowing DM (diabetes mellitus), type 2 with peripheral vascular complications Dysphagia Essential hypertension Gastric reflux Hepatitis History of atrial fibrillation History of CVA (cerebrovascular accident) (2007) History of echocardiogram History of GI bleed History of pericarditis (08/2017) History of stress test Hyperlipidemia Hypothyroidism Insulin dependent diabetes mellitus Longstanding persistent atrial fibrillation Non-smoker Obstructive sleep apnea Ocular rosacea Parkinson's disease Paroxysmal atrial fibrillation Peripheral vascular disease due to secondary diabetes Prostate disease Restless legs Short-term memory loss Skin tear Stroke/cerebrovascular accident Urinary incontinence Venous (peripheral) insufficiency Walker as ambulation aid Wears glasses Wears hearing aid Home Medications Multivitamin 1 tab PO DAILY VITAMIN 05/10/15 [History Last Taken 05/31/23] allopurinol 100 mg tablet 100 mg PO DAILYCM gout 05/10/15 [History Last Taken 05/31/23] docusate sodium 100 mg capsule 100 mg PO BID constipation 05/10/15 [History Last Taken 05/31/23] finasteride 5 mg tablet 5 mg PO DAILY prostate 05/10/15 [History Last Taken 05/31/23] tamsulosin 0.4 mg capsule 0.4 mg PO DAILY prostate 05/10/15 [History Last Taken 05/31/23] trazodone 100 mg tablet 100 mg PO QHS sleep/mental health 05/10/15 [History Last Taken 05/31/23] trospium 20 mg tablet 20 mg PO QHS bladder 05/10/15 [History Last Taken 05/31/23] cyanocobalamin (vitamin B-12) 500 mcg tablet 1,000 mcg PO DAILY@0800 supplement 09/24/17 [History Last Taken 05/31/23] ipratropium bromide 42 mcg (0.06 %) nasal spray 2 spray NS TID PRN ALLERGIES 09/24/17 [History Last Taken 05/31/23] levothyroxine 150 mcg tablet 225 mcg PO MOWEFR thyroid 03/06/19 [History Last Taken 05/31/23] doxycycline hyclate 20 mg tablet 20 mg PO BID ocular rosaca 07/18/19 [History Last Taken Unknown] Lantus SoloStar Pen 30 units subcut QHS diabetes 11/30/19 [History Last Taken 05/31/23] magnesium oxide 400 mg (241.3 mg magnesium) tablet 400 mg PO BID supplement 11/30/19 [History Last Taken 05/31/23] atorvastatin 20 mg tablet 20 mg PO QHS cholesterol 06/19/22 [History Last Taken 05/31/23] cholecalciferol (vitamin D3) 125 mcg (5,000 unit) tablet (Vitamin D3) 50,000 unit PO QMONTH supplement 06/19/22 [History Last Taken 05/18/23] ferrous sulfate 325 mg (65 mg iron) tablet 325 mg PO TID iron 06/19/22 [History Last Taken 05/31/23] propranolol 20 mg tablet 20 mg PO BID BP 06/19/22 [History Last Taken 04/01/23 08:45] psyllium husk 0.4 gram capsule (Metamucil) 0.4 g PO BID bowels 06/19/22 [History Last Taken 05/31/23] sucralfate 1 gram tablet (Carafate) 1 g PO BID esophageal ulcers #60 tabs 07/10/22 [Rx Last Taken 05/31/23] ivermectin 1 %-metronidazole 1 %-niacinamide 4 % topical gel 1 ea topical DAILY ROSECA 07/13/22 [History Last Taken Unknown] levothyroxine 150 mcg tablet 150 mcg PO SUTUTHSA thyroid 07/13/22 [History Last Taken 05/31/23] smgkucrx-mcwujglcg-rgwjeqobu 3.5 mg-10,000 unit-10 mg/gram top cream 1 applic to pical DAILY LEFT EYE 07/13/22 [History Last Taken 05/30/23] polyethylene glycol 3350 17 gram oral powder packet (Miralax) 17 g PO DAILY constipation 07/13/22 [History Last Taken Unknown] apixaban 2.5 mg tablet (Eliquis) 5 mg PO BID blood thinner 07/17/22 [History Last Taken 05/31/23] methylcellulose (laxative) 500 mg tablet (Citrucel) 500 mg PO DAILY bowels 07/17/22 [History Last Taken 05/31/23] ropinirole 0.5 mg tablet 1 mg PO TID parkinsons 07/17/22 [History Last Taken 05/31/23] donepezil 5 mg tablet (Aricept) 10 mg PO DAILY memory 07/24/22 [History Last Taken 05/31/23] pioglitazone 45 mg tablet (Actos) 45 mg PO DAILY diabetes 07/24/22 [History Last Taken 05/31/23] glipizide 5 mg tablet 5 mg PO BID 08/27/22 [History Last Taken 05/31/23] metoclopramide HCl 5 mg tablet 5 mg PO QHS #30 tabs 02/17/23 [Rx Last Taken 05/31/23] pantoprazole 40 mg tablet,delayed release 40 mg PO DAILY #30 tabs 02/17/23 [Rx Last Taken 05/31/23] ascorbic acid (vitamin C) 500 mg tablet (Vitamin C) 500 mg PO DAILY 03/29/23 [History Last Taken Unknown] lisinopril 20 mg tablet 20 mg PO DAILY 03/29/23 [History Last Taken 05/31/23] cyclobenzaprine 10 mg tablet 10 mg PO Q8H 06/01/23 [History Last Taken Unknown] Allergy/AdvReac Type Severity Reaction Status Date / Time niacin Allergy Intermediate rash Verified 04/01/23 09:43 adhesive AdvReac Other: Verified 04/01/23 09:43 takes skin off, inflamed Family History Father CAD (coronary artery disease) Hypertension Heart disease Mother Hypertension Sister Breast cancer CVA (cerebral vascular accident) Brother Kidney disease Surgical History H/O basal cell carcinoma excision History of appendectomy History of cataract extraction History of colectomy History of colonoscopy (~05/2022) History of esophagogastroduodenoscopy (EGD) Status post surgical removal of malignant neoplasm of skin Social History household members: significant other Smoking Status: Never smoker alcohol intake: never substance use type: does not use seatbelt use: always do you feel safe at home: Yes ROS ROS ED Constitutional Constitutional ED: Denies chills or fever(s) Eyes Eyes: Denies blurry vision ENT ENT ED: Denies sore throat Cardiovascular Cardiovascular: Denies chest pain Respiratory/Chest Respiratory/Chest: Denies cough or dyspnea Gastrointestinal Gastrointestinal: Denies abdominal pain, diarrhea, nausea or vomiting Genitourinary Genitourinary ED: Denies dysuria Musculoskeletal Musculoskeletal: Reports back pain; Denies neck pain Integumentary Denies Abrasions or rash Neurologic Neurologic: Denies headache(s) Hematologic/Lymphatic Hematologic/Lymphatic: Reports easy bleeding and easy bruising EXAM Physical Exam Const Vital Signs: 06/01/23 04:35 06/01/23 06:56 Temperature 98.2 F Temperature Source Temporal Pulse Rate 95 80 Respiratory Rate 16 16 Blood Pressure 131/79 H 152/65 H Blood Pressure Mean 96 94 Pulse Ox 97 95 Oxygen Delivery Method Room Air Positive well nourished, well developed and obese General Appearance ED: well developed Nutritional Appearance: obese HEENT HEENT Narrative: Normocephalic atraumatic Eyes PERRL and EOMs intact bilaterally Neck supple Neck Narrative: No midline pain on palpation no bony deformity or step-off of the cervical spine Chest Wall Chest Narrative: Ecchymosis located along the left anterior aspect of the chest wall or rib regions 6-8 with pain on palpation at the site but no bony deformity or crepitance palpated Resp normal respiratory effort and clear to auscultation bilaterally Resp Narrative: Breath sounds are diminished throughout but overall clear to auscultation with no signs of respiratory distress Cardio Rate: other Other Details: Irregularly irregular rhythm with regular rate consistent past medical history of atrial fibrillation radial pulses are plus 2 out of 4 bilaterally are equal and symmetric GI normal to inspection, nondistended, normoactive bowel sounds, non-tender, non- distended and no masses GI Narrative: Morbidly obese abdomen that is soft and nontender with normal active bowel sounds. There is a direct hernia present in the right lower quadrant that is reducible in nature. No fluid wave or pulsatile mass Auscultation: normoactive bowel sounds Palpation: soft Back/Spine Back/Spine Narrative: There is pain on palpation of the midline lumbar spine without bony deformity or step-off Extremity Extremity Narrative: Pelvis is stable there is no shortening or external rotation of either lower extremity. Patient has skin tears to bilateral forearms without obvious bony deformity or joint effusion. Neuro oriented x3 and CN's II-XII intact bilaterally Sensorium / Orientation: alert Psych mental status grossly normal Skin Skin Narrative: Skin tears to bilateral forearms without secondary changes to suggest infection MDM MDM MDM Narrative Medical decision making narrative: Patient is back to the ER awake and alert without signs of of depressed or basilar skull fracture. He also reported a mechanical fall so I felt no need for cardiac or syncope work-up. However as he is on a blood thinner I did elect to perform a CT of his head and cervical spine secondary to concern for trauma. Imaging studies were negative. With the progressive/persistent pain in his low back I did elect to perform a CT scan as well of the lumbar spine which showed changes concerning for a pathologic fracture. This would correlate with pain despite no injury. Patient is low risk for cauda equina or epidural abscess so do not feel there is need for MRI. Patient was given oxycodone for pain but despite this can still not sit up or ambulate. As the patient has not been able to ambulate since his fall and it appears secondary to pain from the potential pathologic fracture of L2 I do not feel he is safe for home and feels she is not able to care for him at home any longer. Therefore medicine was contacted and they do agree to accept the patient for admission at this time. Patient is agreeable to placement in rehab or alf if needed History & Record Review Discussion w/independent historian: EMS personnel, Patient and Significant other Lab Data Attestation: I reviewed the patient's lab results. Labs: Laboratory Results - last 24 hr 06/01/23 06/01/23 06/01/23 06:48 06:48 07:47 WBC Cancelled 7.6 Corrected WBC Cancelled RBC Cancelled 4.10 L Hgb Cancelled 14.0 Hct Cancelled 42.7 MCV Cancelled 104.1 H MCH Cancelled 34.1 H MCHC Cancelled 32.8 RDW Std Deviation Cancelled 59.5 H RDW Coeff of Mariluz Cancelled 15.5 H Plt Count Cancelled 142 L MPV Cancelled 9.8 Immature Gran % (Auto) Cancelled Neut % (Auto) Cancelled Not Reportable Lymph % (Auto) Cancelled [place] % (Auto) Cancelled Eos % (Auto) Cancelled Baso % (Auto) Cancelled Absolute Neuts (auto) Cancelled Absolute Lymphs (auto) Cancelled Total Counted Cancelled Neutrophils % (Manual) Cancelled Band Neutrophils % Cancelled Lymphocytes % (Manual) Cancelled Monocytes % (Manual) Cancelled Eosinophils % (Manual) Cancelled Basophils % (Manual) Cancelled Metamyelocytes % Cancelled Myelocytes % Cancelled Promyelocytes % Cancelled Blast Cells % Cancelled Plasma Cell % (Manual) Cancelled Other Cells % Cancelled Nucleated RBC % Cancelled Nucleated RBCs/100 WBC Cancelled Differential Comment Cancelled Diff Path Review Cancelled Hypersegmented Neuts Cancelled Atypical Lymphocytes Cancelled Reactive Lymphocytes Cancelled Smudge Cells Cancelled Toxic Granulation Cancelled Toxic Vacuolation Cancelled Dohle Bodies Cancelled Weston Rods Cancelled Platelet Estimate Cancelled Plt Morphology Comment Cancelled RBC Morphology Cancelled Cancelled Polychromasia Cancelled Hypochromasia Cancelled Poikilocytosis Cancelled Basophilic Stippling Cancelled Anisocytosis Cancelled Microcytosis Cancelled Macrocytosis Cancelled Spherocytes Cancelled Sickle Cells Cancelled Target Cells Cancelled Tear Drop Cells Cancelled Ovalocytes Cancelled Stomatocytes Cancelled Condon-Tarkio Bodies Cancelled [place] Cells Cancelled Bite Cells Cancelled Crenated Cell Cancelled Acanthocytes (Spur) Cancelled Rouleaux Cancelled Schistocytes Cancelled Sodium 139 Potassium 3.6 Chloride 107 Carbon Dioxide 27.0 Anion Gap 5 BUN 21 H Creatinine 0.95 Estim Creat Clear Calc 72.95 Est GFR (MDRD) Af Amer 97 Est GFR (MDRD) Non-Af 80 BUN/Creatinine Ratio 22.1 H Glucose 225 H Calcium 9.0 Total Bilirubin 0.80 AST 22 ALT 23 Alkaline Phosphatase 142 H Total Protein 6.4 Albumin 3.0 L Globulin 3.4 Albumin/Globulin Ratio 0.9 Radiography Diagnostic Testing: Clinical Impression(s) from Imaging Studies Brain CT 06/01/23 04:55 IMPRESSION: 1. 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 2. Moderate generalized atrophy. Moderate low density bilaterally in the deep white matter. This likely represents chronic small vessel ischemic changes in the deep white matter. Electronically Signed: German Bloom MD at 5:50 EDT Reading Location ID and State: [employer] / [id number] Tel , Service support , Cervical Spine CT 06/01/23 04:55 IMPRESSION: Severe cervical degenerative changes. No acute fractures or subluxations. No significant change since prior exam. Electronically Signed: German Bloom MD at 5:54 EDT Reading Location ID and State: [employer] / [employer] Tel , Service support , Lumbar Spine CT 06/01/23 04:55 IMPRESSION: 1. Probable mild pathologic compression fracture of L2. 2. 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 3. Hemangiomas T12 and L4 vertebral bodies. Electronically Signed: German Bloom MD at 6:01 EDT , ADDENDUM: 06/01/23 0610 IMPRESSION: 1. Probable mild pathologic compression fracture of L2. 2. 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 3. Hemangiomas T12 and L4 vertebral bodies. N.B. : The above Results were Read Back by German Bloom MD to Korey Mosher DO, and understanding confirmed on 06/01/2023 06:03:27 (ET). Electronically Signed: German Bloom MD at 6:01 EDT , Pelvis X-Ray 06/01/23 04:55 IMPRESSION: No acute findings in the pelvis. Electronically Signed: German Bloom MD at 5:49 EDT , Ribs w/Chest X-Ray 06/01/23 04:55 IMPRESSION: Questionable nondisplaced fracture of the anterior left seventh rib. Otherwise negative left rib series. No displaced rib fracture or pneumothorax. 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 Prescriptions: No Action doxycycline hyclate 20 mg tablet 20 mg PO BID magnesium oxide 400 mg (241.3 mg magnesium) tablet 400 mg PO BID Citrucel 500 mg tablet 500 mg PO DAILY glipizide 5 mg tablet 5 mg PO BID allopurinol 100 MG tablet 100 mg PO DAILYCM tamsulosin 0.4 MG capsule 0.4 mg PO DAILY trazodone 100 MG tablet 100 mg PO QHS docusate sodium 100 MG capsule 100 mg PO BID finasteride 5 MG tablet 5 mg PO DAILY trospium 20 MG tablet 20 mg PO QHS Patient Comments: bladder Multivitamin 1 tab PO DAILY levothyroxine 150 mcg tablet 225 mcg PO MOWEFR Patient Comments: 150 mcg PO ; 1 tab daily 1/2 tab extra on m w f Lantus SoloStar Pen 30 units SC QHS cyanocobalamin (vitamin B-12) 500 MCG tablet 1,000 mcg PO DAILY@0800 ipratropium bromide 15 ML spray,non-aerosol 2 spray NS TID PRN (Reason: ALLERGIES) atorvastatin 20 mg Tablet 20 mg PO QHS ferrous sulfate 325 mg (65 mg iron) Tablet 325 mg PO TID propranolol 20 mg Tablet 20 mg PO BID cholecalciferol (vitamin D3) [Vitamin D3] 125 mcg (5,000 unit) Tablet 50,000 unit PO QMONTH psyllium husk [Metamucil] 0.4 gram Capsule 0.4 g PO BID ropinirole 0.5 mg tablet 1 mg PO TID Eliquis 2.5 mg tablet 5 mg PO BID Hold Instructions: resume 07/27/22 polyethylene glycol 3350 [Miralax] 17 gram Powder In Packet 17 g PO DAILY Hold Instructions: Order Completed levothyroxine 150 mcg Tablet 150 mcg PO SUTUTHSA [id number]-wqlhfcooc-uerkzuxmj 3.5-10,000-10 mg-unit-mg/gram Cream 1 applic TOPICAL DAILY [id number]-hybzynuxhdlt-vnmgkt 1-1-4 % Gel 1 ea TOPICAL DAILY donepezil [Aricept] 5 mg tablet 10 mg PO DAILY pioglitazone [Actos] 45 mg tablet 45 mg PO DAILY ascorbic acid (vitamin C) [Vitamin C] 500 mg Tablet 500 mg PO DAILY Hold Instructions: Order Completed lisinopril 20 mg tablet 20 mg PO DAILY cyclobenzaprine 10 mg tablet 10 mg PO Q8H Patient Comments: TAKE 1 (ONE) Tablet by mouth three times daily] sucralfate [Carafate] 1 gram tablet 1 g PO BID Qty: 60 5RF metoclopramide HCl 5 mg tablet 5 mg PO QHS Qty: 30 5RF pantoprazole 40 mg tablet,delayed release (DR/EC) 40 mg PO DAILY Qty: 30 5RF Primary Care Provider: Randell Sparks Referrals: Randell Sparks MD [Primary Care Provider] - Disposition Disposition: Acute Care Hospital [facility]
--- NOTE | 2023-06-01 08:33 | PCM.HP.STD ---
HPI - General General Date of Admission: 06/01/23 Date of Service: 06/01/23 Chief Complaint: Generalized weakness/falls HPI Narrative ALCIDES LOREDO, is a 82 M who presented to the emergency department [facility] on 06/01/2023 due to generalized weakness and falls. Approximately 7 weeks ago the patient was moving around and felt a pop in his back and has had pain ever since. He has been following with Dr. Sparks who has been treating him with ibuprofen, and muscle relaxants. His reports that he has good days and bad days. He typically can ambulate with a wheeled walker around the home without difficulty however his biggest to go for quality on his bad days has been getting out of bed. She is unfortunately unable to help him as he is considerably tall and has a BMI of 36. This morning he was trying to get up out of bed to use the bathroom and was having difficulty secondary to persistent pain in his low back and in trying to do so he fell out of bed in between the bed and the nightstand and could not get back up. His reported she was up using the bathroom at the same time and heard him fall and found him on the floor awake and alert. They could not get him back up off the floor so they called the EMS and he was brought to the emergency department for further evaluation. His reports that she needs increased help at home on his bad days and attempt to get his pain under better control. Vital signs on presentation demonstrated temperature of 98.1, blood pressure 161/79, heart rate 91, respiratory 18 and oxygen saturations were 98% on room air. His CBC was overall unremarkable and stable compared paired to previous. He has chronic thrombocytopenia. His chemistry panel was overall unremarkable other than hyperglycemia with a glucose of 225. Liver functions were normal and he has a slightly elevated alkaline phosphatase of 142. 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 Cervical spine imaging shows severe degenerative changes with no acute fractures or subluxations. Lumbar spine imaging shows probable mild pathologic compression fracture of L2, bilateral spondylosis at L5 with grade 2 spondylolisthesis that is unchanged from previous exam and hemangiomas at T12 and the L4 vertebral body. Pelvic x-ray was unremarkable. Ribs and chest x-ray showed possible nondisplaced fracture of the anterior left seventh rib but otherwise was unremarkable. I discussed admission under observation with the family and initially they were reluctant due to increased payment with observation admission however I did explain he has no real medical necessity for admission. She states she is absolutely unable to take him home because she cannot help him get out of bed and that is the biggest problem. They are agreeable to observation admission with attempts to get increased help at home and possibly a different bed for him to get in and out of. I did discuss with her we will have case management and social work see him tomorrow. Unfortunately we have no readily available case management or social work to see him today being a holiday. He is able to ambulate independently per the so I do not feel that he will likely qualify for skilled placement. She is hoping that they can get some home health services at discharge. 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 Diabetes mellitus, type II Difficulty swallowing DM (diabetes mellitus), type 2 with peripheral vascular complications Dysphagia Essential hypertension Gastric reflux Hepatitis History of atrial fibrillation History of CVA (cerebrovascular accident) (2007) History of echocardiogram History of GI bleed History of pericarditis (08/2017) History of stress test Hyperlipidemia Hypothyroidism Insulin dependent diabetes mellitus Longstanding persistent atrial fibrillation Non-smoker Obstructive sleep apnea Ocular rosacea Parkinson's disease Paroxysmal atrial fibrillation Peripheral vascular disease due to secondary diabetes Prostate disease Restless legs Short-term memory loss Skin tear Stroke/cerebrovascular accident Urinary incontinence Venous (peripheral) insufficiency Walker as ambulation aid Wears glasses Wears hearing aid Home Medications Multivitamin 1 tab PO DAILY VITAMIN 05/10/15 [History Last Taken 05/31/23] allopurinol 100 mg tablet 100 mg PO DAILYCM gout 05/10/15 [History Last Taken 05/31/23] docusate sodium 100 mg capsule 100 mg PO BID constipation 05/10/15 [History Last Taken 05/31/23] finasteride 5 mg tablet 5 mg PO DAILY prostate 05/10/15 [History Last Taken 05/31/23] tamsulosin 0.4 mg capsule 0.4 mg PO DAILY prostate 05/10/15 [History Last Taken 05/31/23] trazodone 100 mg tablet 100 mg PO QHS sleep/mental health 05/10/15 [History Last Taken 05/31/23] trospium 20 mg tablet 20 mg PO QHS bladder 05/10/15 [History Last Taken 05/31/23] cyanocobalamin (vitamin B-12) 500 mcg tablet 1,000 mcg PO DAILY@0800 supplement 09/24/17 [History Last Taken 05/31/23] ipratropium bromide 42 mcg (0.06 %) nasal spray 2 spray NS TID PRN ALLERGIES 09/24/17 [History Last Taken 05/31/23] levothyroxine 150 mcg tablet 225 mcg PO MOWEFR thyroid 03/06/19 [History Last Taken 05/31/23] doxycycline hyclate 20 mg tablet 20 mg PO BID ocular rosaca 07/18/19 [History Last Taken Unknown] Lantus SoloStar Pen 30 units subcut QHS diabetes 11/30/19 [History Last Taken 05/31/23] magnesium oxide 400 mg (241.3 mg magnesium) tablet 400 mg PO BID supplement 11/30/19 [History Last Taken 05/31/23] atorvastatin 20 mg tablet 20 mg PO QHS cholesterol 06/19/22 [History Last Taken 05/31/23] cholecalciferol (vitamin D3) 125 mcg (5,000 unit) tablet (Vitamin D3) 50,000 unit PO QMONTH supplement 06/19/22 [History Last Taken 05/18/23] ferrous sulfate 325 mg (65 mg iron) tablet 325 mg PO TID iron 06/19/22 [History Last Taken 05/31/23] propranolol 20 mg tablet 20 mg PO BID BP 06/19/22 [History Last Taken 04/01/23 08:45] psyllium husk 0.4 gram capsule (Metamucil) 0.4 g PO BID bowels 06/19/22 [History Last Taken 05/31/23] sucralfate 1 gram tablet (Carafate) 1 g PO BID esophageal ulcers #60 tabs 07/10/22 [Rx Last Taken 05/31/23] ivermectin 1 %-metronidazole 1 %-niacinamide 4 % topical gel 1 ea topical DAILY ROSECA 07/13/22 [History Last Taken Unknown] levothyroxine 150 mcg tablet 150 mcg PO SUTUTHSA thyroid 07/13/22 [History Last Taken 05/31/23] vloeshvk-ubwkryewi-luphotzpn 3.5 mg-10,000 unit-10 mg/gram top cream 1 applic topical DAILY LEFT EYE 07/13/22 [History Last Taken 05/30/23] polyethylene glycol 3350 17 gram oral powder packet (Miralax) 17 g PO DAILY constipation 07/13/22 [History Last Taken Unknown] apixaban 2.5 mg tablet (Eliquis) 5 mg PO BID blood thinner 07/17/22 [History Last Taken 05/31/23] methylcellulose (laxative) 500 mg tablet (Citrucel) 500 mg PO DAILY bowels 07/17/22 [History Last Taken 05/31/23] ropinirole 0.5 mg tablet 1 mg PO TID parkinsons 07/17/22 [History Last Taken 05/31/23] donepezil 5 mg tablet (Aricept) 10 mg PO DAILY memory 07/24/22 [History Last Taken 05/31/23] pioglitazone 45 mg tablet (Actos) 45 mg PO DAILY diabetes 07/24/22 [History Last Taken 05/31/23] glipizide 5 mg tablet 5 mg PO BID 08/27/22 [History Last Taken 05/31/23] metoclopramide HCl 5 mg tablet 5 mg PO QHS #30 tabs 02/17/23 [Rx Last Taken 05/31/23] pantoprazole 40 mg tablet,delayed release 40 mg PO DAILY #30 tabs 02/17/23 [Rx Last Taken 05/31/23] ascorbic acid (vitamin C) 500 mg tablet (Vitamin C) 500 mg PO DAILY 03/29/23 [History Last Taken Unknown] lisinopril 20 mg tablet 20 mg PO DAILY 03/29/23 [History Last Taken 05/31/23] cyclobenzaprine 10 mg tablet 10 mg PO Q8H 06/01/23 [History Last Taken Unknown] Allergy/AdvReac Type Severity Reaction Status Date / Time niacin Allergy Intermediate rash Verified 04/01/23 09:43 adhesive AdvReac Other: Verified 04/01/23 09:43 takes skin off, inflamed Family History Father CAD (coronary artery disease) Hypertension Heart disease Mother Hypertension Sister Breast cancer CVA (cerebral vascular accident) Brother Kidney disease Surgical History H/O basal cell carcinoma excision History of appendectomy History of cataract extraction History of colectomy History of colonoscopy (~05/2022) History of esophagogastroduodenoscopy (EGD) Status post surgical removal of malignant neoplasm of skin Social History (Updated 06/01/23 @ 09:[address] Dannielle Sigala, ) household members: significant other Smoking Status: Never smoker alcohol intake: never substance use type: does not use seatbelt use: always do you feel safe at home: Yes additional social history: Ambulates with a wheeled walker. ROS Constitutional Constitutional: Denies anorexia, change in weight, chills, fatigue, fever(s), malaise, night sweats, weakness or other Eyes Eyes: Denies blurry vision, change in eye color, change in vision, discharge from eye(s), double vision, erythema, eye pain, loss of vision or other ENT HEENT: Denies abnormal hearing, dysphagia, ear pain, epistaxis, headache(s), hearing loss, nasal congestion, nasal discharge, post nasal drip, sinus pressure, sore throat or other Cardiovascular Cardiovascular: Reports chest pain; Denies claudication, dyspnea on exertion, edema, lightheadedness, orthopnea, palpitations, paroxysmal nocturnal dyspnea, rapid heart rate, syncope or other Respiratory/Chest Respiratory/Chest: Denies cough, dyspnea, excessive phlegm production, hemoptysis, productive cough, shortness of breath at rest, shortness of breath with exertion, wheezing or other Gastrointestinal Gastrointestinal: Denies abdominal pain, coffee ground emesis, constipation, diarrhea, dyspepsia, hematemesis, hematochezia, loose stools, melena, nausea, vomiting or other Genitourinary Genitourinary: Reports urinary frequency and urinary incontinence; Denies burning urination, difficulty urinating, dysuria, hematuria, nocturia, urinary hesitancy, urinary urgency or other Musculoskeletal Musculoskeletal: Reports back pain; Denies arthralgias, joint pain, joint stiffness, joint swelling, myalgias, neck pain or other Neurologic Neurologic: Reports abnormal gait; Denies abnormal speech, confusion, disequilibrium, dizziness, focal weakness, headache(s), numbness, paresthesias, seizure-like activity, seizures, syncope, tingling, tremor(s) or other Psychiatric Psychiatric: Denies anxiety, depression, homicidal ideation, suicidal ideation or other Endocrine Endocrinology: Denies change in body appearance, cold intolerance, excessive sweating, heat intolerance, polydipsia, polyuria or other Hematologic/Lymphatic Hematologic/Lymphatic: Reports easy bleeding and easy bruising; Denies anemia, lymphadenopathy or other Allergic/Immunologic Allergic/Immunologic: Denies rhinitis, hives, eczemia, asthma or other Vital Signs Vital Signs Vital Signs: 06/01/23 04:35 06/01/23 06:56 Temperature 98.2 F Temperature Source Temporal Pulse Rate 95 80 Respiratory Rate 16 16 Blood Pressure 131/79 H 152/65 H Blood Pressure Mean 96 94 Pulse Ox 97 95 Oxygen Delivery Method Room Air Weight Weight: 137.6 kg Body Mass Index (BMI) 35.9 Physical Exam Const alert, oriented x3, no apparent distress and well nourished Constitutional Narrative: Obese, elderly, white male, lying in bed, at bedside General Appearance: cooperative HEENT normocephalic and head/scalp atraumatic HEENT Narrative: Moderate hearing loss, dentition is poor, Mallampati is 3, no thrush Eyes PERRL, EOMs intact bilaterally and conjunctivae normal Eyes Narrative: No scleral icterus Neck no lymphadenopathy, supple and no JVD Neck Narrative: Trachea midline, no thyroid enlargement Resp normal respiratory effort, no retractions, no use of accessory muscles and clear to auscultation bilaterally Auscultation: Negative for rales, rhonchi or wheezes Cardio regular rate, regular rhythm, S1 normal heart sound, S2 normal heart sound, no murmurs, no rub, no gallops and no clicks GI normal to inspection, nondistended, normoactive bowel sounds, soft to palpation and non-tender Extremity no clubbing, cyanosis or edema Skin Skin Narrative: Bilateral lower extremities with hemosiderin deposition skin changes consistent with chronic venous stasis Neuro oriented x3, CN's II-XII intact bilaterally, moves all extremities and no focal motor deficits Neuro Narrative: Generalized weakness noted with no focal deficits, pain with movement Speech: speech normal Psych Psych Narrative: Affect is mildly flat with masked facies likely related to his Parkinson's a history, eye contact is good and mood seems stable Results Lab / Micro Data 06/01/23 07:47 06/01/23 06:48 Labs: Laboratory Results - last 24 hr 06/01/23 06:48: WBC Cancelled, Corrected WBC Cancelled, RBC Cancelled, Hgb Cancelled, Hct Cancelled, MCV Cancelled, MCH Cancelled, MCHC Cancelled, RDW Std Deviation Cancelled, RDW Coeff of Mariluz Cancelled, Plt Count Cancelled, MPV Cancelled, Immature Gran % (Auto) Cancelled, Neut % (Auto) Cancelled, Lymph % (Auto) Cancelled, Harlan % (Auto) Cancelled, Eos % (Auto) Cancelled, Baso % (Auto) Cancelled, Absolute Neuts (auto) Cancelled, Absolute Lymphs (auto) Cancelled, Total Counted Cancelled, Neutrophils % (Manual) Cancelled, Band Neutrophils % Cancelled, Lymphocytes % (Manual) Cancelled, Monocytes % (Manual) Cancelled, Eosinophils % (Manual) Cancelled, Basophils % (Manual) Cancelled, Metamyelocytes % Cancelled, Myelocytes % Cancelled, Promyelocytes % Cancelled, Blast Cells % Cancelled, Plasma Cell % (Manual) Cancelled, Other Cells % Cancelled, Nucleated RBC % Cancelled, Nucleated RBCs/100 WBC Cancelled, Differential Comment Cancelled, Diff Path Review Cancelled, Hypersegmented Neuts Cancelled, Atypical Lymphocytes Cancelled, Reactive Lymphocytes Cancelled, Smudge Cells Cancelled, Toxic Granulation Cancelled, Toxic Vacuolation Cancelled, Dohle Bodies Cancelled, Weston Rods Cancelled, Platelet Estimate Cancelled, Plt Morphology Comment Cancelled, RBC Morphology Cancelled 06/01/23 06:48: RBC Morphology Cancelled, Polychromasia Cancelled, Hypochromasia Cancelled, Poikilocytosis Cancelled, Basophilic Stippling Cancelled, Anisocytosis Cancelled, Microcytosis Cancelled, Macrocytosis Cancelled, Spherocytes Cancelled, Sickle Cells Cancelled, Target Cells Cancelled, Tear Drop Cells Cancelled, Ovalocytes Cancelled, Stomatocytes Cancelled, Condon-Iron Post Bodies Cancelled, [place] Cells Cancelled, Bite Cells Cancelled, Crenated Cell Cancelled, Acanthocytes (Spur) Cancelled, Rouleaux Cancelled, Schistocytes Cancelled, Sodium 139, Potassium 3.6, Chloride 107, Carbon Dioxide 27.0, Anion Gap 5, BUN 21 H, Creatinine 0.95, Estim Creat Clear Calc 72.95, Est GFR (MDRD) Af Amer 97, Est GFR (MDRD) Non-Af 80, BUN/Creatinine Ratio 22.1 H, Glucose 225 H, Calcium 9.0, Total Bilirubin 0.80, AST 22, ALT 23, Alkaline Phosphatase 142 H, Total Protein 6.4, Albumin 3.0 L, Globulin 3.4, Albumin/Globulin Ratio 0.9 06/01/23 07:47: WBC 7.6, RBC 4.10 L, Hgb 14.0, Hct 42.7, MCV 104.1 H, MCH 34.1 H, MCHC 32.8, RDW Std Deviation 59.5 H, RDW Coeff of Mariluz 15.5 H, Plt Count 142 L, MPV 9.8, Neut % (Auto) Not Reportable Radiology Impression Brain CT 06/01/23 04:55 IMPRESSION: 1. 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 2. Moderate generalized atrophy. Moderate low density bilaterally in the deep white matter. This likely represents chronic small vessel ischemic changes in the deep white matter. Electronically Signed: German Bloom MD at 5:50 EDT Reading Location ID and State: [employer] / [place] Tel , Service support , Cervical Spine CT 06/01/23 04:55 IMPRESSION: Severe cervical degenerative changes. No acute fractures or subluxations. No significant change since prior exam. Electronically Signed: German Blomo MD at 5:54 EDT , Lumbar Spine CT 06/01/23 04:55 IMPRESSION: 1. Probable mild pathologic compression fracture of L2. 2. 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 3. Hemangiomas T12 and L4 vertebral bodies. Electronically Signed: German Bloom MD at 6:01 EDT Reading Location ID and State: [facility] / [place] Tel , Service support , ADDENDUM: 06/01/23 0610 IMPRESSION: 1. Probable mild pathologic compression fracture of L2. 2. 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 3. Hemangiomas T12 and L4 vertebral bodies. N.B. : The above Results were Read Back by German Bloom MD to Korey Mosher DO, and understanding confirmed on 06/01/2023 06:03:27 (ET). Electronically Signed: German Bloom MD at 6:01 EDT , Pelvis X-Ray 06/01/23 04:55 IMPRESSION: No acute findings in the pelvis. Electronically Signed: German Bloom MD at 5:49 EDT , Ribs w/Chest X-Ray 06/01/23 04:55 IMPRESSION: Questionable nondisplaced fracture of the anterior left seventh rib. Otherwise negative left rib series. No displaced rib fracture or pneumothorax. Electronically Signed: Raulito Salgado MD at 5:46 EDT , Assessment & Plan Assessment/Plan (1) Generalized weakness: (2) Falls: (3) Compression fracture of L2: PLAN: Plan Weakness/falls -Patient and family report the biggest issue is getting in and out of bed -He has been having good days and bad days with regards to his back pain and some days he has no issues and other days he can hardly get up -Had a fall earlier this morning after trying to get up -PT/OT consultation -I do not feel that the patient will likely be able to be skilled at discharge because he is ambulating well with a walker at home per discussion with his however he may qualify for home health Compression fracture at L2 -It is called a pathologic fracture by the radiologist -We will check PSA and CEA with history of colon cancer however colon cancer does not usually metastasized to the bone early -Potentially just be osteoporosis -Check vitamin D level -Schedule Tylenol -Gabapentin 100 mg 3 times daily -As needed oxycodone -Lidocaine patch -Continue home Flexeril -We will have patient follow-up with oncology after discharge 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 -CEA after treatment was 2 down from 6 prior to surgery -Repeat CEA pending -Has been in remission History of cirrhosis -No signs of decompensation -MELD has been 10 with a Child-Bragg score of class B -Follows with gastroenterology -EGD done on 04/01/2023 showed grade 1 esophageal varices -Continue propranolol Gastritis/GERD -Continue PPI -Continue Carafate DM-2 -Hold home oral agents -New home basal insulin -Sliding scale -Accu-Cheks as ordered -Cardiac/carb controlled diet HTN/HPL -Continue propranolol -Continue lisinopril -Continue home atorvastatin PAF -Continue home apixaban -Continue home beta-víctor -Currently in normal sinus rhythm Gout -Continue home allopurinol Constipation -Continue home docusate -Continue home MiraLAX -As needed senna -We will need to monitor closely with use of narcotics History of stroke -Continue current medical therapy Urinary incontinence/BPH -Continue Proscar -Continue Flomax -Continue trospium Parkinson's disease -Continue home medication Hypothyroidism -Continue home levothyroxine Dementia of unknown type -Continue home Aricept DVT prophylaxis -Patient is fully anticoagulated with apixaban CODE STATUS -DNR CCA okay for short-term intubation Charges/Coding Visit Charges Inpatient E&M: 75885 Init Hosp L2
[2023-06-01 08:53] LABS: Eosinophil 1 % (0-5); Lymphocyte 17 % (19-41); Monocyte 7 % (0-10); Myelocyte 1 % (0-0); Neutrophil-Segmented 74 % (47-70); Platelet Estimate ADEQUATE (ADEQ); Red Cell Morphology NORM C+C NORMAL (NORM C&C); Total Cells Counted 100 (MANUAL DIFF)
[2023-06-01 08:56] LABS: Absolute Lymphocyte Count 1.29 X10^3/uL (0.83-4.51); Absolute Neutrophil Count 5.6 X10^3/uL (2.0-7.7)
[2023-06-01 09:13] LABS: PSA,Total- Diagnostic 0.15 ng/mL (0.0-4.0)
[2023-06-01 11:11] LABS: Bedside Glucose 171 mg/dL (74-106)
[2023-06-01] MEDS: Gabapentin 100 MG Capsule PO ×2 (11:24→16:05)
[2023-06-01] MEDS: Lisinopril 20 MG Tablet PO (11:25)
[2023-06-01] MEDS: Pantoprazole Sodium 40 MG Tablet PO (11:25)
[2023-06-01] MEDS: Propranolol 10 MG Tablet 20 MG PO ×2 (11:25→21:59)
[2023-06-01] MEDS: Magnesium Chloride 64 MG Delay Rel.Tablet 128 MG PO ×2 (11:25→21:56)
[2023-06-01] MEDS: Docusate Sodium 100 MG Capsule PO ×2 (11:26→21:53)
[2023-06-01] MEDS: Ferrous Sulfate 325 MG Tablet PO ×2 (11:26→16:02)
[2023-06-01] MEDS: APIXABAN 5 MG TABLET PO ×2 (11:26→21:58)
[2023-06-01] MEDS: Levothyroxine 150 MCG Tablet PO (11:27)
[2023-06-01] MEDS: Ascorbic Acid 500 MG Tablet PO (11:27)
[2023-06-01] MEDS: Donepezil HCl 5 MG Tablet 10 MG PO (11:28)
[2023-06-01] MEDS: Lidocaine 5% Patch 1 PATCH TOPICAL (11:28)
[2023-06-01] MEDS: Finasteride 5 MG Tablet PO (11:28)
[2023-06-01] MEDS: Insulin Lispro 100 UNIT/ML INSULN.PEN SC ×2 (11:29→16:00)
[2023-06-01] MEDS: Menthol/Lanolin/Calamine/Znox 113 GM Tube 1 APPLIC TOPICAL ×2 (13:00→21:53)
[2023-06-01] MEDS: cycloBENZAPRine HCl 10 MG Tablet PO ×2 (13:23→21:55)
[2023-06-01] MEDS: Pramipexole Di-HCl 0.5 MG Tablet PO ×2 (13:24→22:00)
[2023-06-01] MEDS: Nystatin Powder 15gm Bottle 1 APPLIC TOPICAL ×2 (13:24→21:52)
[2023-06-01] MEDS: Acetaminophen 500 MG Tablet 1000 MG PO ×2 (13:25→21:54)
[2023-06-01] MEDS: Sucralfate 1 GM Tablet PO (16:01)
[2023-06-01] MEDS: Glucerna Shake 120 ML LIQUID PO (16:05)
[2023-06-01 16:22] LABS: Bedside Glucose 217 mg/dL (74-106)
[2023-06-01] MEDS: Tamsulosin HCl 0.4 MG Capsule PO (16:59)
[2023-06-01] MEDS: Insulin Glargine-YFGN 100 UNIT/ML Pen 30 UNIT SC (21:56)
[2023-06-01] MEDS: Atorvastatin Calcium 20 MG Tablet PO (21:56)
[2023-06-01] MEDS: Tolterodine Tartrate 2 MG CAP.SA PO (21:58)
[2023-06-01] MEDS: Psyllium 1 PACKET PO (21:59)
[2023-06-01] MEDS: Metoclopramide 5 MG TABLET PO (22:04)
[2023-06-01] MEDS: traZODone 100 MG Tablet PO (22:04)
[2023-06-01 22:32] LABS: Bedside Glucose 218 mg/dL (74-106)
[2023-06-02] MEDS: oxyCODONE 5 MG Tablet PO ×2 (01:48→08:53)
[2023-06-02 01:50] VITALS: BP 141/78; PULSE 61; PULSE 90; RESP 18; TEMP 36.5; O2SAT 95
[2023-06-02 06:54] VITALS: BP 118/70; PULSE 86; RESP 20; TEMP 36.2; O2SAT 94
[2023-06-02] MEDS: Menthol/Lanolin/Calamine/Znox 113 GM Tube 1 APPLIC TOPICAL (06:56)
[2023-06-02] MEDS: Pramipexole Di-HCl 0.5 MG Tablet PO ×2 (06:57→13:55)
[2023-06-02] MEDS: cycloBENZAPRine HCl 10 MG Tablet PO ×2 (06:57→14:01)
[2023-06-02] MEDS: Levothyroxine 150 MCG Tablet 225 MCG PO (06:58)
[2023-06-02] MEDS: Acetaminophen 500 MG Tablet 1000 MG PO ×2 (06:59→13:54)
[2023-06-02] MEDS: Insulin Lispro 100 UNIT/ML INSULN.PEN SC ×2 (07:02→11:57)
[2023-06-02] MEDS: Sucralfate 1 GM Tablet PO (07:04)
[2023-06-02 07:34] LABS: Bedside Glucose 165 mg/dL (74-106)
[2023-06-02 07:49] LABS: Absolute Lymphocyte Count 1.65 X10^3/uL (0.83-4.51); Absolute Neutrophil Count 3.5 X10^3/uL (2.0-7.7); Basophil# 0.07 X10^3/uL; Basophil% 1.1 % (0-1); Eosinophil# 0.15 X10^3/uL; Eosinophils% 2.4 % (0-5); Hematocrit 41.9 % (40-54); Hemoglobin 13.6 g/dL (13.0-16.5); Lymphocyte # 1.65 X10^3/ul (0.83-4.51); Mean Corp Hgb Conc 32.5 g/dL (32-36); Mean Corpuscular Volume 104.8 fL (80-94); Monocyte# 0.74 X10^3/uL; Monocyte% 11.7 % (0-10); NRBC Flagged by Analyzer 0 % (0-5); Neutrophil # 3.47 X10^3/uL (2.7-7.7); Neutrophil % 54.7 % (47-70); Platelet Count 141 K/mm3 (150-450); RBC Distribution Width CV 15.7 % (11.6-14.6); RBC Distribution Width SD 60.8 fl (35.1-43.9); White Blood Count 6.3 K/mm3 (4.4-11.0)
[2023-06-02 08:06] LABS: ALB/GLOB Ratio 0.8 RATIO (0.9-2.4); AST(SGOT) 18 U/L (15-37); Alanine Aminotransfer ALT/SGPT 19 U/L (16-61); Albumin, Serum 2.7 g/dL (3.2-5.0); Alkaline Phosphatase 135 U/L (45-117); Anion Gap 2 (5-15); BUN 18 mg/dL (7-18); Calcium,Total 8.9 mg/dL (8.5-10.1); Chloride 109 mmol/L (98-107); Creatinine, Serum 0.95 mg/dL (0.70-1.30); EST Glomerular Filtration Rate 81 mL/min (>60); Est Glom Filt Rate - Afr Amer 97 mL/min (>60); Estimated Creatinine Clearance 72.95 ml/min; Globulin 3.6 g/dL (2.2-4.2); Glucose 164 mg/dL (74-106); Magnesium 1.7 mg/dL (1.6-2.6); Phosphorus 2.5 mg/dL (2.5-4.9); Potassium 3.9 mmol/L (3.5-5.1); Protein, Total 6.3 g/dL (6.4-8.2); Sodium Level 139 mmol/L (136-145)
[2023-06-02 08:35] VITALS: BP 130/68; PULSE 84; RESP 20; TEMP 36.6; O2SAT 95
[2023-06-02] MEDS: APIXABAN 5 MG TABLET PO (08:46)
[2023-06-02] MEDS: Ascorbic Acid 500 MG Tablet PO (08:46)
[2023-06-02] MEDS: Pantoprazole Sodium 40 MG Tablet PO (08:46)
[2023-06-02] MEDS: Donepezil HCl 5 MG Tablet 10 MG PO (08:47)
[2023-06-02] MEDS: Cyanocobalamin 500 MCG Tablet 1000 MCG PO (08:47)
[2023-06-02] MEDS: Docusate Sodium 100 MG Capsule PO (08:47)
[2023-06-02] MEDS: Propranolol 10 MG Tablet 20 MG PO (08:47)
[2023-06-02] MEDS: Magnesium Chloride 64 MG Delay Rel.Tablet 128 MG PO (08:48)
[2023-06-02] MEDS: Lidocaine 5% Patch 1 PATCH TOPICAL (08:48)
[2023-06-02] MEDS: Psyllium 1 PACKET PO (08:48)
[2023-06-02] MEDS: Lisinopril 20 MG Tablet PO (08:49)
[2023-06-02] MEDS: Multivitamins,Therapeutic Tablet 1 TABLET PO (08:49)
[2023-06-02] MEDS: Finasteride 5 MG Tablet PO (08:49)
[2023-06-02] MEDS: Allopurinol 100 MG Tablet PO (08:49)
[2023-06-02] MEDS: Ferrous Sulfate 325 MG Tablet PO ×2 (08:49→11:57)
[2023-06-02] MEDS: Nystatin Powder 15gm Bottle 1 APPLIC TOPICAL (08:49)
[2023-06-02] MEDS: Senna/Docusate Sodium 1 Tablet 2 TABLET PO (08:53)
[2023-06-02] MEDS: Gabapentin 100 MG Capsule PO ×2 (08:53→11:57)
--- NOTE | 2023-06-02 10:10 | CASEMGMT ---
Discharge Planning HH list created and sent to RN CM. Jenny Correia, Discharge Planning Asst.
--- NOTE | 2023-06-02 10:42 | CASEMGMT ---
Addendum entered by Lea Gaitan 06/02/23 13:42: Received tc back from Alondra at [facility], they are able to see pt on Wednesday. [facility] CHURCH into pt room, pt and sig other are agreeable with this and prefer not to try any other agency. They deny further needs. Original Note: [facility] into pt room, pt sitting up in chair in no distress with sig other at bedside. Hospitalist came in during conversation. Pt wishing to return home to have follow up manuel with Dr. Andrade. Pt agreeable to [facility] services. Patient was provided a list of [facility] providers including quality and resource use data and consistent with the patient?s preferred geographic region, medical needs, and insurance network were provided from the [employer] Guide. [facility] 2. [facility] 3. [facility]. Discussed expectations of [facility] and visit frequency. Pt sig other states that they would like to ultimately get back to going to [facility]. Pt states he has a lift chair, rollator, grab bars in the shower and toilet and raised toilet seat. Pt states he discussed with PT a bar for his bed that they plan to get through [facility]. Pt denies need for hospital bed. TC to [facility] intake, left message with referral, will await acceptance.
--- NOTE | 2023-06-02 10:51 | CASEMGMT ---
ABI CM in to discuss NEIL form with patient. RN CM explained NEIL form, patient voiced understanding. Pt signed form and filed in chart. Pt provided with a copy of signed NEIL form. Patient had no further questions or concerns at this time.
[2023-06-02 11:22] LABS: Bedside Glucose 214 mg/dL (74-106)
--- NOTE | 2023-06-02 13:04 | WOUNDNOTE ---
wound photo: left arm
--- NOTE | 2023-06-02 13:05 | WOUNDNOTE ---
wound photo: right arm
--- NOTE | 2023-06-02 13:06 | WOUNDNOTE ---
wound photo: left lower leg
[2023-06-02 13:57] VITALS: BP 111/65; PULSE 83; RESP 18; TEMP 36.2; O2SAT 95
--- NOTE | 2023-06-02 14:13 | DS.PCM_ITS ---
Providers Date of Admission: 06/01/23 Date of Discharge: 06/02/23 Primary Care Physician: Dr. 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 Routine Comment: Reason for Consult:: wound care Reason For Visit: GENERALIZED WEAKNESS/FALL Diagnosis Discharge Diagnosis (1) Generalized weakness: Status: Acute Code(s): R53.1 - Weakness (2) Falls: Status: Acute Code(s): W19.XXXA - Unspecified fall, initial encounter (3) Compression fracture of L2: Status: Acute Code(s): S32.020A - Wedge compression fracture of second lumbar vertebra, initial encounter for closed fracture Medications at Discharge Home Medications Multivitamin 1 tab PO DAILY VITAMIN 05/10/15 allopurinol 100 mg tablet 100 mg PO DAILYCM gout 05/10/15 docusate sodium 100 mg capsule 100 mg PO BID constipation 05/10/15 finasteride 5 mg tablet 5 mg PO DAILY prostate 05/10/15 tamsulosin 0.4 mg capsule 0.4 mg PO DAILY prostate 05/10/15 trazodone 100 mg tablet 100 mg PO QHS sleep/mental health 05/10/15 trospium 20 mg tablet 20 mg PO QHS bladder 05/10/15 cyanocobalamin (vitamin B-12) 500 mcg tablet 1,000 mcg PO DAILY@0800 supplement 09/24/17 ipratropium bromide 42 mcg (0.06 %) nasal spray 2 spray NS TID PRN ALLERGIES 09/24/17 levothyroxine 150 mcg tablet 225 mcg PO MOWEFR thyroid 03/06/19 doxycycline hyclate 20 mg tablet 20 mg PO BID ocular rosaca 07/18/19 Lantus SoloStar Pen 30 units subcut QHS diabetes 11/30/19 magnesium oxide 400 mg (241.3 mg magnesium) tablet 400 mg PO BID supplement 11/30/19 atorvastatin 20 mg tablet 20 mg PO QHS cholesterol 06/19/22 cholecalciferol (vitamin D3) 125 mcg (5,000 unit) tablet (Vitamin D3) 50,000 unit PO QMONTH supplement 06/19/22 ferrous sulfate 325 mg (65 mg iron) tablet 325 mg PO TID iron 06/19/22 propranolol 20 mg tablet 20 mg PO BID BP 06/19/22 psyllium husk 0.4 gram capsule (Metamucil) 0.4 g PO BID bowels 06/19/22 sucralfate 1 gram tablet (Carafate) 1 g PO BID esophageal ulcers #60 tabs 07/10/22 ivermectin 1 %-metronidazole 1 %-niacinamide 4 % topical gel 1 ea topical DAILY ROSECA 07/13/22 levothyroxine 150 mcg tablet 150 mcg PO SUTUTHSA thyroid 07/13/22 hnkimkbl-fyhgligsf-ufjykzmjp 3.5 mg-10,000 unit-10 mg/gram top cream 1 applic topical DAILY LEFT EYE 07/13/22 polyethylene glycol 3350 17 gram oral powder packet (Miralax) 17 g PO DAILY constipation 07/13/22 apixaban 2.5 mg tablet (Eliquis) 5 mg PO BID blood thinner 07/17/22 methylcellulose (laxative) 500 mg tablet (Citrucel) 500 mg PO DAILY bowels 07/17/22 ropinirole 0.5 mg tablet 1 mg PO TID parkinsons 07/17/22 donepezil 5 mg tablet (Aricept) 10 mg PO DAILY memory 07/24/22 pioglitazone 45 mg tablet (Actos) 45 mg PO DAILY diabetes 07/24/22 glipizide 5 mg tablet 5 mg PO BID 08/27/22 metoclopramide HCl 5 mg tablet 5 mg PO QHS #30 tabs 02/17/23 pantoprazole 40 mg tablet,delayed release 40 mg PO DAILY #30 tabs 02/17/23 ascorbic acid (vitamin C) 500 mg tablet (Vitamin C) 500 mg PO DAILY 03/29/23 lisinopril 20 mg tablet 20 mg PO DAILY 03/29/23 cyclobenzaprine 10 mg tablet 10 mg PO Q8H 06/01/23 acetaminophen 500 mg tablet 1,000 mg (2 x 500 mg) PO Q8 #30 tabs 06/02/23 oxycodone 5 mg tablet 5 mg PO Q6H PRN pain 7 days #28 tabs 06/02/23 Hospital Course Procedures - (CT brain/CT cervical spine/CT lumbar spine/pelvis x-ray/rib and chest x-ray) Summary of Care Provided Minutes Spent on Discharge: 25 Hospital Course: ALCIDES LOREDO, is a 82 M who presented to the emergency department [facility] on 06/01/2023 due to generalized weakness and falls. Approximately 7 weeks ago the patient was moving around and felt a pop in his back and has had pain ever since. He had been following with Dr. Sparks who has been treating him with ibuprofen, and muscle relaxants. His reported that was having good days and bad days. It was reported that he typically can ambulate with a wheeled walker around the home without difficulty however his biggest to go for quality on his bad days has been getting out of bed. She was unfortunately unable to help him as he is considerably tall and has a BMI of 36. On the morning of admission he was trying to get up out of bed to use the bathroom and was having difficulty secondary to persistent pain in his low back and in trying to do so he fell out of bed in between the bed and the nightstand and could not get back up. His reported she was up using the bathroom at the same time and heard him fall and found him on the floor awake and alert. They could not get him back up off the floor so they called the EMS and he was brought to the emergency department for further evaluation. His reported that she needed increased help at home on his bad days and attempt to get his pain under better control. Vital signs on presentation demonstrated temperature of 98.1, blood pressure 161/79, heart rate 91, respiratory 18 and oxygen saturations were 98% on room air. His CBC was overall unremarkable and stable compared paired to previous. He has chronic thrombocytopenia. His chemistry panel was overall unremarkable o ther than hyperglycemia with a glucose of 225. Liver functions were normal and he has a slightly elevated alkaline phosphatase of 142. 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 Cervical spine imaging shows severe degenerative changes with no acute fractures or subluxations. Lumbar spine imaging shows probable mild pathologic compression fracture of L2, bilateral spondylosis at L5 with grade 2 spondylolisthesis that is unchanged from previous exam and hemangiomas at T12 and the L4 vertebral body. Pelvic x-ray was unrem arkable. Ribs and chest x-ray showed possible nondisplaced fracture of the anterior left seventh rib but otherwise was unremarkable. Patient was mated to the medical floor and evaluated by physical and Occupational Therapy. Case management and social work discussed overall needs with the family and they felt stable for discharge home on 06/02/2023 with ongoing home health. He was having ongoing pain but seem to be somewhat better controlled. The lidocaine patches were not beneficial so we did not discharge him with these. We asked him to utilize Tylenol 1000 mg 3 times daily and wrote a prescription for as needed oxycodone for 7-day supply. I have asked him to avoid NSAIDs with his chronic anticoagulation and cardiac disease. I told him he can use these periodically but to really avoid them on a regular basis. If his pain is persistent he may benefit from an outpatient consult with pain management. With regards to the possible lytic lesion we did evaluate a PSA which was normal and a CEA given his history of colon cancer with CEA was still pending at the time of discharge. I have requested that he follow-up with his primary oncologist-Dr. Andrade. Is plans to call tomorrow to set up an appointment. I did discuss with her that this may not be anything pathologic related to cancer however they were nervous about it and wanted further discussion. He is also follow-up with his primary care physician within the next 2 weeks. Discharge diagnoses: This Falls Compression fracture at L2-->? Pathologic fracture History of colon cancer stage II History of cirrhosis Chronic thrombocytopenia Gastritis GERD DM-2 Hypertension Hyperlipidemia PAF Gout Constipation History of stroke Urinary incontinence BPH Parkinson's disease Hypothyroidism Dementia of unknown type Physical Exam Const alert, oriented x3, no apparent distress and well nourished Constitutional Narrative: Obese, elderly, white male, sitting up in a chair at the bedside, at bedside, case management at the bedside General Appearance: cooperative, comfortable, well kempt and well developed Orientation / Consciousness: awake, oriented to person, oriented to place and oriented to time Exam Limitations: no limitations Nutritional Appearance: obese HEENT normocephalic and head/scalp atraumatic HEENT Narrative: Moderate hearing loss, dentition is poor, Mallampati is 3 Resp normal respiratory effort, no retractions, no use of accessory muscles and clear to auscultation bilaterally Auscultation: Negative for rales, rhonchi or wheezes Cardio regular rate, regular rhythm, S1 normal heart sound, S2 normal heart sound, no murmurs, no rub, no gallops and no clicks GI normal to inspection, nondistended, normoactive bowel sounds, soft to palpation and non-tender Extremity no clubbing, cyanosis or edema Neuro oriented x3, CN's II-XII intact bilaterally, moves all extremities and no focal motor deficits Neuro Narrative: Generalized weakness noted with no focal deficits, pain with movement Speech: speech normal Psych Psych Narrative: Affect is mildly flat with masked facies likely related to his Parkinson's a history, eye contact is good and mood seems stable Weight / BMI Weight Weight: 134.762 kg Body Mass Index (BMI) 35.2 ABG / Lab / Microbiology Data 06/02/23 07:36 06/02/23 07:36 Laboratory: Laboratory Results - last 24 hr 06/01/23 15:59: POC Glucose 217 H 06/01/23 21:49: POC Glucose 218 H 06/02/23 06:45: WBC Cancelled, Corrected WBC Cancelled, RBC Cancelled, Hgb Cancelled, Hct Cancelled, MCV Cancelled, MCH Cancelled, MCHC Cancelled, RDW Std Deviation Cancelled, RDW Coeff of Mariluz Cancelled, Plt Count Cancelled, MPV Cancelled, Immature Gran % (Auto) Cancelled, Neut % (Auto) Cancelled, Lymph % (Auto) Cancelled, [place] % (Auto) Cancelled, Eos % (Auto) Cancelled, Baso % (Auto) Cancelled, Absolute Neuts (auto) Cancelled, Absolute Lymphs (auto) Cancelled, Total Counted Cancelled, Neutrophils % (Manual) Cancelled, Band Neutrophils % Cancelled, Lymphocytes % (Manual) Cancelled, Monocytes % (Manual) Cancelled, Eosinophils % (Manual) Cancelled, Basophils % (Manual) Cancelled, Metamyelocytes % Cancelled, Myelocytes % Cancelled, Promyelocytes % Cancelled, Blast Cells % Cancelled, Plasma Cell % (Manual) Cancelled, Other Cells % Cancelled, Nucleated RBC % Cancelled, Nucleated RBCs/100 WBC Cancelled, Differential Comment Cancel led, Diff Path Review Cancelled, Hypersegmented Neuts Cancelled, Atypical Lymphocytes Cancelled, Reactive Lymphocytes Cancelled, Smudge Cells Cancelled, Toxic Granulation Cancelled, Toxic Vacuolation Cancelled, Dohle Bodies Cancelled, [place] Rods Cancelled, Platelet Estimate Cancelled, Plt Morphology Comment Cancelled, RBC Morphology Cancelled 06/02/23 06:45: RBC Morphology Cancelled, Polychromasia Cancelled, Hypochromasia Cancelled, Poikilocytosis Cancelled, Basophilic Stippling Cancelled, Anisocytosis Cancelled, Microcytosis Cancelled, Macrocytosis Cancelled, Spherocytes Cancelled, Sickle Cells Cancelled, Target Cells Cancelled, Tear Drop Cells Cancelled, Ovalocytes Cancelled, Stomatocytes Cancelled, [place] Bodies Cancelled, [place] Cells Cancelled, Bite Cells Cancelled, Crenated Cell Cancelled, Acanthocytes (Spur) Cancelled, Rouleaux Cancelled, Schistocytes Can celled, Sodium Cancelled, Potassium Cancelled, Chloride Cancelled, Carbon Dioxide Cancelled, Anion Gap Cancelled, BUN Cancelled, Creatinine Cancelled, Estim Creat Clear Calc Cancelled, Est GFR (MDRD) Af Amer Cancelled, Est GFR (MDRD) Non-Af Cancelled, BUN/Creatinine Ratio Cancelled, Glucose Cancelled, Calcium Cancelled, Phosphorus Cancelled, Magnesium Cancelled, Total Bilirubin Cancelled, AST Cancelled, ALT Cancelled, Alkaline Phosphatase Cancelled, Total Protein Cancelled, Albumin Cancelled, Globulin Cancelled, Albumin/Globulin Ratio Cancelled 06/02/23 07:01: POC Glucose 165 H 06/02/23 07:36: WBC 6.3, RBC 4.00 L, Hgb 13.6, Hct 41.9, MCV 104.8 H, MCH 34.0 H , MCHC 32.5, RDW Std Deviation 60.8 H, RDW Coeff of Mariluz 15.7 H, Plt Count 141 L, MPV 10.0, Immature Gran % (Auto) 4.100 H, Neut % (Auto) 54.7, Lymph % (Auto) 26.0, [place] % (Auto) 11.7 H, Eos % (Auto) 2.4, Baso % (Auto) 1.1 H, Absolute Neuts (auto) 3.5, Absolute Lymphs (auto) 1.65, Nucleated RBC % 0, Sodium 139, Potassium 3.9, Chloride 109 H, Carbon Dioxide 28.0, Anion Gap 2 L, BUN 18, Creatinine 0.95, Estim Creat Clear Calc 72.95, Est GFR (MDRD) Af Amer 97, Est GFR (MDRD) Non-Af 81, BUN/Creatinine Ratio 19.0, Glucose 164 H, Calcium 8.9, Phosphorus 2.5, Magnesium 1.7, Total Bilirubin 0.90, AST 18, ALT 19, Alkaline Phosphatase 135 H, Total Protein 6.3 L, Albumin 2.7 L, Globulin 3.6, Albumin/Globulin Ratio 0.8 L 06/02/23 11:01: POC Glucose 214 H D/C Instructions Discharge Diet: Low fat / Low cholesterol and 1800 Calorie Control Diet Discharge Activity: Return to Normal Activity Meaningful Use Info Meaningful Use Diagnoses (Choose all that apply): None applicable Discharge Plan Admission Admit Date/Time: 06/01/23 08:20 Primary Reason for Your Visit: Fall Attending Provider: Dannielle Sigala Primary Care Provider: Randell Sparks Instructions Additional Instructions / Restrictions: I would recommend avoiding nonsteroidal anti-inflammatories such as Advil or naproxen as able. It is okay to use them periodically but do not use them on a regular basis. Discharge Orders/Prescriptions Prescriptions: New acetaminophen 500 mg Tablet 1,000 mg PO Q8 Qty: 30 0RF oxycodone 5 mg Tablet 5 mg PO Q6H PRN (Reason: pain) 7 Days Qty: 28 0RF Continued doxycycline hyclate 20 mg tablet 20 mg PO BID magnesium oxide 400 mg (241.3 mg magnesium) tablet 400 mg PO BID Citrucel 500 mg tablet 500 mg PO DAILY glipizide 5 mg tablet 5 mg PO BID allopurinol 100 MG tablet 100 mg PO DAILYCM tamsulosin 0.4 MG capsule 0.4 mg PO DAILY trazodone 100 MG tablet 100 mg PO QHS docusate sodium 100 MG capsule 100 mg PO BID finasteride 5 MG tablet 5 mg PO DAILY trospium 20 MG tablet 20 mg PO QHS Patient Comments: bladder Multivitamin 1 tab PO DAILY levothyroxine 150 mcg tablet 225 mcg PO MOWEFR Patient Comments: 150 mcg PO ; 1 tab daily 1/2 tab extra on m w Lantus SoloStar Pen 30 units SC QHS cyanocobalamin (vitamin B-12) 500 MCG tablet 1,000 mcg PO DAILY@0800 ipratropium bromide 15 ML spray,non-aerosol 2 spray NS TID PRN (Reason: ALLERGIES) atorvastatin 20 mg Tablet 20 mg PO QHS ferrous sulfate 325 mg (65 mg iron) Tablet 325 mg PO TID propranolol 20 mg Tablet 20 mg PO BID cholecalciferol (vitamin D3) [Vitamin D3] 125 mcg (5,000 unit) Tablet 50,000 unit PO QMONTH psyllium husk [Metamucil] 0.4 gram Capsule 0.4 g PO BID ropinirole 0.5 mg tablet 1 mg PO TID Eliquis 2.5 mg tablet 5 mg PO BID Hold Instructions: resume 07/27/22 polyethylene glycol 3350 [Miralax] 17 gram Powder In Packet 17 g PO DAILY Hold Instructions: Order Completed levothyroxine 150 mcg Tablet 150 mcg PO SUTUTHSA uvucvget-pelozhvbz-ypiyvlnce 3.5-10,000-10 mg-unit-mg/gram Cream 1 applic TOPICAL DAILY svjdygcogi-iaxqwmfijanc-sqgcxe 1-1-4 % Gel 1 ea TOPICAL DAILY donepezil [Aricept] 5 mg tablet 10 mg PO DAILY pioglitazone [Actos] 45 mg tablet 45 mg PO DAILY ascorbic acid (vitamin C) [Vitamin C] 500 mg Tablet 500 mg PO DAILY Hold Instructions: Order Completed lisinopril 20 mg tablet 20 mg PO DAILY cyclobenzaprine 10 mg tablet 10 mg PO Q8H Patient Comments: TAKE 1 (ONE) Tablet by mouth three times daily] sucralfate [Carafate] 1 gram tablet 1 g PO BID Qty: 60 5RF metoclopramide HCl 5 mg tablet 5 mg PO QHS Qty: 30 5RF pantoprazole 40 mg tablet,delayed release (DR/EC) 40 mg PO DAILY Qty: 30 5RF Referrals / Follow Up: Dion Andrade MD [Med Staff - Active Staff] - See Referral Note (Call for appointment to follow-up with findings noted on imaging) Randell Sparks MD [Primary Care Provider] - Within 1 Week Disposition Disposition (needs filled in before D/C Order can be placed): Home Health Service Charges/Coding Visit Charges Inpatient E&M: 84303 Disch Hosp
--- NOTE | 2023-06-02 15:47 | PHA.DC.MC.R ---
Pharmacy [facility] has performed discharge medication reconciliation and counseling for this patient. 1. ACETAMINOPHEN 1000MG PO Q8 2. OXYCODONE 5MG PO Q6H PRN PAIN The patient's discharge medication list was reviewed for discrepancies and discrepancies were resolved. The patient was counseled on the following discharge medications and changes in medications for homegoing were reviewed. The Reason for Use, instructions for use, and potential side effects were reviewed for all new medications. The patient's questions regarding all of their medications were answered. The patient was able to verbally demonstrate an understanding of their discharge medications. Medications at Discharge Home Medications Multivitamin 1 tab PO DAILY VITAMIN 05/10/15 allopurinol 100 mg tablet 100 mg PO DAILYCM gout 05/10/15 docusate sodium 100 mg capsule 100 mg PO BID constipation 05/10/15 finasteride 5 mg tablet 5 mg PO DAILY prostate 05/10/15 tamsulosin 0.4 mg capsule 0.4 mg PO DAILY prostate 05/10/15 trazodone 100 mg tablet 100 mg PO QHS sleep/mental health 05/10/15 trospium 20 mg tablet 20 mg PO QHS bladder 05/10/15 cyanocobalamin (vitamin B-12) 500 mcg tablet 1,000 mcg PO DAILY@0800 supplement 09/24/17 ipratropium bromide 42 mcg (0.06 %) nasal spray 2 spray NS TID PRN ALLERGIES 09/24/17 levothyroxine 150 mcg tablet 225 mcg PO MOWEFR thyroid 03/06/19 doxycycline hyclate 20 mg tablet 20 mg PO BID ocular rosaca 07/18/19 Lantus SoloStar Pen 30 units subcut QHS diabetes 11/30/19 magnesium oxide 400 mg (241.3 mg magnesium) tablet 400 mg PO BID supplement 11/30/19 atorvastatin 20 mg tablet 20 mg PO QHS cholesterol 06/19/22 cholecalciferol (vitamin D3) 125 mcg (5,000 unit) tablet (Vitamin D3) 50,000 unit PO QMONTH supplement 06/19/22 ferrous sulfate 325 mg (65 mg iron) tablet 325 mg PO TID iron 06/19/22 propranolol 20 mg tablet 20 mg PO BID BP 06/19/22 psyllium husk 0.4 gram capsule (Metamucil) 0.4 g PO BID bowels 06/19/22 sucralfate 1 gram tablet (Carafate) 1 g PO BID esophageal ulcers #60 tabs 07/10/22 ivermectin 1 %-metronidazole 1 %-niacinamide 4 % topical gel 1 ea topical DAILY ROSECA 07/13/22 levothyroxine 150 mcg tablet 150 mcg PO SUTUTHSA thyroid 07/13/22 qttvpwvx-fydtzfrqd-cutmokqfw 3.5 mg-10,000 unit-10 mg/gram top cream 1 applic topical DAILY LEFT EYE 07/13/22 polyethylene glycol 3350 17 gram oral powder packet (Miralax) 17 g PO DAILY constipation 07/13/22 apixaban 2.5 mg tablet (Eliquis) 5 mg PO BID blood thinner 07/17/22 methylcellulose (laxative) 500 mg tablet (Citrucel) 500 mg PO DAILY bowels 07/17/22 ropinirole 0.5 mg tablet 1 mg PO TID parkinsons 07/17/22 donepezil 5 mg tablet (Aricept) 10 mg PO DAILY memory 07/24/22 pioglitazone 45 mg tablet (Actos) 45 mg PO DAILY diabetes 07/24/22 glipizide 5 mg tablet 5 mg PO BID 08/27/22 metoclopramide HCl 5 mg tablet 5 mg PO QHS #30 tabs 02/17/23 pantoprazole 40 mg tablet,delayed release 40 mg PO DAILY #30 tabs 02/17/23 ascorbic acid (vitamin C) 500 mg tablet (Vitamin C) 500 mg PO DAILY 03/29/23 lisinopril 20 mg tablet 20 mg PO DAILY 03/29/23 cyclobenzaprine 10 mg tablet 10 mg PO Q8H 06/01/23 acetaminophen 500 mg tablet 1,000 mg (2 x 500 mg) PO Q8 #30 tabs 06/02/23 oxycodone 5 mg tablet 5 mg PO Q6H PRN pain 7 days #28 tabs 06/02/23
[2023-06-03 04:07] LABS: Carcinoembryonic Antigen 2.7 ng/mL (0.0-4.7)
[2023-06-04 09:57] LABS: Pathologist Review Reviewed
== END 2023-06-02 16:16 | disposition home health service (06) ==
LOC: ED 08:39 → MS3 08:51
PROVIDERS: Admitting Provider Internal Medicine; Emergency Provider Emergency Medicine; PCP Family Medicine; Visit Provider Internal Medicine
DX: R53.1 Weakness (principal); G20 Parkinson's disease; E11.51 Type 2 diabetes mellitus with diabetic peripheral angiopathy without gangrene; K74.60 Unspecified cirrhosis of liver; F02.80 Dementia in other diseases classified elsewhere, unspecified severity, without behavioral disturbance, psychotic disturbance, mood disturbance, and anxiety; C18.2 Malignant neoplasm of ascending colon; E11.65 Type 2 diabetes mellitus with hyperglycemia; I48.0 Paroxysmal atrial fibrillation; E66.01 Morbid (severe) obesity due to excess calories; D69.6 Thrombocytopenia, unspecified; Z79.4 Long term (current) use of insulin; R32 Unspecified urinary incontinence; K29.70 Gastritis, unspecified, without bleeding; K21.9 Gastro-esophageal reflux disease without esophagitis; E03.9 Hypothyroidism, unspecified; Z68.36 Body mass index [BMI] 36.0-36.9, adult; I10 Essential (primary) hypertension; Z79.01 Long term (current) use of anticoagulants; M10.9 Gout, unspecified; E78.5 Hyperlipidemia, unspecified; R26.2 Difficulty in walking, not elsewhere classified; N40.1 Benign prostatic hyperplasia with lower urinary tract symptoms; Z79.899 Other long term (current) drug therapy; Z79.890 Hormone replacement therapy; Z79.84 Long term (current) use of oral hypoglycemic drugs; S51.811A Laceration without foreign body of right forearm, initial encounter; S51.812A Laceration without foreign body of left forearm, initial encounter; W06.XXXA Fall from bed, initial encounter; Y93.89 Activity, other specified; Y92.009 Unspecified place in unspecified non-institutional (private) residence as the place of occurrence of the external cause; M84.58XA Pathological fracture in neoplastic disease, other specified site, initial encounter for fracture
CPT/HCPCS: 36415; 70450; 71101; 72125; 72131; 72170; 80053; 82378; 82962; 83735; 84100; 84153; 85025; 94668; 97161; 97165; 97530; 97802; 99221; 99252; 99285; G0378; G0463

== ENCOUNTER 2023-06-07 09:02 | Observation (INO) | payer OTHER, SELFPAY ==
[2023-06-07 09:06] VITALS: BP 139/74; PULSE 88; RESP 16; TEMP 36.5; O2SAT 96; BMI 35.5
--- NOTE | 2023-06-07 09:30 | EX.ED.DYSGE1 ---
HPI History of Present Illness Chief Complaint: Weakness Informant: patient, spouse/S.O. and EMS Narrative Narrative: Patient presenting for generalized weakness but mostly due to limitation in ADLs because of pain in his low back. He states he was diagnosed with a fractured L2 vertebra at prior ED admission last week, he has been having pain there for maybe 5 or 6 weeks, he is on tramadol, Tylenol, and Flexeril for his pain, it is helping a little when he is at rest but he cannot move, cannot get out of bed cannot get up. Apparently since his last admission he has had 12 different falls EMS has been to his house each time to help with lifting him up, this time, EMS, his significant other who tries to help him at home, and himself all agree he is not safe to be at home. He denies any new symptoms. He has multiple skin tears that his significant other has been helping to nurse, she has been taking good care of them, the one on the left forearm is the worst and he states it is a little sore but not bothering him more than it had been. He denies any fevers or chills. Denies hitting his head since last time he was at the hospital, denies any headaches, significant other agrees he has not been confused, he denies cough, shortness of breath, nausea, vomiting, abdominal pain, basically his only symptoms are feeling weak, having the pain in his back, and the sore skin tears on all 4 extremities. Patient denies any bowel or bladder dysfunction, saddle anesthesia, or focal weakness in the legs compared with the arms. [facility] Medical History BiPAP (biphasic positive airway pressure) dependence Cancer Cardiology follow-up encounter Carotid artery disease Colon cancer Colonic mass Dementia Diabetes mellitus type 2 with neurological manifestations Diabetes mellitus, type II Difficulty swallowing DM (diabetes mellitus), type 2 with peripheral vascular complications Dysphagia Essential hypertension Gastric reflux Hepatitis History of atrial fibrillation History of CVA (cerebrovascular accident) (2007) History of echocardiogram History of GI bleed History of pericarditis (08/2017) History of stress test Hyperlipidemia Hypertension Hypothyroidism Insulin dependent diabetes mellitus Longstanding persistent atrial fibrillation Non-smoker Obstructive sleep apnea Ocular rosacea Parkinson's disease Paroxysmal atrial fibrillation Peripheral vascular disease due to secondary diabetes Prostate disease Restless legs Short-term memory loss Skin tear Stroke/cerebrovascular accident TIA (transient ischemic attack) Urinary incontinence Venous (peripheral) insufficiency Walker as ambulation aid Wears glasses Wears hearing aid Home Medications Multivitamin 1 tab PO DAILY VITAMIN 05/10/15 [History Last Taken 05/31/23] allopurinol 100 mg tablet 100 mg PO DAILYCM gout 05/10/15 [History Last Taken 05/31/23] docusate sodium 100 mg capsule 100 mg PO BID constipation 05/10/15 [History Last Taken 05/31/23] finasteride 5 mg tablet 5 mg PO DAILY prostate 05/10/15 [History Last Taken 05/31/23] tamsulosin 0.4 mg capsule 0.4 mg PO DAILY prostate 05/10/15 [History Last Taken 05/31/23] trazodone 100 mg tablet 100 mg PO QHS sleep/mental health 05/10/15 [History Last Taken 05/31/23] trospium 20 mg tablet 20 mg PO QHS bladder 05/10/15 [History Last Taken 05/31/23] cyanocobalamin (vitamin B-12) 500 mcg tablet 1,000 mcg PO DAILY@0800 supplement 09/24/17 [History Last Taken 05/31/23] ipratropium bromide 42 mcg (0.06 %) nasal spray 2 spray NS TID PRN ALLERGIES 09/24/17 [History Last Taken 05/31/23] levothyroxine 150 mcg tablet 225 mcg PO MOWEFR thyroid 03/06/19 [History Last Taken 05/31/23] doxycycline hyclate 20 mg tablet 20 mg PO BID ocular rosaca 07/18/19 [History Last Taken Unknown] Lantus SoloStar Pen 30 units subcut QHS diabetes 11/30/19 [History Last Taken 05/31/23] magnesium oxide 400 mg (241.3 mg magnesium) tablet 400 mg PO BID supplement 11/30/19 [History Last Taken 05/31/23] atorvastatin 20 mg tablet 20 mg PO QHS cholesterol 06/19/22 [History Last Taken 05/31/23] cholecalciferol (vitamin D3) 125 mcg (5,000 unit) tablet (Vitamin D3) 50,000 unit PO QMONTH supplement 06/19/22 [History Last Taken 05/18/23] ferrous sulfate 325 mg (65 mg iron) tablet 325 mg PO TID iron 06/19/22 [History Last Taken 05/31/23] propranolol 20 mg tablet 20 mg PO BID BP 06/19/22 [History Last Taken 04/01/23 08:45] psyllium husk 0.4 gram capsule (Metamucil) 0.4 g PO BID bowels 06/19/22 [History Last Taken 05/31/23] sucralfate 1 gram tablet (Carafate) 1 g PO BID esophageal ulcers #60 tabs 07/10/22 [Rx Last Taken 05/31/23] ivermectin 1 %-metronidazole 1 %-niacinamide 4 % topical gel 1 ea topical DAILY ROSECA 07/13/22 [History Last Taken Unknown] levothyroxine 150 mcg tablet 150 mcg PO SUTUTHSA thyroid 07/13/22 [History Last Taken 05/31/23] rucrqaeb-zcmmtvcpx-kicgvagto 3.5 mg-10,000 unit-10 mg/gram top cream 1 applic topical DAILY LEFT EYE 07/13/22 [History Last Taken 05/30/23] polyethylene glycol 3350 17 gram oral powder packet (Miralax) 17 g PO DAILY constipation 07/13/22 [History Last Taken Unknown] apixaban 2.5 mg tablet (Eliquis) 5 mg PO BID blood thinner 07/17/22 [History Last Taken 05/31/23] methylcellulose (laxative) 500 mg tablet (Citrucel) 500 mg PO DAILY bowels 07/17/22 [History Last Taken 05/31/23] ropinirole 0.5 mg tablet 1 mg PO TID parkinsons 07/17/22 [History Last Taken 05/31/23] donepezil 5 mg tablet (Aricept) 10 mg PO DAILY memory 07/24/22 [History Last Taken 05/31/23] pioglitazone 45 mg tablet (Actos) 45 mg PO DAILY diabetes 07/24/22 [History Last Taken 05/31/23] glipizide 5 mg tablet 5 mg PO BID 08/27/22 [History Last Taken 05/31/23] metoclopramide HCl 5 mg tablet 5 mg PO QHS #30 tabs 02/17/23 [Rx Last Taken 05/31/23] pantoprazole 40 mg tablet,delayed release 40 mg PO DAILY #30 tabs 02/17/23 [Rx Last Taken 05/31/23] ascorbic acid (vitamin C) 500 mg tablet (Vitamin C) 500 mg PO DAILY 03/29/23 [History Last Taken Unknown] lisinopril 20 mg tablet 20 mg PO DAILY 03/29/23 [History Last Taken 05/31/23] cyclobenzaprine 10 mg tablet 10 mg PO Q8H 06/01/23 [History Last Taken Unknown] acetaminophen 500 mg tablet 1,000 mg (2 x 500 mg) PO Q8 #30 tabs 06/02/23 [Rx Last Taken Unknown] tramadol 50 mg tablet 50 mg PO TID #21 tabs 06/02/23 [Rx Last Taken Unknown] Allergy/AdvReac Type Severity Reaction Status Date / Time niacin Allergy Intermediate rash Verified 04/01/23 09:43 adhesive AdvReac Other: Verified 04/01/23 09:43 takes skin off, inflamed Family History Father CAD (coronary artery disease) Hypertension Heart disease Mother Hypertension Sister Breast cancer CVA (cerebral vascular accident) Brother Kidney disease Surgical History H/O basal cell carcinoma excision History of appendectomy History of cataract extraction History of colectomy History of colonoscopy (~05/2022) History of esophagogastroduodenoscopy (EGD) Status post surgical removal of malignant neoplasm of skin Social History household members: significant other Smoking Status: Never smoker alcohol intake: never substance use type: does not use seatbelt use: always do you feel safe at home: Yes additional social history: Ambulates with a wheeled walker. ROS ROS ED Constitutional Constitutional ED: Denies chills or fever(s) Eyes Eyes: Denies change in vision or diplopia ENT ENT ED: Denies rhinorrhea or sore throat Cardiovascular Cardiovascular: Denies chest pain or palpitations Respiratory/Chest Respiratory/Chest: Denies cough or dyspnea Gastrointestinal Gastrointestinal: Denies abdominal pain, diarrhea, nausea or vomiting Genitourinary Genitourinary ED: Denies dysuria or hematuria Musculoskeletal Musculoskeletal: Reports back pain; Denies neck pain Integumentary Reports other Details: Skin tears see HPI ; Denies abscess or rash Neurologic Neurologic: Denies headache(s), paresthesias or weakness Psychiatric Psychiatric: Denies anxiety or suicidal thoughts EXAM Physical Exam Const Vital Signs: 06/07/23 09:06 06/07/23 09:10 06/07/23 12:24 Temperature 97.7 F L Temperature Source Temporal Pulse Rate 88 72 Respiratory Rate 16 18 Respiratory Effort Normal Non-Labored Respiratory Pattern Normal Blood Pressure 139/74 H 115/74 Blood Pressure Mean 95 87 Pulse Ox 96 96 Oxygen Delivery Method Room Air Positive well nourished and well developed General Appearance ED: well developed and NAD HEENT Reports moist mucous membranes HEENT Narrative: Mild bilateral palpebral conjunctival injection without chemosis or bulbar conjunctivitis normocephalic and atraumatic Eyes PERRL and EOMs intact bilaterally Neck full ROM, no lymphadenopathy, supple and no JVD Resp normal respiratory effort and clear to auscultation bilaterally Cardio regular rate, regular rhythm and no murmurs GI non-tender and non-distended Auscultation: normoactive bowel sounds Palpation: soft Back/Spine Back/Spine Narrative: Lying supine comfortably. General Back: other Limited range of motion due to pain. Extremity Extremity Narrative: Multiple healing skin tears, nothing looks infected, the worst is the left dorsal forearm, it is healing with surrounding ecchymoses due to being anticoagulated, no signs of cellulitis or tenderness away from the tear itself. General Extremety ED: Negative for edema, pulses abnormal or tenderness General Extremity: Negative for edema or pulses abnormal Neuro oriented x3, CN's II-XII intact bilaterally and no sensory deficits noted Sensorium / Orientation: awake and alert Motor Exam: strength 5/5 throughout Psych mental status grossly normal Skin no rashes or lesions noted Skin Narrative: Multiple skin tears on all 4 extremities, most are minor and healing see above MDM MDM MDM Narrative Medical decision making narrative: I reviewed his discharge summary from his recent admission last week. PT and OT felt that he was doing well enough to be discharged home. It sounds like things are different now and the patient will need repeat evaluations and possible placement in assisted and/or assisted living. He had a prior CT of his lumbar spine which I reviewed I do not think that needs to be repeated, he states he has no repeat injury to this area and the pain is in the same area that it had been in her arm around L2. Unknown if this would be amenable to kyphoplasty; doesn't look like IR or PM&R saw him before. History & Record Review Additional record(s) reviewed:: Prior inpatient record and Prior labs Lab Data Attestation: I reviewed the patient's lab results. Labs: Laboratory Results - last 24 hr 06/07/23 09:43 WBC 8.1 RBC 4.26 L Hgb 14.2 Hct 43.5 MCV 102.1 H MCH 33.3 H MCHC 32.6 RDW Std Deviation 57.9 H RDW Coeff of Mariluz 15.3 H Plt Count 172 MPV 9.7 Immature Gran % (Auto) 3.100 H Neut % (Auto) 72.0 H Lymph % (Auto) 15.0 L [place] % (Auto) 8.1 Eos % (Auto) 1.2 Baso % (Auto) 0.6 Absolute Neuts (auto) 5.9 Absolute Lymphs (auto) 1.22 Nucleated RBC % 0 Sodium 135 L Potassium 3.8 Chloride 101 Carbon Dioxide 28.0 Anion Gap 6 BUN 14 Creatinine 0.97 Estim Creat Clear Calc 71.44 Est GFR (MDRD) Af Amer 95 Est GFR (MDRD) Non-Af 79 BUN/Creatinine Ratio 14.5 Glucose 175 H Calcium 9.4 Management Discussion w/another healthcare provider: Hospitalist Discharge Plan Dx/Rx/DC Orders Clinical Impression: Intractable low back pain, Compression fracture of L2, Unable to ambulate, Declining functional status Disposition Disposition: Acute Care [facility]
[2023-06-07 09:54] LABS: Absolute Lymphocyte Count 1.22 X10^3/uL (0.83-4.51); Absolute Neutrophil Count 5.9 X10^3/uL (2.0-7.7); Basophil# 0.05 X10^3/uL; Basophil% 0.6 % (0-1); Eosinophils% 1.2 % (0-5); Hematocrit 43.5 % (40-54); Hemoglobin 14.2 g/dL (13.0-16.5); Lymphocyte # 1.22 X10^3/ul (0.83-4.51); Mean Corp Hgb Conc 32.6 g/dL (32-36); Mean Corpuscular Hgb 33.3 pg (27.0-32.0); Mean Corpuscular Volume 102.1 fL (80-94); Mean Platelet Vol. 9.7 fl (6.2-12.0); Monocyte# 0.66 X10^3/uL; Monocyte% 8.1 % (0-10); NRBC Flagged by Analyzer 0 % (0-5); Neutrophil # 5.86 X10^3/uL (2.7-7.7); Platelet Count 172 K/mm3 (150-450); RBC Distribution Width CV 15.3 % (11.6-14.6); RBC Distribution Width SD 57.9 fl (35.1-43.9); Red Blood Count 4.26 M/mm3 (4.6-6.2); White Blood Count 8.1 K/mm3 (4.4-11.0)
[2023-06-07 10:17] LABS: Anion Gap 6 (5-15); BUN 14 mg/dL (7-18); BUN/Creat Ratio 14.5 RATIO (10-20); Calcium,Total 9.4 mg/dL (8.5-10.1); Chloride 101 mmol/L (98-107); Creatinine, Serum 0.97 mg/dL (0.70-1.30); EST Glomerular Filtration Rate 79 mL/min (>60); Est Glom Filt Rate - Afr Amer 95 mL/min (>60); Estimated Creatinine Clearance 71.44 ml/min; Glucose 175 mg/dL (74-106); Potassium 3.8 mmol/L (3.5-5.1); Sodium Level 135 mmol/L (136-145)
[2023-06-07 12:24] VITALS: BP 115/74; PULSE 72; RESP 18; O2SAT 96
--- NOTE | 2023-06-07 13:05 | NURSING ---
MED SURG OBS EMMETT FUNCTIONAL DECLINE, MULTI FALLS, L2 FX, PAIN
[2023-06-07 13:06] VITALS: BP 115/72; PULSE 73; RESP 18; TEMP 36.6; O2SAT 96
[2023-06-07 13:45] VITALS: BP 121/75; PULSE 88; RESP 18; TEMP 35.8; O2SAT 93; BMI 34.9
--- NOTE | 2023-06-07 13:49 | NURSING ---
CALLED [facility], TALKED TO ORLY. SHE TOOK INFO AND PUT IN THE SYSTEM.
--- NOTE | 2023-06-07 15:04 | HP.PCM.HOS_ITS ---
[facility] - General General Date of Admission: 06/07/23 Date of Service: 06/07/23 Chief Complaint: Weakness. HPI Narrative ALCIDES LOREDO, is a 82 M who presents with weakness. Patient was just admitted and discharged over June 01 the . Patient was found to have an L2 compression fracture. Patient was discharged home. Patient is denies him falling since being home but states that he has been unable to get up. He can get up to sitting but he is not able to stand himself up. This is progressively gotten worse to the point where she is unable to care for him and he was brought to the emergency room. [facility] Medical History BiPAP (biphasic positive airway pressure) dependence Cancer Cardiology follow-up encounter Carotid artery disease Colon cancer Colonic mass Dementia Diabetes mellitus type 2 with neurological manifestations Diabetes mellitus, type II Difficulty swallowing DM (diabetes mellitus), type 2 with peripheral vascular complications Dysphagia Essential hypertension Gastric reflux Hepatitis History of atrial fibrillation History of CVA (cerebrovascular accident) (2007) History of echocardiogram History of GI bleed History of pericarditis (08/2017) History of stress test Hyperlipidemia Hypertension Hypothyroidism Insulin dependent diabetes mellitus Longstanding persistent atrial fibrillation Non-smoker Obstructive sleep apnea Ocular rosacea Parkinson's disease Paroxysmal atrial fibrillation Peripheral vascular disease due to secondary diabetes Prostate disease Restless legs Short-term memory loss Skin tear Stroke/cerebrovascular accident TIA (transient ischemic attack) Urinary incontinence Venous (peripheral) insufficiency Walker as ambulation aid Wears glasses Wears hearing aid Home Medications allopurinol 100 mg tablet 100 mg PO DAILYCM gout 05/10/15 [History Last Taken 06/06/23] docusate sodium 100 mg capsule 100 mg PO BID constipation 05/10/15 [History Last Taken 06/06/23] finasteride 5 mg tablet 5 mg PO DAILY prostate 05/10/15 [History Last Taken 06/06/23] tamsulosin 0.4 mg capsule 0.4 mg PO DAILY prostate 05/10/15 [History Last Taken 06/06/23] trazodone 100 mg tablet 100 mg PO QHS sleep/mental health 05/10/15 [History Last Taken 06/06/23] trospium 20 mg tablet 20 mg PO QHS bladder 05/10/15 [History Last Taken 06/06/23] cyanocobalamin (vitamin B-12) 500 mcg tablet 1,000 mcg PO DAILY@0800 supplement 09/24/17 [History Last Taken 06/06/23] ipratropium bromide 42 mcg (0.06 %) nasal spray 2 spray NS TID PRN ALLERGIES 09/24/17 [History Last Taken 05/31/23] levothyroxine 150 mcg tablet 225 mcg PO MOWEFR thyroid 03/06/19 [History Last Taken 06/07/23] doxycycline hyclate 20 mg tablet 20 mg PO BID ocular rosaca 07/18/19 [History Last Taken 06/06/23] magnesium oxide 400 mg (241.3 mg magnesium) tablet 400 mg PO BID supplement 01/18 [History Last Taken 06/06/23] atorvastatin 20 mg tablet 20 mg PO QHS cholesterol 06/19/22 [History Last Taken 06/06/23] cholecalciferol (vitamin D3) 125 mcg (5,000 unit) tablet (Vitamin D3) 50,000 unit PO QMONTH supplement 06/19/22 [History Last Taken 05/18/23] ferrous sulfate 325 mg (65 mg iron) tablet 325 mg PO TID iron 06/19/22 [History Last Taken 06/06/23] propranolol 20 mg tablet 20 mg PO BID BP 06/19/22 [History Last Taken 06/06/23] psyllium husk 0.4 gram capsule (Metamucil) 0.4 g PO BID bowels 06/19/22 [History Last Taken 06/06/23] sucralfate 1 gram tablet (Carafate) 1 g PO BID esophageal ulcers #60 tabs 07/10/22 [Rx Last Taken 06/06/23] ivermectin 1 %-metronidazole 1 %-niacinamide 4 % topical gel 1 ea topical DAILY ROSECA 07/13/22 [History Last Taken 06/06/23] levothyroxine 150 mcg tablet 150 mcg PO DAILY thyroid 07/13/22 [History Last Taken 06/07/23] bdtkrafo-xkowetvfn-qrkgtttlo 3.5 mg-10,000 unit-10 mg/gram top cream 1 applic topical DAILY LEFT EYE 07/13/22 [History Last Taken 05/31/23] polyethylene glycol 3350 17 gram oral powder packet (Miralax) 17 g PO DAILY constipation 07/13/22 [History Last Taken 06/06/23] methylcellulose (laxative) 500 mg tablet (Citrucel) 500 mg PO DAILY bowels 07/17/22 [History Last Taken 06/07/23] donepezil 5 mg tablet (Aricept) 10 mg PO DAILY memory 07/24/22 [History Last Taken 06/06/23] pioglitazone 45 mg tablet (Actos) 45 mg PO DAILY diabetes 07/24/22 [History Last Taken 06/06/23] glipizide 5 mg tablet 5 mg PO BID 08/27/22 [History Last Taken 06/06/23] metoclopramide HCl 5 mg tablet 5 mg PO QHS #30 tabs 02/17/23 [Rx Last Taken 0 06/06/23] pantoprazole 40 mg tablet,delayed release 40 mg PO DAILY #30 tabs 02/17/23 [Rx Last Taken 06/07/23] lisinopril 20 mg tablet 20 mg PO DAILY 03/29/23 [History Last Taken 06/06/23] cyclobenzaprine 10 mg tablet 10 mg PO Q8H 06/01/23 [History Last Taken 06/07/23] tramadol 50 mg tablet 50 mg PO TID #21 tabs 06/02/23 [Rx Last Taken 06/07/23] acetaminophen 500 mg tablet 1,000 mg PO BID 06/07/23 [History Last Taken 06/06/23] apixaban 5 mg tablet (Eliquis) 5 mg PO BID BLOOD THINNER 06/07/23 [History Last Taken 06/06/23] insulin glargine 100 unit/mL (3 mL) subcutaneous pen (Lantus Solostar U-100 Insulin) 30 unit subcut QHS DM 06/07/23 [History Last Taken 06/06/23] loratadine 10 mg tablet 10 mg PO LUNCH ALLERGIES 06/07/23 [History Last Taken 06/06/23] koyyikmk-gk-jmglf 300 mcg-K 60 mcg-lycop 600 mcg-lutein 300 mcg tablet (Men 50 Plus Multivitamin) 1 tab PO DAILY 06/07/23 [History Last Taken 06/06/23] riboflavin (vitamin B2) 100 mg tablet 100 mg PO DAILY 06/07/23 [History Last Taken 06/06/23] ropinirole 1 mg tablet 1 mg PO TID 06/07/23 [History Last Taken 06/07/23] Allergy/AdvReac Type Severity Reaction Status Date / Time niacin Allergy Intermediate rash Verified 04/01/23 09:43 adhesive AdvReac Other: Verified 04/01/23 09:43 takes skin off, inflamed Family History Father CAD (coronary artery disease) Hypertension Heart disease Mother Hypertension Sister Breast cancer CVA (cerebral vascular accident) Brother Kidney disease Surgical History H/O basal cell carcinoma excision History of appendectomy History of cataract extraction History of colectomy History of colonoscopy (~05/2022) History of esophagogastroduodenoscopy (EGD) Status post surgical removal of malignant neoplasm of skin Social History household members: significant other Smoking Status: Never smoker alcohol intake: never substance use type: does not use seatbelt use: always do you feel safe at home: Yes additional social history: Ambulates with a wheeled walker. ROS ROS Narrative Denies any paresthesias. States that when he tries to stand up his legs are just weak. Denies any bowel or bladder incontinence. All review of systems were negative except as mentioned above in the history of present illness and the other review of systems. Vital Signs Vital Signs Vital Signs: 06/07/23 09:06 06/07/23 09:10 06/07/23 12:24 Temperature 36.5 C L Temperature Source Temporal Pulse Rate 88 72 Respiratory Rate 16 18 Respiratory Effort Normal Non-Labored Respiratory Pattern Normal Blood Pressure 139/74 H 115/74 Blood Pressure Mean 95 87 Pulse Ox 96 96 Oxygen Delivery Method Room Air 06/07/23 13:06 Temperature 36.6 C Temperature Source Temporal Pulse Rate 73 Respiratory Rate 18 Respiratory Effort Respiratory Pattern Blood Pressure 115/72 Blood Pressure Mean 86 Pulse Ox 96 Oxygen Delivery Method Room Air Weight Weight: 133.4 kg Body Mass Index (BMI) 34.9 Physical Exam Const alert and no apparent distress HEENT normocephalic and head/scalp atraumatic Eyes Eyes Narrative: No icterus Resp normal respiratory effort, no retractions, no use of accessory muscles and clear to auscultation bilaterally Cardio regular rate, regular rhythm, S1 normal heart sound and S2 normal heart sound GI normal to inspection, nondistended, normoactive bowel sounds, soft to palpation, non-tender and non-distended Extremity normal to inspection Neuro oriented x3 and CN's II-XII intact bilaterally Neuro Narrative: Tremulous of the upper extremities bilaterally. Sensation grossly intact in bilateral lower extremities Sensorium / Orientation: awake and alert Results Lab / Micro Data 06/07/23 09:43 06/07/23 09:43 Labs: Laboratory Results - last 24 hr 06/07/23 09:43: WBC 8.1, RBC 4.26 L, Hgb 14.2, Hct 43.5, MCV 102.1 H, MCH 33.3 H , MCHC 32.6, RDW Std Deviation 57.9 H, RDW Coeff of Mariluz 15.3 H, Plt Count 172, MPV 9.7, Immature Gran % (Auto) 3.100 H, Neut % (Auto) 72.0 H, Lymph % (Auto) 15.0 L, [place] % (Auto) 8.1, Eos % (Auto) 1.2, Baso % (Auto) 0.6, Absolute Neuts (auto) 5.9, Absolute Lymphs (auto) 1.22, Nucleated RBC % 0, Sodium 135 L, Potassium 3.8, Chloride 101, Carbon Dioxide 28.0, Anion Gap 6, BUN 14, Creatinine 0.97, Estim Creat Clear Calc 71.44, Est GFR (MDRD) Af Amer 95, Est GFR (MDRD) Non-Af 79, BUN/Creatinine Ratio 14.5, Glucose 175 H, Calcium 9.4 Assessment & Plan Assessment/Plan (1) Generalized weakness: PLAN: Unable to get up and care for himself. No acute reversible causes identified this admission. PT OT evaluate and treat Anticipate the patient may require nursing home facility upon discharge. (2) Compression fracture of L2: QUALIFIERS: Encounter type: subsequent encounter Fracture healing: with routine healing Qualified Code(s): S32.020D - Wedge compression fracture of second lumbar vertebra, subsequent encounter for fracture with routine healing PLAN: Subsequent Check 25-hydroxy vitamin D level. Pain control Patient does have a history of a colon cancer but that was a stage III. Unlik telly to be metastatic lesion that caused this. Patient also also does have a history of a melanoma but that was resected and patient never required chemotherapy for either the these cancers. PLAN: Plan Chronic conditions * Parkinson's disease: Continue with ropinirole * Neuropathy: Continue ropinirole * Diabetes mellitus type 2: Insulin-dependent. * Colon cancer * Stroke * Hyperlipidemia * Hypothyroidism: Continue levothyroxine * Paroxysmal atrial fibrillation: Continue with apixaban * Gout: Continue allopurinol * GERD: Continue with pantoprazole and Sucre fate VTE prophylaxis: Not indicated as patient is already anticoagulated. CODE STATUS: Addressed with the patient. Patient wished to be full code. Discussed with the patient's at bedside. Charges/Coding Visit Charges Inpatient E&M: 92353 Init Hosp L2
[2023-06-07] MEDS: cycloBENZAPRine HCl 10 MG Tablet PO ×2 (17:22→23:36)
[2023-06-07] MEDS: Ferrous Sulfate 325 MG Tablet PO (17:23)
[2023-06-07] MEDS: glipiZIDE 5 MG Tablet PO (17:23)
[2023-06-07] MEDS: Tamsulosin HCl 0.4 MG Capsule PO (17:26)
[2023-06-07 17:37] LABS: Bedside Glucose 145 mg/dL (74-106)
[2023-06-07 17:44] LABS: Vitamin D,25 Hydroxy 58.3 ng/mL
[2023-06-07 21:09] VITALS: BP 146/84; PULSE 91; RESP 18; TEMP 36.6; O2SAT 98
[2023-06-07] MEDS: Atorvastatin Calcium 20 MG Tablet PO (21:18)
[2023-06-07] MEDS: Magnesium Chloride 64 MG Delay Rel.Tablet 128 MG PO (21:18)
[2023-06-07] MEDS: traZODone 100 MG Tablet PO (21:18)
[2023-06-07] MEDS: Propranolol 10 MG Tablet 20 MG PO (21:19)
[2023-06-07] MEDS: Metoclopramide 5 MG TABLET PO (21:19)
[2023-06-07] MEDS: Pramipexole Di-HCl 0.5 MG Tablet PO (21:19)
[2023-06-07] MEDS: Acetaminophen 500 MG Tablet 1000 MG PO (21:19)
[2023-06-07] MEDS: APIXABAN 5 MG TABLET PO (21:19)
[2023-06-07] MEDS: Docusate Sodium 100 MG Capsule PO (21:19)
[2023-06-07] MEDS: Insulin Glargine-YFGN 100 UNIT/ML Pen 30 UNIT SC (21:20)
[2023-06-08 00:18] LABS: Bedside Glucose 191 mg/dL (74-106)
[2023-06-08 03:21] VITALS: BP 142/87; PULSE 86; RESP 18; TEMP 36.8; O2SAT 94
[2023-06-08] MEDS: oxyCODONE 5 MG Tablet PO (04:45)
[2023-06-08] MEDS: Sucralfate 1 GM Tablet PO ×2 (06:23→16:20)
[2023-06-08] MEDS: Pramipexole Di-HCl 0.5 MG Tablet PO ×3 (06:23→21:40)
[2023-06-08] MEDS: glipiZIDE 5 MG Tablet PO ×2 (06:23→16:21)
[2023-06-08] MEDS: Insulin Lispro 100 UNIT/ML INSULN.PEN SC ×3 (06:27→16:52)
[2023-06-08 06:52] LABS: Bedside Glucose 191 mg/dL (74-106)
--- NOTE | 2023-06-08 07:42 | PN.HOSP_ITS ---
Reason for Visit Reason for Visit: Diagnoses Weakness (06/07/23) Wedge compression fracture of second lumbar vertebra, subsequent encounter for fracture with routine healing (06/07/23) Subjective Subjective Still with back pain when he moves. Objective Data Objective Data Vital Signs: Vital Signs Temp Pulse Resp BP Pulse Ox O2 Del Method 36.8 C 86 18 142/87 H 94 CPAP 06/08/23 03:21 06/08/23 03:21 06/08/23 03:21 06/08/23 03:21 06/08/23 03:21 06/08/23 03:21 Oxygen Delivery Method CPAP Weight: 133.4 kg Body Mass Index (BMI) 34.9 Intake & Output: Intake and Output for Last 24 Hours 06/06/23 06/07/23 06/08/23 23:59 23:59 23:59 Intake Total 240 / 240 Output Total 1800 / 1800 1000 / 1000 Balance -1560 / -1560 -1000 / -1000 Lab / Micro Data 06/07/23 09:43 06/07/23 09:43 Labs: Laboratory Results - last 24 hr 06/07/23 09:43: WBC 8.1, RBC 4.26 L, Hgb 14.2, Hct 43.5, MCV 102.1 H, MCH 33.3 H , MCHC 32.6, RDW Std Deviation 57.9 H, RDW Coeff of Mariluz 15.3 H, Plt Count 172, MPV 9.7, Immature Gran % (Auto) 3.100 H, Neut % (Auto) 72.0 H, Lymph % (Auto) 15.0 L, [place] % (Auto) 8.1, Eos % (Auto) 1.2, Baso % (Auto) 0.6, Absolute Neuts (auto) 5.9, Absolute Lymphs (auto) 1.22, Nucleated RBC % 0, Sodium 135 L, Potassium 3.8, Chloride 101, Carbon Dioxide 28.0, Anion Gap 6, BUN 14, Creatinine 0.97, Estim Creat Clear Calc 71.44, Est GFR (MDRD) Af Amer 95, Est GF R (MDRD) Non-Af 79, BUN/Creatinine Ratio 14.5, Glucose 175 H, Calcium 9.4 06/07/23 16:18: Vitamin D 25-Hydroxy 58.3 06/07/23 17:07: POC Glucose 145 H 06/07/23 21:11: POC Glucose 191 H 06/08/23 06:20: POC Glucose 191 H Physical Exam Const alert and no apparent distress HEENT head/scalp atraumatic and moist oral mucous membranes Resp normal respiratory effort, no retractions and no use of accessory muscles Cardio regular rate, regular rhythm, S1 normal heart sound and S2 normal heart sound GI normal to inspection, nondistended, normoactive bowel sounds, soft to palpation, non-tender and non-distended Assessment & Plan Assessment/Plan (1) Generalized weakness: PLAN: Unable to get up and care for himself. No acute reversible causes identified this admission. PT OT evaluate and treat Anticipate the patient may require assisted facility upon discharge. (2) Compression fracture of L2: QUALIFIERS: Encounter type: subsequent encounter Fracture healing: with routine healing Qualified Code(s): S32.020D - Wedge compression fracture of second lumbar vertebra, subsequent encounter for fracture with routine healing PLAN: Subsequent 25-hydroxy vitamin D level 58.3. Pain control Patient does have a history of a colon cancer but that was a stage III. Unlikely to be metastatic lesion that caused this. Patient also also does have a history of a melanoma but that was resected and patient never required chemotherapy for either the these cancers. PLAN: Plan Chronic conditions * Parkinson's disease: Continue with ropinirole * Neuropathy: Continue ropinirole * Diabetes mellitus type 2: Insulin-dependent. * Colon cancer * Stroke * Hyperlipidemia * Hypothyroidism: Continue levothyroxine * Paroxysmal atrial fibrillation: Continue with apixaban * Gout: Continue allopurinol * GERD: Continue with pantoprazole and Sucralfate * AARON: CPAP VTE prophylaxis: Not indicated as patient is already anticoagulated. CODE STATUS: Addressed with the patient. Patient wished to be full code. Disposition: to SNF pending patient selection and insurance authorization. Charges/Coding Visit Charges Inpatient E&M: 38922 Subs Hosp L2
[2023-06-08] MEDS: cycloBENZAPRine HCl 10 MG Tablet PO ×3 (08:20→23:25)
[2023-06-08] MEDS: Ferrous Sulfate 325 MG Tablet PO ×3 (08:22→16:22)
[2023-06-08] MEDS: Allopurinol 100 MG Tablet PO (08:23)
[2023-06-08] MEDS: Cyanocobalamin 500 MCG Tablet 1000 MCG PO (08:23)
[2023-06-08] MEDS: Levothyroxine 150 MCG Tablet PO (08:26)
[2023-06-08 09:20] VITALS: BP 138/95; PULSE 93; RESP 18; TEMP 36.1; O2SAT 94
[2023-06-08] MEDS: Pantoprazole Sodium 40 MG Tablet PO (10:28)
[2023-06-08] MEDS: Acetaminophen 500 MG Tablet 1000 MG PO ×2 (10:28→21:40)
[2023-06-08] MEDS: Docusate Sodium 100 MG Capsule PO ×2 (10:28→21:40)
[2023-06-08] MEDS: APIXABAN 5 MG TABLET PO ×2 (10:28→21:40)
[2023-06-08] MEDS: Lisinopril 20 MG Tablet PO (10:28)
[2023-06-08] MEDS: Finasteride 5 MG Tablet PO (10:28)
[2023-06-08] MEDS: Propranolol 10 MG Tablet 20 MG PO ×2 (10:29→21:39)
[2023-06-08] MEDS: Multivitamins,Ther W-Minerals Tablet 1 TABLET PO (10:29)
[2023-06-08] MEDS: Donepezil HCl 10 MG Tablet PO (10:29)
[2023-06-08] MEDS: Psyllium 1 PACKET PO ×2 (10:29→21:39)
[2023-06-08] MEDS: Magnesium Chloride 64 MG Delay Rel.Tablet 128 MG PO ×2 (10:29→21:39)
[2023-06-08] MEDS: Pioglitazone Hydrochloride 45 MG Tablet PO (10:29)
[2023-06-08] MEDS: Tolterodine Tartrate 2 MG CAP.SA PO (10:29)
[2023-06-08] MEDS: Polyethylene Glycol 3350 17 GM PACKET PO (10:29)
[2023-06-08] MEDS: 0.9% Saline Lock 10 ML Syringe IV (10:52)
--- NOTE | 2023-06-08 11:35 | CASEMGMT ---
RN LYNNETTE Face to Face with patient for initial transition planning/care coordination assessment. RN CM introduced self and role at [facility]. Patient lying in bed, alert and oriented. Patient willing to participate in assessment and is able to answer all questions appropriately. Care providers, pharmacy, and demographics verified. Patient wishes to SNF, list to be provided to patient. Patient states he has no further needs or concerns at this time. SW notified on SNF request. CM to follow for discharge planning needs that may arise. PCP: [facility] Specialists: Raymond, oncologist; Friend, GI; Kosta, disability representative Preferred Pharmacy: [facility] Insurance: [employer] [facility] Prescription Benefit: yes Living Will/HPOA: yes, GF Rona Good LNOK: GF Living Arrangements: Patient lives with girlfriend in a first floor apartment with no steps to enter the home. Patient was independent at home prior to fall on 06/01 Transportation: Girlfriend DME/HHC: Patient has cane, grab bars, walker, rollator, cpap, and pulse ox at home. Patient has been to TCU in the past. Patient has had [facility]HC in the past. Disposition Plan: SNF Pending acceptance and precert. Francesca PATRICK, RN, CM
--- NOTE | 2023-06-08 11:52 | CASEMGMT ---
Per RN CM patient would like to go to a SNF. SW asked Jenny ambriz/christopher child and youth program assistant to please print a list of SNF's. Rhoda MUÑOZ
[2023-06-08 11:54] LABS: Bedside Glucose 266 mg/dL (74-106)
[2023-06-08] MEDS: Loratadine 10 MG Tablet PO (13:00)
--- NOTE | 2023-06-08 13:44 | CASEMGMT ---
Discharge Planning SNF list created and sent to SW. Jenny Correia, Discharge Planning Asst.
--- NOTE | 2023-06-08 14:53 | CHAPLAIN ---
Type of Pastoral Visit _x__ Initial Visit ___ Follow-up Visit ___ On-call Visit ___ General Patient Visit ___ Spiritual Assessment ___ Family Conference ___ Bereavement ___ Rapid Response ___ Code Blue ___ Other (describe below) Pastoral Care Referral From _x__ Patient ___ Family ___ Nurse ___ Physician ___ Environmental Sciences Professor ___ Machine Feeder ___ Other (describe below) Sacrament/Intervention _x__ Active listening ___ Anointing ___ Tenriism ___ Bereavement ___ Communion ___ Noreen exploration ___ _x__ Life review _x__ Prayer ___ Reconciliation ___ Sacrament of Sick _x__ Supportive presence ___ Wedding ___ Other (describe below) Pastoral Comments patient is welcoming and speaks at length about the staff getting him up out of bed and to sit in the chair; pt was unable to be mobile and has concerns about his abilities in the future; pt has a SO who is short and unable to physically help me; pt has a jehovah's witness connection and welcomes spiritual care and presence of the certified forklift operator to talk with; pt welcomes prayer
[2023-06-08 15:20] VITALS: BP 127/90; PULSE 87; RESP 18; TEMP 36.2; O2SAT 93
--- NOTE | 2023-06-08 15:27 | CASEMGMT ---
Therapy is recommending patient go to a long-term facility (SNF) for short term rehab. VALENTINA met with patient and his significant other Rona. Introduced self and role at [facility]. VALENTINA provided patient and Rona with a list of?halfway Facility providers including quality and resource use data and consistent with patient?s preferred geographic region, medical needs, and insurance network were provided from the [facility] Guide. Their first choice is [facility], but that is not on the list. TCU would be their second choice. VALENTINA let them know VALENTINA can check with TCU. Rona said she left a message for someone at [facility] to see if they can assist with SNF. Rona said that [facility] has a section for [facility] patients for rehab. Rona asked if VALENTINA could check on this. VALENTINA called VALENTINA Lyons at [facility] in [place] and left her a voice mail requesting a return call. VALENTINA also did make a referral to TCU. Rhoda MUÑOZ
--- NOTE | 2023-06-08 15:34 | CASEMGMT ---
ABI CHURCH in to complete NEIL form. ABI CHURCH explained NEIL form to patient, patient voiced understanding. Patient preferred girlfriend ANALY Mendieta to sign NEIL form, Rona signed NEIL form. Patient provided copy of signed NEIL form. Original filed in chart. Patient had no further questions or concerns at this time.
--- NOTE | 2023-06-08 15:56 | CASEMGMT ---
SW received a return call from Shashank at the [facility]. Patient is not service connected so [place] will not pay for skilled nursing stay unless patient goes to a SNF on hospice. SW thanked her for the return call. VALENTINA let patient and his significant other know that patient is not service connected so [place] will not assist with cost of SNF. SW let them know SW still has a referral out to TCU. SW did ask that they look at list and have some other options in mind in the event TCU says no. They thanked VALENTINA for the assistance. Plan: SNF pending accepting facility and pre-cert. Rhoda Ralph PIPE SMOKING MACHINE OPERATOR TONI
[2023-06-08] MEDS: Tamsulosin HCl 0.4 MG Capsule PO (16:30)
[2023-06-08] MEDS: CLARIFY ORDER 1 EACH NOTE (16:56)
[2023-06-08 17:17] LABS: Bedside Glucose 225 mg/dL (74-106)
[2023-06-08 19:54] VITALS: BP 119/71; PULSE 89; RESP 16; TEMP 36.3; O2SAT 98
[2023-06-08] MEDS: traZODone 100 MG Tablet PO (21:39)
[2023-06-08] MEDS: Metoclopramide 5 MG TABLET PO (21:40)
[2023-06-08] MEDS: Atorvastatin Calcium 20 MG Tablet PO (21:40)
[2023-06-08] MEDS: Insulin Glargine-YFGN 100 UNIT/ML Pen 30 UNIT SC (21:41)
[2023-06-08 23:26] VITALS: BP 111/72; PULSE 94; RESP 18; TEMP 36.4; O2SAT 93
[2023-06-09 06:16] VITALS: BP 100/69; PULSE 83; RESP 18; TEMP 36.5; O2SAT 96
[2023-06-09] MEDS: Pramipexole Di-HCl 0.5 MG Tablet PO ×3 (06:17→21:49)
[2023-06-09] MEDS: Sucralfate 1 GM Tablet PO ×2 (06:17→15:36)
[2023-06-09] MEDS: Insulin Lispro 100 UNIT/ML INSULN.PEN SC ×3 (06:17→17:16)
[2023-06-09] MEDS: Levothyroxine 150 MCG Tablet PO (06:17)
[2023-06-09] MEDS: glipiZIDE 5 MG Tablet PO ×2 (06:17→15:36)
[2023-06-09] MEDS: Levothyroxine 75 MCG Tablet PO (06:17)
[2023-06-09 07:19] LABS: Bedside Glucose 238 mg/dL (74-106)
--- NOTE | 2023-06-09 08:19 | PN.HOSP_ITS ---
Reason for Visit Reason for Visit: Diagnoses Weakness (06/07/23) Wedge compression fracture of second lumbar vertebra, subsequent encounter for fracture with routine healing (06/07/23) Subjective Subjective Still with back pain. Objective Data Objective Data Vital Signs: Vital Signs Temp Pulse Resp BP Pulse Ox O2 Del Method 36.5 C L 83 18 100/69 96 Room Air 06/09/23 06:16 06/09/23 06:16 06/09/23 06:16 06/09/23 06:16 06/09/23 06:16 06/09/23 08:13 Oxygen Delivery Method Room Air Weight: 133.4 kg Body Mass Index (BMI) 34.9 Intake & Output: Intake and Output for Last 24 Hours 06/07/23 06/08/23 06/09/23 23:59 23:59 23:59 Intake Total 240 / 240 840 / 840 Output Total 1800 / 1800 2495 / 2795 750 / 750 Balance -1560 / -1560 -1655 / -1955 -750 / -750 Lab / Micro Data 06/07/23 09:43 06/07/23 09:43 Labs: Laboratory Results - last 24 hr 06/08/23 10:55: POC Glucose 266 H 06/08/23 16:50: POC Glucose 225 H 06/09/23 06:14: POC Glucose 238 H Physical Exam Const alert and no apparent distress HEENT head/scalp atraumatic Psych affect normal Assessment & Plan Assessment/Plan (1) Generalized weakness: PLAN: Unable to get up and care for himself. No acute reversible causes identified this admission. PT OT evaluate and treat Anticipate the patient may require group home facility upon discharge. (2) Compression fracture of L2: QUALIFIERS: Encounter type: subsequent encounter Fracture healing: with routine healing Qualified Code(s): S32.020D - Wedge compression fracture of second lumbar vertebra, subsequent encounter for fracture with rou edson healing PLAN: Subsequent 25-hydroxy vitamin D level 58.3. Pain control Patient does have a history of a colon cancer but that was a stage III. Unlikely to be metastatic lesion that caused this. Patient also also does have a history of a melanoma but that was resected and patient never required chemotherapy for either the these cancers. PLAN: Plan Chronic conditions * Parkinson's disease: Continue with ropinirole * Neuropathy: Continue ropinirole * Diabetes mellitus type 2: Insulin-dependent. * Colon cancer * Stroke * Hyperlipidemia * Hypothyroidism: Continue levothyroxine * Paroxysmal atrial fibrillation: Continue with apixaban * Gout: Continue allopurinol * GERD: Continue with pantoprazole and Sucralfate * AARON: CPAP VTE prophylaxis: Not indicated as patient is already anticoagulated. CODE STATUS: Addressed with the patient. Patient wished to be full code. Disposition: to SNF pending patient selection and insurance authorization. Medically stable for discharge. Charges/Coding Visit Charges Inpatient E&M: 96682 [facility] Hosp L1
[2023-06-09 09:10] VITALS: BP 126/72; PULSE 89; RESP 18; TEMP 36.8; O2SAT 98
[2023-06-09] MEDS: Finasteride 5 MG Tablet PO (09:15)
[2023-06-09] MEDS: Pantoprazole Sodium 40 MG Tablet PO (09:15)
[2023-06-09] MEDS: Tolterodine Tartrate 2 MG CAP.SA PO (09:16)
[2023-06-09] MEDS: Propranolol 10 MG Tablet 20 MG PO ×2 (09:16→21:50)
[2023-06-09] MEDS: Lisinopril 20 MG Tablet PO (09:16)
[2023-06-09] MEDS: Multivitamins,Ther W-Minerals Tablet 1 TABLET PO (09:16)
[2023-06-09] MEDS: APIXABAN 5 MG TABLET PO ×2 (09:17→21:50)
[2023-06-09] MEDS: Acetaminophen 500 MG Tablet 1000 MG PO ×2 (09:17→21:51)
[2023-06-09] MEDS: Donepezil HCl 10 MG Tablet PO (09:18)
[2023-06-09] MEDS: cycloBENZAPRine HCl 10 MG Tablet PO ×3 (09:18→23:43)
[2023-06-09] MEDS: Pioglitazone Hydrochloride 45 MG Tablet PO (09:18)
[2023-06-09] MEDS: Allopurinol 100 MG Tablet PO (09:18)
[2023-06-09] MEDS: Docusate Sodium 100 MG Capsule PO ×2 (09:18→21:50)
[2023-06-09] MEDS: Cyanocobalamin 500 MCG Tablet 1000 MCG PO (09:19)
[2023-06-09] MEDS: Magnesium Chloride 64 MG Delay Rel.Tablet 128 MG PO ×2 (09:19→21:49)
[2023-06-09] MEDS: Ferrous Sulfate 325 MG Tablet PO ×3 (09:19→17:16)
[2023-06-09] MEDS: Neomycin/Bacitracin/Polymyxin Ointment 1 APPLIC TOPICAL (09:21)
--- NOTE | 2023-06-09 09:30 | CASEMGMT ---
TCU is unable to accept patient. VALENTINA notified patient and he asked SW to call his significant other Rona regarding a decision. VALENTINA called Rona and let her know TCU does not have any availability for patient. VALENTINA let Rona know SW will need to know some other choices this am. Rona asked VALENTINA to transfer the call to patient's room. VALENTINA transferred phone call. Plan: SNF pending family choices, accepting facility, and insurance approval. Rhoda Ralph MSW TONI
[2023-06-09] MEDS: oxyCODONE 5 MG Tablet PO (10:53)
[2023-06-09] MEDS: Loratadine 10 MG Tablet PO (10:53)
--- NOTE | 2023-06-09 11:35 | CASEMGMT ---
Social Work SW spoke w/pt's significant other, Rona. She states they would like a referral sent to [facility]. SW explained will send referral. Rona asked about transport getting pt there. SW explained initially would send in a w/c van, and that he would likely get a bill for it. However, pt does have compression fractures so if he is painful may qualify for ambulance, SW explained this to Rona. She states understanding. SW send referral to [facility] via [facility]. SW will continue to follow. LUIS Aviles
[2023-06-09 11:46] LABS: Bedside Glucose 242 mg/dL (74-106)
--- NOTE | 2023-06-09 13:29 | CASEMGMT ---
Discharge Planning [facility] skilled unit declined patient. SW notified. Jenny Correia, Discharge Planning Asst.
--- NOTE | 2023-06-09 14:04 | CASEMGMT ---
VALENTINA met with patient and his significant other Rona. SW told them [facility] is not able to accept patient. They discussed further options and their next 2 choices are [facility]. VALENTINA asked Jenny d/christopher planning advisor to please send referrals to [facility]. Rhoda Ralph EDGE KITTER TONI
--- NOTE | 2023-06-09 14:18 | CASEMGMT ---
Discharge Planning Referral made to both [facility] and [facility] via [facility]. Jenny Correia, Discharge Planning Asst.
[2023-06-09 15:10] VITALS: BP 106/66; PULSE 85; RESP 18; TEMP 36.7; O2SAT 94
--- NOTE | 2023-06-09 15:27 | CASEMGMT ---
[facility] accepted patient. [facility] has not responded whether or not they can take patient. VALETNINA called patient's significant other Rona and let her know this information. Rona said she would like [facility]. VALENTINA let Rona know insurance will likely approve tomorrow. VALENTINA notified Jenny d/c environmental planning engineer to notify [facility] to start pre-cert and [facility] to disregard referral. Plan: [facility] pending insurance approval. Rhoda Ralph ONCOLOGY TRANSPLANT NETWORK MANAGER BOTTLE MACHINE OPERATOR
--- NOTE | 2023-06-09 15:29 | CASEMGMT ---
Discharge Planning [facility] accepted patient and he would like to proceed. Updated [facility] that they are foc and asked to begin pre-cert. [place] asked to disregard referral. Jenny Correia, Discharge Planning Asst.
[2023-06-09] MEDS: Tamsulosin HCl 0.4 MG Capsule PO (17:16)
[2023-06-09 18:21] LABS: Bedside Glucose 227 mg/dL (74-106)
[2023-06-09 21:10] VITALS: BP 128/74; PULSE 93; RESP 16; TEMP 36.4; O2SAT 94
[2023-06-09] MEDS: Metoclopramide 5 MG TABLET PO (21:49)
[2023-06-09] MEDS: traZODone 100 MG Tablet PO (21:49)
[2023-06-09] MEDS: Atorvastatin Calcium 20 MG Tablet PO (21:51)
[2023-06-09] MEDS: Insulin Glargine-YFGN 100 UNIT/ML Pen 30 UNIT SC (21:55)
[2023-06-09 22:21] LABS: Bedside Glucose 239 mg/dL (74-106)
[2023-06-10 03:00] VITALS: BP 124/74; PULSE 95; RESP 16; TEMP 36.7; O2SAT 95
[2023-06-10 06:31] LABS: Bedside Glucose 188 mg/dL (74-106)
[2023-06-10] MEDS: Levothyroxine 150 MCG Tablet PO (06:44)
[2023-06-10] MEDS: Sucralfate 1 GM Tablet PO ×2 (06:44→16:08)
[2023-06-10] MEDS: glipiZIDE 5 MG Tablet PO ×2 (06:46→16:08)
[2023-06-10] MEDS: Pramipexole Di-HCl 0.5 MG Tablet PO ×2 (06:46→14:28)
[2023-06-10] MEDS: Insulin Lispro 100 UNIT/ML INSULN.PEN SC ×3 (06:47→16:08)
--- NOTE | 2023-06-10 08:53 | PN.HOSP_ITS ---
Reason for Visit Reason for Visit: Diagnoses Weakness (06/07/23) Wedge compression fracture of second lumbar vertebra, subsequent encounter for fracture with routine healing (06/07/23) Subjective Subjective No new events. Objective Data Objective Data Vital Signs: Vital Signs Temp Pulse Resp BP Pulse Ox O2 Del Method 36.7 C 95 16 124/74 H 95 Room Air 06/10/23 03:00 06/10/23 03:00 06/10/23 03:00 06/10/23 03:00 06/10/23 03:00 06/10/23 03:57 Oxygen Delivery Method Room Air Weight: 133.4 kg Body Mass Index (BMI) 34.9 Intake & Output: Intake and Output for Last 24 Hours 06/08/23 06/09/23 06/10/23 23:59 23:59 23:59 Intake Total 840 / 840 720 / 1070 550 / 550 Output Total 2495 / 2795 1475 / 2075 600 / 600 Balance -1655 / -1955 -755 / -1005 -50 / -50 Lab / Micro Data 06/07/23 09:43 06/07/23 09:43 Labs: Laboratory Results - last 24 hr 06/09/23 11:23: POC Glucose 242 H 06/09/23 17:11: POC Glucose 227 H 06/09/23 21:55: POC Glucose 239 H 06/10/23 06:07: POC Glucose 188 H Physical Exam Const alert and no apparent distress HEENT head/scalp atraumatic and moist oral mucous membranes Resp normal respiratory effort, no retractions, no use of accessory muscles and clear to auscultation bilaterally Psych affect normal Assessment & Plan Assessment/Plan (1) Generalized weakness: PLAN: Unable to get up and care for himself. No acute reversible causes identified this admission. PT OT evaluate and treat Anticipate the patient may require residential facility upon discharge. (2) Compression fracture of L2: QUALIFIERS: Encounter type: subsequent encounter Fracture healing: with routine healing Qualified Code(s): S32.020D - Wedge compression fracture of second lumbar vertebra, subsequent encounter for fracture with routine healing PLAN: Subsequent 25-hydroxy vitamin D level 58.3. Pain control Patient does have a history of a colon cancer but that was a stage III. Unlikely to be metastatic lesion that caused this. Patient also also does have a history of a melanoma but that was resected and patient never required chemotherapy for either the these cancers. PLAN: Plan Chronic conditions * Parkinson's disease: Continue with ropinirole * Neuropathy: Continue ropinirole * Diabetes mellitus type 2: Insulin-dependent. * Colon cancer * Stroke * Hyperlipidemia * Hypothyroidism: Continue levothyroxine * Paroxysmal atrial fibrillation: Continue with apixaban * Gout: Continue allopurinol * GERD: Continue with pantoprazole and Sucralfate * AARON: CPAP VTE prophylaxis: Not indicated as patient is already anticoagulated. CODE STATUS: Addressed with the patient. Patient wished to be full code. Disposition: to [facility] pending insurance authorization. Medically stable for discharge. Charges/Coding Visit Charges Inpatient E&M: 90218 [facility] Hosp L1
[2023-06-10 09:00] VITALS: BP 117/71; PULSE 98; RESP 18; TEMP 36.3; O2SAT 94
[2023-06-10] MEDS: APIXABAN 5 MG TABLET PO (09:38)
[2023-06-10] MEDS: Finasteride 5 MG Tablet PO (09:38)
[2023-06-10] MEDS: Docusate Sodium 100 MG Capsule PO (09:39)
[2023-06-10] MEDS: Lisinopril 20 MG Tablet PO (09:39)
[2023-06-10] MEDS: Magnesium Chloride 64 MG Delay Rel.Tablet 128 MG PO (09:42)
[2023-06-10] MEDS: Donepezil HCl 10 MG Tablet PO (09:43)
[2023-06-10] MEDS: Multivitamins,Ther W-Minerals Tablet 1 TABLET PO (09:43)
[2023-06-10] MEDS: Propranolol 10 MG Tablet 20 MG PO (09:43)
[2023-06-10] MEDS: Cyanocobalamin 500 MCG Tablet 1000 MCG PO (09:44)
[2023-06-10] MEDS: Ferrous Sulfate 325 MG Tablet PO ×3 (09:44→16:08)
[2023-06-10] MEDS: cycloBENZAPRine HCl 10 MG Tablet PO ×2 (09:44→14:28)
[2023-06-10] MEDS: Tolterodine Tartrate 2 MG CAP.SA PO (09:45)
[2023-06-10] MEDS: Pioglitazone Hydrochloride 45 MG Tablet PO (09:45)
[2023-06-10] MEDS: Allopurinol 100 MG Tablet PO (09:45)
[2023-06-10] MEDS: Acetaminophen 500 MG Tablet 1000 MG PO (09:46)
[2023-06-10] MEDS: Pantoprazole Sodium 40 MG Tablet PO (09:46)
[2023-06-10] MEDS: Neomycin/Bacitracin/Polymyxin Ointment 1 APPLIC TOPICAL (09:48)
[2023-06-10] MEDS: Loratadine 10 MG Tablet PO (11:57)
--- NOTE | 2023-06-10 12:01 | TREXTCAR_ITS ---
Diet Diet Order/Speech Therapy: 06/07/23 15:14 Diet: Consistent Carb - Calorie Controlled Food consistency:: Regular Liquid Consistency:: Regular/Thin Is pt able to select menu?: Yes How many daily calories?: 2000 calorie Routine Orders/Code Status Routine Lab Work: CBC and BMP Wound(s) lfa: Wound Type: Skin Tear rfa: Wound Type: Skin Tear b/l elbows: Wound Type: Skin Tear l dunbar: Wound Type: Skin Tear Therapies Weight Bearing: Full weight bearing Extremity Affected:: Bilateral Lower Physical Therapy: Eval and Treat Occupational Therapy: Eval and Treat Problem/Diagnosis (1) Generalized weakness: Status: Acute Code(s): R53.1 - Weakness Plan: Unable to get up and care for himself. No acute reversible causes identified this admission. PT OT evaluate and treat Anticipate the patient may require snf facility upon discharge. (2) Compression fracture of L2: Status: Acute Code(s): S32.020A - Wedge compression fracture of second lumbar vertebra, initial encounter for closed fracture Plan: Subsequent 25-hydroxy vitamin D level 58.3. Pain control Patient does have a history of a colon cancer but that was a stage III. Unlikely to be metastatic lesion that caused this. Patient also also does have a history of a melanoma but that was resected and patient never required chemotherapy for either the these cancers. Plan Chronic conditions * Parkinson's disease: Continue with ropinirole * Neuropathy: Continue ropinirole * Diabetes mellitus type 2: Insulin-dependent. * Colon cancer * Stroke * Hyperlipidemia * Hypothyroidism: Continue levothyroxine * Paroxysmal atrial fibrillation: Continue with apixaban * Gout: Continue allopurinol * GERD: Continue with pantoprazole and Sucralfate * AARON: CPAP VTE prophylaxis: Not indicated as patient is already anticoagulated. CODE STATUS: Addressed with the patient. Patient wished to be full code. Disposition: to [facility] pending insurance authorization. Medically stable for discharge. Allergies/Procedures Done in Hospital Allergies niacin Allergy (Intermediate, Verified 04/01/23 09:43) rash adhesive Adverse Reaction (Verified 04/01/23 09:43) Other: takes skin off, inflamed Type of Care/Length of Stay Estimated LOS: Convalescent Care Less Than 30 days Type of Care Needed: Skilled Rehab Potential: Good Prognosis: Good Additional Orders/Day of Discharge Day of Discharge: 06/10/23 Discharge Plan Admission Admit Date/Time: 06/07/23 14:55 Primary Reason for Your Visit: debility Attending Provider: Hilario Baires Primary Care Provider: Randell Sparks Discharge Orders/Prescriptions Prescriptions: New insulin lispro [Humalog KwikPen Insulin] 100 unit/mL Insulin Pen See Protocol subcut TIDAC Qty: 0 0RF Protocol: 3. Sliding Scale Insulin Med Dosing Condition: 150-189 mg/dl = 1 unit Condition: 190-229 mg/dl = 2 units Condition: 230-269 mg/dl = 3 units Condition: 270-309 mg/dl = 4 units Condition: 310-349 mg/dl = 5 units Condition: 350-399 mg/dl = 6 units Condition: 400-449 mg/dl = 7 units Condition: Greater than 449 call physician Protocol Text: - Use for Total Daily Dose of Insulin 37-55 units - Obsese, infected, or steroid patients MEDIUM DOSING ALGORITHIM oxycodone 5 mg Tablet 5 mg PO Q4H PRN PRN (Reason: Pain Score 4-10) 3 Days Qty: 12 0RF Continued doxycycline hyclate 20 mg tablet 20 mg PO BID magnesium oxide 400 mg (241.3 mg magnesium) tablet 400 mg PO BID Citrucel 500 mg tablet 500 mg PO DAILY glipizide 5 mg tablet 5 mg PO BID allopurinol 100 MG tablet 100 mg PO DAILYCM tamsulosin 0.4 MG capsule 0.4 mg PO DAILY trazodone 100 MG tablet 100 mg PO QHS docusate sodium 100 MG capsule 100 mg PO BID finasteride 5 MG tablet 5 mg PO DAILY trospium 20 MG tablet 20 mg PO QHS Patient Comments: bladder levothyroxine 150 mcg tablet 225 mcg PO MOWEFR Patient Comments: PT TAKES 1 TABLET DAILY AND ON MONDAYS, WEDNESDAYS, AND FRIDAYS TAKES ADDITIONAL 1/2 TAB FOR A TOTAL DOSE OF 225MCG. cyanocobalamin (vitamin B-12) 500 MCG tablet 1,000 mcg PO DAILY@0800 ipratropium bromide 15 ML spray,non-aerosol 2 spray NS TID PRN (Reason: ALLERGIES) Patient Comments: SEASONAL ALLERGIES atorvastatin 20 mg Tablet 20 mg PO QHS ferrous sulfate 325 mg (65 mg iron) Tablet 325 mg PO TID propranolol 20 mg Tablet 20 mg PO BID cholecalciferol (vitamin D3) [Vitamin D3] 125 mcg (5,000 unit) Tablet 50,000 unit PO QMONTH Patient Comments: PT TAKES AROUND THE 2OTH OF EVERY MONTH ON WEDNESDAY. psyllium husk [Metamucil] 0.4 gram Capsule 0.4 g PO BID polyethylene glycol 3350 [Miralax] 17 gram Powder In Packet 17 g PO DAILY Hold Instructions: Order Completed levothyroxine 150 mcg Tablet 150 mcg PO DAILY Patient Comments: PT TAKES 1 TABLET DAILY AND ON MONDAYS, WEDNESDAYS, AND FRIDAYS TAKES ADDITIONAL 1/2 TAB FOR A TOTAL DOSE OF 225MCG. scintuoi-wbmmrvpnp-osckemokr 3.5-10,000-10 mg-unit-mg/gram Cream 1 applic TOPICAL DAILY riuhfoynfx-xhytopssmnui-zycesw 1-1-4 % Gel 1 ea TOPICAL DAILY donepezil [Aricept] 5 mg tablet 10 mg PO DAILY pioglitazone [Actos] 45 mg tablet 45 mg PO DAILY lisinopril 20 mg tablet 20 mg PO DAILY cyclobenzaprine 10 mg tablet 10 mg PO Q8H Patient Comments: TAKE 1 (ONE) Tablet by mouth three times daily] Eliquis 5 mg tablet 5 mg PO BID ropinirole 1 mg tablet 1 mg PO TID Patient Comments: PT TAKES BEFORE BREAKFAST, LUCNH, AND BED TIME loratadine 10 mg tablet 10 mg PO LUNCH riboflavin (vitamin B2) 100 mg tablet 100 mg PO DAILY Patient Comments: PT GETS TIME RELEASED TABS OTC Men 50 Plus Multivitamin [id number] mcg tablet 1 tab PO DAILY insulin glargine [Lantus Solostar U-100 Insulin] 100 unit/mL (3 mL) insulin pen 30 unit subcut QHS acetaminophen 500 mg Tablet 1,000 mg PO BID sucralfate [Carafate] 1 gram tablet 1 g PO BID Qty: 60 5RF metoclopramide HCl 5 mg tablet 5 mg PO QHS Qty: 30 5RF pantoprazole 40 mg tablet,delayed release (DR/EC) 40 mg PO DAILY Qty: 30 5RF Discontinued tramadol 50 mg tablet 50 mg PO TID Qty: 21 0RF Referrals / Follow Up: Randell Sparks MD [Primary Care Provider] - Within 2 Weeks [facility] [Provider Group] - 08/30/23 3:00 pm [facility] [Provider Group] - 06/18/23 2:30 pm Disposition Disposition (needs filled in before D/C Order can be placed): Group Home Facility (2) Compression fracture of L2 Qualifiers: Encounter type: subsequent encounter Fracture healing: with routine healing Qualified Code(s): S32.020D - Wedge compression fracture of second lumbar vertebra, subsequent encounter for fracture with routine healing
[2023-06-10 12:39] LABS: Bedside Glucose 262 mg/dL (74-106)
--- NOTE | 2023-06-10 13:55 | CASEMGMT ---
Patient has a Healthcare Power of Factory Maintenance Manager and a Healthcare Living Will on file at [facility]. Patient's Healthcare Power of Factory Maintenance Manager is his significant other Rona Meadows. Rhoda MUÑOZ
[2023-06-10] MEDS: oxyCODONE 5 MG Tablet PO (14:30)
--- NOTE | 2023-06-10 15:35 | CASEMGMT ---
Patient was approved to go to [facility]. SW notified RN, physician, and patient's significant other. Await orders. Plan d/c to [facility] under skilled level of care on a PASRR as patient was observation status. Physicians will transport patient via cot. Rhoda MUÑOZ
--- NOTE | 2023-06-10 15:43 | DS.PCM_ITS ---
Providers Date of Admission: 06/07/23 Primary Care Physician: Dr. Randell Sparks MD Reason For Visit: WEAKNESS Diagnosis Discharge Diagnosis (1) Generalized weakness: Status: Acute Code(s): R53.1 - Weakness Plan: Unable to get up and care for himself. No acute reversible causes identified this admission. PT OT evaluate and treat Anticipate the patient may require prison facility upon discharge. (2) Compression fracture of L2: Status: Acute Code(s): S32.020A - Wedge compression fracture of second lumbar vertebra, initial encounter for closed fracture Qualifiers: Encounter type: subsequent encounter Fracture healing: with routine healing Qualified Code(s): S32.020D - Wedge compression fracture of second lumbar vertebra, subsequent encounter for fracture with routine healing Plan: Subsequent 25-hydroxy vitamin D level 58.3. Pain control Patient does have a history of a colon cancer but that was a stage III. Unlikely to be metastatic lesion that caused this. Patient also also does have a history of a melanoma but that was resected and patient never required chemotherapy for either the these cancers. Plan Chronic conditions * Parkinson's disease: Continue with ropinirole * Neuropathy: Continue ropinirole * Diabetes mellitus type 2: Insulin-dependent. * Colon cancer * Stroke * Hyperlipidemia * Hypothyroidism: Continue levothyroxine * Paroxysmal atrial fibrillation: Continue with apixaban * Gout: Continue allopurinol * GERD: Continue with pantoprazole and Sucralfate * AARON: CPAP VTE prophylaxis: Not indicated as patient is already anticoagulated. CODE STATUS: Addressed with the patient. Patient wished to be full code. Disposition: to [facility] pending insurance authorization. Medically stable for discharge. Medications at Discharge Home Medications allopurinol 100 mg tablet 100 mg PO DAILYCM gout 05/10/15 docusate sodium 100 mg capsule 100 mg PO BID constipation 05/10/15 finasteride 5 mg tablet 5 mg PO DAILY prostate 05/10/15 tamsulosin 0.4 mg capsule 0.4 mg PO DAILY prostate 05/10/15 trazodone 100 mg tablet 100 mg PO QHS sleep/mental health 05/10/15 trospium 20 mg tablet 20 mg PO QHS bladder 05/10/15 cyanocobalamin (vitamin B-12) 500 mcg tablet 1,000 mcg PO DAILY@0800 supplement 09/24/17 ipratropium bromide 42 mcg (0.06 %) nasal spray 2 spray NS TID PRN ALLERGIES 09/24/17 levothyroxine 150 mcg tablet 225 mcg PO MOWEFR thyroid 03/06/19 doxycycline hyclate 20 mg tablet 20 mg PO BID ocular rosaca 07/18/19 magnesium oxide 400 mg (241.3 mg magnesium) tablet 400 mg PO BID supplement 11/30/19 atorvastatin 20 mg tablet 20 mg PO QHS cholesterol 06/19/22 cholecalciferol (vitamin D3) 125 mcg (5,000 unit) tablet (Vitamin D3) 50,000 unit PO QMONTH supplement 06/19/22 ferrous sulfate 325 mg (65 mg iron) tablet 325 mg PO TID iron 06/19/22 propranolol 20 mg tablet 20 mg PO BID BP 06/19/22 psyllium husk 0.4 gram capsule (Metamucil) 0.4 g PO BID bowels 06/19/22 sucralfate 1 gram tablet (Carafate) 1 g PO BID esophageal ulcers #60 tabs 07/10/22 ivermectin 1 %-metronidazole 1 %-niacinamide 4 % topical gel 1 ea topical DAILY ROSECA 07/13/22 levothyroxine 150 mcg tablet 150 mcg PO DAILY thyroid 07/13/22 xujuthgo-obbjyeufe-xmrgrkqqr 3.5 mg-10,000 unit-10 mg/gram top cream 1 applic topical DAILY LEFT EYE 07/13/22 polyethylene glycol 3350 17 gram oral powder packet (Miralax) 17 g PO DAILY constipation 07/13/22 methylcellulose (laxative) 500 mg tablet (Citrucel) 500 mg PO DAILY bowels 07/17/22 donepezil 5 mg tablet (Aricept) 10 mg PO DAILY memory 07/24/22 pioglitazone 45 mg tablet (Actos) 45 mg PO DAILY diabetes 07/24/22 glipizide 5 mg tablet 5 mg PO BID 08/27/22 metoclopramide HCl 5 mg tablet 5 mg PO QHS #30 tabs 02/17/23 pantoprazole 40 mg tablet,delayed release 40 mg PO DAILY #30 tabs 02/17/23 lisinopril 20 mg tablet 20 mg PO DAILY 03/29/23 cyclobenzaprine 10 mg tablet 10 mg PO Q8H 06/01/23 acetaminophen 500 mg tablet 1,000 mg PO BID 06/07/23 apixaban 5 mg tablet (Eliquis) 5 mg PO BID BLOOD THINNER 06/07/23 insulin glargine 100 unit/mL (3 mL) subcutaneous pen (Lantus Solostar U-100 Insulin) 30 unit subcut QHS DM 06/07/23 loratadine 10 mg tablet 10 mg PO LUNCH ALLERGIES 06/07/23 moecekxy-ng-tqqpx 300 mcg-K 60 mcg-lycop 600 mcg-lutein 300 mcg tablet (Men 50 Plus Multivitamin) 1 tab PO DAILY 06/07/23 riboflavin (vitamin B2) 100 mg tablet 100 mg PO DAILY 06/07/23 ropinirole 1 mg tablet 1 mg PO TID 06/07/23 insulin lispro 100 unit/mL subcutaneous pen (Humalog KwikPen (U-100) Insulin) See Protocol subcut TIDAC #0 mL 06/10/23 oxycodone 5 mg tablet 5 mg PO Q4H PRN PRN Pain Score 4-10 3 days #12 tabs 06/10/23 Hospital Course Operations None Procedures None Summary of Care Provided Minutes Spent on Discharge: 28 Weight / BMI Weight Weight: 133.4 kg Body Mass Index (BMI) 34.9 ABG / Lab / Microbiology Data 06/07/23 09:43 06/07/23 09:43 Laboratory: Laboratory Results - last 24 hr 06/09/23 17:11: POC Glucose 227 H 06/09/23 21:55: POC Glucose 239 H 06/10/23 06:07: POC Glucose 188 H 06/10/23 11:55: POC Glucose 262 H Meaningful Use Info Meaningful Use Diagnoses (Choose all that apply): None applicable Discharge Plan Admission Admit Date/Time: 06/07/23 14:55 Primary Reason for Your Visit: debility Attending Provider: Hilario Baires Primary Care Provider: Randell Sparks Discharge Orders/Prescriptions Prescriptions: New insulin lispro [Humalog KwikPen Insulin] 100 unit/mL Insulin Pen See Protocol subcut TIDAC Qty: 0 0RF Protocol: 3. Sliding Scale Insulin Med Dosing Condition: 150-189 mg/dl = 1 unit Condition: 190-229 mg/dl = 2 units Condition: 230-269 mg/dl = 3 units Condition: 270-309 mg/dl = 4 units Condition: 310-349 mg/dl = 5 units Condition: 350-399 mg/dl = 6 units Condition: 400-449 mg/dl = 7 units Condition: Greater than 449 call physician Protocol Text: - Use for Total Daily Dose of Insulin 37-55 units - Obsese, infected, or steroid patients MEDIUM DOSING ALGORITHIM oxycodone 5 mg Tablet 5 mg PO Q4H PRN PRN (Reason: Pain Score 4-10) 3 Days Qty: 12 0RF Continued doxycycline hyclate 20 mg tablet 20 mg PO BID magnesium oxide 400 mg (241.3 mg magnesium) tablet 400 mg PO BID Citrucel 500 mg tablet 500 mg PO DAILY glipizide 5 mg tablet 5 mg PO BID allopurinol 100 MG tablet 100 mg PO DAILYCM tamsulosin 0.4 MG capsule 0.4 mg PO DAILY trazodone 100 MG tablet 100 mg PO QHS docusate sodium 100 MG capsule 100 mg PO BID finasteride 5 MG tablet 5 mg PO DAILY trospium 20 MG tablet 20 mg PO QHS Patient Comments: bladder levothyroxine 150 mcg tablet 225 mcg PO MOWEFR Patient Comments: PT TAKES 1 TABLET DAILY AND ON MONDAYS, WEDNESDAYS, AND FRIDAYS TAKES ADDITIONAL 1/2 TAB FOR A TOTAL DOSE OF 225MCG. cyanocobalamin (vitamin B-12) 500 MCG tablet 1,000 mcg PO DAILY@0800 ipratropium bromide 15 ML spray,non-aerosol 2 spray NS TID PRN (Reason: ALLERGIES) Patient Comments: SEASONAL ALLERGIES atorvastatin 20 mg Tablet 20 mg PO QHS ferrous sulfate 325 mg (65 mg iron) Tablet 325 mg PO TID propranolol 20 mg Tablet 20 mg PO BID cholecalciferol (vitamin D3) [Vitamin D3] 125 mcg (5,000 unit) Tablet 50,000 unit PO QMONTH Patient Comments: PT TAKES AROUND THE 2OTH OF EVERY MONTH ON WEDNESDAY. psyllium husk [Metamucil] 0.4 gram Capsule 0.4 g PO BID polyethylene glycol 3350 [Miralax] 17 gram Powder In Packet 17 g PO DAILY Hold Instructions: Order Completed levothyroxine 150 mcg Tablet 150 mcg PO DAILY Patient Comments: PT TAKES 1 TABLET DAILY AND ON MONDAYS, WEDNESDAYS, AND FRIDAYS TAKES ADDITI ONAL 1/2 TAB FOR A TOTAL DOSE OF 225MCG. aujdjoru-nxcfwayfq-hovekajoi 3.5-10,000-10 mg-unit-mg/gram Cream 1 applic TOPICAL DAILY ckghmupfuo-udfpvtyqwpyz-gcbcje 1-1-4 % Gel 1 ea TOPICAL DAILY donepezil [Aricept] 5 mg tablet 10 mg PO DAILY pioglitazone [Actos] 45 mg tablet 45 mg PO DAILY lisinopril 20 mg tablet 20 mg PO DAILY cyclobenzaprine 10 mg tablet 10 mg PO Q8H Patient Comments: TAKE 1 (ONE) Tablet by mouth three times daily] Eliquis 5 mg tablet 5 mg PO BID ropinirole 1 mg tablet 1 mg PO TID Patient Comments: PT TAKES BEFORE BREAKFAST, LUCNH, AND BED TIME loratadine 10 mg tablet 10 mg PO LUNCH riboflavin (vitamin B2) 100 mg tablet 100 mg PO DAILY Patient Comments: PT GETS TIME RELEASED TABS OTC Men 50 Plus Multivitamin 621-14-139-300 mcg tablet 1 tab PO DAILY insulin glargine [Lantus Solostar U-100 Insulin] 100 unit/mL (3 mL) insulin pen 30 unit subcut QHS acetaminophen 500 mg Tablet 1,000 mg PO BID sucralfate [Carafate] 1 gram tablet 1 g PO BID Qty: 60 5RF metoclopramide HCl 5 mg tablet 5 mg PO QHS Qty: 30 5RF pantoprazole 40 mg tablet,delayed release (DR/EC) 40 mg PO DAILY Qty: 30 5RF Discontinued tramadol 50 mg tablet 50 mg PO TID Qty: 21 0RF Referrals / Follow Up: [facility] [Provider Group] - 08/30/23 3:00 pm [facility] [Provider Group] - 06/18/23 2:30 pm Randell Sparks MD [Primary Care Provider] - Within 2 Weeks Disposition Disposition (needs filled in before D/C Order can be placed): [facility]
[2023-06-10 15:55] VITALS: BP 117/71; PULSE 98; RESP 18; TEMP 36.3; O2SAT 94
--- NOTE | 2023-06-10 15:57 | CASEMGMT ---
Discharge Planning Discharge orders and transport time sent to [facility] via [facility]. [facility] will transport patient by cot at 7p. Patient, his sig other, nursing and SW notified. Jenny Correia, Discharge Planning Asst.
[2023-06-10] MEDS: Tamsulosin HCl 0.4 MG Capsule PO (16:08)
[2023-06-10 18:14] LABS: Bedside Glucose 198 mg/dL (74-106)
--- NOTE | 2023-06-10 18:56 | NURSING ---
Report called to nurse Lopez for pt to be d/c to [facility].
== END 2023-06-10 20:52 | disposition skilled nursing facility (03) ==
LOC: ED 12:58 → PCU 13:20
PROVIDERS: Emergency Provider Emergency Medicine; PCP Family Medicine
DX: R53.1 Weakness (principal); G20 Parkinson's disease; E11.51 Type 2 diabetes mellitus with diabetic peripheral angiopathy without gangrene; F02.80 Dementia in other diseases classified elsewhere, unspecified severity, without behavioral disturbance, psychotic disturbance, mood disturbance, and anxiety; E11.40 Type 2 diabetes mellitus with diabetic neuropathy, unspecified; I48.11 Longstanding persistent atrial fibrillation; Z79.4 Long term (current) use of insulin; M48.56XD Collapsed vertebra, not elsewhere classified, lumbar region, subsequent encounter for fracture with routine healing; I10 Essential (primary) hypertension; E78.5 Hyperlipidemia, unspecified; E03.9 Hypothyroidism, unspecified; Z79.890 Hormone replacement therapy; Z79.899 Other long term (current) drug therapy; K21.9 Gastro-esophageal reflux disease without esophagitis; G47.33 Obstructive sleep apnea (adult) (pediatric); Z79.01 Long term (current) use of anticoagulants; M10.9 Gout, unspecified
CPT/HCPCS: 36415; 80048; 82306; 82962; 85025; 92526; 92610; 97110; 97162; 97166; 97530; 97535; 99221; 99285; A4216; G0378

== ENCOUNTER → 2023-09-14 | Outpatient (CLI) | payer MEDICARE, SELFPAY ==
--- NOTE | 2023-09-14 12:55 | CT_ITS ---
EXAM: CT ABDOMEN AND PELVIS WITH INTRAVENOUS CONTRAST CLINICAL INDICATION: MONITOR COLON CA TECHNIQUE: Helically acquired images were obtained of the abdomen and pelvis with intravenous contrast. This CT exam was performed using one or more of the following dose reduction techniques: automated exposure control, adjustment of the mA and/or kV according to patient size, and/or use of iterative reconstruction technique. CONTRAST: IV 100mL Isovue-370 COMPARISON: CT Abdomen Pelvis dated 09/07/2022 FINDINGS: LOWER THORAX: Normal. Lung bases are clear. No cardiomegaly. No pericardial effusion. ABDOMEN: LIVER: Lobulated contour of the liver again noted which raises possibility of underlying cirrhosis. GALLBLADDER AND BILE DUCTS: Gallbladder is surgically absent. PANCREAS: Normal. No focal cystic or solid mass. SPLEEN: Normal. Normal size without focal cystic or solid mass. ADRENALS: Normal. No nodules. KIDNEYS AND URETERS: Normal. Normal renal size and position. No hydronephrosis. 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 Diverticulosis of the colon noted without evidence of acute diverticulitis. PELVIS: APPENDIX: See above. BLADDER: Normal. REPRODUCTIVE: Unremarkable as visualized. No mass. ABDOMEN and PELVIS: INTRAPERITONEAL SPACE: Normal. No ascites or other fluid collection. No free air. BONES/JOINTS: No suspicious lytic or blastic abnormality. SOFT TISSUES: Normal. No discrete abdominal or pelvic wall hernia. VASCULATURE: Normal. Abdominal aorta is non-dilated. LYMPH NODES: Normal. No enlarged lymph nodes. CT/Abdomen/Pelvis W IV Cont ONLY IMPRESSION: 1. Question liver cirrhosis. 2. 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 3. Diverticulosis coli. Electronically Signed: Anibal Lopez MD at 16:55 EDT ,
[2023-09-14 13:04] LABS: Absolute Lymphocyte Count 1.69 X10^3/uL (0.83-4.51); Absolute Neutrophil Count 4.6 X10^3/uL (2.0-7.7); Basophil# 0.03 X10^3/uL; Basophil% 0.4 % (0-1); Eosinophil# 0.06 X10^3/uL; Eosinophils% 0.9 % (0-5); Hematocrit 49.1 % (40-54); Hemoglobin 15.7 g/dL (13.0-16.5); Lymphocyte # 1.69 X10^3/ul (0.83-4.51); Mean Corpuscular Hgb 33.3 pg (27.0-32.0); Mean Corpuscular Volume 104.2 fL (80-94); Mean Platelet Vol. 9.8 fl (6.2-12.0); Monocyte% 7.1 % (0-10); NRBC Flagged by Analyzer 0 % (0-5); Neutrophil # 4.61 X10^3/uL (2.7-7.7); Neutrophil % 65.5 % (47-70); Platelet Count 173 K/mm3 (150-450); RBC Distribution Width CV 15.4 % (11.6-14.6); RBC Distribution Width SD 59.7 fl (35.1-43.9); Red Blood Count 4.71 M/mm3 (4.6-6.2)
[2023-09-14 13:26] LABS: Vitamin B12 798 pg/mL (211-911)
[2023-09-14 13:34] LABS: CREATININE FINGERSTICK < 0.9 mg/dL (0.70-1.30); EGFR FINGERSTICK > 60.0000 mL/min (>60)
[2023-09-14 14:04] LABS: ALB/GLOB Ratio 0.9 RATIO (0.9-2.4); AST(SGOT) 27 U/L (15-37); Alanine Aminotransfer ALT/SGPT 33 U/L (16-61); Albumin, Serum 3.6 g/dL (3.2-5.0); Alkaline Phosphatase 131 U/L (45-117); Anion Gap 6 (5-15); BUN 26 mg/dL (7-18); BUN/Creat Ratio 20.5 RATIO (10-20); Calcium,Total 9.8 mg/dL (8.5-10.1); Chloride 104 mmol/L (98-107); Creatinine, Serum 1.27 mg/dL (0.70-1.30); EST Glomerular Filtration Rate 57 mL/min (>60); Est Glom Filt Rate - Afr Amer 69 mL/min (>60); Glucose 240 mg/dL (74-106); LDH 206 U/L (87-241); Protein, Total 7.6 g/dL (6.4-8.2); Sodium Level 138 mmol/L (136-145)
[2023-09-15 04:07] LABS: Carcinoembryonic Antigen 2.9 ng/mL (0.0-4.7)
== END | disposition home or self-care (01) ==
LOC: CT 12:41
PROVIDERS: PCP Family Medicine; Referring Provider Internal Medicine Medical Oncology; Visit Provider Internal Medicine Medical Oncology
DX: C18.2 Malignant neoplasm of ascending colon (principal)
CPT/HCPCS: 36415; 74177; 80053; 82378; 82607; 82746; 83615; 85025; Q9967

== ENCOUNTER 2023-11-19 12:49 | Outpatient (RCR) | payer MEDICARE, SELFPAY ==
--- NOTE | 2023-11-19 14:52 | HP.SP.EV_ITS ---
Visit History Visit Info Date of Eval: 11/19/23 Visit: 1 Paint Stripper: JOHNNIE Haywood Attending Doctor: TERRANCE Reason for Referral: DYSPHAGIA / RX HERE Previous speech therapy: No Results: Hx of MBSS from 02/17/23. See results below. Other Relevant Medical History/Diagnoses/Surgery: ALCIDES LOREDO is an 83 year old male who presents to [facility] Speech Therapy following a frustrating two years of esophageal dysphagia. He was accompanied by his , Rona, who helped serve as historian. He has a medical history of esophageal dysmotility, falls, colon cancer, liver cirrhosis, sleep apnea, and Parkinsonism characteristics. Salty reports his biggest concern is that during and after meals or snacks, his nose will run profusely (clear) and he will gag and cough up clear mucous or slime as they call it. He is being treated for reflux with pantoprazole. His sleep apnea is treated via BiPap with 17-13 per Rona's notes -- he has had sleep apnea for over 30 years. At rest, he does breath through his mouth. Smoking Status: Never smoker Pain Is pain an issue with your current prescribed condition?: No Personal Preferred language: Yakut Patient Allergies Allergies Allergies: Allergies niacin Allergy (Intermediate, Verified 09/21/23 14:04) rash adhesive Adverse Reaction (Verified 09/21/23 14:04) Other: takes skin off, inflamed Subjective Dysphagia Symptoms Reported Symptoms/Problems with: Coughing, Choking and Food gets stuck Current Diet Solids Current Diet: Regular Current Diet Liquids Current Liquids: Thin Comments Reported Symptoms and Dysphagia Education: -: Without cues, Binh commenting on recommendations from his MBSS in January 2023 including smaller meals throughout the day, small bites/sips, slow rate, and sitting upright 30 min. after meal. They report on continuing to follow those recommendations however it does not appear to be helping. They report profuse runny nose occurring during meal times. The discharge is typically clear. This then appears to trigger a choking/coughing response where he expels clear mucous or slime as they've named it. There is never food present in the emesis or discoloration per their knowledge. They report this happens most frequently in the second half of the day with little occurrences during or after breakfast. Discussed there may be a fatigue component if it's only occurring most often in the latter half of the day. Salty also endorsed at times he does experience some throat tightness while eating along with some wheezing. Observations at rest reveal mouth breathing. When asked if his breathing feels labored while he eats he states yes, and also it seems to worsen an hour or so after. Discussed Pt may be having a difficult time coordinating his breathing with his swallowing. He does wear a BiPap at night for the past 30 years. He has not been to see Dr. Desouza for a while to check in on the appropriateness of O2 levels. A few times throughout the evaluation, Salty commenting that he has noticed peanuts being rather challenging for him. When inquiries were made about other nuts, he stated that cashews and pecans were easy for him. Although it would not explain the runny nose and emesis with meals without peanuts, discussed the possibility of his body's response to the peanuts may be indicative of a potential allergy. He does have a history of seasonal allergies. Rona reported Dr. Stanley suggested upping his inhaler and antihistamine before meals and this appeared to make everything worse. Salty and Rona report they have not yet been to the ENT. Discussed this may be an appropriate next step pending the results of the recommended FEES procedure to objectively assess his swallow function. They were both receptive to participation in this procedure to have a different visual of the swallow function as well as the ability to see Salty's control of oral secretions, potential post nasal drip, and any instances of reflux. Asked Salty to bring foods that are challenging for him. Objective Dysphagia Recommendations Swallowing Treatment: Yes Results Swallowing Within Normal Limits: No Additional: Esophageal Dysphagia Modified Barium Results Hx If Applicable Enter into a NOTE MBS Report Entered: Yes MBS Results (from prior exam): 11/19/23 14:50 Speech Therapy by [facility] Speech Pathology [address] [place] [address] Modified Barium Swallow Study MR#: [id number] Acct: [id number] Name: ALCIDES LOREDO Rep #: [id number] : [id number] From: Alem Boss M.A., [facility] Modified Barium Swallow - Patient Information Study Date: 02/17/23 Study Time: 13:00 Direct Billable Minutes: 95 Total Minutes procedure & reportin Diagnosis: Dysphagia (R13.10) Referring Physician: Josh Ruiz Reason for Referral: Objectively assess swallow function, assess risk for aspiration, and determine recommendations for least restrictive diet textures and compensatory strategies to improve safety of swallow. Medical History: The patient is a 82-year-old male with PMH below. He was referred for MBSS after reporting concerns to Dr. Ruiz for difficulty swallowing characterized by coughing with food and drink, as well as sensation of food becoming stuck in his throat. Per patient and , the patient has had swallowing difficulty for ~2 years. He frequently coughs at meals, but sometimes he experiences coughing episodes when he is not eating and drinking. He associates a runny nose and post nasal drip with his swallowing difficulty. He denies hx of PNA. He experienced a fall in November when he hit his head, but scans of his brain came back clear of injury per . He throws up at the table at least 1X/week. He regurgitated more often prior to Dr. Stanley prescribing him pantoprazole and one other medication per 's report. He did undergo an EGD 09/15/[address] Ruiz, which revealed reflux esophagitis and 1cm hiatal hernia (SEE study for full impressions and report). He is planned for barium esophagram 02/22/2023. PMH: asthma, DM type II, CAD, colon cancer, difficulty swallowing, GERD, hx of GI bleed, PD, HTN, short term memory loss, hx of CVA (SEE EMR for full PMH). Current Diet Ordered: Regular textures / Thin liquids Respiratory Status: Oxygenating on Room Air - Penetration-Aspiration Scale Penetration-Aspiration Scale: OBJECTIVE ASSESSMENT OF SWALLOW FUNCTION (QUANTITATIVE ? PER TRIAL): PENETRATION / ASPIRATION SCALE (ARELLANO): 1 = does not enter airway 2 = enters airway/above vocal folds/ejected 3 = enters airway/above vocal folds/not ejected 4 = enters airway/contacts vocal folds/ejected 5 = enters airway/contacts vocal folds/not ejected 6 = enters airway/below vocal folds/ejected 7 = enters airway/below vocal folds/not ejected despite effort 8 = enters airway/below vocal folds/no effort VIDEOFLOROSCOPIC SCALE SCORE (ARELLANO): Grade I = aspiration of material that has penetrated into the laryngeal vestib ule, intact cough reflex Grade II = aspiration < 10 % of the bolus, intact cough reflex Grade III = aspiration of < 10 % of the bolus, reduced cough reflex or aspiration of > 10 % of the bolus, intact cough reflex Grade IV = aspiration of > 10 % of the bolus, reduced cough reflex - Penetration-Aspiration Scale Score Thin Liquid via teaspoon Result: 1= does not enter airway Thin Liquid via teaspoon Trial 2 Result: 1= does not enter airway Thin Liquid via large single sip from cup Result: 1= does not enter airway [place] Thick Liquid via small single sip from cup Result: 1= does not enter airway Pudding via teaspoon with esophageal screen Result: 1= does not enter airway Thin Liquid via sequential sips from straw with esophageal screen Result: 2= enter airway/above vocal folds/ejected 1/2 Cookie Result: 1= does not enter airway - Oral Phase Labial Seal: No Labial Escape Tongue Control During Bolus Hold: Posterior escape of greater than half of bolus - thin liquids via large sequential straw sips Bolus Preparation/Mastication: Timely and efficient chewing and mashing Bolus Transport/Lingual Motion: Delayed initiation of tongue motion - thin liquids via large sequential straw sips Oral Residue: Residue collection on oral structures - thin liquids via large sequential straw sips - Pharyngeal Phase Initiation of Pharyngeal Swallow: Bolus head in pyriforms Soft Palate Elevation: No bolus between soft palate and pharyngeal wall Laryngeal Elevation: Comp. Superior move thyroid cart w/comp. apprx arytenoid cart-epig pet Anterior Hyoid Excursion: Partial anterior movement Epiglottic Movement: Complete inversion Laryngeal Vestibule Closure at Height of Swallow: Incomplete; narrow column of air/contrast in laryngeal vestibule - trace laryngeal penetration with full ejection with thin liquids via large sequential straw sip Pharyngeal Stripping Wave: Present - complete Pharyngoesophageal Segment Opening: Complete distension and complete duration; no obstruction of flow Tongue Base Retraction: Narrow column of contrast between tongue base & post. pharyngeal wall Pharyngeal Residue: Trace residue within or on pharyngeal structures - Esophageal Phase Esophageal Clearance: Esophageal retention w/ retrograde flow below pharyngoesophageal seg. - Diagnosis/Impression Diagnosis: Oropharyngeal swallow function grossly WNL; Esophageal dysphagia (R13.14) Impression: The oropharyngeal phase is grossly WNL. When consuming large and sequential sips via straw, he demonstrated mild delay in swallow onset and experienced trace laryngeal penetration; however, contrast fully ejected from the laryngeal vestibule during the swallow. Mild oral residue from large sip spilled to the pharynx after the swallow. The patient demonstrated good airway closure throughout the study - no aspiration was observed. Unable to definitively rule out aspiration due to patient's body habitus. [employer] unable to view the entirety of the laryngeal vestibule or trachea before or after the swallow, but vocal folds and trachea appeared clear of barium contrast during the swallow. The esophageal phase of the swallow was primarily marked by... -Esophageal retention of pudding by tsp in mid and lower esophagus with retrograde flow remaining below the upper esophageal sphincter (UES). Attempted liquid wash, which also resulted in esophageal retention in the mid and lower esophagus with retrograde flow remaining below the UES. SEE esophageal screens of Pudding via tsp and Thin liquids via sequential straw in PACS. - Recommendations Diet: Regular Textures, Thin Liquids Comment: Will recommend 4-5 smaller, more frequent meals vs. 2-3 larger meals per day. Compensatory Strategies: Small Bites, Small Sips, Slow Rate, Sitting upright, Remain sitting upright for 30 minutes after PO intake Recommend Repeat Modified Barium Swallow: No Need for Skilled Speech Therapy Services: No Recommended Referrals: GI Consult - Continue to follow with Dr. Ruiz and Dr. Stanley to manage reflux, as well as esophageal retention observed during the study. Patient is safe to proceed with barium esophagram. Education Completed: 1. Described result of evaluation. Comment: Additional education provided re: foods/drinks to avoid or limit to help manage reflux (e.g. acidic foods, fatty foods, chocolate, coffee, alcohol, carbonated beverages). [employer] also recommended increasing hydration throughout his day. Education well received by and patient. - Status Active ST Patient: Active - Contact Information [facility] Speech Therapy:: Alem Boss M.A. [facility] Speech-Language Pathologist [facility] [address] [place] [address] [email or web address] [phone] 02/17/23 14:32 Initialized on 11/19/23 14:50 - END OF NOTE Reference: Neuro-QoL instrument Radiation Oncology Patient Plan Plan Plan: Will rx Pt for skilled outpatient tx to address deficits in esophageal dysphagia. Pt would benefit from participation in Fiberoptic Endoscopic Evaluation of Swallow (FEES) to objectively assess Pt's oropharyngeal swallow function to determine the least restrictive means of nutrition and accurately recommend a home exercise program along with compensatory strategies. Without skilled intervention, Pt is at risk for consuming a restrictive diet putting him at risk for aspiration pneumonia and atrophy of laryngeal musculature. Recommendations Treatment Warranted: Yes Treatment Warranted: Dysphagia Comment: - Fiberoptic Endoscopic Evaluation of Swallow (FEES) to objectively assess Pt's oropharyngeal swallow function Progress Prognosis: Good Frequency Frequency: TBD following FEES Duration: TBD following FEES Goals that are Established Determination:: Goals will be added/modified as deemed necessary and appropriate. Therapy will be discontinued when results of re-evaluation indicate therapy is no longer needed or lack of progress has been documented. Goal #1-5 Goal #1: Salty will participate in Fiberoptic Endoscopic Evaluation of Swallow (FEES) to objectively assess Pt's oropharyngeal swallow function to determine the least restrictive means of nutrition and accurately recommend a home exercise program along with compensatory strategies. Education Patient has Indicated that the Following Identified Educational Needs: None The Patient has indicated that they have no educational or learning abilities that may effect their care.: Yes Patient Instruction Patient Education: Diagnosis, Treatment Plan and Goals Person Taught: Patient and Family Teaching Method: Discussion and Demonstration Response to teaching: Return demonstration and Verbalize understanding
--- NOTE | 2024-02-01 10:15 | HP.SP.DC ---
ST Discharge Summary Discharged: Discharge: ALCIDES LOREDO is an 83 year old male who presented to [facility] on 11/19/2023 following a dx of dysphagia. Pt attended initial evaluation with goals created for patient's participation in a Fiberoptic Endoscopic Evaluation of the Swallow procedure, which Pt was agreeable to at the time of evaluation. Salty and , Rona, report they have not yet been to the ENT. Discussed this may be an appropriate next step pending the results of the recommended FEES procedure to objectively assess his swallow function. They were both receptive to participation in this procedure to have a different visual of the swallow function as well as the ability to see Salty's control of oral secretions, potential post nasal drip, and any instances of reflux. Asked Salty to bring foods that are challenging for him. After evaluation, ST presley updated script to physicians for FEES order. Upon calling Pt to schedule the FEES, Pt's Rona stating that she did not want to schedule. Pt being discharged from speech therapy caseload on this date 02/01/24 d/t Pt absence in attending additional treatment visits. Thank you for allowing me to participate in the care of your patient. Will reevaluate at Pt?s request following script from physician.
== END 2023-11-19 19:00 | disposition home or self-care (01) ==
LOC: SP 12:49
PROVIDERS: PCP Family Medicine; Visit Provider Nurse Practitioner Family
DX: R13.10 Dysphagia, unspecified (principal)
CPT/HCPCS: 92610

== ENCOUNTER 2023-12-24 10:50 | Day surgery (SDC) | payer MEDICARE, SELFPAY ==
[2023-12-24 11:06] VITALS: BP 135/72; PULSE 98; RESP 18; TEMP 36.2; O2SAT 99
[2023-12-24] MEDS: Lidocaine Jelly 2% 20 ML Syringe (URO-JET) 1 APPLIC (11:06)
== END 2023-12-24 23:59 | disposition home or self-care (01) ==
LOC: EN 10:53
PROVIDERS: PCP Family Medicine; Referring Provider Family Medicine; Visit Provider Internal Medicine Gastroenterology
PROC: F00ZJWZ Instrumental Swallowing and Oral Function Assessment using Swallowing Equipment (ICD-10-PCS; CPT 43235; principal; 2023-12-24 10:55)
DX: K22.2 Esophageal obstruction (principal)
CPT/HCPCS: 91010

== ENCOUNTER → 2024-03-14 | Outpatient (CLI) | payer MEDICARE, SELFPAY ==
--- NOTE | 2024-03-14 13:22 | CT_ITS ---
STUDY: CT ABDOMEN AND PELVIS WITH CONTRAST REASON FOR EXAM: Male, 83 years old. MONITOR COLON CA RADIATION DOSAGE (If Supplied By Facility): CTDIvol = ( 21.46 ) mGy, DLP = ( 3911.94 ) mGycm TECHNIQUE: IV 100mL Isovue-300 was administered. Transaxial images were obtained from the dome of the diaphragm to the symphysis pubis. Multiplanar coronal and sagittal images were reformatted. Individualized Dose Optimization Techniques Were Used For This CT. COMPARISON: Prior study dated: 09/14/2023 FINDINGS: Mild lower lung atelectasis or scarring unchanged. The visualized portions of the heart are within normal limits. Hepatic steatosis is again seen. Somewhat irregular liver. Subtle enhancing lesion in the dome of the liver measuring about 3 cm mass seen on axial image 20 series 2 and coronal image 43 series 601 not seen on the previous examinations or on the delayed images of this exam. Absent gallbladder likely surgically removed. Normal spleen. Normal pancreas. Normal bilateral adrenal glands. Small simple cyst in the upper pole of the right kidney for which no further follow-up exam is needed. No evidence of hydronephrosis. Normal visualized stomach. Normal in caliber small bowel loops. Status post right hemicolectomy with ileocolic colostomy unchanged. Mild thickening of the descending and sigmoid colon could be due to underdistention. No evidence of acute diverticulitis. There is diffuse atherosclerotic calcification of the abdominal aorta, without a demonstrated aneurysm. Calcifications at the origin of the celiac axis and SMA as well as origin of the renal arteries. Normal urinary bladder. Normal abdominal wall. Severe compression fracture of L2 vertebra unchanged. Degenerative changes in the lower lumbar spine. CT/Abdomen/Pelvis W IV Cont ONLY IMPRESSION: 1. Enhancing lesion in the dome of the liver as described above not seen on the previous examinations. Further evaluation with MRI of the liver is recommended. 2. Status post right hemicolectomy and ileocolonic anastomosis unchanged. 3. No focal acute inflammatory process. Electronically Signed: Levi Escamilla MD at 12:18 EDT ,
[2024-03-14 13:29] LABS: Absolute Lymphocyte Count 1.41 X10^3/uL (0.83-4.51); Absolute Neutrophil Count 3.4 X10^3/uL (2.0-7.7); Basophil# 0.02 X10^3/uL; Basophil% 0.4 % (0-1); Eosinophil# 0.07 X10^3/uL; Eosinophils% 1.3 % (0-5); Hematocrit 45.5 % (40-54); Hemoglobin 14.7 g/dL (13.0-16.5); Lymphocyte # 1.41 X10^3/ul (0.83-4.51); Mean Corp Hgb Conc 32.3 g/dL (32-36); Mean Corpuscular Hgb 33.5 pg (27.0-32.0); Mean Corpuscular Volume 103.6 fL (80-94); Mean Platelet Vol. 9.8 fl (6.2-12.0); Monocyte# 0.41 X10^3/uL; Monocyte% 7.6 % (0-10); NRBC Flagged by Analyzer 0 % (0-5); Neutrophil # 3.43 X10^3/uL (2.7-7.7); Platelet Count 150 K/mm3 (150-450); RBC Distribution Width CV 15.5 % (11.6-14.6); RBC Distribution Width SD 59.2 fl (35.1-43.9); Red Blood Count 4.39 M/mm3 (4.6-6.2); White Blood Count 5.4 K/mm3 (4.4-11.0)
[2024-03-14 14:00] LABS: Vitamin B12 888 pg/mL (211-911)
[2024-03-14 14:07] LABS: CREATININE FINGERSTICK < 1.0 mg/dL (0.70-1.30); EGFR FINGERSTICK > 60.0000 mL/min (>60)
[2024-03-14 14:35] LABS: ALB/GLOB Ratio 0.9 RATIO (0.9-2.4); AST(SGOT) 28 U/L (15-37); Alanine Aminotransfer ALT/SGPT 30 U/L (16-61); Albumin, Serum 3.6 g/dL (3.2-5.0); Alkaline Phosphatase 114 U/L (45-117); Anion Gap 4 (5-15); BUN 18 mg/dL (7-18); BUN/Creat Ratio 17.6 RATIO (10-20); Calcium,Total 9.4 mg/dL (8.5-10.1); Chloride 105 mmol/L (98-107); Creatinine, Serum 1.02 mg/dL (0.70-1.30); EST Glomerular Filtration Rate 74 mL/min (>60); Est Glom Filt Rate - Afr Amer 89 mL/min (>60); Ferritin 247 ng/mL (26-388); Globulin 3.8 g/dL (2.2-4.2); Glucose 199 mg/dL (74-106); Iron 89 ug/dL (65-175); Iron Binding Capacity,Total 301 ug/dL (250-450); LDH 183 U/L (87-241); PERCENT IRON SATURATION 29.6 % (15.0-55.0); Potassium 4.3 mmol/L (3.5-5.1); Protein, Total 7.4 g/dL (6.4-8.2); Sodium Level 137 mmol/L (136-145)
[2024-03-15 04:07] LABS: Carcinoembryonic Antigen 2.9 ng/mL (0.0-4.7)
== END | disposition home or self-care (01) ==
PROVIDERS: PCP Family Medicine; Visit Provider Internal Medicine Medical Oncology
DX: C18.0 Malignant neoplasm of cecum (principal)
CPT/HCPCS: 36415; 74177; 80053; 82378; 82607; 82728; 82746; 83540; 83550; 83615; 85025; Q9967

== ENCOUNTER → 2024-03-29 | Outpatient (CLI) | payer MEDICARE, SELFPAY ==
--- NOTE | 2024-03-29 09:10 | US_ITS ---
STUDY: ABDOMINAL ULTRASOUND - RIGHT UPPER QUADRANT; ELASTOGRAPHY REASON FOR VISIT: Male, 83 years old. Cirrhosis. TECHNIQUE: Ultrasound evaluation of the right upper quadrant was performed with real-time and static gr-scale imaging. Point quantification shear wave elastography was performed ([employer]). TECHNICAL QUALITY: Adequate. COMPARISON: Comparison is made with prior CT scan of the abdomen and pelvis dated March 14, 2024. FINDINGS: Liver: The liver is enlarged and measures 20.6 cm. There is increased echogenicity consistent with fatty infiltration. The bile ducts are within normal limits. There is hepatic color flow. The direction of portal flow is hepatopetal. There is a 3.7 cm x 4.7 cm x 4.4 cm hypoechoic nodular density in the medial anterior aspect of the right lobe of the liver. This corresponds to the CT findings. This may represent a degenerating nodule. Gallbladder: The patient is status post cholecystectomy. Common Bile Duct (C.B.D.): The common bile duct measures 5.1 mm. Pancreas: There is increased echogenicity of the pancreas. There is no demonstrated pancreatic mass or cyst. Right Kidney: Normal size of the right kidney. The right kidney measures 14 cm x 5.3 cm x 6.7 cm. Normal renal cortex. The right cortex measures 1.7 cm. There is a 1.5 cm x 1.4 cm x 1.3 cm cyst in the upper pole of the right kidney. There is no right hydronephrosis. US/ABD Limited w/ Elastography IMPRESSION: 1. Hepatomegaly. Diffuse fatty infiltration of the liver. 2. 3.7 cm x 4.7 cm x 4.4 cm hypoechoic nodule in the medial anterior aspect of the right lobe of the liver. This corresponds to the CT findings. 3. Right renal cyst. 4. Status post cholecystectomy. Electronically Signed: Solomon Rowell MD at 13:27 EDT ,
== END | disposition home or self-care (01) ==
PROVIDERS: PCP Family Medicine; Referring Provider Internal Medicine; Visit Provider Internal Medicine
DX: K74.60 Unspecified cirrhosis of liver (principal); K22.9 Disease of esophagus, unspecified
CPT/HCPCS: 76705; 76981

== ENCOUNTER 2024-06-05 14:30 | Outpatient (RCR) | payer MEDICARE, SELFPAY ==
--- NOTE | 2024-03-24 14:56 | HP.PTEVAL_ITS ---
Patient's Visit Information Visit Information Visit Information: ALCIDES LOREDO is a 83 year old M referred to Physical Therapy by Dr. Jeffrey Salinas MD with a diagnosis of PD. Date of Evaluation: 03/24/24 Physical Therapist: ESTRELLA Coronado Visit Plan Frequency: 2x /Week Duration: 3 Months Plan: 2X/ week for 12 weeks for standing balance (start in // bars), endurance walking with rollator, LE strength, functional strength (sit to stands etc). HEP: slowly start reducing use of power lift chair at home, work on endurance walking, before getting out of the chair do X 20 seated heel and toe raises and then X 10 LAQ and then X 10 hip marches Subjective Subjective: Pt wants to learn to walk without the rollator. He has been using the rollator for 4-5 years. He feels that the rollator gets in the way. He uses a regular rolling walker and one with rollator. He uses the rollator in the house and all the time. He had colon CA surgery 2 years ago and last year he broke his back. His balance is questionable. He fell June 01 falling out of bed. Time before that he fell and pulling shirt overhead. He is not dizzy. He struggles to roll over in bed side to side and sleeps in a hospital bed. He has no stairs in the home. He showers on his own and holds onto the grab bars. He has a walk out shower with 4 inch step up and over. He is in pain when he gets out of bed in the morning and as the day progresses he gets better. He goes to Dr Buckley and gets relief from him. He hates exercises. He had a stroke 15 years ago and it affected his R side. He has cirrohis of the liver and he has another gr area on his liver and he has another scan for that next week. Objective Objective: Gait: walks with a rollator with increase weight through his B UE and flexed trunk and increased SOB Sit to stand: able to get up using his arms and from a high mat table LE MMT: R hip flex 9.2 and L 6.8 R knee ext 13.4 and L 12.4 R knee flex 11.5 and L 9.7 3:32.85 minutes 341.4 feet Balance/Special Test Scores Lower Extremity Functional Score: 19 Goals Goal 1:: I HEP Goal Time Frame: 8-12 Weeks Goal 2:: Increase LE strength (at the time of the eval: Goal Time Frame: 8-12 Weeks Goal 3:: Be able to get out of a regular chair using B UE's on first attempt (at eval has to get up from a higher seat and use his arms) Goal Time Frame: 8-12 Weeks Goal 4:: Be able to complete a full lap around Dept using rollator with upright posture and less pressure through B UE without any signs of endurance issue. Goal Time Frame: 8-12 Weeks Goal 5:: Be able to stand unsupported for 30 seconds with head turns with CGA Goal Time Frame: 8-12 Weeks Rehabilitation Potential Rehabilitation Potential: Good Anticipated Interventions Patient/Client Instruction: Educate patient on: Condition and Plan of Care For the Purpose of:: To improve muscle performance and motor function, To improve ability to perform ADL's, To increase tolerance to activity/condition/position, To improve performance and independence with ADL's, To decrease level of supervision to perform tasks, To improve ability of physical actions for home/community/work/leisure, To improve gait and locomotor functions, To improve health of tissue, To decrease soft tissue restriction, To increase flexibility/ROM and To improve endurance Therapeutic Exercise to Include: Strength training, Endurance training, Balance training, Postural training, Flexibilty training, Gait and locomotor training, Neuromotor development, Passive ROM, Active ROM and Dynamic Lumbar Stabilization For the Purpose of:: To increase ROM, To improve muscle performance and motor function, To improve ability to perform ADL's, To increase tolerance to activity/condition/position, To improve performance and independence with ADL's, To decrease level of supervision to perform tasks, To improve ability of physical actions for home/community/work/leisure, To improve gait and locomotor functions, To improve health of tissue, To decrease soft tissue restriction, To increase flexibility/ROM, To improve endurance, To improve balance and To improve safety with gait Functional Training to Include: Gait training For the Purpose of:: To improve gait and locomotor functions and To improve safety with gait Text: Thank you for the opportunity to evaluate your patient. For Medicare and Medicare HMO plans, please review the plan of care and approve it. It will need to be FAXED BACK to us at [phone] for Medicare purposes. For Medicare only, by signing this I certify the plan of care. Please let me know if there are questions or concerns regarding this plan of care. Physician Signature: Date:_
--- NOTE | 2024-04-25 13:24 | HP.PTREVAL ---
Re-Evaluation Intro: Dr. Jeffrey Salinas MD, It has been my pleasure to treat ALCIDES LOREDO over the last 10 visits for PD. Please see the progress note below for an update on the physical therapy plan of care! Subjective Subjective: Pt wants to come in and do the machines on his own with his wifes help. He needs to know the weights we were using. He feels that he is moving better overall. Objective Objective/Function: LE MMT: Hip flex R 9.2 and L 8.7 R knee ext 16.7 and L 17 R knee flex 13.1 and L 9.4 Lap around building 3 min and 13 seconds Plan Plan Plan: After attempting getting on machines on his own, the patient, his and I discussed continuing PT to work towards as much independence getting on and off the machines on his own. 2X/ week for 3 weeks to work on more fluid movement on and off the machies, machine sets up, and additional exercises for pt to do on his own (ex: nu-step, side step along bar etc) Balance/Gait/Functional tests Balance/Special Test Scores Lower Extremity Functional Score: 39 Goals Goals Goal 1:: I HEP Goal Time Frame: 8-12 Weeks Goal Progress: Goal Met Goal 2:: Increase LE strength (at the time of the eval: Goal Time Frame: 8-12 Weeks Goal 3:: Be able to get out of a regular chair using B UE's on first attempt (at eval has to get up from a higher seat and use his arms) Goal Time Frame: 8-12 Weeks Goal Progress: Progressing Goal 4:: Be able to complete a full lap around Dept using rollator with upright posture and less pressure through B UE without any signs of endurance issue. Goal Time Frame: 8-12 Weeks Goal 5:: Be able to stand unsupported for 30 seconds with head turns with CGA Goal Time Frame: 8-12 Weeks Anticipated Interventions Anticipated Interventions Patient/Client Instruction: Educate patient on: Condition and Plan of Care For the Purpose of:: To improve muscle performance and motor function, To improve ability to perform ADL's, To increase tolerance to activity/condition/position, To improve performance and independence with ADL's, To decrease level of supervision to perform tasks, To improve ability of physical actions for home/community/work/leisure, To improve gait and locomotor functions, To improve health of tissue, To decrease soft tissue restriction, To increase flexibility/ROM and To improve endurance Therapeutic Exercise to Include: Strength training, Endurance training, Balance training, Postural training, Flexibilty training, Gait and locomotor training, Neuromotor development, Passive ROM, Active ROM and Dynamic Lumbar Stabilization For the Purpose of:: To increase ROM, To improve muscle performance and motor function, To improve ability to perform ADL's, To increase tolerance to activity/condition/position, To improve performance and independence with ADL's, To decrease level of supervision to perform tasks, To improve ability of physical actions for home/community/work/leisure, To improve gait and locomotor functions, To improve health of tissue, To decrease soft tissue restriction, To increase flexibility/ROM, To improve endurance, To improve balance and To improve safety with gait Functional Training to Include: Gait training For the Purpose of:: To improve gait and locomotor functions and To improve safety with gait Re-Evaluation Ending Re-evaluation ending: Please do not hesitate to contact me at [phone] by phone or if you have questions or concerns regarding this new plan of care! Sincerely, Claudine Acevedo MPT
--- NOTE | 2024-06-05 15:21 | HP.PTDCSUM ---
Discharge Summary D/C summary: It has been my pleasure to treat ALCIDES LOREDO referred by Dr. Jeffrey Salinas MD, with the diagnosis of PD for a total of 19 visit(s). Discharge Date: 06/05/24 Please see the following information for a summary of their discharge status. Subjective Subjective: Pt reports that he feels he can be on his own. Pt wants to skip machine #22 and #21 today due to water blisters on his shins. Pain back: Pain Intensity (Out of 10): 3 Overall Improvement % Improvement: 10 Objective Objective/Function: Pt did well today on and off the machines. He got on and off of them slow and knew what to do. He is able walk around entire dept without having to stop with less hanging on his walker. He is able to stand for 30 sec without UE support Goals Goal 1:: I HEP Goal Progress: Goal Met Goal 2:: Increase LE strength (at the time of the eval: Goal 3:: Be able to get out of a regular chair using B UE's on first attempt (at eval has to get up from a higher seat and use his arms) Goal Progress: Progressing Goal 4:: Be able to complete a full lap around Dept using rollator with upright posture and less pressure through B UE without any signs of endurance issue. Goal Progress: Goal Met Goal 5:: Be able to stand unsupported for 30 seconds with head turns with CGA Goal Progress: Goal Met Plan Plan: DC PT to indep gym routine and his will help when needed. D/C Information Discharge Comments: DC PT to HEP d/c sentence: If there are questions or concerns regarding this patient's physical therapy, please feel free to call me at [phone]. Thank you for the referral of this patient. Sincerely, Claudine Acevedo, MPT Balance/Gait/Functional tests Balance/Special Test Scores Lower Extremity Functional Score: 25 Improvement % Improvement: 10
== END 2024-06-05 19:00 | disposition home or self-care (01) ==
LOC: PT 14:30
PROVIDERS: PCP Family Medicine; Referring Provider Psychiatry & Neurology Neurology; Visit Provider Psychiatry & Neurology Neurology
DX: G20.A2 Parkinson's disease without dyskinesia, with fluctuations (principal)
CPT/HCPCS: 97110; 97162

== ENCOUNTER → 2024-06-19 | Outpatient (CLI) | payer MEDICARE, SELFPAY ==
[2024-06-19 12:33] LABS: Absolute Neutrophil Count 3.6 X10^3/uL (2.0-7.7); Basophil# 0.04 X10^3/uL; Basophil% 0.7 % (0-1); Eosinophil# 0.09 X10^3/uL; Eosinophils% 1.6 % (0-5); Hematocrit 44.7 % (40-54); Hemoglobin 14.4 g/dL (13.0-16.5); Lymphocyte % 24.8 % (19-41); Mean Corp Hgb Conc 32.2 g/dL (32-36); Mean Corpuscular Hgb 33.6 pg (27.0-32.0); Mean Corpuscular Volume 104.2 fL (80-94); Monocyte# 0.47 X10^3/uL; Monocyte% 8.3 % (0-10); NRBC Flagged by Analyzer 0 % (0-5); Neutrophil # 3.55 X10^3/uL (2.7-7.7); Neutrophil % 62.8 % (47-70); Platelet Count 157 K/mm3 (150-450); RBC Distribution Width CV 15.4 % (11.6-14.6); RBC Distribution Width SD 59.6 fl (35.1-43.9); Red Blood Count 4.29 M/mm3 (4.6-6.2); White Blood Count 5.7 K/mm3 (4.4-11.0)
[2024-06-19 12:38] LABS: International Normalized Ratio 1.2; Prothrombin Time (Protime)PT. 15.1 SECONDS (11.7-14.9)
--- NOTE | 2024-06-19 12:55 | CT_ITS ---
STUDY: CT ABDOMEN AND PELVIS WITH CONTRAST REASON FOR EXAM: Male, 83 years old. MONITOR COLON CA RADIATION DOSAGE (If Supplied By Facility): CTDIvol = ( 20.55 ) mGy, DLP = ( 1977.02 ) mGycm TECHNIQUE: Transaxial images were obtained from the dome of the diaphragm to the symphysis pubis without oral contrast. IV 100mL Isovue-300 was administered. Sagittal and coronal images were reconstructed. Individualized dose optimization techniques were used for this CT. COMPARISON: Comparison is made with prior study of March 14, 2024. FINDINGS: Stable increased markings at the lung bases suggestive of possible scarring and/or atelectasis. Coronary artery calcification. There is decreased attenuation of the liver consistent with steatosis. The patient is status post cholecystectomy. Normal spleen. There is diffuse atrophy of the pancreas. Normal bilateral adrenal glands. Normal right kidney. Normal left kidney. Normal visualized stomach. Normal small intestine. The patient is status post right hemicolectomy. There is non-visualization of the appendix. There is diffuse atherosclerotic calcification of the abdominal aorta and its major visceral branches, without a demonstrated aneurysm. Normal inferior vena cava. Normal retroperitoneum. Normal urinary bladder. There is a left-sided inguinal hernia containing adipose tissue. There are diffuse degenerative changes of the visualized lumbar spine. Almost complete collapse of the L1 vertebrae. Spondylolisthesis of L5 on S1 due to spondylolysis of the pars interarticularis of the L5 vertebrae. CT/Abdomen/Pelvis W IV Cont ONLY IMPRESSION: Status post right hemicolectomy. Stable scarring at the lung bases. No acute abnormality is seen. Electronically Signed: Solomon Rowell MD at 8:32 EDT ,
[2024-06-19 12:59] LABS: AST(SGOT) 35 U/L (15-37); Alanine Aminotransfer ALT/SGPT 30 U/L (16-61); Albumin, Serum 3.6 g/dL (3.2-5.0); Alkaline Phosphatase 119 U/L (45-117); Anion Gap 5 (5-15); BUN 19 mg/dL (7-18); BUN/Creat Ratio 16.7 RATIO (10-20); CRP 3.68 mg/L (0.0-3.0); Calcium,Total 9.2 mg/dL (8.5-10.1); Chloride 106 mmol/L (98-107); Creatinine, Serum 1.14 mg/dL (0.70-1.30); EST Glomerular Filtration Rate 65 mL/min (>60); Est Glom Filt Rate - Afr Amer 78 mL/min (>60); Globulin 3.6 g/dL (2.2-4.2); Glucose 200 mg/dL (74-106); Potassium 4.6 mmol/L (3.5-5.1); Protein, Total 7.2 g/dL (6.4-8.2); Sodium Level 137 mmol/L (136-145)
[2024-06-19 13:01] LABS: CREATININE FINGERSTICK < 1.0 mg/dL (0.70-1.30); EGFR FINGERSTICK > 60.0000 mL/min (>60)
[2024-06-19 13:02] LABS: Hemoglobin A1c 6.1 % (3.8-5.6)
[2024-06-21 04:08] LABS: AFP, Tumor Marker < 1.8 ng/mL (0.0-6.4)
== END | disposition home or self-care (01) ==
PROVIDERS: Internal Medicine; PCP Family Medicine; Referring Provider Internal Medicine Medical Oncology; Visit Provider Internal Medicine Medical Oncology
DX: C18.2 Malignant neoplasm of ascending colon (principal); K74.60 Unspecified cirrhosis of liver; E11.9 Type 2 diabetes mellitus without complications; K22.9 Disease of esophagus, unspecified
CPT/HCPCS: 36415; 74177; 80053; 82105; 82140; 82378; 83036; 85025; 85610; 86140; Q9967

== ENCOUNTER 2025-01-01 10:21 | Inpatient (IN) | payer MEDICARE, SELFPAY ==
[2025-01-01] VITALS (24 sets, daily range): BP systolic 70–164; BP diastolic 36–76; PULSE 73–141; RESP 16–33; TEMP 36.1–37.3; O2SAT 89–99; BMI 41.3; BMI 35.9
--- NOTE | 2025-01-01 10:25 | EKG12_ITS ---
Test Reason : RESPDIST Blood Pressure : */* mmHG Vent. Rate : 127 BPM Atrial Rate : * BPM P-R Int : * ms QRS Dur : 62 ms QT Int : 342 ms P-R-T Axes : * 251 29 degrees QTcB Int : 497 ms Atrial fibrillation with rapid ventricular response with premature ventricular or aberrantly conducted complexes Right superior axis deviation Pulmonary disease pattern Possible Right ventricular hypertrophy ST & T wave abnormality, consider anterior ischemia Abnormal ECG Confirmed by SHARON JUÁREZ, HANDY ([id number]), sports editor JAIRON JARAMILLO ([id number]) on 01/02/2025 8:45:35 AM Referred By: BJ Confirmed By: HANDY HERRERA MD
[2025-01-01] MEDS: Albuterol 2.5 MG/3 ML VIAL.NEB. INHALATION (10:31)
[2025-01-01] MEDS: Ipratropium/Albuterol Sulfate 3 ML AMPUL.NEB INHALATION (10:31)
--- NOTE | 2025-01-01 10:32 | ED.VIS.DYS ---
HPI History of Present Illness Chief Complaint: Shortness of Breath Informant: patient and EMS Onset/Context/Timing Onset: Today and Hours Context: gradual Timing: Continuous Current Severity: Severe Maximum Severity: Severe Worsened by: Coughing Relieved by: Oxygen Associated Symptoms cough and other Chest Pain: Positive for None Narrative Narrative: 84-year-old male extensive past medical history including COPD, diabetes, stroke, etc. Unknown if he is on a blood thinner. Patient brought in by squad respiratory distress. Reporting shortness of breath and possible blood-tinged sputum this morning. Patient is a limited speaking with his when she arrives also. PE Risk Factors: Negative for Cancer, OCP + Smoking + > 35, Prior DVT or PE, Recent immobilization, Recent surgery or Recent travel Prior similar symptoms: Yes Recent Illness/Hospitalization: No PFSH PFSH Medical History Nonallergic vasomotor rhinitis Macular degeneration Compression fracture of L2 Cancer Hypertension Dementia TIA (transient ischemic attack) Current use of long term care pharmacist anticoagulation Dysphagia Atrial fibrillation Longstanding persistent atrial fibrillation Skin tear Insulin dependent diabetes mellitus Colonic mass History of echocardiogram History of stress test Cardiology follow-up encounter Short-term memory loss Wears glasses Wears hearing aid Urinary incontinence Walker as ambulation aid Prostate disease Hepatitis Parkinson's disease Stroke/cerebrovascular accident Difficulty swallowing History of GI bleed Gastric reflux BiPAP (biphasic positive airway pressure) dependence Non-smoker Restless legs History of atrial fibrillation Colon cancer Ocular rosacea Diabetes mellitus, type II Carotid artery disease Essential hypertension Paroxysmal atrial fibrillation History of CVA (cerebrovascular accident) (2007) Hyperlipidemia Hypothyroidism Obstructive sleep apnea History of pericarditis (08/2017) Venous (peripheral) insufficiency Peripheral vascular disease due to secondary diabetes DM (diabetes mellitus), type 2 with peripheral vascular complications Diabetes mellitus type 2 with neurological manifestations Home Medications ?Medication ?Instructions ?Recorded ?Last Taken ?Type allopurinol 100 mg tablet 100 mg PO DAILYCM gout 05/10/15 12/31/24 History docusate sodium 100 mg capsule 100 mg PO BID constipation 05/10/15 06/06/23 History finasteride 5 mg tablet 5 mg PO DAILY prostate 05/10/15 12/31/24 History tamsulosin 0.4 mg capsule 0.4 mg PO DAILY prostate 05/10/15 12/31/24 History trazodone 100 mg tablet 100 mg PO QHS sleep/mental health 05/10/15 12/31/24 History trospium 20 mg tablet 20 mg PO QHS bladder 05/10/15 12/31/24 History cyanocobalamin (vitamin B-12) 500 1,000 mcg PO DAILY supplement 09/24/17 12/31/24 History mcg tablet ipratropium bromide 42 mcg (0.06 2 spray NS TID PRN ALLERGIES 09/24/17 12/31/24 History %) nasal spray levothyroxine 150 mcg tablet 225 mcg PO MOWEFR thyroid 03/06/19 12/31/24 History magnesium oxide 400 mg (241.3 mg 400 mg PO BID supplement 11/30/19 12/31/24 History magnesium) tablet atorvastatin 20 mg tablet 20 mg PO QHS cholesterol 06/19/22 12/31/24 History propranolol 20 mg tablet 20 mg PO BID BP 06/19/22 12/31/24 History levothyroxine 150 mcg tablet 150 mcg PO SUTUTHSA thyroid 07/13/22 12/31/24 History eeqspipl-xesgbassv-jjpnsnrre 3.5 1 applic topical DAILY LEFT EYE 07/13/22 12/31/24 History mg-10,000 unit-10 mg/gram top cream donepezil 5 mg tablet (Aricept) 5 mg PO DAILY memory 07/24/22 12/31/24 History pioglitazone 45 mg tablet (Actos) 45 mg PO DAILY diabetes 07/24/22 12/31/24 History glipizide 5 mg tablet 5 mg PO BID 08/27/22 12/31/24 History lisinopril 20 mg tablet 20 mg PO DAILY 03/29/23 12/31/24 History acetaminophen 500 mg tablet 1,000 mg PO BID 06/07/23 06/06/23 History apixaban 5 mg tablet (Eliquis) 5 mg PO BID BLOOD THINNER 06/07/23 12/31/24 History insulin glargine 100 unit/mL (3 30 unit subcut QHS DM 06/07/23 12/31/24 History mL) subcutaneous pen (Lantus Solostar U-100 Insulin) loratadine 10 mg tablet 10 mg PO Q12H ALLERGIES 06/07/23 12/31/24 History ynzbmanf-am-uafuz 300 mcg-K 60 1 tab PO DAILY 06/07/23 12/31/24 History mcg-lycop 600 mcg-lutein 300 mcg tablet (Men 50 Plus Multivitamin) ropinirole 1 mg tablet 1 mg PO BID 06/07/23 12/31/24 History ascorbate calcium (vitamin C) 500 500 mg PO DAILY 09/21/23 12/31/24 History mg tablet pantoprazole 40 mg tablet,delayed 40 mg PO DAILY #30 tabs 02/11/24 12/31/24 Rx release ferrous sulfate 325 mg (65 mg 325 mg PO DAILY iron 07/25/24 Unknown History iron) tablet cholecalciferol (vitamin D3) 50 50 mcg PO DAILY 01/01/25 12/31/24 History mcg (2,000 unit) capsule furosemide 20 mg tablet 20 mg PO PRN 01/01/25 Unknown History lactulose 10 gram/15 mL oral 10 g PO DAILY 01/01/25 12/31/24 History solution mecobalamin (vitamin B12) 500 mcg 500 mcg PO DAILY 01/01/25 12/31/24 History chewable tablet psyllium husk 0.4 gram capsule 0.4 g PO DAILY 01/01/25 12/31/24 History (Daily Fiber) sucralfate 1 gram tablet (Carafate) 1 g PO BID 01/01/25 12/31/24 History vitamin B complex (Complex B-100 1 tab PO DAILY 01/01/25 12/31/24 History tablet,extended release) Allergy/AdvReac Type Severity Reaction Status Date / Time niacin Allergy Intermediate rash Verified 06/26/24 13:35 adhesive AdvReac Other: Verified 06/26/24 13:35 takes skin off, inflamed Family History Father CAD (coronary artery disease) Hypertension Heart disease Mother Hypertension Sister Breast cancer CVA (cerebral vascular accident) Brother Kidney disease Surgical History History of esophagogastroduodenoscopy (EGD) History of colectomy H/O basal cell carcinoma excision History of cataract extraction History of colonoscopy (~05/2022) History of appendectomy Status post surgical removal of malignant neoplasm of skin Social History household members: significant other Smoking Status: Never smoker alcohol intake: never substance use type: does not use seatbelt use: always do you feel safe at home: Yes additional social history: Ambulates with a wheeled walker. ROS ROS ED ROS Narrative Cough. Shortness of breath.Limited due to overall medical condition of respiratory distress. Review of Systems ROS Unobtainable: other Details: Due to respiratory distress and overall medical condition. EXAM Physical Exam Narrative Exam Narrative: 84-year-old male presents by squad respiratory distress. He is on their noninvasive positive pressure facemask. We are changing him over to BiPAP. Initial blood pressure 164/76. Afebrile. Pulse ox is 91% on BiPAP. H EENT exam pupils round reactive light. Moist mucous membranes. Face mask on. Neck nontender no JVD. No lymphadenopathy. Lungs rhonchorous bilaterally. Coarse breath sounds. Respiratory distress. Increased respiratory rate. Heart tachycardic 140. Chest wall ribs nontender. Abdomen soft nontender. Moving all 4 extremities. Calves are nontender without edema or cords. Chronic skin changes. Moving all 4 extremities. Normal director of consumer affairs strength. Neurologically he is awake. He is alert. He is attempting to answer questions. Const Vital Signs: 01/01/25 10:23 01/01/25 10:25 01/01/25 10:26 Temperature 97.5 F L Temperature Source Temporal Pulse Rate 141 H Respiratory Rate 22 H Respiratory Effort Short of Breath Labored Accessory Muscle Use Respiratory Depth Shallow Respiratory Pattern Tachypnea Blood Pressure 164/76 H Blood Pressure Mean 105 Pulse Ox 91 Oxygen Delivery Method Bi-pap Bi-pap Fraction of Inspired Oxygen (FIO2) 01/01/25 10:46 01/01/25 10:46 Temperature Temperature Source Pulse Rate 141 H 141 H Respiratory Rate 33 H 32 H Respiratory Effort Respiratory Depth Respiratory Pattern Tachypnea Tachypnea Blood Pressure Blood Pressure Mean Pulse Ox 99 Oxygen Delivery Method Fraction of Inspired Oxygen (FIO2) 90 Positive well nourished, well developed and obese; Negative for cachectic or contractures General Appearance ED: well developed; Negative for cachectic, contractures, NAD or pallor Nutritional Appearance: obese; Negative for cachectic HEENT Reports moist mucous membranes atraumatic; Negative for trauma or tenderness Eyes PERRL and EOMs intact bilaterally General Eye ED: Negative for pale conjunctiva or scleral icterus Neck no lymphadenopathy, supple, no meningeal signs and no JVD Resp No normal respiratory effort and No clear to auscultation bilaterally Resp Narrative: Respiratory distress. Rhonchi. Auscultation: rhonchi Cardio Rate: tachycardic GI non-tender, non-distended and no masses Palpation: soft; Negative for tender or rebound tenderness present Back/Spine no CVA tenderness and normal to inspection Extremity normal to inspection Extremity Narrative: Chronic skin changes. Nontender. No edema. General Extremety ED: Negative for edema or tenderness General Extremity: Negative for edema Neuro Neuro Narrative: Awake. Eyes open. Attempting to answer questions. Sensorium / Orientation: alert, oriented to person and oriented to place; Negative for oriented to time, confused or lethargic Motor Exam: strength 5/5 throughout Psych mental status grossly normal Attitude: No agitated Skin no wounds General Skin Exam: Negative for jaundice or pallor Rashes: no rashes Trauma: Negative for abrasion or laceration MDM MDM MDM Narrative Medical decision making narrative: Acute 84-year-old male COPD, diabetic prior stroke with respiratory distress may have pneumonia clinically. Septic workup. DuoNeb and albuterol aerosols. Chest x-ray and septic labs. He will be admitted. Awaiting for further history when his arrives. Repeat exam at 11:08 AM patient is doing better on BiPAP. I discussed with he and his friend that he has a left hilar pneumonia. A-fib RVR. He will be treated with IV antibiotics Rocephin and Zithromax. Started on Cardizem IV bolus and will determine if he needs a drip. I have the hospitalist on page for admission. He is receiving a liter normal saline. Patient will be admitted to the ICU. History & Record Review Discussion w/independent historian: Patient and Family Additional record(s) reviewed:: Prior inpatient record, Prior outpatient record, Prior ED visit, Prior labs and No prior records Lab Data Attestation: I reviewed the patient's lab results. Lab results narrative: VBG shows a pH of 7.31 pCO2 of 54 and pO2 of 25. White count normal at 5 H&H 14 and 45. Platelets 141. Chest x-ray of the left hilar infiltrate. EKG A-fib with RVR. PT PTT of 15 and 1.2. And 29.5. Electrolytes show gap of 8. Normal BUN of 17 creatinine 0.98. Glucose 174. Liver enzymes unremarkable. Alk phos 132. Total bilirubin 1.4. Labs: Laboratory Results - last 24 hr 01/01/25 10:25 WBC 5.4 RBC 4.23 L Hgb 14.8 Hct 45.0 MCV 106.4 H MCH 35.0 H MCHC 32.9 RDW Std Deviation 63.1 H RDW Coeff of Mariluz 16.0 H Plt Count 141 L MPV 10.3 Immature Gran % (Auto) 1.100 H Neut % (Auto) 74.6 H Lymph % (Auto) 20.6 Rich % (Auto) 2.2 Eos % (Auto) 0.9 Baso % (Auto) 0.6 Absolute Neuts (auto) 4.0 Absolute Lymphs (auto) 1.11 Nucleated RBC % 0 PT 15.7 H INR 1.2 APTT 29.5 Sodium 138 Potassium 4.5 Chloride 103 Carbon Dioxide 27.0 Anion Gap 8 BUN 17 Creatinine 0.98 Estim Creat Clear Calc 77.97 Est GFR (MDRD) Af Amer 93 Est GFR (MDRD) Non-Af 77 BUN/Creatinine Ratio 17.4 Glucose 174 H Calcium 9.8 Total Bilirubin 1.40 H AST 34 ALT 27 Alkaline Phosphatase 132 H Troponin I High Sens 5 B-Natriuretic Peptide 39.3 Total Protein 7.9 Albumin 3.8 Globulin 4.1 Albumin/Globulin Ratio 0.9 ABG Data ABG results: ABG 01/01/25 10:30 Specimen Type YOSEF Sample Site Not entered VBG pH 7.32 VBG pO2 25 VBG HCO3 28 H VBG Total CO2 29 VBG O2 Sat (Calc) 40 L VBG Base Excess 2 POC Mix VBG pCO2 Pt Tmp 54.1 H O2 Delivery Device Not entered Radiography Chest X-Ray - ED: 1 View, Read by ED Physician, Heart, Mediastinum, Bony Structures, Chronic Changes and Left Infiltrate (Left hilar infiltrate consistent with pneumonia.) Diagnostic Testing: Clinical Impression(s) from Imaging Studies Chest X-Ray 01/01/25 10:45 IMPRESSION: Left perihilar patchy airspace disease, likely multifocal pneumonia. Reading Location: [facility] Chest x-ray, portable, single view interpreted by myself shows a left hilar pneumonia. Also read by the radiologist who agrees. Rhythm Strip Rhythm Strip: A-fib Rate: 127 Ectopy: None EKG Initial EKG: Attestation: I personally reviewed and interpreted this EKG as follows: Interpretation: Atrial Fibrillation Comments: A-fib RVR rate of 127. Critical Care Time Critical Care Time: Yes Critical care time (excluding procedures): 30-74 minutes, Including time spent:, Discussing w/Patient &/or Family/Bull Driver, Discussing w/Consultants, Arranging Admission or Transfer, Performing Direct Patient Care at Bedside and - (41 minutes) Discharge Plan Dx/Rx/DC Orders Clinical Impression: Pneumonia, Respiratory failure, Hypoxia, Acute exacerbation of chronic obstructive pulmonary disease, Atrial fibrillation with rapid ventricular response, History of diabetes mellitus, Chronic anticoagulation Disposition Disposition: Acute Care Hospital [facility] [place] [facility]
[2025-01-01 10:33] LABS: Blood Gas Specimen Type VEN; O2 Delivery Device Not entered; SITE Not entered; VBG BASE EXCESS 2 mmol/L (-1.0-3.5); VBG Bicarbonate 28 mmol/L (22-26); VBG PO2 25 mmHg (25-40); VBG SO2 40 % (50-70); VBG TCO2 29 mmol/L (23-33); VBG pCO2 54.1 mmHg (41-51); VBG pH 7.32 (7.32-7.42)
[2025-01-01 10:37] LABS: Absolute Lymphocyte Count 1.11 X10^3/uL (0.83-4.51); Basophil# 0.03 X10^3/uL; Basophil% 0.6 % (0-1); Eosinophil# 0.05 X10^3/uL; Eosinophils% 0.9 % (0-5); Hemoglobin 14.8 g/dL (13.0-16.5); Lymphocyte # 1.11 X10^3/ul (0.83-4.51); Lymphocyte % 20.6 % (19-41); Mean Corp Hgb Conc 32.9 g/dL (32-36); Mean Corpuscular Volume 106.4 fL (80-94); Mean Platelet Vol. 10.3 fl (6.2-12.0); Monocyte# 0.12 X10^3/uL; Monocyte% 2.2 % (0-10); NRBC Flagged by Analyzer 0 % (0-5); Neutrophil # 4.01 X10^3/uL (2.7-7.7); Neutrophil % 74.6 % (47-70); Platelet Count 141 K/mm3 (150-450); RBC Distribution Width SD 63.1 fl (35.1-43.9); Red Blood Count 4.23 M/mm3 (4.6-6.2); White Blood Count 5.4 K/mm3 (4.4-11.0)
--- NOTE | 2025-01-01 10:45 | RAD_ITS ---
EXAM: XR Chest, 1 View CLINICAL INDICATION: TECHNIQUE: Frontal view of the chest. COMPARISON: No relevant prior studies available. FINDINGS: LUNGS AND PLEURAL SPACES: Left perihilar patchy airspace disease, likely multifocal pneumonia. No pneumothorax. HEART: Unremarkable. No cardiomegaly. MEDIASTINUM: Unremarkable. Normal mediastinal contour. BONES/JOINTS: Unremarkable. No acute fracture. RAD/Chest 1 View (Portable) IMPRESSION: Left perihilar patchy airspace disease, likely multifocal pneumonia. Reading [facility]
[2025-01-01 11:01] LABS: ALB/GLOB Ratio 0.9 RATIO (0.9-2.4); AST(SGOT) 34 U/L (15-37); Alanine Aminotransfer ALT/SGPT 27 U/L (16-61); Albumin, Serum 3.8 g/dL (3.2-5.0); Alkaline Phosphatase 132 U/L (45-117); Anion Gap 8 (5-15); BUN 17 mg/dL (7-18); BUN/Creat Ratio 17.4 RATIO (10-20); Calcium,Total 9.8 mg/dL (8.5-10.1); Chloride 103 mmol/L (98-107); Creatinine, Serum 0.98 mg/dL (0.70-1.30); EST Glomerular Filtration Rate 77 mL/min (>60); Est Glom Filt Rate - Afr Amer 93 mL/min (>60); Estimated Creatinine Clearance 77.97 ml/min; Globulin 4.1 g/dL (2.2-4.2); Glucose 174 mg/dL (74-106); Potassium 4.5 mmol/L (3.5-5.1); Protein, Total 7.9 g/dL (6.4-8.2); Sodium Level 138 mmol/L (136-145); Troponin-I HS 5 pg/mL (3.0-78.0)
[2025-01-01 11:04] LABS: International Normalized Ratio 1.2; Prothrombin Time (Protime)PT. 15.7 SECONDS (11.7-14.9)
[2025-01-01 11:05] LABS: Partial Thromboplast Time 29.5 Seconds (24.1-36.2)
[2025-01-01 11:17] LABS: BNP,B-Type NATRIURETIC PEPTIDE 39.3 pg/mL (0-100)
[2025-01-01] MEDS: dilTIAZem 25 MG/5 ML Vial IV BOLUS (11:23)
[2025-01-01 11:25] LABS: Lactic Acid 2.3 mmol/L (0.4-1.9)
[2025-01-01] MEDS: Ceftriaxone 2 GM in 0.9% Normal Saline (50mL MB+) 50 ML IV (11:27)
[2025-01-01] MEDS: Azithromycin 500 MG in 0.9% Normal Saline (250mL Bag) 250 ML 255 MG IV (11:29)
[2025-01-01] MEDS: 0.9% Normal Saline (1000mL) 1,000 ML 999 ML IV (11:30)
--- NOTE | 2025-01-01 11:31 | HP.PCM.HOS_ITS ---
HPI - General General Date of Admission: 01/01/25 Date of Service: 01/01/25 HPI Narrative ALCIDES LOREDO, is a 84 M who presents [facility] Medical History Nonallergic vasomotor rhinitis Macular degeneration Compression fracture of L2 Cancer Hypertension Dementia TIA (transient ischemic attack) Current use of pick up attendant anticoagulation Dysphagia Atrial fibrillation Longstanding persistent atrial fibrillation Skin tear Insulin dependent diabetes mellitus Colonic mass History of echocardiogram History of stress test Cardiology follow-up encounter Short-term memory loss Wears glasses Wears hearing aid Urinary incontinence Walker as ambulation aid Prostate disease Hepatitis Parkinson's disease Stroke/cerebrovascular accident Difficulty swallowing History of GI bleed Gastric reflux BiPAP (biphasic positive airway pressure) dependence Non-smoker Restless legs History of atrial fibrillation Colon cancer Ocular rosacea Diabetes mellitus, type II Carotid artery disease Essential hypertension Paroxysmal atrial fibrillation History of CVA (cerebrovascular accident) (2007) Hyperlipidemia Hypothyroidism Obstructive sleep apnea History of pericarditis (08/2017) Venous (peripheral) insufficiency Peripheral vascular disease due to secondary diabetes DM (diabetes mellitus), type 2 with peripheral vascular complications Diabetes mellitus type 2 with neurological manifestations Home Medications ?Medication ?Instructions ?Recorded ?Last Taken ?Type allopurinol 100 mg tablet 100 mg PO DAILYCM gout 05/1012/31/24 History docusate sodium 100 mg capsule 100 mg PO BID constipat ion 05/10/15 06/06/23 History finasteride 5 mg tablet 5 mg PO DAILY prostate 05/1012/31/24 History tamsulosin 0.4 mg capsule 0.4 mg PO DAILY prostate 11/1212/31/24 History trazodone 100 mg tablet 100 mg PO QHS sleep/mental h ealth 05/10/15 12/31/24 History trospium 20 mg tablet 20 mg PO QHS bladder 5 12/31/24 History cyanocobalamin (vitamin B-12) 500 1,000 mcg PO DAILY s upplement 09/24/17 12/31/24 History mcg tablet ipratropium bromide 42 mcg (0.06 2 spray NS TID PRN AL LERGIES 09/24/17 12/31/24 History %) nasal spray levothyroxine 150 mcg tablet 225 mcg PO MOWEFR thyroid 03/06/19 12/31/24 History magnesium oxide 400 mg (241.3 mg 400 mg PO BID supplem ent 11/30/19 12/31/24 History magnesium) tablet atorvastatin 20 mg tablet 20 mg PO QHS cholesterol 12/31/24 History propranolol 20 mg tablet 20 mg PO BID BP 06/19/2201/23 History levothyroxine 150 mcg tablet 150 mcg PO SUTUTHSA thyro id 07/13/22 12/31/24 History wyvsckeq-eemywvaft-kdfmbuszb 3.5 1 applic topical TOO Y LEFT EYE 07/13/22 12/31/24 History mg-10,000 unit-10 mg/gram top cream donepezil 5 mg tablet (Aricept) 5 mg PO DAILY memory 0 07/24/22 12/31/24 History pioglitazone 45 mg tablet (Actos) 45 mg PO DAILY diabe suzi 07/24/22 12/31/24 History glipizide 5 mg tablet 5 mg PO BID 08/27/22 5 History lisinopril 20 mg tablet 20 mg PO DAILY 03/29/2301/23 History acetaminophen 500 mg tablet 1,000 mg PO BID 06/07/23 0 06/06/23 History apixaban 5 mg tablet (Eliquis) 5 mg PO BID BLOOD THINN ER 06/07/23 12/31/24 History insulin glargine 100 unit/mL (3 30 unit subcut QHS DM 06/07/23 12/31/24 History mL) subcutaneous pen (Lantus Solostar U-100 Insulin) loratadine 10 mg tablet 10 mg PO Q12H ALLERGIES 05/2912/31/24 History diskdcgu-iq-oqtns 300 mcg-K 60 1 tab PO DAILY 06/07/23 12/31/24 History mcg-lycop 600 mcg-lutein 300 mcg tablet (Men 50 Plus Multivitamin) ropinirole 1 mg tablet 1 mg PO BID 06/07/23 5 History ascorbate calcium (vitamin C) 500 500 mg PO DAILY 08/3012/31/24 History mg tablet pantoprazole 40 mg tablet,delayed 40 mg PO DAILY #30 t abs 02/11/24 12/31/24 Rx release ferrous sulfate 325 mg (65 mg 325 mg PO DAILY iron Unknown History iron) tablet cholecalciferol (vitamin D3) 50 50 mcg PO DAILY 12/31/24 History mcg (2,000 unit) capsule furosemide 20 mg tablet 20 mg PO PRN 01/01/25 Unknow n History lactulose 10 gram/15 mL oral 10 g PO DAILY 01/01/25 History solution mecobalamin (vitamin B12) 500 mcg 500 mcg PO DAILY 02/2012/31/24 History chewable tablet psyllium husk 0.4 gram capsule 0.4 g PO DAILY 01/01/25 12/31/24 History (Daily Fiber) sucralfate 1 gram tablet (Carafate) 1 g PO BID 5 12/31/24 History vitamin B complex (Complex B-100 1 tab PO DAILY 12/31/24 History tablet,extended release) Allergy/AdvReac Type Severity Reaction Status Date / Time niacin Allergy Intermediate rash Verified 06/26/24 13:35 adhesive AdvReac Other: Verified 06/26/24 13:35 takes skin off, inflamed Family History Father CAD (coronary artery disease) Hypertension Heart disease Mother Hypertension Sister Breast cancer CVA (cerebral vascular accident) Brother Kidney disease Surgical History History of esophagogastroduodenoscopy (EGD) History of colectomy H/O basal cell carcinoma excision History of cataract extraction History of colonoscopy (~05/2022) History of appendectomy Status post surgical removal of malignant neoplasm of skin Social History household members: significant other Smoking Status: Never smoker alcohol intake: never substance use type: does not use seatbelt use: always do you feel safe at home: Yes additional social history: Ambulates with a wheeled walker. Vital Signs Vital Signs Vital Signs: 01/01/25 10:23 01/01/25 10:25 01/01/25 10:26 Temperature 97.5 F L Temperature Source Temporal Pulse Rate 141 H Respiratory Rate 22 H Respiratory Effort Short of Breath Labored Accessory Muscle Use Respiratory Depth Shallow Respiratory Pattern Tachypnea Blood Pressure 164/76 H Blood Pressure Mean 105 Pulse Ox 91 Oxygen Delivery Method Bi-pap Bi-pap Fraction of Inspired Oxygen (FIO2) 01/01/25 10:46 01/01/25 10:46 Temperature Temperature Source Pulse Rate 141 H 141 H Respiratory Rate 33 H 32 H Respiratory Effort Respiratory Depth Respiratory Pattern Tachypnea Tachypnea Blood Pressure Blood Pressure Mean Pulse Ox 99 Oxygen Delivery Method Fraction of Inspired Oxygen (FIO2) 90 Weight Weight: 304 lb 14.389 oz Body Mass Index (BMI) 41.3 Results Lab / Micro Data 01/01/25 10:25 01/01/25 10:25 Labs: Laboratory Results - last 24 hr 01/01/25 10:25: WBC 5.4, RBC 4.23 L, Hgb 14.8, Hct 45.0, MCV 106.4 H, MCH 35.0 H , MCHC 32.9, RDW Std Deviation 63.1 H, RDW Coeff of Mariluz 16.0 H, Plt Count 141 L, MPV 10.3, Immature Gran % (Auto) 1.100 H, Neut % (Auto) 74.6 H, Lymph % (Auto) 20.6, [place] % (Auto) 2.2, Eos % (Auto) 0.9, Baso % (Auto) 0.6, Absolute Neuts (auto) 4.0, Absolute Lymphs (auto) 1.11, Nucleated RBC % 0, PT 15.7 H, INR 1.2, APTT 29.5, Sodium 138, Potassium 4.5, Chloride 103, Carbon Dioxide 27.0, Anion Gap 8, BUN 17, Creatinine 0.98, Estim Creat Clear Calc 77.97, Est GFR (MDRD) Af Amer 93, Est GFR (MDRD) Non-Af 77, BUN/Creatinine Ratio 17.4, Glucose 174 H, L actic Acid 2.3 H*, Calcium 9.8, Total Bilirubin 1.40 H, AST 34, ALT 27, Alkaline Phosphatase 132 H, Troponin I High Sens 5, B-Natriuretic Peptide 39.3, Total Protein 7.9, Albumin 3.8, Globulin 4.1, Albumin/Globulin Ratio 0.9 ABG Data ABG results: ABG 01/01/25 10:30 Specimen Type YOSEF Sample Site Not entered VBG pH 7.32 VBG pO2 25 VBG HCO3 28 H VBG Total CO2 29 VBG O2 Sat (Calc) 40 L VBG Base Excess 2 POC Mix VBG pCO2 Pt Tmp 54.1 H O2 Delivery Device Not entered Rhythm Strip Rhythm Strip: A-fib Rate: 127 Ectopy: None Imaging Radiology Impression Chest X-Ray 01/01/25 10:45 IMPRESSION: Left perihilar patchy airspace disease, likely multifocal pneumonia. Reading Location: [facility] Assessment & Plan Assessment/Plan (1) Pneumonia: (2) Atrial fibrillation with rapid ventricular response:
--- NOTE | 2025-01-01 11:31 | PCM.HP.STD ---
HPI - General General Date of Admission: 01/01/25 Date of Service: 01/01/25 Chief Complaint: Respiratory distress in the morning about 9 AM HPI Narrative ALCIDES LOREDO, is a 84 M who is on BiPAP in ER who came with sudden onset of shortness of breath in the morning today. History taken mainly from his near the bedside. His said he woke up late at 9 AM today and was short of breath. He also had left upper chest pain and possible blood-tinged sputum in the morning. called EMS and EMS vitals shows heart rate 134 to 150/min, respiratory rate 24-36, unlabored breathing pulse ox 80% on room air. Patient usually wears BiPAP at night but did not use supplemental oxygen. In ED, twelve-lead EKG shows A-fib with RVR, pulmonary pattern, right axis deviation, RVH. Chest x-ray shows left-sided pneumonia. Labs and imaging further discussion assessment and plan [facility] Medical History Nonallergic vasomotor rhinitis Macular degeneration Compression fracture of L2 Cancer Hypertension Dementia TIA (transient ischemic attack) Current use of correction anticoagulation Dysphagia Atrial fibrillation Longstanding persistent atrial fibrillation Skin tear Insulin dependent diabetes mellitus Colonic mass History of echocardiogram History of stress test Cardiology follow-up encounter Short-term memory loss Wears glasses Wears hearing aid Urinary incontinence Walker as ambulation aid Prostate disease Hepatitis Parkinson's disease Stroke/cerebrovascular accident Difficulty swallowing History of GI bleed Gastric reflux BiPAP (biphasic positive airway pressure) dependence Non-smoker Restless legs History of atrial fibrillation Colon cancer Ocular rosacea Diabetes mellitus, type II Carotid artery disease Essential hypertension Paroxysmal atrial fibrillation History of CVA (cerebrovascular accident) (2007) Hyperlipidemia Hypothyroidism Obstructive sleep apnea History of pericarditis (08/2017) Venous (peripheral) insufficiency Peripheral vascular disease due to secondary diabetes DM (diabetes mellitus), type 2 with peripheral vascular complications Diabetes mellitus type 2 with neurological manifestations Home Medications ?Medication ?Instructions ?Recorded ?Last Taken ?Type allopurinol 100 mg tablet 100 mg PO DAILYCM gout 05/10/15 12/31/24 History docusate sodium 100 mg capsule 100 mg PO BID constipation 05/10/15 06/06/23 History finasteride 5 mg tablet 5 mg PO DAILY prostate 05/10/15 12/31/24 History tamsulosin 0.4 mg capsule 0.4 mg PO DAILY prostate 05/10/15 12/31/24 History trazodone 100 mg tablet 100 mg PO QHS sleep/mental health 05/10/15 12/31/24 History trospium 20 mg tablet 20 mg PO QHS bladder 05/10/15 12/31/24 History cyanocobalamin (vitamin B-12) 500 1,000 mcg PO DAILY supplement 09/24/17 12/31/24 History mcg tablet ipratropium bromide 42 mcg (0.06 2 spray NS TID PRN ALLERGIES 09/24/17 12/31/24 History %) nasal spray levothyroxine 150 mcg tablet 225 mcg PO MOWEFR thyroid 03/06/19 12/31/24 History magnesium oxide 400 mg (241.3 mg 400 mg PO BID supplement 11/30/19 12/31/24 History magnesium) tablet atorvastatin 20 mg tablet 20 mg PO QHS cholesterol 06/19/22 12/31/24 History propranolol 20 mg tablet 20 mg PO BID BP 06/19/22 12/31/24 History levothyroxine 150 mcg tablet 150 mcg PO SUTUTHSA thyroid 07/13/22 12/31/24 History bedgvlrr-mbrgadhcx-xhaaevtws 3.5 1 applic topical DAILY LEFT EYE 07/13/22 12/31/24 History mg-10,000 unit-10 mg/gram top cream donepezil 5 mg tablet (Aricept) 5 mg PO DAILY memory 07/24/22 12/31/24 History pioglitazone 45 mg tablet (Actos) 45 mg PO DAILY diabetes 07/24/22 12/31/24 History glipizide 5 mg tablet 5 mg PO BID 08/27/22 12/31/24 History lisinopril 20 mg tablet 20 mg PO DAILY 03/29/23 12/31/24 History acetaminophen 500 mg tablet 1,000 mg PO BID 06/07/23 06/06/23 History apixaban 5 mg tablet (Eliquis) 5 mg PO BID BLOOD THINNER 06/07/23 12/31/24 History insulin glargine 100 unit/mL (3 30 unit subcut QHS DM 06/07/23 12/31/24 History mL) subcutaneous pen (Lantus Solostar U-100 Insulin) loratadine 10 mg tablet 10 mg PO Q12H ALLERGIES 06/07/23 12/31/24 History nkvjpugc-ai-cnsaj 300 mcg-K 60 1 tab PO DAILY 06/07/23 12/31/24 History mcg-lycop 600 mcg-lutein 300 mcg tablet (Men 50 Plus Multivitamin) ropinirole 1 mg tablet 1 mg PO BID 06/07/23 12/31/24 History ascorbate calcium (vitamin C) 500 500 mg PO DAILY 09/21/23 12/31/24 History mg tablet pantoprazole 40 mg tablet,delayed 40 mg PO DAILY #30 tabs 02/11/24 12/31/24 Rx release ferrous sulfate 325 mg (65 mg 325 mg PO DAILY iron 07/25/24 Unknown History iron) tablet cholecalciferol (vitamin D3) 50 50 mcg PO DAILY 01/01/25 12/31/24 History mcg (2,000 unit) capsule furosemide 20 mg tablet 20 mg PO PRN 01/01/25 Unknown History lactulose 10 gram/15 mL oral 10 g PO DAILY 01/01/25 12/31/24 History solution mecobalamin (vitamin B12) 500 mcg 500 mcg PO DAILY 01/01/25 12/31/24 History chewable tablet psyllium husk 0.4 gram capsule 0.4 g PO DAILY 01/01/25 12/31/24 History (Daily Fiber) sucralfate 1 gram tablet (Carafate) 1 g PO BID 01/01/25 12/31/24 History vitamin B complex (Complex B-100 1 tab PO DAILY 01/01/25 12/31/24 History tablet,extended release) Allergy/AdvReac Type Severity Reaction Status Date / Time niacin Allergy Intermediate rash Verified 06/26/24 13:35 adhesive AdvReac Other: Verified 06/26/24 13:35 takes skin off, inflamed Family History Father CAD (coronary artery disease) Hypertension Heart disease Mother Hypertension Sister Breast cancer CVA (cerebral vascular accident) Brother Kidney disease Surgical History History of esophagogastroduodenoscopy (EGD) History of colectomy H/O basal cell carcinoma excision History of cataract extraction History of colonoscopy (~05/2022) History of appendectomy Status post surgical removal of malignant neoplasm of skin Social History household members: significant other Smoking Status: Never smoker alcohol intake: never substance use type: does not use seatbelt use: always do you feel safe at home: Yes additional social history: Ambulates with a wheeled walker. ROS ROS Narrative 14 system ROS incomplete because mainly taken from , patient in respiratory distress on BiPAP Constitutional: Reports chronic fatigue and weakness. No fever. HEENT: Reports systems reviewed and no addt'l complaints, except as documented Respiratory/Chest: As described in HPI CVS: Left upper chest pain, pleuritic type Gastrointestinal: Cirrhosis patient. Denies coffee ground emesis, hematemesis or vomiting Genitourinary: Denies burning urination or new urinary tract symptoms Musculoskeletal: Denies acute joint pain or limited range of motion. No acute injury Neurologic: Denies seizure-like symptoms. skin: No ulcer. No rash Endocrinology: Reports systems reviewed and no addt'l complaints, except as documented Hematologic/Lymphatic: Reports systems reviewed and no addt'l complaints, except as documented Rest 14 ROS are negative except as mentioned in HPI Vital Signs Vital Signs Vital Signs: 01/01/25 10:23 01/01/25 10:25 01/01/25 10:26 Temperature 97.5 F L Temperature Source Temporal Pulse Rate 141 H Respiratory Rate 22 H Respiratory Effort Short of Breath Labored Accessory Muscle Use Respiratory Depth Shallow Respiratory Pattern Tachypnea Blood Pressure 164/76 H Blood Pressure Mean 105 Pulse Ox 91 Oxygen Delivery Method Bi-pap Bi-pap Fraction of Inspired Oxygen (FIO2) 01/01/25 10:46 01/01/25 10:46 Temperature Temperature Source Pulse Rate 141 H 141 H Respiratory Rate 33 H 32 H Respiratory Effort Respiratory Depth Respiratory Pattern Tachypnea Tachypnea Blood Pressure Blood Pressure Mean Pulse Ox 99 Oxygen Delivery Method Fraction of Inspired Oxygen (FIO2) 90 Weight Weight: 304 lb 14.389 oz Body Mass Index (BMI) 41.3 Physical Exam Narrative General: Awake, lethargic but answers simple questions by nodding head HEENT: On BiPAP. Atraumatic. Pupils normal reacting Oral: On BiPAP Neck: Supple, No JVD, Negative Carotid Bruits Chest wall/Lungs: Air entry diminished in bilateral lung bases. Bilateral expiratory rhonchi Cardiovascular: A-fib RVR normal S1, Normal S2, No M/G/R Abdomen: Bowel Sounds Present, Soft, Non Tender, Non-Distended : No dysuria. No renal angle tenderness. No suprapubic tenderness. Extremities: Bilateral chronic lymphedema/venous edema, Capillary Refill Less than 3 Seconds Skin: Chronic increased pigmentation/varicose vein lower legs Musculoskeletal: No Tenderness to Palpation of Joints or Extremities. ROM limited Neurological: DTR 2+/4. No acute focal neurological deficit. Psych/Mental Status: Flat affect Results Lab / Micro Data 01/01/25 10:25 01/01/25 10:25 Labs: Laboratory Results - last 24 hr 01/01/25 10:25: WBC 5.4, RBC 4.23 L, Hgb 14.8, Hct 45.0, MCV 106.4 H, MCH 35.0 H, MCHC 32.9, RDW Std Deviation 63.1 H, RDW Coeff of [place] 16.0 H, Plt Count 141 L, MPV 10.3, Immature Gran % (Auto) 1.100 H, Neut % (Auto) 74.6 H, Lymph % (Auto) 20.6, [place] % (Auto) 2.2, Eos % (Auto) 0.9, Baso % (Auto) 0.6, Absolute Neuts (auto) 4.0, Absolute Lymphs (auto) 1.11, Nucleated RBC % 0, PT 15.7 H, INR 1.2, APTT 29.5, Sodium 138, Potassium 4.5, Chloride 103, Carbon Dioxide 27.0, Anion Gap 8, BUN 17, Creatinine 0.98, Estim Creat Clear Calc 77.97, Est GFR (MDRD) Af Amer 93, Est GFR (MDRD) Non-Af 77, BUN/Creatinine Ratio 17.4, Glucose 174 H, Lactic Acid 2.3 H*, Calcium 9.8, Total Bilirubin 1.40 H, AST 34, ALT 27, Alkaline Phosphatase 132 H, Troponin I High Sens 5, B-Natriuretic Peptide 39.3, Total Protein 7.9, Albumin 3.8, Globulin 4.1, Albumin/Globulin Ratio 0.9 ABG Data ABG results: ABG 01/01/25 10:30 Specimen Type YOSEF Sample Site Not entered VBG pH 7.32 VBG pO2 25 VBG HCO3 28 H VBG Total CO2 29 VBG O2 Sat (Calc) 40 L VBG Base Excess 2 POC Mix VBG pCO2 Pt Tmp 54.1 H O2 Delivery Device Not entered Rhythm Strip Rhythm Strip: A-fib Rate: 127 Ectopy: None Imaging Radiology Impression Chest X-Ray 01/01/25 10:45 IMPRESSION: Left perihilar patchy airspace disease, likely multifocal pneumonia. Reading Location: [facility] Assessment & Plan Assessment/Plan (1) Pneumonia: (2) Atrial fibrillation with rapid ventricular response: PLAN: Plan This 84-year-old gentleman with multiple comorbidities admitted with respiratory distress on BiPAP, A-fib with RVR 1. Acute hypoxic and hypercarbic respiratory failure secondary to pneumonia: Patient is being admitted in ICU. VBG shows 7.32/mixed pCO2 54/29. Patient on BiPAP. Maxillofacial Prosthetics Dentist consulted. 2. Possible sepsis due to pneumonia: Chest x-ray initially reviewed and shows left upper lobe/hilar patchy airspace consolidation likely multifocal pneumonia. No pneumothorax. The patient presented with suspicion of sepsis with clinical indicators of tachycardia, tachypnea, hypoxia due to pneumonia as described above- with acute sepsis-related organ dysfunction as evidenced by acute combined respiratory failure and lactic acidosis. Ceftriaxone and azithromycin ordered in the ED the patient started on vancomycin and Zosyn. Pneumonia workup ordered. 3. A-fib with RVR: Patient has a history of chronic A-fib status post ablation. Diltiazem 25 mg IV 1 dose given in the ED that led to hypotension but patient was not hypotensive before. Heart rate 81. Blood pressure systolic in 80s on the monitor which is 95/75. Treat the underlying pneumonia and sepsis. 4. Decompensated cirrhosis with grade 1 esophageal varices, mild thrombocytopenia: Last MELD score in the office May 2024 was 10 and CPT score 10. Patient denies any increase in abdominal girth or swelling. Currently his leg swelling. Hold on diuretics 5. DM type II, on insulin: Accu-Chek before meals and at bedtime with Humalog sliding scale coverage and hypoglycemia protocol. 6. 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 Colon cancer on surveillance: Patient follows Dr. Andrade. 8. Other chronic comorbidities include hypothyroidism, dyslipidemia, GERD and gout. No acute issues. 9. Obstructive sleep apnea: Patient uses BiPAP at home. 10. DVT prophylaxis high risk, Lovenox 40 mg subcu daily. Patient also high risk of bleeding because of cirrhosis and 1 thrombocytopenia. Bilateral SCDs Living will/advanced directive/end of life care: Patient does have living will or advanced directive. His is power of real estate attorney. In the ED. After discussion of benefits/risks procedures involved with full code, DNR CC arrest and DNR CC, the patient opted for full code. Patient does want artificial life support including intubation, tube feed, ventilator and/chest compression, central venous catheter, vasopressor and DC shock if needed Total time spent in [id number] encounter in discussion of advanced directive 17 minutes. Microbiology Past 72 Hours 01/01/25 10:30 Mucosa - Nose SARS-CoV-2, Influenza & RSV (PCR) - Final Laboratory Results 01/01/25 10:25: WBC 5.4, RBC 4.23 L, Hgb 14.8, Hct 45.0, MCV 106.4 H, MCH 35.0 H, MCHC 32.9, RDW Std Deviation 63.1 H, RDW Coeff of [place] 16.0 H, Plt Count 141 L, MPV 10.3, Immature Gran % (Auto) 1.100 H, Neut % (Auto) 74.6 H, Lymph % (Auto) 20.6, [place] % (Auto) 2.2, Eos % (Auto) 0.9, Baso % (Auto) 0.6, Absolute Neuts (auto) 4.0, Absolute Lymphs (auto) 1.11, Nucleated RBC % 0, PT 15.7 H, INR 1.2, APTT 29.5, Sodium 138, Potassium 4.5, Chloride 103, Carbon Dioxide 27.0, Anion Gap 8, BUN 17, Creatinine 0.98, Estim Creat Clear Calc 77.97, Est GFR (MDRD) Af Amer 93, Est GFR (MDRD) Non-Af 77, BUN/Creatinine Ratio 17.4, Glucose 174 H, Lactic Acid 2.3 H*, Calcium 9.8, Magnesium 1.5 L, Total Bilirubin 1.40 H, AST 34, ALT 27, Alkaline Phosphatase 132 H, Total Creatine Kinase 52, Troponin I High Sens 5, B-Natriuretic Peptide 39.3, Total Protein 7.9, Albumin 3.8, Globulin 4.1, Albumin/Globulin Ratio 0.9 01/01/25 10:30: Specimen Type YOSEF, Sample Site Not entered, VBG pH 7.32, VBG pO2 25, VBG HCO3 28 H, VBG Total CO2 29, VBG O2 Sat (Calc) 40 L, VBG Base Excess 2, POC Mix VBG pCO2 Pt Tmp 54.1 H, O2 Delivery Device Not entered 01/01/25 11:30: Urine Color Pending, Urine Clarity Pending, Urine pH Pending, Ur Specific [place] Pending, Urine Protein Pending, Urine Glucose (UA) Pending, Urine Ketones Pending, Urine Occult Blood Pending, Urine Nitrite Pending, Urine Bilirubin Pending, Urine Urobilinogen Pending, Ur Leukocyte Esterase Pending, Urine RBC Pending, Urine WBC Pending, Ur Squamous Epith Cells Pending, Urine Bacteria Pending, Urine Mucus Pending Clinical Impression(s) from Imaging Studies Chest X-Ray 01/01/25 10:45 IMPRESSION: Left perihilar patchy airspace disease, likely multifocal pneumonia. Reading Location: [facility] Charges/Coding Visit Charges Inpatient E&M: 55655 Init Hosp L3 Procedures Hospitalists Procedures: 50314 Advncd Care Plan 30 Min
--- NOTE | 2025-01-01 11:40 | SEPSISATNOTE ---
Sepsis Attestation Sepsis Alert: Yes Sepsis Attestation: Agree w/Sepsis Date exam was performed: 01/01/25 Time exam was performed: 11:15 Possible Source of Sepsis: Pulmonary Sepsis Organ Dysfunction Criteria Present: SBP decrease of more than 40 mmHg, Acute Respiratory Failure (New need for BiPAP/CPAP or MV) and Lactic Acid > 2 mmol/L Fluid Resuscitation Fluid resuscitation indicated?: Yes Fluid Resuscitation ordered: Lesser volume fluid bolus ordered Amount of fluid ordered: 2,000 Reason for lesser fluid bolus:: Concern for fluid overload, Heart failure and Other (. Decompensated cirrhosis) Sepsis Note Date exam was performed: 01/01/25 Time exam was performed: 02:30 Sepsis Attestation: Sepsis re-evaluation was performed Response to fluids: Fluid responsive hypotension
[2025-01-01 11:51] LABS: Mucous, Urine 0 SEEN /hpf (<or=2+); Red Blood Cells-Urine 0 SEEN /hpf (0-5); Squamous Epithelial Cells - UA 0 SEEN /hpf (0-5)
--- NOTE | 2025-01-01 12:03 | ED.RN ---
report given to [facility] [employer]
[2025-01-01 12:08] LABS: CPK Total, Creatine Kinase 52 U/L (39-308); Magnesium 1.5 mg/dL (1.6-2.6)
[2025-01-01 12:28] LABS: Color, Urine Yellow (Yellow); Glucose, Dipstick Normal (Normal); Ketone-Dipstick Negative (Negative); Leukocyte Esterase-Dipstick 100 /ul (Negative); Nitrite-Dipstick Positive (Negative); Occult Blood-Urine 10 /ul (Negative); Protein-Dipstick 15 mg/dl (Negative); Urine Bilirubin Dipstick Negative (Negative); Urine Clarity Clear (Clear); Urine Urobilinogen Normal (Normal)
[2025-01-01 12:35] LABS: Bacteria RARE /hpf (None Seen); White Blood Cells 10-25 SEEN /hpf (0-5)
[2025-01-01] MEDS: Vancomycin HCl 2,000 MG in 0.9% Normal Saline (500mL Bag) 500 ML 250 MG IV (13:43)
[2025-01-01] MEDS: Enoxaparin 40 MG/0.4 ML Syringe SC (13:43)
--- NOTE | 2025-01-01 13:54 | EX.PCM.CONCC ---
Assessment & Plan Assessment/Plan (1) Hypoxia: (2) Respiratory failure: PLAN: Plan RECOMMENDATIONS: 1. Wean from BiPAP therapy to high flow oxygen, if feasible. 2. Administer sepsis fluids. 3. Reflex lactate. 4. Continue empiric antibiotics. 5. Magnesium repletion as ordered. 6. Continue appropriate DVT prophylaxis. IMPRESSIONS: 1. Acute hypoxemic respiratory failure with hypoxemia Most likely secondary to presenting pneumonia compounded by atrial fibrillation with RVR. The patient's heart rate appears to be under much better control. He has responded appropriately to noninvasive positive pressure ventilatory support. It should be noted that the patient has never been diagnosed with COPD, despite documentation to the contrary. Given the patient's reported cough with sputum production, will obtain cultures. Otherwise, continue current supportive care. The patient can be weaned from PAP therapy, if feasible, to supplemental oxygen. 2. Sepsis The patient presented with sepsis due to suspected pneumonia with acute sepsis related organ dysfunction as evidenced by lactic acidemia and acute respiratory failure requiring noninvasive positive pressure ventilatory support. Recommend continuing resuscitative efforts per protocol. Plan to reflex lactate level and continue empiric antimicrobials, pending infectious workup. 3. History of atrial fibrillation with RVR At the present time, the patient appears rate controlled. In light of his history of hypothyroidism, will check TSH level. Lastly, given his presenting hypomagnesemia, will replete magnesium as ordered. 4. Obesity/history of obstructive sleep apnea/cirrhosis/diabetes mellitus/history of colon CA Complicates care, management, recovery and prognosis. Continue supportive measures as noted above. This note was generated with [employer] dictation software. It may contain incorrect words, spelling, and punctuation that were not noted in checking the note before signing. HPI Consult Data Date of Consult: 01/02/25 HPI Narrative Reason for Consultation: Acute respiratory failure HPI Narrative: The patient is an 84-year-old male, with a history as outlined below, who presented to the emergency department on January 01 with back pain and shortness of breath. The patient denied ever having been diagnosed with COPD. He has a very remote, limited smoking history. He does have a history of obstructive sleep apnea and currently utilizes nocturnal PAP therapy. He has been experiencing an intermittently productive cough. The patient does not utilize supplemental oxygen at his baseline. He does, however, have a documented history of cirrhosis and an esophageal motility disorder. Lastly, the patient has a known history of colon cancer, currently in remission. On presentation to the emergency department, the patient was documented to be afebrile but was notably tachycardic and tachypneic. He was initially placed on BiPAP therapy. Laboratory evaluation revealed a normal white blood cell count. Platelet count was low at 141,000. Chemistry profile was unrevealing. Lactate was mildly elevated at 2.3. Total bilirubin was noted to be 1.4. BNP was normal. Troponin was unremarkable. Urinalysis was positive for nitrites and leukocyte esterase. COVID, influenza and RSV PCR's were negative. Blood and urine cultures were collected. In the emergency department, the patient was noted to be in atrial fibrillation with RVR. He was administered a Cardizem bolus. Fluids were ultimately administered. The patient was subsequently admitted to the medical intensive care unit for further management. [facility] Medical History Nonallergic vasomotor rhinitis Macular degeneration Compression fracture of L2 Cancer Hypertension Dementia TIA (transient ischemic attack) Current use of long-term anticoagulation Dysphagia Atrial fibrillation Longstanding persistent atrial fibrillation Skin tear Insulin dependent diabetes mellitus Colonic mass History of echocardiogram History of stress test Cardiology follow-up encounter Short-term memory loss Wears glasses Wears hearing aid Urinary incontinence Walker as ambulation aid Prostate disease Hepatitis Parkinson's disease Stroke/cerebrovascular accident Difficulty swallowing History of GI bleed Gastric reflux BiPAP (biphasic positive airway pressure) dependence Non-smoker Restless legs History of atrial fibrillation Colon cancer Ocular rosacea Diabetes mellitus, type II Carotid artery disease Essential hypertension Paroxysmal atrial fibrillation History of CVA (cerebrovascular accident) (2007) Hyperlipidemia Hypothyroidism Obstructive sleep apnea History of pericarditis (08/2017) Venous (peripheral) insufficiency Peripheral vascular disease due to secondary diabetes DM (diabetes mellitus), type 2 with peripheral vascular complications Diabetes mellitus type 2 with neurological manifestations Home Medications ?Medication ?Instructions ?Recorded ?Last Taken ?Type allopurinol 100 mg tablet 100 mg PO DAILYCM gout 05/10/15 12/31/24 History docusate sodium 100 mg capsule 100 mg PO BID constipation 05/10/15 06/06/23 History finasteride 5 mg tablet 5 mg PO DAILY prostate 05/10/15 12/31/24 History tamsulosin 0.4 mg capsule 0.4 mg PO DAILY prostate 05/10/15 12/31/24 History trazodone 100 mg tablet 100 mg PO QHS sleep/mental health 05/10/15 12/31/24 History trospium 20 mg tablet 20 mg PO QHS bladder 05/10/15 12/31/24 History cyanocobalamin (vitamin B-12) 500 1,000 mcg PO DAILY supplement 09/24/17 12/31/24 History mcg tablet ipratropium bromide 42 mcg (0.06 2 spray NS TID PRN ALLERGIES 09/24/17 12/31/24 History %) nasal spray levothyroxine 150 mcg tablet 225 mcg PO MOWEFR thyroid 03/06/19 12/31/24 History magnesium oxide 400 mg (241.3 mg 400 mg PO BID supplement 11/30/19 12/31/24 History magnesium) tablet atorvastatin 20 mg tablet 20 mg PO QHS cholesterol 06/19/22 12/31/24 History propranolol 20 mg tablet 20 mg PO BID BP 06/19/22 12/31/24 History levothyroxine 150 mcg tablet 150 mcg PO SUTUTHSA thyroid 07/13/22 12/31/24 History zgajhdeb-koweixgra-patmarhxh 3.5 1 applic topical DAILY LEFT EYE 07/13/22 12/31/24 History mg-10,000 unit-10 mg/gram top cream donepezil 5 mg tablet (Aricept) 5 mg PO DAILY memory 07/24/22 12/31/24 History pioglitazone 45 mg tablet (Actos) 45 mg PO DAILY diabetes 07/24/22 12/31/24 History glipizide 5 mg tablet 5 mg PO BID 08/27/22 12/31/24 History lisinopril 20 mg tablet 20 mg PO DAILY 03/29/23 12/31/24 History acetaminophen 500 mg tablet 1,000 mg PO BID 06/07/23 06/06/23 History apixaban 5 mg tablet (Eliquis) 5 mg PO BID BLOOD THINNER 06/07/23 12/31/24 History insulin glargine 100 unit/mL (3 30 unit subcut QHS DM 06/07/23 12/31/24 History mL) subcutaneous pen (Lantus Solostar U-100 Insulin) loratadine 10 mg tablet 10 mg PO Q12H ALLERGIES 06/07/23 12/31/24 History dohidszg-ku-abeli 300 mcg-K 60 1 tab PO DAILY 06/07/23 12/31/24 History mcg-lycop 600 mcg-lutein 300 mcg tablet (Men 50 Plus Multivitamin) ropinirole 1 mg tablet 1 mg PO BID 06/07/23 12/31/24 History ascorbate calcium (vitamin C) 500 500 mg PO DAILY 09/21/23 12/31/24 History mg tablet pantoprazole 40 mg tablet,delayed 40 mg PO DAILY #30 tabs 02/11/24 12/31/24 Rx release ferrous sulfate 325 mg (65 mg 325 mg PO DAILY iron 07/25/24 Unknown History iron) tablet cholecalciferol (vitamin D3) 50 50 mcg PO DAILY 01/01/25 12/31/24 History mcg (2,000 unit) capsule furosemide 20 mg tablet 20 mg PO PRN 01/01/25 Unknown History lactulose 10 gram/15 mL oral 10 g PO DAILY 01/01/25 12/31/24 History solution mecobalamin (vitamin B12) 500 mcg 500 mcg PO DAILY 01/01/25 12/31/24 History chewable tablet psyllium husk 0.4 gram capsule 0.4 g PO DAILY 01/01/25 12/31/24 History (Daily Fiber) sucralfate 1 gram tablet (Carafate) 1 g PO BID 01/01/25 12/31/24 History vitamin B complex (Complex B-100 1 tab PO DAILY 01/01/25 12/31/24 History tablet,extended release) Allergy/AdvReac Type Severity Reaction Status Date / Time niacin Allergy Intermediate rash Verified 06/26/24 13:35 adhesive AdvReac Other: Verified 06/26/24 13:35 takes skin off, inflamed Family History Father CAD (coronary artery disease) Hypertension Heart disease Mother Hypertension Sister Breast cancer CVA (cerebral vascular accident) Brother Kidney disease Surgical History History of esophagogastroduodenoscopy (EGD) History of colectomy H/O basal cell carcinoma excision History of cataract extraction History of colonoscopy (~05/2022) History of appendectomy Status post surgical removal of malignant neoplasm of skin Social History household members: significant other Smoking Status: Never smoker alcohol intake: never substance use type: does not use seatbelt use: always do you feel safe at home: Yes additional social history: Ambulates with a wheeled walker. ROS ROS Narrative 10 systems were reviewed with pertinent positives as noted in the HPI above. Physical Exam Const Constitutional Narrative: The patient is alert and able to answer questions with BiPAP in place. Obese. is present at the bedside. HEENT normocephalic and head/scalp atraumatic Eyes PERRL, EOMs intact bilaterally and conjunctivae normal Neck supple Neck Narrative: Large neck circumference with redundant soft tissue. General: trachea midline Chest inspection of chest normal Resp normal respiratory effort Auscultation: diminished lung sounds Cardio S1 normal heart sound and S2 normal heart sound Rhythm: abnormal rhythm GI normal to inspection, nondistended, normoactive bowel sounds Extremity General Extremity: edema; Negative for clubbing Skin General Skin Exam: venous stasis and dermatitis Neuro CN's II-XII intact bilaterally and moves all extremities Psych cooperative and affect normal Lab / Micro Data 01/02/25 05:10 01/02/25 05:10 Labs: Laboratory Results - last 24 hr 01/01/25 10:25: WBC 5.4, RBC 4.23 L, Hgb 14.8, Hct 45.0, MCV 106.4 H, MCH 35.0 H, MCHC 32.9, RDW Std Deviation 63.1 H, RDW Coeff of Mariluz 16.0 H, Plt Count 141 L, MPV 10.3, Immature Gran % (Auto) 1.100 H, Neut % (Auto) 74.6 H, Lymph % (Auto) 20.6, [place] % (Auto) 2.2, Eos % (Auto) 0.9, Baso % (Auto) 0.6, Absolute Neuts (auto) 4.0, Absolute Lymphs (auto) 1.11, Nucleated RBC % 0, PT 15.7 H, INR 1.2, APTT 29.5, Sodium 138, Potassium 4.5, Chloride 103, Carbon Dioxide 27.0, Anion Gap 8, BUN 17, Creatinine 0.98, Estim Creat Clear Calc 77.97, Est GFR (MDRD) Af Amer 93, Est GFR (MDRD) Non-Af 77, BUN/Creatinine Ratio 17.4, Glucose 174 H, Lactic Acid 2.3 H*, Calcium 9.8, Magnesium 1.5 L, Total Bilirubin 1.40 H, AST 34, ALT 27, Alkaline Phosphatase 132 H, Total Creatine Kinase 52, Troponin I High Sens 5, B-Natriuretic Peptide 39.3, Total Protein 7.9, Albumin 3.8, Globulin 4.1, Albumin/Globulin Ratio 0.9 01/01/25 11:30: Urine Color Yellow, Urine Clarity Clear, Urine pH 5.0, Ur Specific [place] 1.010, Urine Protein 15 H, Urine Glucose (UA) Normal, Urine Ketones Negative, Urine Occult Blood 10 H, Urine Nitrite Positive H, Urine Bilirubin Negative, Urine Urobilinogen Normal, Ur Leukocyte Esterase 100 H, Urine RBC 0 SEEN, Urine WBC 10-25 SEEN, Ur Squamous Epith Cells 0 SEEN, Urine Bacteria RARE, Urine Mucus 0 SEEN Micro: Microbiology 01/01/25 10:30 Mucosa - Nose SARS-CoV-2, Influenza & RSV (PCR) - Final ABG Data ABG results: ABG 01/01/25 10:30 Specimen Type YOSEF Sample Site Not entered VBG pH 7.32 VBG pO2 25 VBG HCO3 28 H VBG Total CO2 29 VBG O2 Sat (Calc) 40 L VBG Base Excess 2 POC Mix VBG pCO2 Pt Tmp 54.1 H O2 Delivery Device Not entered Rhythm Strip Rhythm Strip: A-fib Rate: 127 Ectopy: None Imaging Radiology Impression Chest X-Ray 01/01/25 10:45 IMPRESSION: Left perihilar patchy airspace disease, likely multifocal pneumonia. Reading Location: [facility] Sepsis Attestation Sepsis Attestation: Agree w/Sepsis Date exam was performed: 01/01/25 Time exam was performed: 14:11 Possible Source of Sepsis: Pulmonary Sepsis Organ Dysfunction Criteria Present: Acute Respiratory Failure (New need for BiPAP/CPAP or MV) and Lactic Acid > 2 mmol/L Fluid Resuscitation Fluid resuscitation indicated?: Yes Fluid Resuscitation ordered: 30 ml/kg fluid bolus ordered (Minus fluids already given) Amount of fluid ordered: 3,000 Sepsis Note Date exam was performed: 01/01/25 Sepsis Attestation: Sepsis re-evaluation was performed Response to fluids: Non Fluid responsive hypotension and Vasopressors started Charges/Coding Visit Charges Inpatient E&M: 30705 Init Hosp L3
[2025-01-01] MEDS: 0.9% Normal Saline 1,000 ML IV.SOLN. 3000 ML OPERA.SITE (14:21)
[2025-01-01] MEDS: Magnesium Sulfate 2 GM in Dextrose 5%-Water (100mL Bag) 100 ML IV (14:29)
[2025-01-01 14:32] LABS: Reflex Lactate? Y
[2025-01-01 14:36] LABS: Bedside Glucose 130 mg/dL (74-106)
[2025-01-01 14:52] LABS: Procalcitonin 0.08 ng/mL (0.00-0.09)
--- NOTE | 2025-01-01 15:23 | PCM.RX.CS ---
Consult Antibiotic Management Pharmacy has been consulted to manage selected antibiotic: Vancomycin Type of Intervention Type of Consult: New start Suspected Infection Suspected Infection: Sepsis and Pneumonia Labs Labs: Sodium 138 mmol/L (136-145) 01/01/25 10:25 Potassium 4.5 mmol/L (3.5-5.1) 01/01/25 10:25 Chloride 103 mmol/L (98-107) 01/01/25 10:25 Carbon Dioxide 27.0 mmol/L (21.0-32.0) 01/01/25 10:25 Anion Gap 8 (5-15) 01/01/25 10:25 BUN 17 mg/dL (7-18) 01/01/25 10:25 Creatinine 0.98 mg/dL (0.70-1.30) 01/01/25 10:25 Est GFR (MDRD) Af Amer 93 mL/min (>60) 01/01/25 10:25 Est GFR (MDRD) Non-Af 77 mL/min (>60) 01/01/25 10:25 BUN/Creatinine Ratio 17.4 RATIO (10-20) 01/01/25 10:25 Glucose 174 mg/dL (74-106) H 01/01/25 10:25 Microbiology Microbiology: Microbiology 01/01/25 10:30 Mucosa - Nose SARS-CoV-2, Influenza & RSV (PCR) - Final Pharmacy Plan for Drug Dosing Pharmacy Plan for Drug Dosing: NEW START IV VANCOMYCIN Consulting Physician: Hardy Indication: Sepsis/pneumonia Goal Trough: 15-20mg/dL SrCr: 0.98 mg/dL CrCl: 77.9 mL/min Comments: initial standard dose of 2000mg given 01/01 @ 1343 Vancomycin Dose: Will start 1750mg Q12 01/02 @ 0200 and get a trough prior to 4th total dose per policy. Pending Level: 01/03/25 @ 0130 Pharmacy Service will continue to monitor and adjust dosing as required.
[2025-01-01] MEDS: Piperacil/Tazobactam 3.375 GM in 0.9% Normal Saline (50mL MB+) 50 ML IV ×2 (16:27→21:56)
[2025-01-01] MEDS: Norepinephrine 8 MG in 0.9% Normal Saline (250mL Bag) 242 ML 9.4 MG CONT INF (18:32)
[2025-01-01 18:49] LABS: Lactic Acid 2.3 mmol/L (0.4-1.9)
[2025-01-01] MEDS: Insulin Lispro 100 UNIT/ML INSULN.PEN SC (21:56)
[2025-01-01 22:21] LABS: Bedside Glucose 192 mg/dL (74-106)
[2025-01-01] MEDS: MELATONIN 3 MG TABLET PO (22:44)
[2025-01-02] VITALS (35 sets, daily range): BP systolic 91–135; BP diastolic 48–75; PULSE 82–110; RESP 15–30; TEMP 36.2–37; O2SAT 95–100; BMI 37.0
[2025-01-02] MEDS: Vancomycin HCl 1,750 MG in 0.9% Normal Saline (500mL Bag) 500 ML 250 MG IV (02:00)
--- NOTE | 2025-01-02 04:12 | PCM.HOSP.N ---
Hospitalist Note Patient asking for several of his home medications. Will restart medications now medication reconciliation performed. From records patient is actually on Eliquis therefore transition off Lovenox and resume Eliquis. Will continue his other medications aside holding hypertensive regimen.
[2025-01-02] MEDS: Pramipexole Di-HCl 0.5 MG Tablet PO ×2 (05:07→22:32)
[2025-01-02] MEDS: Levothyroxine 150 MCG Tablet PO (05:07)
[2025-01-02] MEDS: Piperacil/Tazobactam 3.375 GM in 0.9% Normal Saline (50mL MB+) 50 ML IV ×3 (05:07→22:29)
[2025-01-02] MEDS: CLARIFY ORDER NOTE ×2 (05:07→05:08)
[2025-01-02 05:21] LABS: Absolute Lymphocyte Count 1.57 X10^3/uL (0.83-4.51); Absolute Neutrophil Count 12.3 X10^3/uL (2.0-7.7); Basophil# 0.04 X10^3/uL; Basophil% 0.3 % (0-1); Eosinophil# 0.04 X10^3/uL; Eosinophils% 0.3 % (0-5); Hematocrit 34.7 % (40-54); Hemoglobin 11.5 g/dL (13.0-16.5); Lymphocyte # 1.57 X10^3/ul (0.83-4.51); Lymphocyte % 10.3 % (19-41); Mean Corp Hgb Conc 33.1 g/dL (32-36); Mean Corpuscular Hgb 34.4 pg (27.0-32.0); Mean Corpuscular Volume 103.9 fL (80-94); Mean Platelet Vol. 9.9 fl (6.2-12.0); Monocyte# 1.17 X10^3/uL; Monocyte% 7.7 % (0-10); NRBC Flagged by Analyzer 0 % (0-5); Neutrophil # 12.32 X10^3/uL (2.7-7.7); Neutrophil % 80.5 % (47-70); Platelet Count 113 K/mm3 (150-450); RBC Distribution Width CV 16.2 % (11.6-14.6); RBC Distribution Width SD 61.5 fl (35.1-43.9); Red Blood Count 3.34 M/mm3 (4.6-6.2); White Blood Count 15.3 K/mm3 (4.4-11.0)
[2025-01-02 05:47] LABS: ALB/GLOB Ratio 0.9 RATIO (0.9-2.4); AST(SGOT) 31 U/L (15-37); Alanine Aminotransfer ALT/SGPT 30 U/L (16-61); Albumin, Serum 2.8 g/dL (3.2-5.0); Alkaline Phosphatase 83 U/L (45-117); Anion Gap 9 (5-15); BUN 18 mg/dL (7-18); BUN/Creat Ratio 16.8 RATIO (10-20); Calcium,Total 8.4 mg/dL (8.5-10.1); Chloride 109 mmol/L (98-107); Creatinine, Serum 1.07 mg/dL (0.70-1.30); EST Glomerular Filtration Rate 70 mL/min (>60); Est Glom Filt Rate - Afr Amer 84 mL/min (>60); Estimated Creatinine Clearance 77.14 ml/min; Globulin 3.1 g/dL (2.2-4.2); Glucose 155 mg/dL (74-106); Potassium 3.7 mmol/L (3.5-5.1); Protein, Total 5.9 g/dL (6.4-8.2); Sodium Level 139 mmol/L (136-145)
--- NOTE | 2025-01-02 07:39 | PN.CC_ITS ---
Assessment & Plan Assessment/Plan (1) Hypoxia: (2) Respiratory failure: PLAN: Plan RECOMMENDATIONS: 1. Continue to wean FiO2 to maintain oxygen saturations at or above 90%. 2. Continue PAP therapy with naps and nightly. 3. Antimicrobials per ID recommendations. 4. Wean Levophed to maintain mean arterial pressure at or above 60 mmHg. 5. Start scheduled midodrine. 6. Encourage incentive spirometer use and mobilize patient as tolerated. IMPRESSIONS: 1. Acute hypoxemic respiratory failure with hypoxemia Most likely secondary to presenting pneumonia compounded by atrial fibrillation with RVR. The patient's atrial fibrillation is under much better control. The patient responded appropriately to noninvasive positive pressure ventilatory support. He will be continued on heated high flow oxygen, with a goal to wean FiO2 to maintain saturations at or above 90%. Empiric antimicrobials will be continued. It should be noted that the patient has never been diagnosed with COPD, despite documentation to the contrary. 2. Septic shock The patient presented with sepsis due to suspected pneumonia with acute sepsis related organ dysfunction as evidenced by lactic acidemia, fluid refractory hypotension and acute respiratory failure requiring noninvasive positive pressure ventilatory support. The patient was ultimately placed on Levophed to maintain hemodynamic stability. Plan to continue to wean vasopressor support as tolerated. In the interim, will start scheduled midodrine. Antimicrobials will be continued per ID recommendations. 3. History of atrial fibrillation with RVR At the present time, the patient appears rate controlled. TSH was within normal limits. Continue current medical management. Goal to replete magnesium to greater than 2. 4. Obesity/history of obstructive sleep apnea/cirrhosis/diabetes mellitus/history of colon CA Complicates care, management, recovery and prognosis. Continue supportive measures as noted above. TIME: 33 minutes of critical care time, independent of procedures, was spent addressing the patient's acute hypoxemic respiratory failure, septic shock, atrial fibrillation with RVR, review of all data and collaboration with care team. Subjective Subjective The patient was seen and examined at the bedside this morning. Events from the last 24 hours have been reviewed. The patient is currently afebrile and maintaining appropriate oxygen saturations on heated high flow oxygen with a flow rate of 60 L/min and FiO2 of 50%. The patient is currently documented to be overall net +2.1 L for the hospitalization. He remains on low-dose Levophed at 5 mcg/min to maintain hemodynamic stability, along with empiric antimicrobials. He denied any overt shortness of breath this morning. White blood cell count is elevated at 15,000. Hemoglobin was noted to be 11.5 g/dL with a platelet count of 113,000. Chemistry profile was unremarkable. Objective Data Objective Data The patient's most recent lab work, culture data and imaging studies have all been personally reviewed. Prior echocardiogram from February 2019 demonstrated normal ejection fraction at 65%. Strep and urine Legionella antigens are pending. MRSA screen was negative. COVID, influenza and RSV PCR's were negative. Blood and urine cultures are pending. Vital Signs: Vital Signs Temp Pulse Resp BP Pulse Ox O2 Del Method O2 Flow Rate 97.2 F L 97 18 103/58 L 97 Airvo 60 01/02/25 03:00 01/02/25 07:00 01/02/25 07:00 01/02/25 07:00 01/02/25 07:00 01/02/25 07:00 01/02/25 07:00 FiO2 50 01/02/25 07:00 Oxygen Flow Rate (L/min) 60 Oxygen Delivery Method Airvo Weight: 311 lb 15.265 oz Body Mass Index (BMI) 37.0 Intake & Output: Intake and Output for Last 24 Hours 12/31/24 01/01/25 01/02/25 23:59 23:59 23:59 Intake Total 2400.99 / 2410.39 660.2 / 660.2 Output Total 550 / 550 325 / 325 Balance 1850.99 / 1860.39 335.2 / 335.2 Lab / Micro Data Attestation: I reviewed the patient's lab results. 01/02/25 05:10 01/02/25 05:10 Labs: Laboratory Results - last 24 hr 01/01/25 10:25: WBC 5.4, RBC 4.23 L, Hgb 14.8, Hct 45.0, MCV 106.4 H, MCH 35.0 H , MCHC 32.9, RDW Std Deviation 63.1 H, RDW Coeff of Mariluz 16.0 H, Plt Count 141 L, MPV 10.3, Immature Gran % (Auto) 1.100 H, Neut % (Auto) 74.6 H, Lymph % (Auto) 20.6, [place] % (Auto) 2.2, Eos % (Auto) 0.9, Baso % (Auto) 0.6, Absolute Neuts (auto) 4.0, Absolute Lymphs (auto) 1.11, Nucleated RBC % 0, PT 15.7 H, INR 1.2, APTT 29.5, Sodium 138, Potassium 4.5, Chloride 103, Carbon Dioxide 27.0, Anion Gap 8, BUN 17, Creatinine 0.98, Estim Creat Clear Calc 77.97, Est GFR (MDRD) Af Amer 93, Est GFR (MDRD) Non-Af 77, BUN/Creatinine Ratio 17.4, Glucose 174 H, L actic Acid 2.3 H*, Calcium 9.8, Magnesium 1.5 L, Total Bilirubin 1.40 H, AST 34, ALT 27, Alkaline Phosphatase 132 H, Total Creatine Kinase 52, Troponin I High Sens 5, B-Natriuretic Peptide 39.3, Total Protein 7.9, Albumin 3.8, Globulin 4.1, Albumin/Globulin Ratio 0.9, Procalcitonin 0.08, TSH 3.140 01/01/25 11:30: Urine Color Yellow, Urine Clarity Clear, Urine pH 5.0, Ur Specific [place] 1.010, Urine Protein 15 H, Urine Glucose (UA) Normal, Urine Ketones Negative, Urine Occult Blood 10 H, Urine Nitrite Positive H, Urine Bilirubin Negative, Urine Urobilinogen Normal, Ur Leukocyte Esterase 100 H, Urine RBC 0 SEEN, Urine WBC 10-25 SEEN, Ur Squamous Epith Cells 0 SEEN, Urine Bacteria RARE, Urine Mucus 0 SEEN 01/01/25 14:18: POC Glucose 130 H 01/01/25 17:55: Lactic Acid 2.3 H* 01/01/25 21:51: POC Glucose 192 H 01/02/25 05:10: WBC 15.3 H, RBC 3.34 L, Hgb 11.5 L, Hct 34.7 L, MCV 103.9 H, MCH 34.4 H, MCHC 33.1, RDW Std Deviation 61.5 H, RDW Coeff of Mariluz 16.2 H, Plt Count 113 L, MPV 9.9, Immature Gran % (Auto) 0.900, Neut % (Auto) 80.5 H, Lymph % (Auto) 10.3 L, [place] % (Auto) 7.7, Eos % (Auto) 0.3, Baso % (Auto) 0.3, Absolute Neuts (auto) 12.3 H, Absolute Lymphs (auto) 1.57, Nucleated RBC % 0, Sodium 139, Potassium 3.7, Chloride 109 H, Carbon Dioxide 22.0, Anion Gap 9, BUN 18, Creatinine 1.07, Estim Creat Clear Calc 77.14, Est GFR (MDRD) Af Amer 84, Est GFR (MDRD) Non-Af 70, BUN/Creatinine Ratio 16.8, Glucose 155 H, Calcium 8.4 L, T otal Bilirubin 1.30 H, AST 31, ALT 30, Alkaline Phosphatase 83, Total Protein 5.9 L, Albumin 2.8 L, Globulin 3.1, Albumin/Globulin Ratio 0.9 Micro: Microbiology 01/01/25 17:45 Nasal Secretion MRSA (PCR) - Final 01/01/25 10:30 Mucosa - Nose SARS-CoV-2, Influenza & RSV (PCR) - Final ABG Data ABG results: ABG 01/01/25 10:30 Specimen Type YOSEF Sample Site Not entered VBG pH 7.32 VBG pO2 25 VBG HCO3 28 H VBG Total CO2 29 VBG O2 Sat (Calc) 40 L VBG Base Excess 2 POC Mix VBG pCO2 Pt Tmp 54.1 H O2 Delivery Device Not entered Radiography Diagnostic Testing: Radiology Impression Chest X-Ray 01/01/25 10:45 IMPRESSION: Left perihilar patchy airspace disease, likely multifocal pneumonia. Reading Location: [facility] Rhythm Strip Rhythm Strip: A-fib Rate: 127 Ectopy: None Physical Exam Const alert and no apparent distress Constitutional Narrative: Obese. Resting comfortably in bed. General Appearance: cooperative HEENT normocephalic and head/scalp atraumatic Eyes PERRL, EOMs intact bilaterally and conjunctivae normal Neck supple Neck Narrative: Large neck circumference with redundant soft tissue. General: trachea midline Chest inspection of chest normal Resp normal respiratory effort Auscultation: diminished lung sounds Cardio S1 normal heart sound and S2 normal heart sound Rhythm: abnormal rhythm GI normal to inspection, nondistended, normoactive bowel sounds Extremity General Extremity: edema; Negative for clubbing Skin General Skin Exam: venous stasis and dermatitis Neuro CN's II-XII intact bilaterally and moves all extremities Psych cooperative and affect normal Charges/Coding Procedures Hospitalists Procedures: 97162 Critical Care 1st Hr
--- NOTE | 2025-01-02 07:50 | RAD_ITS ---
EXAM: XR Chest, 1 View CLINICAL INDICATION: TECHNIQUE: Frontal view of the chest. COMPARISON: No relevant prior studies available. FINDINGS: LUNGS AND PLEURAL SPACES: See below. HEART: Cardiomegaly with pulmonary congestion and edema. Superimposed pneumonia cannot be excluded. MEDIASTINUM: Unremarkable. Normal mediastinal contour. BONES/JOINTS: Unremarkable. No acute fracture. RAD/Chest 1 View (Portable) IMPRESSION: Cardiomegaly with pulmonary congestion and edema. Superimposed pneumonia cannot be excluded. Reading [facility]
--- NOTE | 2025-01-02 08:40 | PCM.PN.HOSP ---
Reason for Visit Reason for Visit: Diagnoses Unspecified atrial fibrillation (01/01/25) Pneumonia, unspecified organism (01/01/25) Respiratory failure, unspecified, unspecified whether with hypoxia or hypercapnia (01/01/25) Hypoxemia (01/01/25) Objective Data Objective Data Vital Signs: Vital Signs Temp Pulse Resp BP Pulse Ox O2 Del Method O2 Flow Rate 97.2 F L 97 18 103/58 L 97 Airvo 60 01/02/25 03:00 01/02/25 07:00 01/02/25 07:00 01/02/25 07:00 01/02/25 07:00 01/02/25 07:00 01/02/25 07:00 FiO2 50 01/02/25 07:00 Oxygen Flow Rate (L/min) 60 Oxygen Delivery Method Airvo Weight: 311 lb 15.265 oz Body Mass Index (BMI) 37.0 Intake & Output: Intake and Output for Last 24 Hours 12/31/24 01/01/25 01/02/25 23:59 23:59 23:59 Intake Total 2400.99 / 2410.39 660.2 / 660.2 Output Total 550 / 550 325 / 325 Balance 1850.99 / 1860.39 335.2 / 335.2 Lab / Micro Data 01/02/25 05:10 01/02/25 05:10 Labs: Laboratory Results - last 24 hr 01/01/25 10:25: WBC 5.4, RBC 4.23 L, Hgb 14.8, Hct 45.0, MCV 106.4 H, MCH 35.0 H, MCHC 32.9, RDW Std Deviation 63.1 H, RDW Coeff of Mariulz 16.0 H, Plt Count 141 L, MPV 10.3, Immature Gran % (Auto) 1.100 H, Neut % (Auto) 74.6 H, Lymph % (Auto) 20.6, [place] % (Auto) 2.2, Eos % (Auto) 0.9, Baso % (Auto) 0.6, Absolute Neuts (auto) 4.0, Absolute Lymphs (auto) 1.11, Nucleated RBC % 0, PT 15.7 H, INR 1.2, APTT 29.5, Sodium 138, Potassium 4.5, Chloride 103, Carbon Dioxide 27.0, Anion Gap 8, BUN 17, Creatinine 0.98, Estim Creat Clear Calc 77.97, Est GFR (MDRD) Af Amer 93, Est GFR (MDRD) Non-Af 77, BUN/Creatinine Ratio 17.4, Glucose 174 H, Lactic Acid 2.3 H*, Calcium 9.8, Magnesium 1.5 L, Total Bilirubin 1.40 H, AST 34, ALT 27, Alkaline Phosphatase 132 H, Total Creatine Kinase 52, Troponin I High Sens 5, B-Natriuretic Peptide 39.3, Total Protein 7.9, Albumin 3.8, Globulin 4.1, Albumin/Globulin Ratio 0.9, Procalcitonin 0.08, TSH 3.140 01/01/25 11:30: Urine Color Yellow, Urine Clarity Clear, Urine pH 5.0, Ur Specific [place] 1.010, Urine Protein 15 H, Urine Glucose (UA) Normal, Urine Ketones Negative, Urine Occult Blood 10 H, Urine Nitrite Positive H, Urine Bilirubin Negative, Urine Urobilinogen Normal, Ur Leukocyte Esterase 100 H, Urine RBC 0 SEEN, Urine WBC 10-25 SEEN, Ur Squamous Epith Cells 0 SEEN, Urine Bacteria RARE, Urine Mucus 0 SEEN 01/01/25 14:18: POC Glucose 130 H 01/01/25 17:55: Lactic Acid 2.3 H* 01/01/25 21:51: POC Glucose 192 H 01/02/25 05:10: WBC 15.3 H, RBC 3.34 L, Hgb 11.5 L, Hct 34.7 L, MCV 103.9 H, MCH 34.4 H, MCHC 33.1, RDW Std Deviation 61.5 H, RDW Coeff of Mariluz 16.2 H, Plt Count 113 L, MPV 9.9, Immature Gran % (Auto) 0.900, Neut % (Auto) 80.5 H, Lymph % (Auto) 10.3 L, [place] % (Auto) 7.7, Eos % (Auto) 0.3, Baso % (Auto) 0.3, Absolute Neuts (auto) 12.3 H, Absolute Lymphs (auto) 1.57, Nucleated RBC % 0, Sodium 139, Potassium 3.7, Chloride 109 H, Carbon Dioxide 22.0, Anion Gap 9, BUN 18, Creatinine 1.07, Estim Creat Clear Calc 77.14, Est GFR (MDRD) Af Amer 84, Est GFR (MDRD) Non-Af 70, BUN/Creatinine Ratio 16.8, Glucose 155 H, Calcium 8.4 L, Total Bilirubin 1.30 H, AST 31, ALT 30, Alkaline Phosphatase 83, Total Protein 5.9 L, Albumin 2.8 L, Globulin 3.1, Albumin/Globulin Ratio 0.9 Micro: Microbiology 01/01/25 17:45 Nasal Secretion MRSA (PCR) - Final 01/01/25 10:30 Mucosa - Nose SARS-CoV-2, Influenza & RSV (PCR) - Final ABG Data ABG results: ABG 01/01/25 10:30 Specimen Type YOSEF Sample Site Not entered VBG pH 7.32 VBG pO2 25 VBG HCO3 28 H VBG Total CO2 29 VBG O2 Sat (Calc) 40 L VBG Base Excess 2 POC Mix VBG pCO2 Pt Tmp 54.1 H O2 Delivery Device Not entered Radiography Diagnostic Testing: Radiology Impression Chest X-Ray 01/01/25 10:45 IMPRESSION: Left perihilar patchy airspace disease, likely multifocal pneumonia. Reading Location: [facility] Rhythm Strip Rhythm Strip: A-fib Rate: 127 Ectopy: None Physical Exam Narrative Seen and examined States shortness of breath better than yesterday. More awake than yesterday. On Airvo last night. Heart rate in 90s. 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 Pupils normal reacting Oral:Oral mucosa dry. Neck: Supple, No JVD, Negative Carotid Bruits Chest wall/Lungs: Air entry diminished in bilateral lung bases. Bilateral expiratory rhonchi Cardiovascular: A-fib, normal S1, Normal S2, No M/G/R Abdomen: Bowel Sounds Present, Soft, Non Tender, Non-Distended : No dysuria. No renal angle tenderness. No suprapubic tenderness. Extremities: Bilateral chronic lymphedema/venous edema, Capillary Refill Less than 3 Seconds Skin: Chronic increased pigmentation/varicose vein lower legs Musculoskeletal: No Tenderness to Palpation of Joints or Extremities. ROM limited Neurological: DTR 2+/4. No acute focal neurological deficit. Psych/Mental Status: Flat affect Assessment & Plan Assessment/Plan (1) Pneumonia: (2) Atrial fibrillation with rapid ventricular response: PLAN: Plan This 84-year-old gentleman with multiple comorbidities admitted with respiratory distress on BiPAP, A-fib with RVR 1. Acute hypoxic and hypercarbic respiratory failure secondary to pneumonia: Patient is being admitted in ICU. VBG shows 7.32/mixed pCO2 54/29. Patient on BiPAP. Nutritional Services Cook consulted. 2/4: Dyspnea and shortness of breath better. 2. Septic shock due to pneumonia: Chest x-ray initially reviewed and shows left upper lobe/hilar patchy airspace consolidation likely multifocal pneumonia. No pneumothorax. The patient presented with suspicion of sepsis with clinical indicators of tachycardia, tachypnea, hypoxia due to pneumonia as described above- with acute sepsis-related organ dysfunction as evidenced by acute combined respiratory failure and lactic acidosis. Ceftriaxone and azithromycin ordered in the ED the patient started on vancomycin and Zosyn. Pneumonia workup ordered. 2/4: Initially patient responded to fluid but after some time he required vasopressor, norepinephrine. Patient on midodrine. PICC line ordered. Urinary antigens, MRSA nasal PCR are negative. Triple PCR for SARS-CoV-2, flu and RSV are negative. Respiratory panel ordered. ID consult 3. A-fib with RVR: Patient has a history of chronic A-fib status post ablation. Diltiazem 25 mg IV 1 dose given in the ED that led to hypotension but patient was not hypotensive before. Heart rate 81. Blood pressure systolic in 80s on the monitor which is 95/75. Treat the underlying pneumonia and sepsis. 2/4: Heart rate is controlled 4. Decompensated cirrhosis with grade 1 esophageal varices, mild thrombocytopenia: Last MELD score in the office May 2024 was 10 and CPT score 10. Patient denies any increase in abdominal girth or swelling. Currently his leg swelling. Hold on diuretics 5. DM type II, on insulin: Accu-Chek before meals and at bedtime with Humalog sliding scale coverage and hypoglycemia protocol. 6. 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 Colon cancer on surveillance: Patient follows Dr. Andrade. 8. Other chronic comorbidities include hypothyroidism, dyslipidemia, GERD and gout. No acute issues. 9. Obstructive sleep apnea: Patient uses BiPAP at home. 10. DVT prophylaxis high risk, Lovenox 40 mg subcu daily. Patient also high risk of bleeding because of cirrhosis and 1 thrombocytopenia. Bilateral SCDs Living will/advanced directive/end of life care: Patient does have living will or advanced directive. His is power of prosecuting attorney. In the ED. After discussion of benefits/risks procedures involved with full code, DNR CC arrest and DNR CC, the patient opted for full code. Patient does want artificial life support including intubation, tube feed, ventilator and/chest compression, central venous catheter, vasopressor and DC shock if needed Total time spent in [id number] encounter in discussion of advanced directive 17 minutes. Clinical Impression(s) from Imaging Studies Chest X-Ray 01/01/25 10:45 IMPRESSION: Left perihilar patchy airspace disease, likely multifocal pneumonia. Reading [facility] Charges/Coding Visit Charges Inpatient E&M: 56844 [facility] Hosp L3
[2025-01-02] MEDS: Insulin Lispro 100 UNIT/ML INSULN.PEN SC ×4 (09:02→22:38)
[2025-01-02] MEDS: Pantoprazole Sodium 40 MG Tablet PO (09:02)
[2025-01-02] MEDS: Psyllium 1 PACKET PO (09:02)
[2025-01-02] MEDS: Allopurinol 100 MG Tablet PO (09:02)
[2025-01-02] MEDS: Sucralfate 1 GM Tablet PO ×2 (09:02→16:21)
[2025-01-02] MEDS: Tamsulosin HCl 0.4 MG Capsule PO (09:03)
[2025-01-02] MEDS: Donepezil HCl 5 MG Tablet PO (09:03)
[2025-01-02] MEDS: Docusate Sodium 100 MG Capsule PO ×2 (09:03→22:30)
[2025-01-02] MEDS: Lactulose 20 GM/30 ML UDC 10 GM PO (09:03)
[2025-01-02] MEDS: APIXABAN 5 MG TABLET PO ×2 (09:03→22:31)
[2025-01-02] MEDS: Ferrous Sulfate 325 MG Tablet PO (09:04)
[2025-01-02] MEDS: Finasteride 5 MG Tablet PO (09:04)
[2025-01-02 10:08] LABS: Magnesium 1.6 mg/dL (1.6-2.6)
--- NOTE | 2025-01-02 10:43 | PCM.CONS.GEN ---
Assessment & Plan Assessment/Plan (1) Septic shock: PLAN: Septic shock due to CAP - cxs neg so far, BP improved. Will stop vanc, cont zosyn for now. Ucx with small growth GNR, but no resp symptoms. Will follow, thank you, d/w Dr. Baird (2) Respiratory failure: (3) Pneumonia: HPI Consult Data Date of Consult: 01/02/25 HPI Narrative Reason for Consultation: septic shock HPI Narrative: ALCIDES LOREDO, is a 84 M with DM, h/o stroke and colon cancer, presented to ED 2/3 with sudden onset L lower chest pain, sputum, cough, dyspnea. Some chills. Came to ED, found to have septic shock, admitted to icu on vanc/zosyn after initial azithro/ceftriaxone. Feeling better this AM. Full ROS performed and neg except as noted above. PENDING SALE TO [facility] Medical History Nonallergic vasomotor rhinitis Macular degeneration Compression fracture of L2 Cancer Hypertension Dementia TIA (transient ischemic attack) Current use of assisted anticoagulation Dysphagia Atrial fibrillation Longstanding persistent atrial fibrillation Skin tear Insulin dependent diabetes mellitus Colonic mass History of echocardiogram History of stress test Cardiology follow-up encounter Short-term memory loss Wears glasses Wears hearing aid Urinary incontinence Walker as ambulation aid Prostate disease Hepatitis Parkinson's disease Stroke/cerebrovascular accident Difficulty swallowing History of GI bleed Gastric reflux BiPAP (biphasic positive airway pressure) dependence Non-smoker Restless legs History of atrial fibrillation Colon cancer Ocular rosacea Diabetes mellitus, type II Carotid artery disease Essential hypertension Paroxysmal atrial fibrillation History of CVA (cerebrovascular accident) (2007) Hyperlipidemia Hypothyroidism Obstructive sleep apnea History of pericarditis (08/2017) Venous (peripheral) insufficiency Peripheral vascular disease due to secondary diabetes DM (diabetes mellitus), type 2 with peripheral vascular complications Diabetes mellitus type 2 with neurological manifestations Home Medications ?Medication ?Instructions ?Recorded ?Last Taken ?Type allopurinol 100 mg tablet 100 mg PO DAILYCM gout 05/10/15 12/31/24 History docusate sodium 100 mg capsule 100 mg PO BID constipation 05/10/15 06/06/23 History finasteride 5 mg tablet 5 mg PO DAILY prostate 05/10/15 12/31/24 History tamsulosin 0.4 mg capsule 0.4 mg PO DAILY prostate 05/10/15 12/31/24 History trazodone 100 mg tablet 100 mg PO QHS sleep/mental health 05/10/15 12/31/24 History trospium 20 mg tablet 20 mg PO QHS bladder 05/10/15 12/31/24 History cyanocobalamin (vitamin B-12) 500 1,000 mcg PO DAILY supplement 09/24/17 12/31/24 History mcg tablet ipratropium bromide 42 mcg (0.06 2 spray NS TID PRN ALLERGIES 09/24/17 12/31/24 History %) nasal spray levothyroxine 150 mcg tablet 225 mcg PO MOWEFR thyroid 03/06/19 12/31/24 History magnesium oxide 400 mg (241.3 mg 400 mg PO BID supplement 11/30/19 12/31/24 History magnesium) tablet atorvastatin 20 mg tablet 20 mg PO QHS cholesterol 06/19/22 12/31/24 History propranolol 20 mg tablet 20 mg PO BID BP 06/19/22 12/31/24 History levothyroxine 150 mcg tablet 150 mcg PO SUTUTHSA thyroid 07/13/22 12/31/24 History ituyldhz-osqcxzuer-rjdjrmmdo 3.5 1 applic topical DAILY LEFT EYE 07/13/22 12/31/24 History mg-10,000 unit-10 mg/gram top cream donepezil 5 mg tablet (Aricept) 5 mg PO DAILY memory 07/24/22 12/31/24 History pioglitazone 45 mg tablet (Actos) 45 mg PO DAILY diabetes 07/24/22 12/31/24 History glipizide 5 mg tablet 5 mg PO BID 08/27/22 12/31/24 History lisinopril 20 mg tablet 20 mg PO DAILY 03/29/23 12/31/24 History acetaminophen 500 mg tablet 1,000 mg PO BID 06/07/23 06/06/23 History apixaban 5 mg tablet (Eliquis) 5 mg PO BID BLOOD THINNER 06/07/23 12/31/24 History insulin glargine 100 unit/mL (3 30 unit subcut QHS DM 06/07/23 12/31/24 History mL) subcutaneous pen (Lantus Solostar U-100 Insulin) loratadine 10 mg tablet 10 mg PO Q12H ALLERGIES 06/07/23 12/31/24 History lmrggcdr-af-myeuy 300 mcg-K 60 1 tab PO DAILY 06/07/23 12/31/24 History mcg-lycop 600 mcg-lutein 300 mcg tablet (Men 50 Plus Multivitamin) ropinirole 1 mg tablet 1 mg PO BID 06/07/23 12/31/24 History ascorbate calcium (vitamin C) 500 500 mg PO DAILY 09/21/23 12/31/24 History mg tablet pantoprazole 40 mg tablet,delayed 40 mg PO DAILY #30 tabs 02/11/24 12/31/24 Rx release ferrous sulfate 325 mg (65 mg 325 mg PO DAILY iron 07/25/24 Unknown History iron) tablet cholecalciferol (vitamin D3) 50 50 mcg PO DAILY 01/01/25 12/31/24 History mcg (2,000 unit) capsule furosemide 20 mg tablet 20 mg PO PRN 01/01/25 Unknown History lactulose 10 gram/15 mL oral 10 g PO DAILY 01/01/25 12/31/24 History solution mecobalamin (vitamin B12) 500 mcg 500 mcg PO DAILY 01/01/25 12/31/24 History chewable tablet psyllium husk 0.4 gram capsule 0.4 g PO DAILY 01/01/25 12/31/24 History (Daily Fiber) sucralfate 1 gram tablet (Carafate) 1 g PO BID 01/01/25 12/31/24 History vitamin B complex (Complex B-100 1 tab PO DAILY 01/01/25 12/31/24 History tablet,extended release) Allergy/AdvReac Type Severity Reaction Status Date / Time niacin Allergy Intermediate rash Verified 06/26/24 13:35 adhesive AdvReac Other: Verified 06/26/24 13:35 takes skin off, inflamed Family History Father CAD (coronary artery disease) Hypertension Heart disease Mother Hypertension Sister Breast cancer CVA (cerebral vascular accident) Brother Kidney disease Surgical History History of esophagogastroduodenoscopy (EGD) History of colectomy H/O basal cell carcinoma excision History of cataract extraction History of colonoscopy (~05/2022) History of appendectomy Status post surgical removal of malignant neoplasm of skin Social History household members: significant other Smoking Status: Never smoker alcohol intake: never substance use type: does not use seatbelt use: always do you feel safe at home: Yes additional social history: Ambulates with a wheeled walker. Physical Exam Const alert, oriented x3 and no apparent distress General Appearance: cooperative HEENT normocephalic and head/scalp atraumatic Eyes PERRL and EOMs intact bilaterally Neck supple and No nodes Resp Auscultation: diminished lung sounds Cardio no murmurs Rate: tachycardic GI soft to palpation, non-tender and non-distended Extremity General Extremity: Negative for edema Skin no rashes or lesions noted Neuro CN's II-XII intact bilaterally Lab / Micro Data Attestation: I reviewed the patient's lab results. 01/02/25 05:10 01/02/25 05:10 Labs: Laboratory Results - last 24 hr 01/01/25 10:25: PT 15.7 H, INR 1.2, APTT 29.5, Sodium 138, Potassium 4.5, Chloride 103, Carbon Dioxide 27.0, Anion Gap 8, BUN 17, Creatinine 0.98, Estim Creat Clear Calc 77.97, Est GFR (MDRD) Af Amer 93, Est GFR (MDRD) Non-Af 77, BUN/Creatinine Ratio 17.4, Glucose 174 H, Lactic Acid 2.3 H*, Calcium 9.8, Magnesium 1.5 L, Total Bilirubin 1.40 H, AST 34, ALT 27, Alkaline Phosphatase 132 H, Total Creatine Kinase 52, Troponin I High Sens 5, B-Natriuretic Peptide 39.3, Total Protein 7.9, Albumin 3.8, Globulin 4.1, Albumin/Globulin Ratio 0.9, Procalcitonin 0.08, TSH 3.140 01/01/25 11:30: Urine Color Yellow, Urine Clarity Clear, Urine pH 5.0, Ur Specific [place] 1.010, Urine Protein 15 H, Urine Glucose (UA) Normal, Urine Ketones Negative, Urine Occult Blood 10 H, Urine Nitrite Positive H, Urine Bilirubin Negative, Urine Urobilinogen Normal, Ur Leukocyte Esterase 100 H, Urine RBC 0 SEEN, Urine WBC 10-25 SEEN, Ur Squamous Epith Cells 0 SEEN, Urine Bacteria RARE, Urine Mucus 0 SEEN 01/01/25 14:18: POC Glucose 130 H 01/01/25 17:55: Lactic Acid 2.3 H* 01/01/25 21:51: POC Glucose 192 H 01/02/25 05:10: WBC 15.3 H, RBC 3.34 L, Hgb 11.5 L, Hct 34.7 L, MCV 103.9 H, MCH 34.4 H, MCHC 33.1, RDW Std Deviation 61.5 H, RDW Coeff of Mariluz 16.2 H, Plt Count 113 L, MPV 9.9, Immature Gran % (Auto) 0.900, Neut % (Auto) 80.5 H, Lymph % (Auto) 10.3 L, [place] % (Auto) 7.7, Eos % (Auto) 0.3, Baso % (Auto) 0.3, Absolute Neuts (auto) 12.3 H, Absolute Lymphs (auto) 1.57, Nucleated RBC % 0, Sodium 139, Potassium 3.7, Chloride 109 H, Carbon Dioxide 22.0, Anion Gap 9, BUN 18, Creatinine 1.07, Estim Creat Clear Calc 77.14, Est GFR (MDRD) Af Amer 84, Est GFR (MDRD) Non-Af 70, BUN/Creatinine Ratio 16.8, Glucose 155 H, Calcium 8.4 L, Magnesium 1.6, Total Bilirubin 1.30 H, AST 31, ALT 30, Alkaline Phosphatase 83, Total Protein 5.9 L, Albumin 2.8 L, Globulin 3.1, Albumin/Globulin Ratio 0.9 Micro: Microbiology 01/01/25 11:30 Urine, Random Urine Culture - Preliminary GNR 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 Reading [facility]
--- NOTE | 2025-01-02 11:06 | CASEMGMT ---
ABI CHURCH Assessment Face to Face with patient for initial transition planning/care coordination assessment. ABI CHURCH introduced self and role at [facility], pt voices understanding. Pt is A&Ox4 and is resting comfortably in bed and is calm. Pt SO at bedside. Care providers, pharmacy, and demographics verified. Admitting dx: Acute RF, Pneumonia LACE Strata: 2 PCP: Randell Sparks Specialists: Raymond (Oncology), Hardy (GI) Preferred Pharmacy: [facility] Insurance: Faith, [place] Prescription Benefit: Yes, [place] LNOK: Rona Abdiel (SO and POA) Living Arrangements: Pt lives with his SO in a ground level apartment with a flat entrance ADLs/IADLs: Pt reports that he was independent prior to arrival but is currently requiring assistance. Pt SO is unsure if she can provide the pt with enough support at home. Transportation: Pt SO. Denies concerns DME: Personal BiPAP @ [facility] with no additional oxygen bleed in. Pt states that he does not have any other oxygen equipment at home. Pt is currently requiring additional oxygen and may qualify for home oxygen use. A verbal list of local in-network DME companies were provided to the pt at this time. Pt prefers [facility]Pt also states that he has a FWW, Rollator, shower chair, and grab bars. HHC/SNF: Hx with [facility] HH. Hx @ [facility] TCU and [facility]oyer. Pt states that he did not have a good experience at the [facility] TCU and states that he and his SO got into arguments with Dr Dumas about his medications. Pt?s goal: Return home Plan: TBD. Anticipate home with pt SO, skilled HH, and potential oxygen. Current 6-Click score is 18 and therapy evaluations are pending. Pt states that he prefers to return home at the time of DC but states that he may be willing to review a list of SNFs if warranted. If pt is safe to DC home from [facility], pt and pt SO requests HH to be established and denies wanting to review a list of local in-network HHC agencies and states that he prefers [facility] HH again. Pt and pt SO deny further questions or concerns at this time. CM and SW to follow. Kamaljit Charles RN, CM
[2025-01-02 11:23] LABS: Bedside Glucose 165 mg/dL (74-106)
[2025-01-02] MEDS: Midodrine HCl 5 MG Tablet 10 MG PO ×2 (11:39→16:21)
[2025-01-02] MEDS: Magnesium Sulfate 2 GM in Dextrose 5%-Water (100mL Bag) 100 ML IV (12:45)
--- NOTE | 2025-01-02 12:45 | CHAPLAIN ---
Type of Pastoral Visit _x__ Initial Visit ___ Follow-up Visit ___ On-call Visit ___ General Patient Visit ___ Spiritual Assessment ___ Family Conference ___ Bereavement ___ Rapid Response ___ Code Blue ___ Other (describe below) Pastoral Care Referral From _x__ Patient ___ Family ___ Nurse ___ Physician ___ Clinical Trials Assistant ___ Scraper Burrer ___ Other (describe below) Sacrament/Intervention _x__ Active listening ___ Anointing ___ Latter-Day ___ Bereavement ___ Communion ___ Noreen exploration ___ ___ Life review ___ Prayer ___ Reconciliation ___ Sacrament of Sick _x__ Supportive presence ___ Wedding ___ Other (describe below) Pastoral Comments patient and spouse are in the room and the pt is eating lunch; both report that pt is improved since yesterday; pt admits that he needs sleep as he didn't do that well at all last night; casual conversation continues; no other needs noted; offer of ongoing support given as needed
--- NOTE | 2025-01-02 12:50 | CASEMGMT ---
Social Work SW created a list in [facility] of half-way facilities, in network w/pt's insurance, in pt's preferred geographic area and complete w/quality and resource use data should it be needed. LUIS Aviles
[2025-01-02] MEDS: Loratadine 10 MG Tablet PO (16:22)
[2025-01-02] MEDS: Neomycin/Polymyxin/Dexameth 5ML OPTH.BTL 1 DRP EACH EYE ×2 (16:22→22:29)
[2025-01-02 16:46] LABS: Bedside Glucose 191 mg/dL (74-106)
[2025-01-02] MEDS: Tolterodine Tartrate 2 MG CAP.SA PO (22:30)
[2025-01-02] MEDS: traZODone 100 MG Tablet PO (22:30)
[2025-01-02] MEDS: Atorvastatin Calcium 20 MG Tablet PO (22:32)
[2025-01-02] MEDS: Insulin Glargine-YFGN 100 UNIT/ML Pen 30 UNIT SC (22:38)
[2025-01-02 23:04] LABS: Bedside Glucose 195 mg/dL (74-106)
--- NOTE | 2025-01-02 23:30 | CPS ---
Pt refused BIPAP for tonight.
[2025-01-03] VITALS (17 sets, daily range): BP systolic 89–133; BP diastolic 51–99; PULSE 86–112; RESP 16–27; TEMP 36.4–36.8; O2SAT 93–98; BMI 37.2
[2025-01-03] MEDS: Neomycin/Polymyxin/Dexameth 5ML OPTH.BTL 1 DRP EACH EYE ×4 (02:39→14:39)
[2025-01-03] MEDS: Levothyroxine 150 MCG Tablet 225 MCG PO (05:47)
[2025-01-03] MEDS: Piperacil/Tazobactam 3.375 GM in 0.9% Normal Saline (50mL MB+) 50 ML IV (05:48)
[2025-01-03] MEDS: Loratadine 10 MG Tablet PO ×2 (05:48→17:22)
[2025-01-03] MEDS: Sucralfate 1 GM Tablet PO (05:49)
--- NOTE | 2025-01-03 07:25 | PCM.PN.HOSP ---
Reason for Visit Reason for Visit: Diagnoses Sepsis, unspecified organism (01/01/25) Unspecified atrial fibrillation (01/01/25) Pneumonia, unspecified organism (01/01/25) Respiratory failure, unspecified, unspecified whether with hypoxia or hypercapnia (01/01/25) Hypoxemia (01/01/25) Severe sepsis with septic shock (01/01/25) Objective Data Objective Data Vital Signs: Vital Signs Temp Pulse Resp BP Pulse Ox O2 Del Method O2 Flow Rate 98.2 F 87 19 H 92/51 L 96 High Flow 4 01/03/25 06:00 01/03/25 07:00 01/03/25 07:00 01/03/25 07:00 01/03/25 07:00 01/03/25 07:00 01/03/25 07:00 FiO2 40 01/02/25 15:07 Oxygen Flow Rate (L/min) 4 Oxygen Delivery Method High Flow Weight: 313 lb 11.2 oz Body Mass Index (BMI) 37.2 Intake & Output: Intake and Output for Last 24 Hours 01/01/25 01/02/25 01/03/25 23:59 23:59 23:59 Intake Total 2400.99 / 2410.39 1473.6 / 1833.6 410 / 410 Output Total 550 / 550 1725 / 1875 450 / 450 Balance 1850.99 / 1860.39 -251.4 / -41.4 -40 / -40 Lab / Micro Data 01/02/25 05:10 01/02/25 05:10 Labs: Laboratory Results - last 24 hr 01/02/25 05:10: Magnesium 1.6 01/02/25 11:00: POC Glucose 165 H 01/02/25 16:19: POC Glucose 191 H 01/02/25 22:37: POC Glucose 195 H Micro: Microbiology 01/01/25 10:30 Blood Culture (Wb) - Right Forearm Blood Culture - Preliminary 01/02/25 10:20 Mucosa - Nasopharyngeal Respiratory Panel (PCR) - Final 01/01/25 11:30 Urine, Random Urine Culture - Preliminary GNR lactose carpenter mold 01/02/25 08:20 Urine, Clean Catch Legionella Antigen - Final 01/02/25 08:20 Urine, Clean Catch Streptococcus pneumoniae Antigen (M - Final 01/01/25 17:45 Nasal Secretion MRSA (PCR) - Final 01/01/25 10:30 Mucosa - Nose SARS-CoV-2, Influenza & RSV (PCR) - Final Radiography Diagnostic Testing: Radiology Impression Chest X-Ray 01/02/25 07:50 IMPRESSION: Cardiomegaly with pulmonary congestion and edema. Superimposed pneumonia cannot be excluded. Reading Location: [facility] Rhythm Strip Rhythm Strip: A-fib Rate: 127 Ectopy: None Physical Exam Narrative Seen and examined Vasopressor is off since yesterday. Blood pressure profile better. Patient has problem in swallowing, chronic for 2 to 3 years shortness of breath better Heart rate in 90s. monitoring specialist irregular rhythm PACs Physical leg General: Awake, oriented x 3 HEENT: Atraumatic. Pupils normal reacting Oral:Oral mucosa dry. Neck: Supple, No JVD, Negative Carotid Bruits Chest wall/Lungs: Air entry diminished in bilateral lung bases. Bilateral expiratory rhonchi better than the Cardiovascular: A-fib, normal S1, Normal S2, No M/G/R Abdomen: Bowel Sounds Present, Soft, Non Tender, Non-Distended : No dysuria. No renal angle tenderness. No suprapubic tenderness. Extremities: Bilateral chronic lymphedema/venous edema, Capillary Refill Less than 3 Seconds Skin: Chronic increased pigmentation/varicose vein lower legs Musculoskeletal: No Tenderness to Palpation of Joints or Extremities. ROM limited Neurological: DTR 2+/4. No acute focal neurological deficit. Psych/Mental Status: Flat affect Assessment & Plan Assessment/Plan (1) Pneumonia: (2) Atrial fibrillation with rapid ventricular response: PLAN: Plan This 84-year-old gentleman with multiple comorbidities admitted with respiratory distress on BiPAP, A-fib with RVR 1. Acute hypoxic and hypercarbic respiratory failure secondary to pneumonia: Patient is being admitted in ICU. VBG shows 7.32/mixed pCO2 54/29. Patient on BiPAP. Search Developer consulted. 2/4: Dyspnea and shortness of breath better. 2. Septic shock due to pneumonia: Chest x-ray initially reviewed and shows left upper lobe/hilar patchy airspace consolidation likely multifocal pneumonia. No pneumothorax. The patient presented with suspicion of sepsis with clinical indicators of tachycardia, tachypnea, hypoxia due to pneumonia as described above- with acute sepsis-related organ dysfunction as evidenced by acute combined respiratory failure and lactic acidosis. Ceftriaxone and azithromycin ordered in the ED the patient started on vancomycin and Zosyn. Pneumonia workup ordered. 01/02: Initially patient responded to fluid but after some time he required vasopressor, norepinephrine. Patient on midodrine. PICC line ordered. Urinary antigens, MRSA nasal PCR are negative. Triple PCR for SARS-CoV-2, flu and RSV are negative. Respiratory panel ordered. ID consult 01/03: ID consult reviewed. Cultures negative so far. Vancomycin stopped. Zosyn to continue. Urine culture with GNR in nonpathologic range. 3. A-fib with RVR: Patient has a history of chronic A-fib status post ablation. Diltiazem 25 mg IV 1 dose given in the ED that led to hypotension but patient was not hypotensive before. Heart rate 81. Blood pressure systolic in 80s on the monitor which is 95/75. Treat the underlying pneumonia and sepsis. 01/02: Heart rate is controlled 4. 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 Patient denies any increase in abdominal girth or swelling. Currently his leg swelling. Hold on diuretics 01/03: Presbyesophagus: Speech therapist consulted. Patient has decreased transit of food through the esophagus. 5. DM type II, on insulin: Accu-Chek before meals and at bedtime with Humalog sliding scale coverage and hypoglycemia protocol. 6. 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 Colon cancer on surveillance: Patient follows Dr. Andrade. 8. Other chronic comorbidities include hypothyroidism, dyslipidemia, GERD and gout. No acute issues. 9. Obstructive sleep apnea: Patient uses BiPAP at home. 10. DVT prophylaxis high risk, Lovenox 40 mg subcu daily. Patient also high risk of bleeding because of cirrhosis and 1 thrombocytopenia. Bilateral SCDs Living will/advanced directive/end of life care: Patient does have living will or advanced directive. 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 In the ED. After discussion of benefits/risks procedures involved with full code, DNR CC arrest and DNR CC, the patient opted for full code. Patient does want artificial life support including intubation, tube feed, ventilator and/chest compression, central venous catheter, vasopressor and DC shock if needed Clinical Impression(s) from Imaging Studies Chest X-Ray 01/01/25 10:45 IMPRESSION: Left perihilar patchy airspace disease, likely multifocal pneumonia. Reading Location: [facility] Charges/Coding Visit Charges Inpatient E&M: 57138 Subs Hosp L3
--- NOTE | 2025-01-03 07:42 | PCM.PN.INT ---
Assessment & Plan Assessment/Plan (1) Hypoxia: (2) Respiratory failure: PLAN: Plan RECOMMENDATIONS: 1. Supplemental oxygen to maintain saturations at or above 90%. 2. Continue PAP therapy with naps and nightly. 3. Antimicrobials per ID recommendations. 4. Encourage incentive spirometer use and mobilize patient as tolerated. 5. Speech therapy evaluation. 6. The patient is medically stable for transfer out of the intensive care unit. 7. Will sign off from a critical care perspective. Please call with any additional questions. IMPRESSIONS: 1. Acute hypoxemic respiratory failure with hypoxemia Improving. Most likely secondary to presenting pneumonia compounded by atrial fibrillation with RVR. The patient's atrial fibrillation is under much better control. The patient responded appropriately to noninvasive positive pressure ventilatory support. He will be continued on supplemental oxygen to maintain saturations at or above 90%. Empiric antimicrobials will be continued, per ID recommendations. It should be noted that the patient has never been diagnosed with COPD, despite documentation to the contrary. 2. Septic shock Resolved. The patient presented with sepsis due to suspected pneumonia with acute sepsis related organ dysfunction as evidenced by lactic acidemia, fluid refractory hypotension and acute respiratory failure requiring noninvasive positive pressure ventilatory support. The patient has since been weaned from Levophed and remains hemodynamically stable. Continue supportive care, including antimicrobials, as noted above. 3. History of atrial fibrillation with RVR At the present time, the patient appears rate controlled. TSH was within normal limits. Continue current medical management. Goal to replete magnesium to greater than 2. 4. Obesity/history of obstructive sleep apnea/cirrhosis/diabetes mellitus/history of colon CA Complicates care, management, recovery and prognosis. Continue supportive measures as noted above. This note was generated with [employer] dictation software. It may contain incorrect words, spelling, and punctuation that were not noted in checking the note before signing. Subjective Subjective The patient was seen and examined at the bedside this morning. Events from the last 24 hours have been reviewed. The patient is currently afebrile, hemodynamically stable and maintaining appropriate oxygen saturations on 3 L/min via nasal cannula. Nursing staff reported that the patient has been choking when eating breakfast. Therefore, the patient was made n.p.o., with consultation placed to speech therapy. Objective Data Objective Data The patient's most recent lab work, culture data and imaging studies have all been personally reviewed. Prior echocardiogram from February 2019 demonstrated normal ejection fraction at 65%. Strep and urine Legionella antigens are pending. MRSA screen was negative. COVID, influenza and RSV PCR's were negative. Blood and urine cultures are pending. Vital Signs: Vital Signs Temp Pulse Resp BP Pulse Ox O2 Del Method O2 Flow Rate 98.2 F 87 19 H 92/51 L 96 High Flow 4 01/03/25 06:00 01/03/25 07:00 01/03/25 07:00 01/03/25 07:00 01/03/25 07:00 01/03/25 07:00 01/03/25 07:00 FiO2 40 01/02/25 15:07 Oxygen Flow Rate (L/min) 4 Oxygen Delivery Method High Flow Weight: 313 lb 11.2 oz Body Mass Index (BMI) 37.2 Intake & Output: Intake and Output for Last 24 Hours 01/01/25 01/02/25 01/03/25 23:59 23:59 23:59 Intake Total 2400.99 / 2410.39 1473.6 / 1833.6 410 / 410 Output Total 550 / 550 1725 / 1875 450 / 450 Balance 1850.99 / 1860.39 -251.4 / -41.4 -40 / -40 Lab / Micro Data Attestation: I reviewed the patient's lab results. 01/02/25 05:10 01/02/25 05:10 Labs: Laboratory Results - last 24 hr 01/02/25 05:10: Magnesium 1.6 01/02/25 11:00: POC Glucose 165 H 01/02/25 16:19: POC Glucose 191 H 01/02/25 22:37: POC Glucose 195 H Micro: Microbiology 01/01/25 10:30 Blood Culture (Wb) - Right Forearm Blood Culture - Preliminary 01/02/25 10:20 Mucosa - Nasopharyngeal Respiratory Panel (PCR) - Final 01/01/25 11:30 Urine, Random Urine Culture - Preliminary GNR lactose automotive service writer 01/02/25 08:20 Urine, Clean Catch Legionella Antigen - Final 01/02/25 08:20 Urine, Clean Catch Streptococcus pneumoniae Antigen (M - Final 01/01/25 17:45 Nasal Secretion MRSA (PCR) - Final 01/01/25 10:30 Mucosa - Nose SARS-CoV-2, Influenza & RSV (PCR) - Final ABG Data ABG results: ABG 01/01/25 10:30 Specimen Type YOSEF Sample Site Not entered VBG pH 7.32 VBG pO2 25 VBG HCO3 28 H VBG Total CO2 29 VBG O2 Sat (Calc) 40 L VBG Base Excess 2 POC Mix VBG pCO2 Pt Tmp 54.1 H O2 Delivery Device Not entered Radiography Diagnostic Testing: Radiology Impression Chest X-Ray 01/02/25 07:50 IMPRESSION: Cardiomegaly with pulmonary congestion and edema. Superimposed pneumonia cannot be excluded. Reading Location: [facility] Rhythm Strip Rhythm Strip: A-fib Rate: 127 Ectopy: None Physical Exam Const alert and no apparent distress Constitutional Narrative: Obese. Resting comfortably in bed. General Appearance: cooperative HEENT normocephalic and head/scalp atraumatic Eyes PERRL, EOMs intact bilaterally and conjunctivae normal Neck supple Neck Narrative: Large neck circumference with redundant soft tissue. General: trachea midline Chest inspection of chest normal Resp normal respiratory effort Auscultation: diminished lung sounds Cardio S1 normal heart sound and S2 normal heart sound Rhythm: abnormal rhythm GI normal to inspection, nondistended, normoactive bowel sounds Extremity General Extremity: edema; Negative for clubbing Skin General Skin Exam: venous stasis and dermatitis Neuro CN's II-XII intact bilaterally and moves all extremities Psych cooperative and affect normal Charges/Coding Visit Charges Inpatient E&M: 62059 Subs Hosp L3
[2025-01-03] MEDS: Insulin Lispro 100 UNIT/ML INSULN.PEN SC ×4 (08:27→21:58)
[2025-01-03] MEDS: Lactulose 20 GM/30 ML UDC 10 GM PO (08:30)
[2025-01-03] MEDS: Midodrine HCl 5 MG Tablet 10 MG PO ×2 (08:32→11:51)
[2025-01-03] MEDS: APIXABAN 5 MG TABLET PO ×2 (08:32→22:53)
[2025-01-03] MEDS: Finasteride 5 MG Tablet PO (08:32)
[2025-01-03] MEDS: Donepezil HCl 5 MG Tablet PO (08:32)
[2025-01-03] MEDS: Pramipexole Di-HCl 0.5 MG Tablet PO ×2 (08:32→22:53)
[2025-01-03] MEDS: Pantoprazole Sodium 40 MG Tablet PO (08:32)
[2025-01-03] MEDS: Tamsulosin HCl 0.4 MG Capsule PO (08:32)
[2025-01-03] MEDS: Allopurinol 100 MG Tablet PO (08:32)
[2025-01-03 08:38] LABS: Bedside Glucose 164 mg/dL (74-106)
[2025-01-03] MEDS: Ferrous Sulfate 325 MG Tablet PO (11:51)
[2025-01-03 12:11] LABS: Bedside Glucose 201 mg/dL (74-106)
--- NOTE | 2025-01-03 12:51 | PCM.PN.ID ---
Physical Exam Narrative Feeling better, no fever, off O2 Const alert and no apparent distress Resp Auscultation: diminished lung sounds Cardio regular rate and regular rhythm GI soft to palpation, non-tender and non-distended Skin no rashes or lesions noted ID ID: Route of nutrition/ use of supplements: [] Nutritional Intake: [] IV Site: [] Benoit Catheter: [] Assessment & Plan Assessment/Plan (1) Septic shock: PLAN: Septic shock due to CAP - cxs neg so far, BP improved. Sputum with oral matilde. Will narrow to ceftriaxone. Plan on 6 days total abx, day 3 today. Plan on finishing course with po at discharge. Will follow (2) Respiratory failure: (3) Pneumonia:
[2025-01-03] MEDS: Ceftriaxone 2 GM in 0.9% Normal Saline (50mL MB+) 50 ML IV (14:38)
--- NOTE | 2025-01-03 15:22 | CASEMGMT ---
RN CM to pt room at this time to discuss DC planning. This RN CM discussed how the pt has been doing with therapy. See notes. Pt states that he still wants to DC home once medically ready and feeling safe doing so. Pt denies SNF. Pt has DME for ambulation. CM to follow for oxygen needs. Pt states that he would still like HH established and that he still prefers to go through [facility] (see previous RN CM note). TC to [facility] and referral made to [facility] at this time. [facility] notified that this RN CM will be off tomorrow and that [facility] CM will be covering ICU. CM to follow.
[2025-01-03 18:07] LABS: Bedside Glucose 182 mg/dL (74-106)
[2025-01-03] MEDS: Atorvastatin Calcium 20 MG Tablet PO (21:57)
[2025-01-03] MEDS: traZODone 100 MG Tablet PO (21:57)
[2025-01-03] MEDS: Docusate Sodium 100 MG Capsule PO (21:57)
[2025-01-03] MEDS: Insulin Glargine-YFGN 100 UNIT/ML Pen 30 UNIT SC (21:58)
[2025-01-03 22:21] LABS: Bedside Glucose 176 mg/dL (74-106)
[2025-01-03] MEDS: Tolterodine Tartrate 2 MG CAP.SA PO (22:53)
[2025-01-04] VITALS (7 sets, daily range): BP systolic 131–153; BP diastolic 53–81; PULSE 86–111; RESP 20–24; TEMP 36.4–36.9; O2SAT 91–95; BMI 36.7
[2025-01-04] MEDS: Levothyroxine 150 MCG Tablet PO (06:05)
[2025-01-04] MEDS: Sucralfate 1 GM Tablet PO ×2 (06:05→15:45)
[2025-01-04] MEDS: Neomycin/Polymyxin/Dexameth 5ML OPTH.BTL 1 DRP EACH EYE ×3 (06:11→21:09)
[2025-01-04 06:18] LABS: Bedside Glucose 137 mg/dL (74-106)
[2025-01-04 09:22] LABS: Hematocrit 37.8 % (40-54); Hemoglobin 12.5 g/dL (13.0-16.5); Mean Corp Hgb Conc 33.1 g/dL (32-36); Mean Corpuscular Hgb 35.1 pg (27.0-32.0); Mean Corpuscular Volume 106.2 fL (80-94); Mean Platelet Vol. 10.3 fl (6.2-12.0); Platelet Count 112 K/mm3 (150-450); RBC Distribution Width CV 15.9 % (11.6-14.6); RBC Distribution Width SD 62.4 fl (35.1-43.9); Red Blood Count 3.56 M/mm3 (4.6-6.2); White Blood Count 7.2 K/mm3 (4.4-11.0)
[2025-01-04 09:35] LABS: Albumin, Serum 2.7 g/dL (3.2-5.0); BUN 12 mg/dL (7-18); BUN/Creat Ratio 15.2 RATIO (10-20); Calcium,Total 9.4 mg/dL (8.5-10.1); Chloride 107 mmol/L (98-107); Creatinine, Serum 0.79 mg/dL (0.70-1.30); EST Glomerular Filtration Rate 99 mL/min (>60); Est Glom Filt Rate - Afr Amer 120 mL/min (>60); Estimated Creatinine Clearance 102.84 ml/min; Glucose 171 mg/dL (74-106); Magnesium 1.7 mg/dL (1.6-2.6); Phosphorus 1.7 mg/dL (2.5-4.9); Potassium 3.4 mmol/L (3.5-5.1); Sodium Level 139 mmol/L (136-145)
--- NOTE | 2025-01-04 10:32 | SP.MBSS_ITS ---
Modified Barium Swallow Patient Information Study Date: 01/04/25 Study Time: 10:30 Direct Billable Minutes: 124 Total Minutes procedure & reportin Diagnosis: PNA J18.9; GERD w/ esophagitis K21.00 Referring Physician: Joseph Carrillo Reason for Referral: Objectively assess swallow function, assess risk for aspiration, and determine recommendations for least restrictive diet textures and compensatory strategies to improve safety of swallow. Medical History: Pt presented to [facility] ED 01/01/2025 w/ respiratory distress and sudden onset of SOB 01/01/2025 at 9AM. called EMS. Chest x-ray showed left-sided pneumonia. Pt admitted for management of COPD exacerbation and sepsis secondary to PNA. BSE recommended Minced and moist textures / Thin liquids w/ reflux precautions and plan for MBSS w/ potential GI consult. MBSS at [facility] 01/2023, which reinforced regular diet and GI management of dysphagia. EGD 04/01/2323 Grade I upper esophageal varices; abnormal esophageal motility, likely presbyesophagus; gastritis; erythematous duodenopathy. Histiocytic reaction of stomach biopsy; fundic gland. Esophageal Manometry 12/24/23- EGJ Outflow obstruction. PMH: Nonallergic vasomotor rhinitis, Macular degeneration, Compression fracture of L2, Colon Cancer, HTN, Dementia, A fib, DM type 2, Hepatitis, TIA, PD, GERD, BiPAP dependence, Hx of GI bleed, CVA (2007), HLD, AARON ?- See EMR for full PMH. Current Diet Ordered: Minced and moist textures / Thin liquids Dentition: Natural Teeth and Missing Teeth Mental Status: Impaired Respiratory Status: Oxygenating on Room Air Penetration-Aspiration Scale Penetration-Aspiration Scale: OBJECTIVE ASSESSMENT OF SWALLOW FUNCTION (QUANTITATIVE ? PER TRIAL): PENETRATION / ASPIRATION SCALE (ARELLANO): 1 = does not enter airway 2 = enters airway/above vocal folds/ejected 3 = enters airway/above vocal folds/not ejected 4 = enters airway/contacts vocal folds/ejected 5 = enters airway/contacts vocal folds/not ejected 6 = enters airway/below vocal folds/ejected 7 = enters airway/below vocal folds/not ejected despite effort 8 = enters airway/below vocal folds/no effort VIDEOFLOROSCOPIC SCALE SCORE (ARELLANO): Grade I = aspiration of material that has penetrated into the laryngeal vestibule, intact cough reflex Grade II = aspiration < 10 % of the bolus, intact cough reflex Grade III = aspiration of < 10 % of the bolus, reduced cough reflex or aspiration of > 10 % of the bolus, intact cough reflex Grade IV = aspiration of > 10 % of the bolus, reduced cough reflex Penetration-Aspiration Scale Score Thin Liquid via teaspoon: Result: 5= enters airways/contacts vocal folds/not ejected Thin Liquid via teaspoon Trial 2: Result: 3= enters airways/above vocal folds/not ejected Thin Liquid via large single sip: cup: Result: 5= enters airways/contacts vocal folds/not ejected Thin Liquid via small single sip: cup Effortful swallow: Result: 1= does not enter airway [place] Thick Liquid via large single sip: cup: Result: 1= does not enter airway Pudding via teaspoon: Result: 1= does not enter airway Comment: Esophageal screen - Retention throughout the middle and lower esophagus. Likely including some of previous liquid trials due to extent of barium during esophageal screen. 1/2 Cookie: Result: 1= does not enter airway Comment: Esophageal screen - Retention throughout the middle and lower esophagus. Thin Liquid via single sip: straw Effortful swallow: Result: 1= does not enter airway Comment: Cued cough after the swallow to clear laryngeal vestibule = effective Thin Liquid via single sip: straw Effortful swallow Trial 2: Result: 2= enter airway/above vocal folds/ejected Thin Liquid via large single sip: cup Trial 2: Result: 8= enters airway/below vocal folds/no effort Oral Phase Labial Seal: Escape beyond mid-chin Tongue Control During Bolus Hold: Posterior escape of greater than half of bolus Bolus Preparation/Mastication: Disorganized chewing/mashing with solid pieces of bolus unchewed Bolus Transport/Lingual Motion: Repetitive/disorganized tongue motion Oral Residue: Residue collection on oral structures Pharyngeal Phase Initiation of Pharyngeal Swallow: Bolus head in pyriforms (laryngeal vestibule prior to swallow onset) Soft Palate Elevation: Trace column of contrast/air between soft palate and pharyngeal wall Laryngeal Elevation: Partial superior movement thyroid cart/partial apprx aryt- epig petiole Anterior Hyoid Excursion: Partial anterior movement Epiglottic Movement: Complete inversion Laryngeal Vestibule Closure at Height of Swallow: Incomplete; narrow column of air/contrast in laryngeal vestibule Pharyngeal Stripping Wave: Present - diminished Pharyngoesophageal Segment Opening: Complete distension and complete duration; no obstruction of flow Tongue Base Retraction: Narrow column of contrast between tongue base & post. pharyngeal wall Pharyngeal Residue: Collection of residue within or on pharyngeal structures Esophageal Phase Esophageal Clearance: Esophageal retention Diagnosis/Impression Diagnosis: Moderate oropharyngeal dysphagia R13.12; Esophageal dysphagia R13.14 Impression: The oral phase is primarily marked by... -Decreased bolus control. With final trial, patient spilled barium to the laryngeal vestibule prior to swallow onset resulting in aspiration during the swallow. -Disorganized tongue motion for A-P transport. -Prolonged mastication of cookie w/ 1 small piece un-chewed. The pharyngeal phase is primarily marked by... -Delayed swallow onset. -Decreased pharyngeal motility w/ decreased TB retraction and pharyngeal stripping wave w/ mild pharyngeal residue. -Decreased airway closure during the swallow w/ decreased laryngeal elevation and anterior hyoid excursion. The esophageal phase is primarily marked by... -Retention of cookie and pudding in the middle and lower esophagus. Recommendations Diet: Mechanical Soft Textures (Minced and Moist textures - IDDSI Level 5) and Thin Liquids Comment: Medications whole in applesauce Compensatory Strategies: ? Small bites ? CUE SMALL SIPS, HARD SWALLOWS - silent aspiration w/ large sips ? Slow rate ? Alternate bites/sips ? Sit upright during & 60 min after meals. ? STOP meal if increased s/s of aspiration, s/s of reflux, sensation of retention, or regurgitation despite use of strategies listed above & resume meal later. Supervision: 1:1 Direct Supervision (ALL FOOD/DRINK, Verbal cues to ensure use of strategies) Recommend Repeat Modified Barium Swallow: TBD (2-4 weeks after implementation of oropharyngeal strengthening exercises) Need for Skilled Speech Therapy Services: Yes Comment: -Train the patient and family in use of strategies to decrease risk for aspiration and reflux aspiration. -Ongoing assessment of diet tolerance of recommended textures. If worsening respiratory status, will consider diet downgrade to mildly/nectar thick liquids. Consider diet advancement of solids if cleared by GI. -Train the patient in oropharyngeal exercise program to improve bolus control, pharyngeal motility, and airway closure (lingual resistance, Effortful, CTAR). Recommended Referrals: GI Consult Education Completed: 1. Described result of evaluation., 4. Family/caregivers understand evaluation & agree w/ goals & tx plan. (FINISHING MACHINE OPERATOR AUTOMATIC educated pt's in recommendations from MBSS. She verbalized good understanding. Pt's is ok to provide supervision at meals. FINISHING MACHINE OPERATOR AUTOMATIC provided her a handout for a bolus control cup (10cc), as well as a patient handout about diet texture testing and preparation for IDDSI Level 5 diet textures.) and 7. Pt requires further education on strategies & risks. Comment: FINISHING MACHINE OPERATOR AUTOMATIC called and informed Dr. Carrillo of recommended GI consult, as well as findings of calcified carotids. Status Active ST Patient: Active Contact Information [facility] Speech Therapy:: Alem Boss M.A. CCC-FINISHING MACHINE OPERATOR AUTOMATIC? Speech-Language Pathologist?? [facility] [address] [place] [address]? [email or web address]?? [phone]
[2025-01-04] MEDS: APIXABAN 5 MG TABLET PO ×2 (11:26→21:08)
[2025-01-04] MEDS: Finasteride 5 MG Tablet PO (11:26)
[2025-01-04] MEDS: Psyllium 1 PACKET PO (11:26)
[2025-01-04] MEDS: Pramipexole Di-HCl 0.5 MG Tablet PO ×2 (11:27→21:08)
[2025-01-04] MEDS: Tamsulosin HCl 0.4 MG Capsule PO (11:27)
[2025-01-04] MEDS: Allopurinol 100 MG Tablet PO (11:27)
[2025-01-04] MEDS: Pantoprazole Sodium 40 MG Tablet PO (11:28)
[2025-01-04] MEDS: Loratadine 10 MG Tablet PO ×2 (11:29→16:56)
[2025-01-04] MEDS: Donepezil HCl 5 MG Tablet PO (11:29)
[2025-01-04] MEDS: Ceftriaxone 2 GM in 0.9% Normal Saline (50mL MB+) 50 ML IV (11:38)
[2025-01-04] MEDS: Ferrous Sulfate 325 MG Tablet PO (11:41)
[2025-01-04] MEDS: Insulin Lispro 100 UNIT/ML INSULN.PEN SC ×3 (11:48→21:11)
[2025-01-04] MEDS: Lactulose 20 GM/30 ML UDC 10 GM PO (11:50)
--- NOTE | 2025-01-04 11:50 | CASEMGMT ---
Addendum entered by Tamir Curry 01/04/25 16:45: Per [facility], SOC slated for 01/09. Addendum entered by Tamir Curry 01/04/25 12:15: Call received from Coral @ [facility]. They are able to accept pt. Pt and made aware. Original Note: ABI CHURCH NOTE: Per PT note this AM, pt ambulated 15 ft w/CGA, could have ambulated further but pt wanted to eat breakfast, additional therapy recommended. Referral has been placed to [facility], per ABI Yost CM, yesterday. ABI CHURCH to room. Pt resting in bed, @ bedside. Introduced self and role. states she noticed pt required 2 assist to get out of the recliner this AM and voiced concern w/being able to care for pt, stating w/his height and her own shorter stature, she is not able to assist him much. Upon further discussion, she does report they have a STS recliner and pt is able to get out of it easily @ home and feels he needed more assistance this morning b/c the recliner in his room @ [facility] sits much lower than what he has @ home. Pt also states he feels he will be able to get up @ home more easily from his own recliner than here @ [facility]. She also states they have a hospital bed and [id number] that is helpful for pt w/getting up. Questions answered re: SNF and HHC. Both pt and state they would still like pt to dc home w/HH. They are aware referral has been made to [facility] and are awaiting acceptance. states they have limited support @ home, as they have had some family pass and others live [id number]. She would like to talk w/SW to see if pt may qualify for assistance in the home w/cleaning/home care mgnt. Diana MONTGOMERY, made aware. Also offered a list of [employer] and states would like this. Same provided at this time. Discussed CCN and questions answered. states they do not need this @ this time, but may in the future, and would like more info on this to refer to in the future. CCN rac card provided. Further questions answered. voices much appreciation and feels better about pt discharging home w/the extra support. They deny having further discharge questions/concerns/needs at this time. Made aware to ask for CM if further concerns/needs arise. They voice appreciation. Jack BSN RN CM
[2025-01-04 12:13] LABS: Bedside Glucose 260 mg/dL (74-106)
--- NOTE | 2025-01-04 12:40 | PCM.PN.HOSP ---
Reason for Visit Reason for Visit: Diagnoses Sepsis, unspecified organism (01/01/25) Unspecified atrial fibrillation (01/01/25) Pneumonia, unspecified organism (01/01/25) Respiratory failure, unspecified, unspecified whether with hypoxia or hypercapnia (01/01/25) Hypoxemia (01/01/25) Severe sepsis with septic shock (01/01/25) Subjective Subjective Saw patient at bedside this afternoon, present. Patient was down having cookie swallow study done this morning. This afternoon, patient was sitting back comfortably in bedside chair, conversing normally and in no acute distress. States that he was able to complete the cookie swallow study but had similar swallowing issues to what he has normally. On chart review, patient has seen Dr. Stanley since March 2023 with most recent visit in June 2024. Has known esophageal motility disorder along with vasomotor rhinitis diagnosed by his construction project manager contributing to his swallowing issues. Feels that his current symptoms are similar to his known symptoms from esophageal motility disorder. He otherwise is breathing comfortably on room air and feels like he has improved from a respiratory standpoint. He does still feel a bit weaker than his baseline but improved from previous days. No other acute concerns today. Objective Data Objective Data Vital Signs: Vital Signs Temp Pulse Resp BP Pulse Ox O2 Del Method O2 Flow Rate 98.5 F 98 20 H 150/81 H 92 Room Air 3 01/04/25 05:57 01/04/25 05:57 01/04/25 05:57 01/04/25 05:57 01/04/25 07:51 01/04/25 07:51 01/03/25 10:22 FiO2 40 01/02/25 15:07 Oxygen Flow Rate (L/min) 3 Oxygen Delivery Method Room Air Weight: 140.6 kg Body Mass Index (BMI) 36.7 Intake & Output: Intake and Output for Last 24 Hours 01/02/25 01/03/25 01/04/25 23:59 23:59 23:59 Intake Total 1473.6 / 1833.6 510 / 510 Output Total 1725 / 1875 1100 / 1100 500 / 500 Balance -251.4 / -41.4 -590 / -590 -500 / -500 Lab / Micro Data 01/04/25 09:15 01/04/25 09:15 Labs: Laboratory Results - last 24 hr 01/03/25 17:19: POC Glucose 182 H 01/03/25 21:48: POC Glucose 176 H 01/04/25 05:53: POC Glucose 137 H 01/04/25 09:15: WBC 7.2, RBC 3.56 L, Hgb 12.5 L, Hct 37.8 L, MCV 106.2 H, MCH 35.1 H, MCHC 33.1, RDW Std Deviation 62.4 H, RDW Coeff of Mariluz 15.9 H, Plt Count 112 L, MPV 10.3, Sodium 139, Potassium 3.4 L, Chloride 107, Carbon Dioxide 26.0, BUN 12, Creatinine 0.79, Estim Creat Clear Calc 102.84, Est GFR (MDRD) Af Amer 120, Est GFR (MDRD) Non-Af 99, BUN/Creatinine Ratio 15.2, Glucose 171 H, Calcium 9.4, Phosphorus 1.7 L, Magnesium 1.7, Albumin 2.7 L 01/04/25 11:47: POC Glucose 260 H Micro: Microbiology 01/02/25 08:50 Sputum, Expectorated/Coughed Gram Stain - Final 01/02/25 08:50 Sputum, Expectorated/Coughed Respiratory Culture - Final Presumptive C albicans 01/01/25 10:25 Blood Culture (Wb) - Right Forearm Blood Culture - Preliminary No growth in 48 hours. 01/01/25 10:30 Blood Culture (Wb) - Right Forearm Blood Culture - Preliminary 01/01/25 11:30 Urine, Random Urine Culture - Final Escherichia coli 01/02/25 10:20 Mucosa - Nasopharyngeal Respiratory Panel (PCR) - Final 01/02/25 08:20 Urine, Clean Catch Legionella Antigen - Final 01/02/25 08:20 Urine, Clean Catch Streptococcus pneumoniae Antigen (M - Final 01/01/25 17:45 Nasal Secretion MRSA (PCR) - Final 01/01/25 10:30 Mucosa - Nose SARS-CoV-2, Influenza & RSV (PCR) - Final Rhythm Strip Rhythm Strip: A-fib Rate: 127 Ectopy: None Physical Exam Const alert, oriented x3 and no apparent distress Constitutional Narrative: Elderly male, class II obesity, mildly fatigued appearing but otherwise sitting back comfortably in bed, conversing normally, in no acute distress. General Appearance: cooperative and comfortable HEENT normocephalic, head/scalp atraumatic, hearing grossly normal bilaterally and nasal mucous membranes and turbinates normal Eyes PERRL, EOMs intact bilaterally and conjunctivae normal Neck full ROM Chest inspection of chest normal Resp normal respiratory effort and no use of accessory muscles Resp Narrative: Breathing comfortably on room air at rest. Mildly decreased breath sounds in bilateral lung bases but otherwise good air movement throughout with no wheezing noted. Cardio regular rate, regular rhythm, no murmurs and peripheral pulses 2+ throughout GI normal to inspection, nondistended, normoactive bowel sounds, soft to palpation, non-tender and non-distended Back/Spine normal ROM Extremity normal to inspection, full ROM and no pedal edema Skin no rashes or lesions noted Psych mental status grossly normal Assessment & Plan Assessment/Plan (1) Respiratory failure: (2) Pneumonia: (3) Atrial fibrillation with rapid ventricular response: (4) Septic shock: (5) Esophageal motility disorder: PLAN: Plan Patient is an 84-year-old male who presented [facility] ED on 01/01/2025 with worsening shortness of breath. 1. Acute hypoxic and hypercapnic respiratory failure secondary to community-acquired pneumonia and pulmonary edema from A-fib with RVR ? Principal [employer]informatics Specialist followed. Chest x-ray on admit showed cardiomegaly with pulmonary congestion and edema and concern for superimposed pneumonia. Required BiPAP on admission and did have good improvement with this. Was able to be weaned off supplemental oxygen by 01/04. Continue treatment for pneumonia and A-fib with RVR as noted below. 2. Septic shock secondary to community-acquired pneumonia, resolved ? Principal Bioinformatics Specialist and ID followed. Met sepsis criteria with lactic acidemia, fluid refractory hypotension and acute respiratory failure with suspected pneumonia. Did require Levophed but was weaned off and stable for transfer out of the ICU on 01/03. Blood pressures much improved, midodrine discontinued on 01/04. Infectious workup negative to this point. Continue treatment with ceftriaxone and plan for 7-day course of antibiotics total per ID. 3. A-fib with RVR ? Known history of A-fib and had significant A-fib with RVR during hospitalization suspected secondary to pneumonia. Improved with fluids and treatment of pneumonia as noted above. On propranolol at home primarily for cirrhosis with varices, has been held since admission. Will plan to restart this on discharge. Continue home Eliquis. 4. Chronic dysphagia secondary to esophageal motility disorder ? Speech therapy following. Patient follows with GI in the office, seeing Dr. Stanley's note from 06/2024 for further details. Had MBSS done on 01/04 that showed moderate oropharyngeal dysphagia with retention in the mid and lower esophagus. However, appears consistent with known issues with esophageal dysmotility and no need for GI consult while inpatient. Continue mechanical soft textures and thin liquid diet with small bites per speech therapy recommendations. 5. 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 Follows with outpatient GI as noted above. Stable. Continue home medications. 6. Chronic debility secondary to history of CVA and Parkinson's disease with cognitive impairment ? PT/OT/case management following. Planning for discharge home with home health care. Continue home medications. Chronic medical conditions: ? Class II obesity: BMI 36 on admit. Complicates hospital course, care and prognosis. ? Type 2 diabetes mellitus: Continue home Lantus and sliding scale insulin with meals as needed while inpatient. ? History of colon cancer s/p right hemicolectomy ? History of gout: Continue home allopurinol. ? Hyperlipidemia: Continue statin. ? BPH with obstructive symptoms: Continue home finasteride and tamsulosin. ? Hypothyroidism: Continue home Synthroid. ? GERD: Continue home PPI. DVT prophylaxis: Not indicated, on Eliquis CODE STATUS: Full code, verified Expected disposition: Home with home health care, 1 to 2 days Total clinical time spent by myself addressing the patient's medical issues, reviewing all the data, and collaborating with patient's care team: 50 minutes. Charges/Coding Visit Charges Inpatient E&M: 00537 Subs Hosp L3
[2025-01-04] MEDS: Na Biphos/Potassium Phosphate PACKET 1 PACKET PO ×2 (15:45→21:08)
[2025-01-04 16:37] LABS: Bedside Glucose 220 mg/dL (74-106)
[2025-01-04] MEDS: Atorvastatin Calcium 20 MG Tablet PO (21:08)
[2025-01-04] MEDS: Tolterodine Tartrate 2 MG CAP.SA PO (21:08)
[2025-01-04] MEDS: Insulin Glargine-YFGN 100 UNIT/ML Pen 30 UNIT SC (21:10)
[2025-01-04] MEDS: traZODone 100 MG Tablet PO (21:14)
[2025-01-04 21:36] LABS: Bedside Glucose 172 mg/dL (74-106)
[2025-01-05 03:59] VITALS: BMI 36.7
[2025-01-05 04:50] VITALS: BP 129/69; PULSE 90; RESP 18; TEMP 36.3; O2SAT 98
[2025-01-05] MEDS: Na Biphos/Potassium Phosphate PACKET 1 PACKET PO (04:56)
[2025-01-05] MEDS: Sucralfate 1 GM Tablet PO (04:56)
[2025-01-05] MEDS: Levothyroxine 150 MCG Tablet 225 MCG PO (04:56)
[2025-01-05 05:35] LABS: Bedside Glucose 148 mg/dL (74-106)
[2025-01-05 07:55] LABS: Anion Gap 6 (5-15); BUN 12 mg/dL (7-18); BUN/Creat Ratio 17.8 RATIO (10-20); Calcium,Total 9.5 mg/dL (8.5-10.1); Chloride 108 mmol/L (98-107); Creatinine, Serum 0.68 mg/dL (0.70-1.30); EST Glomerular Filtration Rate 118 mL/min (>60); Est Glom Filt Rate - Afr Amer 143 mL/min (>60); Estimated Creatinine Clearance 102.81 ml/min; Glucose 153 mg/dL (74-106); Potassium 3.4 mmol/L (3.5-5.1); Sodium Level 141 mmol/L (136-145)
[2025-01-05] MEDS: Loratadine 10 MG Tablet PO (08:16)
[2025-01-05] MEDS: Allopurinol 100 MG Tablet PO (08:16)
[2025-01-05 08:19] LABS: Phosphorus 2.4 mg/dL (2.5-4.9)
[2025-01-05 08:25] VITALS: O2SAT 93
[2025-01-05 08:29] VITALS: BP 141/91; PULSE 91; RESP 18; TEMP 36.6; O2SAT 96
[2025-01-05 08:55] VITALS: O2SAT 92; O2SAT 95
[2025-01-05] MEDS: Finasteride 5 MG Tablet PO (09:53)
[2025-01-05] MEDS: Tamsulosin HCl 0.4 MG Capsule PO (09:54)
[2025-01-05] MEDS: Donepezil HCl 5 MG Tablet PO (09:54)
[2025-01-05] MEDS: APIXABAN 5 MG TABLET PO (09:54)
[2025-01-05] MEDS: Lactulose 20 GM/30 ML UDC 10 GM PO (09:54)
[2025-01-05] MEDS: Ceftriaxone 2 GM in 0.9% Normal Saline (50mL MB+) 50 ML IV (09:54)
[2025-01-05] MEDS: Docusate Sodium 100 MG Capsule PO (09:54)
[2025-01-05] MEDS: Pramipexole Di-HCl 0.5 MG Tablet PO (09:54)
[2025-01-05] MEDS: Pantoprazole Sodium 40 MG Tablet PO (09:54)
--- NOTE | 2025-01-05 10:02 | PCM.DC.SUM ---
Providers Date of Admission: 01/01/25 Date of Discharge: 01/05/25 Primary Care Physician: Dr. Randell Sparks MD Consultations 01/01/25 13:08 Consult: Rotary Saw Operator / Pulmonary Medicine Routine Consulting Provider: Intensivists/Pulmonary Med Reason for Consult: conern for sepsis, resp failure, on Bipap EMERGENT Consult: No Notified: Yes Date Notified: 01/01/25 Time Notified: 11:25 Method of Notification: Text 01/02/25 08:49 Consult: Infectious Disease Routine Consulting Provider: Josh Bain Reason for Consult: septic shock, pneumonia, cirrhosis, afib EMERGENT Consult: No Notified: Yes Date Notified: 01/02/25 Time Notified: 08:50 Method of Notification: Text Reason For Visit: ACUTE RESP FAILURE, PNEUMONIA Diagnosis Discharge Diagnosis (1) Respiratory failure: Status: Acute Code(s): J96.90 - Respiratory failure, unspecified, unspecified whether with hypoxia or hypercapnia (2) Pneumonia: Status: Acute Code(s): J18.9 - Pneumonia, unspecified organism (3) Atrial fibrillation with rapid ventricular response: Status: Acute Code(s): I48.91 - Unspecified atrial fibrillation (4) Septic shock: Status: Acute Code(s): A41.9 - Sepsis, unspecified organism; R65.21 - Severe sepsis with septic shock (5) Esophageal motility disorder: Status: Chronic Code(s): K22.4 - Dyskinesia of esophagus Medications at Discharge Home Medications allopurinol 100 mg tablet 100 mg PO DAILYCM gout 05/10/15 docusate sodium 100 mg capsule 100 mg PO BID constipation 05/10/15 finasteride 5 mg tablet 5 mg PO DAILY prostate 05/10/15 tamsulosin 0.4 mg capsule 0.4 mg PO DAILY prostate 05/10/15 trazodone 100 mg tablet 100 mg PO QHS sleep/mental health 05/10/15 trospium 20 mg tablet 20 mg PO QHS bladder 05/10/15 cyanocobalamin (vitamin B-12) 500 mcg tablet 1,000 mcg PO DAILY supplement 09/24/17 ipratropium bromide 42 mcg (0.06 %) nasal spray 2 spray NS TID PRN ALLERGIES 09/24/17 levothyroxine 150 mcg tablet 225 mcg PO MOWEFR thyroid 03/06/19 magnesium oxide 400 mg (241.3 mg magnesium) tablet 400 mg PO BID supplement 11/30/19 atorvastatin 20 mg tablet 20 mg PO QHS cholesterol 06/19/22 propranolol 20 mg tablet 20 mg PO BID BP 06/19/22 levothyroxine 150 mcg tablet 150 mcg PO SUTUTHSA thyroid 07/13/22 lmcdwbsz-hqlkkfbst-enwaknzov 3.5 mg-10,000 unit-10 mg/gram top cream 1 applic topical DAILY LEFT EYE 07/13/22 donepezil 5 mg tablet (Aricept) 5 mg PO DAILY memory 07/24/22 pioglitazone 45 mg tablet (Actos) 45 mg PO DAILY diabetes 07/24/22 glipizide 5 mg tablet 5 mg PO BID 08/27/22 lisinopril 20 mg tablet 20 mg PO DAILY 03/29/23 acetaminophen 500 mg tablet 1,000 mg PO BID 06/07/23 apixaban 5 mg tablet (Eliquis) 5 mg PO BID BLOOD THINNER 06/07/23 insulin glargine 100 unit/mL (3 mL) subcutaneous pen (Lantus Solostar U-100 Insulin) 30 unit subcut QHS DM 06/07/23 loratadine 10 mg tablet 10 mg PO Q12H ALLERGIES 06/07/23 svvdhlca-dx-ejacs 300 mcg-K 60 mcg-lycop 600 mcg-lutein 300 mcg tablet (Men 50 Plus Multivitamin) 1 tab PO DAILY 06/07/23 ropinirole 1 mg tablet 1 mg PO BID 06/07/23 ascorbate calcium (vitamin C) 500 mg tablet 500 mg PO DAILY 09/21/23 pantoprazole 40 mg tablet,delayed release 40 mg PO DAILY #30 tabs 02/11/24 ferrous sulfate 325 mg (65 mg iron) tablet 325 mg PO DAILY iron 07/25/24 cholecalciferol (vitamin D3) 50 mcg (2,000 unit) capsule 50 mcg PO DAILY 01/01/25 furosemide 20 mg tablet 20 mg PO PRN 01/01/25 lactulose 10 gram/15 mL oral solution 10 g PO DAILY 01/01/25 mecobalamin (vitamin B12) 500 mcg chewable tablet 500 mcg PO DAILY 01/01/25 psyllium husk 0.4 gram capsule (Daily Fiber) 0.4 g PO DAILY 01/01/25 sucralfate 1 gram tablet (Carafate) 1 g PO BID 01/01/25 vitamin B complex (Complex B-100 tablet,extended release) 1 tab PO DAILY 01/01/25 sprytshz-hvxkidthi-xxvbwnba 3.5 mg/mL-10,000 unit/mL-0.1% eye drops 1 drp ophthalmic (eye) 4X/DAY eye infection 01/02/25 amoxicillin 875 mg-potassium clavulanate 125 mg tablet 1 tab PO BID 3 days #7 tabs 01/05/25 Hospital Course Operations None Procedures EKG, Modified Barium Swallow and - (Chest x-ray x 2) Summary of Care Provided Minutes Spent on Discharge: 35 Hospital Course: Patient is an 84-year-old male who presented [facility] ED on 01/01/2025 with worsening shortness of breath. Hospital course as noted below. Patient discharged home with home health care in stable condition on 01/05. 1. Acute hypoxic and hypercapnic respiratory failure secondary to community-acquired pneumonia and pulmonary edema from A-fib with RVR ? Rotary Saw Operator followed. Chest x-ray on admit showed cardiomegaly with pulmonary congestion and edema and concern for superimposed pneumonia. Required BiPAP on admission and did have good improvement with this. Was able to be weaned off supplemental oxygen by 01/04. Treatment for pneumonia and A-fib as noted below. 2. Septic shock secondary to community-acquired pneumonia, resolved ? Rotary Saw Operator and ID followed. Met sepsis criteria with lactic acidemia, fluid refractory hypotension and acute respiratory failure with suspected pneumonia. Did require Levophed but was weaned off and stable for transfer out of the ICU on 01/03. Blood pressures much improved, midodrine discontinued on 01/04. Infectious workup negative to this point. Treated with ceftriaxone while inpatient, discharged on Augmentin to complete 7-day course of antibiotics total. 3. A-fib with RVR ? Known history of A-fib and had significant A-fib with RVR during hospitalization suspected secondary to pneumonia. Improved with fluids and treatment of pneumonia as noted above. On propranolol at home primarily for cirrhosis with varices, has been held since admission. Restarted propranolol on discharge. Continue home Eliquis. 4. Chronic dysphagia secondary to esophageal motility disorder ? Speech therapy followed. Patient follows with GI in the office, seeing Dr. Stanley's note from 06/2024 for further details. Had MBSS done on 01/04 that showed moderate oropharyngeal dysphagia with retention in the mid and lower esophagus. However, appears consistent with known issues with esophageal dysmotility and no need for GI consult while inpatient. Continue mechanical soft textures and thin liquid diet with small bites per speech therapy recommendations. 5. 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 Follows with outpatient GI as noted above. Stable. Continue home medications. 6. Chronic debility secondary to history of CVA and Parkinson's disease with cognitive impairment ? PT/OT/case management followed. Stable for discharge home with home health care on 01/05. Continue home medications. Chronic medical conditions: ? Class II obesity: BMI 36 on admit. Complicated hospital course, care and prognosis. ? Type 2 diabetes mellitus: Treated with home Lantus and sliding scale insulin with meals as needed while inpatient. Okay to resume home regimen on discharge. ? History of colon cancer s/p right hemicolectomy ? History of gout: Continue home allopurinol. ? Hyperlipidemia: Continue statin. ? BPH with obstructive symptoms: Continue home finasteride and tamsulosin. ? Hypothyroidism: Continue home Synthroid. ? GERD: Continue home PPI. Total clinical time spent by myself addressing the patient's medical issues, reviewing all the data, and collaborating with patient's care team: 35 minutes. Physical Exam Const alert, oriented x3 and no apparent distress Constitutional Narrative: Elderly male, class II obesity, mildly fatigued appearing but otherwise sitting back comfortably in bed, conversing normally, in no acute distress. Stable. General Appearance: cooperative and comfortable HEENT normocephalic, head/scalp atraumatic, hearing grossly normal bilaterally and nasal mucous membranes and turbinates normal Eyes PERRL, EOMs intact bilaterally and conjunctivae normal Neck full ROM Chest inspection of chest normal Resp normal respiratory effort and no use of accessory muscles Resp Narrative: Breathing comfortably on room air at rest. Mildly decreased breath sounds in bilateral lung bases but otherwise good air movement throughout with no wheezing noted. Stable. Cardio regular rate, regular rhythm, no murmurs and peripheral pulses 2+ throughout GI normal to inspection, nondistended, normoactive bowel sounds, soft to palpation, non-tender and non-distended Back/Spine normal ROM Extremity normal to inspection, full ROM and no pedal edema Skin no rashes or lesions noted Psych mental status grossly normal Weight / BMI Weight Weight: 140.5 kg Body Mass Index (BMI) 36.7 ABG / Lab / Microbiology Data 01/04/25 09:15 01/05/25 06:51 Laboratory: Laboratory Results - last 24 hr 01/04/25 21:03: POC Glucose 172 H 01/05/25 04:54: POC Glucose 148 H 01/05/25 06:51: Sodium 141, Potassium 3.4 L, Chloride 108 H, Carbon Dioxide 28.0, Anion Gap 6, BUN 12, Creatinine 0.68 L, Estim Creat Clear Calc 102.81, Est GFR (MDRD) Af Amer 143, Est GFR (MDRD) Non-Af 118, BUN/Creatinine Ratio 17.8, Glucose 153 H, Calcium 9.5, Phosphorus 2.4 L 01/05/25 11:16: POC Glucose 182 H Microbiology: Microbiology 01/01/25 10:30 Blood Culture (Wb) - Right Forearm Blood Culture - Preliminary Coag Negative Staph 01/02/25 08:50 Sputum, Expectorated/Coughed Gram Stain - Final 01/02/25 08:50 Sputum, Expectorated/Coughed Respiratory Culture - Final Presumptive C albicans 01/01/25 10:25 Blood Culture (Wb) - Right Forearm Blood Culture - Preliminary No growth in 48 hours. 01/01/25 11:30 Urine, Random Urine Culture - Final Escherichia coli 01/02/25 10:20 Mucosa - Nasopharyngeal Respiratory Panel (PCR) - Final 01/02/25 08:20 Urine, Clean Catch Legionella Antigen - Final 01/02/25 08:20 Urine, Clean Catch Streptococcus pneumoniae Antigen (M - Final 01/01/25 17:45 Nasal Secretion MRSA (PCR) - Final 01/01/25 10:30 Mucosa - Nose SARS-CoV-2, Influenza & RSV (PCR) - Final D/C Instructions DC O2, CPAP, BIPAP Needs RN Home O2 Qualification: Home O2 Qualification: Is the patient on home oxygen No 01/05/25 08:55 Home O2 Qualification: AT REST 1- Pulse Ox at rest 95 01/05/25 08:55 Home O2 Qualification: WITH AMBULATION 1- Pulse Ox with ambulation 92 01/05/25 08:55 1- Oxygen Flow Rate with 0 01/05/25 08:55 ambulation PSN CPAP & BiPAP: BiPAP & CPAP Settings per PSN Mode AIRVO 01/02/25 15:07 Bipap Delivery Device Nasal Pillows 01/02/25 15:07 BiPAP Expiratory Pressure 14 01/02/25 00:04 BiPAP Rate 16 01/02/25 00:04 Fraction of Inspired Oxygen ( 40 01/02/25 15:07 FIO2) Total Flow Rate 45 01/02/25 15:07 Home O2 Discharge instructions: No Meaningful Use Info Meaningful Use Meaningful Use Diagnoses (Choose all that apply): None applicable Ischemic Stroke Statin Dosing Therapy Reference: STATIN DOSE THERAPY REFERENCE: * Patients > 75 years receive moderate or high dose statin therapy. * Patients 75 years or YOUNGER should receive HIGH intensity statin dose unless contraindicated. You will be required to document reason for non-treatment if statin daily dose does not meet guidelines. HIGH DOSE STATIN THERAPY DAILY Atorvastatin > than or = to 40 mg Rosuvastatin > than or = to 20 mg Amlodipine + Atorvastatin > than or = to 2.5/40 mg Ezetimibe + Simvastatin 10/80 mg Simvastatin 80mg Discharge Plan Admission Admit Date/Time: 01/01/25 11:23 Primary Reason for Your Visit: shortness of breath Attending Provider: Joseph Carrillo Primary Care Provider: Randell Sparks Consulting Providers: Josh Bain; Kishan Dash Instructions Additional Instructions / Restrictions: Take 3.5 more days of Augmentin to complete 7 day course of antibiotics total. Continue all other home medications as normal. Discharge Orders/Prescriptions Prescriptions: New amoxicillin-pot clavulanate 875-125 mg tablet 1 tab PO BID 3 Days Qty: 7 0RF Continued magnesium oxide 400 mg (241.3 mg magnesium) tablet 400 mg PO BID glipizide 5 mg tablet 5 mg PO BID ascorbate calcium (vitamin C) 500 mg tablet 500 mg PO DAILY ferrous sulfate 325 mg (65 mg iron) tablet 325 mg PO DAILY allopurinol 100 MG tablet 100 mg PO DAILYCM tamsulosin 0.4 MG capsule 0.4 mg PO DAILY trazodone 100 MG tablet 100 mg PO QHS docusate sodium 100 MG capsule 100 mg PO BID finasteride 5 MG tablet 5 mg PO DAILY trospium 20 MG tablet 20 mg PO QHS Patient Comments: bladder levothyroxine 150 mcg tablet 225 mcg PO MOWEFR Patient Comments: PT TAKES 1 TABLET DAILY AND ON MONDAYS, WEDNESDAYS, AND FRIDAYS TAKES ADDITIONAL 1/2 TAB FOR A TOTAL DOSE OF 225MCG. cyanocobalamin (vitamin B-12) 500 MCG tablet 1,000 mcg PO DAILY ipratropium bromide 15 ML spray,non-aerosol 2 spray NS TID PRN (Reason: ALLERGIES) Patient Comments: SEASONAL ALLERGIES atorvastatin 20 mg Tablet 20 mg PO QHS propranolol 20 mg Tablet 20 mg PO BID levothyroxine 150 mcg Tablet 150 mcg PO [facility] Patient Comments: PT TAKES 1 TABLET DAILY AND ON MONDAYS, WEDNESDAYS, AND FRIDAYS TAKES ADDITIONAL 1/2 TAB FOR A TOTAL DOSE OF 225MCG. dobumpqq-fjadjcdub-bkyzlqjzj 3.5-10,000-10 mg-unit-mg/gram Cream 1 applic TOPICAL DAILY donepezil [Aricept] 5 mg tablet 5 mg PO DAILY pioglitazone [Actos] 45 mg tablet 45 mg PO DAILY lisinopril 20 mg tablet 20 mg PO DAILY Eliquis 5 mg tablet 5 mg PO BID ropinirole 1 mg tablet 1 mg PO BID loratadine 10 mg tablet 10 mg PO Q12H Men 50 Plus Multivitamin [id number] mcg tablet 1 tab PO DAILY insulin glargine [Lantus Solostar U-100 Insulin] 100 unit/mL (3 mL) insulin pen 30 unit subcut QHS acetaminophen 500 mg Tablet 1,000 mg PO BID sucralfate [Carafate] 1 gram tablet 1 g PO BID furosemide 20 mg tablet 20 mg PO PRN psyllium husk [Daily Fiber] 0.4 gram capsule 0.4 g PO DAILY cholecalciferol (vitamin D3) 50 mcg (2,000 unit) capsule 50 mcg PO DAILY Complex B-100 Tablet Extended Release 1 tab PO DAILY mecobalamin (vitamin B12) 500 mcg tablet,chewable 500 mcg PO DAILY lactulose 10 gram/15 mL solution 10 g PO DAILY neomycin-polymyxin B-dexameth 3.5mg/mL-10,000 unit/mL-0.1 % drops,suspension 1 drp ophthalmic (eye) 4X/DAY pantoprazole 40 mg tablet,delayed release (DR/EC) 40 mg PO DAILY Qty: 30 5RF Referrals / Follow Up: Randell Sparks MD [Primary Care Provider] - Disposition Disposition (needs filled in before D/C Order can be placed): Home Health Service Charges/Coding Visit Charges Inpatient E&M: 99110 Disch Hosp >30min
[2025-01-05] MEDS: Insulin Lispro 100 UNIT/ML INSULN.PEN SC (11:17)
[2025-01-05] MEDS: Ferrous Sulfate 325 MG Tablet PO (11:18)
[2025-01-05 11:40] LABS: Bedside Glucose 182 mg/dL (74-106)
--- NOTE | 2025-01-05 12:40 | CASEMGMT ---
Addendum entered by Tamir Curry 01/05/25 12:44: Cori @ [facility] aware pt is discharging home today. Original Note: BAI CHURCH note: Discharge order is in. Home amb O2 testing has been completed. Pt does not qualify for home O2. ABI CM to room. Pt sitting up in chair in room, @ bedside. Questions answered. They were made aware [facility] SOC slated for 01/09 and that someone would call them to schedule appt. They are aware Rx has been sent to [facility]. They voice appreciation and voice no other discharge concerns/questions. Jack PATRICK RN CM
[2025-01-05 13:00] VITALS: BP 131/74; PULSE 65; RESP 18; TEMP 36.8; O2SAT 97
== END 2025-01-05 13:51 | disposition home health service (06) | DRG 871 ==
LOC: ED 11:08 → ICU 16:09 → MS2 01-03 17:53
PROVIDERS: Internal Medicine Critical Care Medicine; Admitting Provider Internal Medicine; Emergency Provider Emergency Medicine; PCP Family Medicine; Visit Provider Hospitalist
DX: A41.9 Sepsis, unspecified organism (principal); J18.9 Pneumonia, unspecified organism; J96.02 Acute respiratory failure with hypercapnia; R65.21 Severe sepsis with septic shock; J96.01 Acute respiratory failure with hypoxia; E87.20 Acidosis, unspecified; R13.10 Dysphagia, unspecified; E11.40 Type 2 diabetes mellitus with diabetic neuropathy, unspecified; F02.80 Dementia in other diseases classified elsewhere, unspecified severity, without behavioral disturbance, psychotic disturbance, mood disturbance, and anxiety; G20.A1 Parkinson's disease without dyskinesia, without mention of fluctuations; I10 Essential (primary) hypertension; E03.9 Hypothyroidism, unspecified; E66.812 Obesity, class 2; I48.91 Unspecified atrial fibrillation; K21.9 Gastro-esophageal reflux disease without esophagitis; E78.5 Hyperlipidemia, unspecified; M10.9 Gout, unspecified; Z79.4 Long term (current) use of insulin; G47.33 Obstructive sleep apnea (adult) (pediatric); K22.4 Dyskinesia of esophagus; K22.89 Other specified disease of esophagus; Z79.890 Hormone replacement therapy; Z86.73 Personal history of transient ischemic attack (TIA), and cerebral infarction without residual deficits; Z79.01 Long term (current) use of anticoagulants; R53.81 Other malaise; Z68.36 Body mass index [BMI] 36.0-36.9, adult; Z85.038 Personal history of other malignant neoplasm of large intestine; Z99.81 Dependence on supplemental oxygen; Z79.84 Long term (current) use of oral hypoglycemic drugs; Z79.899 Other long term (current) drug therapy; Z90.49 Acquired absence of other specified parts of digestive tract; Z98.49 Cataract extraction status, unspecified eye
CPT/HCPCS: 36415; 71045; 74230; 80048; 80053; 80069; 81001; 82550; 82803; 82962; 83605; 83735; 83880; 84100; 84145; 84443; 84484; 85025; 85027; 85610; 85730; 87040; 87070; 87077; 87086; 87088; 87186; 87205; 87449; 87631; 87633; 87641; 92610; 92611; 93005; 94002; 94003; 94640; 94660; 97162; 97166; 97530; 97535; 97802; 99285; A4216; J0696

== ENCOUNTER → 2025-01-19 | Outpatient (CLI) | payer MEDICARE, SELFPAY ==
[2025-01-19 18:06] LABS: Anion Gap 5 (5-15); BUN 19 mg/dL (7-18); BUN/Creat Ratio 19.2 RATIO (10-20); Calcium,Total 9.8 mg/dL (8.5-10.1); Chloride 105 mmol/L (98-107); Creatinine, Serum 0.99 mg/dL (0.70-1.30); EST Glomerular Filtration Rate 76 mL/min (>60); Est Glom Filt Rate - Afr Amer 92 mL/min (>60); Glucose 138 mg/dL (74-106); Potassium 4.6 mmol/L (3.5-5.1); Sodium Level 139 mmol/L (136-145)
== END | disposition home or self-care (01) ==
LOC: MFPLAB 14:59
PROVIDERS: PCP Family Medicine; Referring Provider Family Medicine; Visit Provider Family Medicine
DX: E87.6 Hypokalemia (principal)
CPT/HCPCS: 36415; 80048

== ENCOUNTER → 2025-04-10 | Outpatient (CLI) | payer MEDICARE, SELFPAY ==
--- NOTE | 2025-04-10 16:34 | CT_ITS ---
PROCEDURE: CHEST WITH CONTRAST 04/10/2025 REASON FOR EXAM: ASPIRATION PNEUMONIA AND DYSPHAGIA TECHNIQUE: Prone and supine chest CT with intravenous contrast, high resolution CT (HRCT) protocol. Coronal and Sagittal reconstruction series were provided. CONTRAST: Isovue-300 VOLUME: 100 mL One or more dose reduction techniques were used (e.g., Automated exposure control, adjustment of the mA and/or kV according to patient size, use of iterative reconstruction technique). RADIATION DOSE SUMMARY: CTDlvol: 25.5 mGy DLP: 845.75 mGycm COMPARISON: Comparison is made with prior study dated September 07, 2022. FINDINGS: Hardware: None Lymph nodes: No evidence of mediastinal lymph nodes. Heart and Vasculature: Normal heart size. No pericardial effusion. Atherosclerotic calcifications of the thoracic aorta. Pulmonary arteries are unremarkable. Coronary artery calcification. Lungs and Airways: Infiltration in the left lower lobe. Underlying nodular density can not be excluded. Follow-up recommended. Mild increased markings at the right lung base suggestive of atelectasis and/or scarring. This has progressed as compared to prior study. Pleura: No pleural effusion. Upper Abdomen: There is circumferential thickening of the esophagus. Fluid and residual food particles are seen within the esophagus up to its origin. This may be the cause of aspiration. Bones: Degenerative changes of the thoracic spine. Almost complete compression of the T11 and T12 vertebrae. Disc space narrowing. CT/Chest WITH Contrast IMPRESSION: Coronary artery calcification (CAC) is is present Infiltrate in the left lower lobe. Underlying mass can not be excluded. Radio graphic follow-up recommended. Circumferential thickening of the esophagus with residual food and fluid within it. Almost complete compression of the T11 and T12 vertebrae. Discitis should be r uled out. Reading Location: [id number]
[2025-04-10 17:11] LABS: CREATININE FINGERSTICK < 1.0 mg/dL (0.70-1.30); EGFR FINGERSTICK > 60.0000 mL/min (>60)
== END | disposition home or self-care (01) ==
LOC: CT 16:32
PROVIDERS: PCP Family Medicine; Referring Provider Internal Medicine Gastroenterology; Visit Provider Internal Medicine Gastroenterology
DX: J30.0 Vasomotor rhinitis (principal); J18.9 Pneumonia, unspecified organism
CPT/HCPCS: 71260; Q9967; A4216

== ENCOUNTER 2025-05-14 10:12 | Day surgery (SDC) | payer MEDICARE, SELFPAY ==
--- NOTE | 2025-05-10 11:17 | PAT.ANESEVAL ---
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 When Was Last Pacemaker Check QUESTION #4 FULL TEXT: You/Your Family Experience fever (hyperthermia) with Anesthesia Last Oral Intake Last Oral intake: Last Oral Intake NPO since Meds taken in AM with sips of water? 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 new cars Female No 05/10/25 10:49 HX of Motion Sickness No 05/10/25 10:49 HX of N/V After Surgery No 05/10/25 10:49 Non-Smoker Yes 05/10/25 10:49 Duration of Surgery greater No 05/10/25 10:49 than 60 minutes Number of Risk Factors 1 05/10/25 10:49 PONV Score Low Risk 05/10/25 10:49 Height & Weight Height & Weight: Anesthesia: Height & Weight Height 6 ft 5 in 01/02/25 09:34 Respiratory Assessment Respiratory Assessment - salesperson new cars: Respiratory Tract Infection Hx - salesperson new cars Hx Respiratory Tract Infection No 05/10/25 10:49 STOP Sleep Apnea STOP Sleep Apnea - salesperson new cars: STOP Sleep Apnea - salesperson new cars Hx Hypertension Yes: CONTROLLED WITH MEDS 05/10/25 10:49 Hx Sleep Apnea Yes 05/10/25 10:49 CPAP No 05/10/25 10:49 BIPAP Yes 05/10/25 10:49 Do you snore loudly (louder than talking or can be heard Do you often feel tired/ fatigued/ sleepy during daytime? Has anyone observed you stop breathing during sleep? STOP Results Positive 05/10/25 10:49 QUESTION #5 FULL TEXT : Do you snore loudly (louder than talking or can be heard through closed doors)? 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 Specify any problems Hx of Preganancy in last 3 N/A 05/10/25 10:49 Months Nurse Filling Out Transfusion [email or web address] 05/10/25 10:49 & Questions: Date: 05/10/25 05/10/25 10:49 Time: 10:55 05/10/25 10:49 Patient unable to answer at this time (ie. confused, unrespo /Reproduction History /Reproductive History - salesperson new cars: /Reproductive Hx- salesperson new cars Hx Now No 05/10/25 10:49 Gestational Age (in weeks): EDC: Hx Hx Para Hx Section SAB No 05/10/25 10:49 [facility] Medical History (Updated 05/10/25 @ 11:00 by Liam Gonzalez) History of edema Chronic anticoagulation History of diabetes mellitus Nonallergic vasomotor rhinitis Esophageal motility disorder Macular degeneration Compression fracture of L2 Cancer Hypertension Dementia TIA (transient ischemic attack) Current use of group home anticoagulation Dysphagia Atrial fibrillation Longstanding persistent atrial fibrillation Skin tear Insulin dependent diabetes mellitus Colonic mass History of echocardiogram History of stress test Cardiology follow-up encounter Short-term memory loss Wears glasses Wears hearing aid Urinary incontinence Walker as ambulation aid Prostate disease Hepatitis Parkinson's disease Stroke/cerebrovascular accident Difficulty swallowing History of GI bleed Gastric reflux BiPAP (biphasic positive airway pressure) dependence Non-smoker Restless legs History of atrial fibrillation Colon cancer Ocular rosacea Diabetes mellitus, type II Carotid artery disease Essential hypertension Paroxysmal atrial fibrillation History of CVA (cerebrovascular accident) (2007) Hyperlipidemia Hypothyroidism Obstructive sleep apnea History of pericarditis (08/2017) Venous (peripheral) insufficiency Peripheral vascular disease due to secondary diabetes DM (diabetes mellitus), type 2 with peripheral vascular complications Diabetes mellitus type 2 with neurological manifestations Home Medications ?Medication ?Instructions ?Recorded ?Last Taken ?Type allopurinol 100 mg tablet 100 mg PO DAILYCM gout 05/10/15 12/31/24 History finasteride 5 mg tablet 5 mg PO DAILY prostate 05/10/15 12/31/24 History tamsulosin 0.4 mg capsule 0.4 mg PO QHS prostate 05/10/15 12/31/24 History trazodone 100 mg tablet 100 mg PO QHS sleep/mental health 05/10/15 12/31/24 History trospium 20 mg tablet 20 mg PO QHS bladder 05/10/15 12/31/24 History cyanocobalamin (vitamin B-12) 500 1,000 mcg PO DAILY supplement 09/24/17 12/31/24 History mcg tablet ipratropium bromide 42 mcg (0.06 2 spray NS TID PRN ALLERGIES 09/24/17 12/31/24 History %) nasal spray levothyroxine 150 mcg tablet 225 mcg PO MOWEFR thyroid 03/06/19 12/31/24 History magnesium oxide 400 mg (241.3 mg 400 mg PO BID supplement 11/30/19 12/31/24 History magnesium) tablet atorvastatin 20 mg tablet 20 mg PO QHS cholesterol 06/19/22 12/31/24 History propranolol 20 mg tablet 20 mg PO BID BP 06/19/22 12/31/24 History levothyroxine 150 mcg tablet 150 mcg PO SUTUTHSA thyroid 07/13/22 12/31/24 History ydeonsos-tcnlaxpie-coumrgmct 3.5 1 applic topical DAILY JENNIFER EYES 07/13/22 12/31/24 History mg-10,000 unit-10 mg/gram top cream donepezil 5 mg tablet (Aricept) 5 mg PO DAILY memory 07/24/22 12/31/24 History pioglitazone 45 mg tablet (Actos) 45 mg PO DAILY diabetes 07/24/22 12/31/24 History glipizide 5 mg tablet 5 mg PO BID 08/27/22 12/31/24 History lisinopril 20 mg tablet 20 mg PO DAILY 03/29/23 12/31/24 History acetaminophen 500 mg tablet 1,000 mg PO BID 06/07/23 06/06/23 History apixaban 5 mg tablet (Eliquis) 5 mg PO BID BLOOD THINNER 06/07/23 12/31/24 History insulin glargine 100 unit/mL (3 30 unit subcut QHS DM 06/07/23 12/31/24 History mL) subcutaneous pen (Lantus Solostar U-100 Insulin) loratadine 10 mg tablet 20 mg PO DAILY ALLERGIES 06/07/23 12/31/24 History eicjqbzo-sz-dprxl 300 mcg-K 60 1 tab PO DAILY 06/07/23 12/31/24 History mcg-lycop 600 mcg-lutein 300 mcg tablet (Men 50 Plus Multivitamin) ropinirole 1 mg tablet 1 mg PO BID 06/07/23 12/31/24 History ascorbate calcium (vitamin C) 500 500 mg PO DAILY 09/21/23 12/31/24 History mg tablet ferrous sulfate 325 mg (65 mg 325 mg PO TID iron 07/25/24 Unknown History iron) tablet cholecalciferol (vitamin D3) 50 50 mcg PO DAILY 01/01/25 12/31/24 History mcg (2,000 unit) capsule furosemide 20 mg tablet 20 mg PO DAILY PRN edema 01/01/25 Unknown History psyllium husk 0.4 gram capsule 0.4 g PO DAILY 01/01/25 12/31/24 History (Daily Fiber) sucralfate 1 gram tablet (Carafate) 1 g PO BID 01/01/25 12/31/24 History vitamin B complex (Complex B-100 1 tab PO DAILY 01/01/25 12/31/24 History tablet,extended release) calcium carbonate (Calcium 500) 500 mg PO TID 05/10/25 Unknown History pantoprazole 40 mg tablet,delayed 40 mg PO QHS 05/10/25 Unknown History release Allergy/AdvReac Type Severity Reaction Status Date / Time niacin Allergy Intermediate rash Verified 05/10/25 10:34 adhesive AdvReac Other: Verified 05/10/25 10:34 takes skin off, inflamed Family History Father CAD (coronary artery disease) Hypertension Heart disease Mother Hypertension Sister Breast cancer CVA (cerebral vascular accident) Brother Kidney disease Surgical History History of esophagogastroduodenoscopy (EGD) History of colectomy H/O basal cell carcinoma excision History of cataract extraction History of colonoscopy (~05/2022) History of appendectomy Status post surgical removal of malignant neoplasm of skin Social History household members: significant other Smoking Status: Never smoker alcohol intake: never substance use type: does not use seatbelt use: always do you feel safe at home: Yes additional social history: Ambulates with a wheeled walker. Audit: Pertinent Findings Pertinent Findings EKG Perinent findings: 01/01/2025. Atrial fibrillation with rapid ventricular response. PVCs. ST and T wave abnormality, consider anterior ischemia. 127 bpm. Consult pertinent findings: Cardiology 07/17/2022. Hypertension chronic stable. Longstanding persistent atrial fibrillation. Recommendation Anesthesia Recommendation Anesthesia recommendation: OPTIMIZED for anesthesia
[2025-05-14] VITALS (8 sets, daily range): BP systolic 82–114; BP diastolic 58–70; PULSE 66–95; RESP 14–16; TEMP 35.7–36.6; O2SAT 92–98; BMI 34.9
[2025-05-14 11:01] LABS: Bedside Glucose 140 mg/dL (74-106)
[2025-05-14] MEDS: Lactated Ringers 1,000 ML 15 ML IV (11:03)
--- NOTE | 2025-05-14 11:34 | PRE.ANES_ITS ---
ASA Classification* ASA Classification ASA Classification: 3 Assessment & Plan Anesthesia* Anesthesia Assessment Anesthesia Assessment: Discussed sedation and/or anesthesia options, risks, benefits, and alternatives with patient/parents/legal guardian/POA. Questions invited. The patient/parents/legal guardian/POA seems to understand and agrees to proceed with anesthesia plan. Reviewed the physical assessment, medical history, allergy history and patient home medications list prior to surgery/procedure/anesthetic and documented any changes. Performed airway and anesthesia risk assessments. Anesthesia Type Anesthesia Type: MAC History Source History Obtained from:: Patient and Chart Anesthesia Focused Assessment* Temperature: 97.8 F Pulse Rate: 79 Blood Pressure: 114/70 Respiratory Rate: 16 Pulse Ox: 98 Oxygen Delivery Method: Room Air Airway Assessment Mouth opens: >3 cm Mallampati Score: IV Teeth Condition: Caps/Crowns (Patient is missing a crown. Has another tooth that needs to be pulled.) and Missing (Patient has several missing teeth.) Neck Range of motion (ROM): Limited ROM (Somewhat decreased extension) Labs Anesthesia Preop lab: CBC WBC 7.2 K/mm3 (4.4-11.0) 01/04/25 09:15 01/04/25 RBC 3.56 M/mm3 (4.6-6.2) L 01/04/25 09:15 01/04/25 Hgb 12.5 g/dL (13.0-16.5) L 01/04/25 09:15 5 Hct 37.8 % (40-54) L 01/04/25 09:15 01/04/25 Plt Count 112 K/mm3 (150-450) L 01/04/25 09:15 01/04/25 CHEMISTRY Potassium 4.6 mmol/L (3.5-5.1) 01/19/25 14:59 01/19/25 Sodium 139 mmol/L (136-145) 01/19/25 14:59 01/19/25 Magnesium 1.7 mg/dL (1.6-2.6) 01/04/25 09:15 01/04/25 Phosphorus 2.4 mg/dL (2.5-4.9) L 01/05/25 06:51 01/05/25 BUN 19 mg/dL (7-18) H 01/19/25 14:59 01/19/25 Creatinine 0.99 mg/dL (0.70-1.30) 01/19/25 14:59 01/19/25 Glucose 138 mg/dL (74-106) H 01/19/25 14:59 01/19/25 POC Glucose 140 mg/dL (74-106) H 05/14/25 10:43 05/14/25 TSH 3.140 uIU/mL (0.358-3.740) 01/01/25 10:25 02/0 02/20 COAG PT 15.7 SECONDS (11.7-14.9) H 01/01/25 10:25 /0 02/20 Pre-Assessment Diagnosis/Proposed Procedure Planned Operative Procedure(s): EGD Anesthesia History 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 When Was Last Pacemaker Check QUESTION #4 FULL TEXT: You/Your Family Experience fever (hyperthermia) with Anesthesia Last Oral Intake Last Oral intake: Last Oral Intake NPO since 22:00 05/14/25 10:49 Meds taken in AM with sips of Yes 05/14/25 10:49 water? Meds patient instructed to take am of surgery PONV PONV - carpenter labor supervisor: PONV - carpenter labor supervisor Female No 05/10/25 10:49 HX of Motion Sickness No 05/10/25 10:49 HX of N/V After Surgery No 05/10/25 10:49 Non-Smoker Yes 05/10/25 10:49 Duration of Surgery greater No 05/10/25 10:49 than 60 minutes Number of Risk Factors 1 05/10/25 10:49 PONV Score Low Risk 05/10/25 10:49 Height & Weight Height & Weight: Anesthesia: Height & Weight Height 6 ft 4 in 05/14/25 10:49 Weight: 130 kg 05/14/25 10:49 Body Mass Index (BMI) 34.9 05/14/25 10:49 Respiratory Assessment Respiratory Assessment - carpenter labor supervisor: Respiratory Tract Infection Hx - carpenter labor supervisor Hx Respiratory Tract Infection No 05/10/25 10:49 STOP Sleep Apnea STOP Sleep Apnea - carpenter labor supervisor: STOP Sleep Apnea - carpenter labor supervisor Hx Hypertension Yes: CONTROLLED WITH MEDS 05/10/25 10:49 Hx Sleep Apnea Yes 05/10/25 10:49 CPAP No 05/10/25 10:49 BIPAP Yes 05/10/25 10:49 Do you snore loudly (louder than talking or can be heard Do you often feel tired/ fatigued/ sleepy during daytime? Has anyone observed you stop breathing during sleep? STOP Results Positive 05/10/25 10:49 QUESTION #5 FULL TEXT : Do you snore loudly (louder than talking or can be heard through closed doors)? 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 Specify any problems Hx of Preganancy in last 3 N/A 05/10/25 10:49 Months Nurse Filling Out Transfusion [email or web address] 05/10/25 10:49 & Questions: Date: 05/10/25 05/10/25 10:49 Time: 10:55 05/10/25 10:49 Patient unable to answer at this time (ie. confused, unrespo /Reproduction History /Reproductive History - carpenter labor supervisor: /Reproductive Hx- carpenter labor supervisor Hx Now No 05/10/25 10:49 Gestational Age (in weeks): EDC: Hx Hx Para Hx Section SAB No 05/10/25 10:49 Active Medications Active Medications: Current Medications Generic Name Dose Route Start Last Admin Trade Name Freq PRN Reason Stop Dose Admin Lactated Ringer's 1,000 mls @ 15 mls/hr 05/14/25 10:30 05/14/25 11:03 IV 15 mls/hr .Q48H ENRIQUE Administration PFSH Medical History History of edema Chronic anticoagulation History of diabetes mellitus Nonallergic vasomotor rhinitis Esophageal motility disorder Macular degeneration Compression fracture of L2 Cancer Hypertension Dementia TIA (transient ischemic attack) Current use of bed bug exterminator anticoagulation Dysphagia Atrial fibrillation Longstanding persistent atrial fibrillation Skin tear Insulin dependent diabetes mellitus Colonic mass History of echocardiogram History of stress test Cardiology follow-up encounter Short-term memory loss Wears glasses Wears hearing aid Urinary incontinence Walker as ambulation aid Prostate disease Hepatitis Parkinson's disease Stroke/cerebrovascular accident Difficulty swallowing History of GI bleed Gastric reflux BiPAP (biphasic positive airway pressure) dependence Non-smoker Restless legs History of atrial fibrillation Colon cancer Ocular rosacea Diabetes mellitus, type II Carotid artery disease Essential hypertension Paroxysmal atrial fibrillation History of CVA (cerebrovascular accident) (2007) Hyperlipidemia Hypothyroidism Obstructive sleep apnea History of pericarditis (08/2017) Venous (peripheral) insufficiency Peripheral vascular disease due to secondary diabetes DM (diabetes mellitus), type 2 with peripheral vascular complications Diabetes mellitus type 2 with neurological manifestations Home Medications ?Medication ?Instructions ?Recorded ?Last Taken ?Type allopurinol 100 mg tablet 100 mg PO DAILYCM gout 05/1012/31/24 History finasteride 5 mg tablet 5 mg PO DAILY prostate 05/1012/31/24 History tamsulosin 0.4 mg capsule 0.4 mg PO QHS prostate 05/1012/31/24 History trazodone 100 mg tablet 100 mg PO QHS sleep/mental h ealth 05/10/15 12/31/24 History trospium 20 mg tablet 20 mg PO QHS bladder 5 12/31/24 History cyanocobalamin (vitamin B-12) 500 1,000 mcg PO DAILY s upplement 09/24/17 12/31/24 History mcg tablet ipratropium bromide 42 mcg (0.06 2 spray NS TID PRN AL LERGIES 09/24/17 12/31/24 History %) nasal spray levothyroxine 150 mcg tablet 225 mcg PO MOWEFR thyroid 03/06/19 05/14/25 08:00 History magnesium oxide 400 mg (241.3 mg 400 mg PO BID supplem ent 11/30/19 12/31/24 History magnesium) tablet atorvastatin 20 mg tablet 20 mg PO QHS cholesterol 12/31/24 History propranolol 20 mg tablet 20 mg PO BID BP 06/19/22 08:00 History levothyroxine 150 mcg tablet 150 mcg PO SUTUTHSA thyro id 07/13/22 12/31/24 History trgbzjbc-mkrlpuwqf-vpnmzglcw 3.5 1 applic topical TOO Y JENNIFER EYES 07/13/22 12/31/24 History mg-10,000 unit-10 mg/gram top cream donepezil 5 mg tablet (Aricept) 5 mg PO DAILY memory 0 07/24/22 05/14/25 08:00 History pioglitazone 45 mg tablet (Actos) 45 mg PO DAILY diabe suzi 07/24/22 12/31/24 History glipizide 5 mg tablet 5 mg PO BID 08/27/22 5 History lisinopril 20 mg tablet 20 mg PO DAILY 03/29/2301/23 History acetaminophen 500 mg tablet 1,000 mg PO BID 06/07/23 0 06/06/23 History apixaban 5 mg tablet (Eliquis) 5 mg PO BID BLOOD THINN ER 06/07/23 05/11/25 History insulin glargine 100 unit/mL (3 30 unit subcut QHS DM 06/07/23 05/13/25 History mL) subcutaneous pen (Lantus 15 unit Solostar U-100 Insulin) loratadine 10 mg tablet 20 mg PO DAILY ALLERGIES 09/2012/31/24 History cjfbopnx-lj-msgvg 300 mcg-K 60 1 tab PO DAILY 06/07/23 12/31/24 History mcg-lycop 600 mcg-lutein 300 mcg tablet (Men 50 Plus Multivitamin) ropinirole 1 mg tablet 1 mg PO BID 06/07/23 5 08:00 History ascorbate calcium (vitamin C) 500 500 mg PO DAILY 08/3012/31/24 History mg tablet ferrous sulfate 325 mg (65 mg 325 mg PO TID iron 07/2505/13/25 History iron) tablet cholecalciferol (vitamin D3) 50 50 mcg PO DAILY 12/31/24 History mcg (2,000 unit) capsule furosemide 20 mg tablet 20 mg PO DAILY PRN edema 02/20 Unknown History psyllium husk 0.4 gram capsule 0.4 g PO DAILY 01/01/25 12/31/24 History (Daily Fiber) sucralfate 1 gram tablet (Carafate) 1 g PO BID 5 12/31/24 History vitamin B complex (Complex B-100 1 tab PO DAILY 12/31/24 History tablet,extended release) calcium carbonate (Calcium 500) 500 mg PO TID 05/10/25 Unknown History pantoprazole 40 mg tablet,delayed 40 mg PO QHS 5 05/14/25 08:00 History release Allergy/AdvReac Type Severity Reaction Status Date / Time niacin Allergy Intermediate rash Verified 05/14/25 10:46 adhesive AdvReac Other: Verified 05/14/25 10:46 takes skin off, inflamed Family History Father CAD (coronary artery disease) Hypertension Heart disease Mother Hypertension Sister Breast cancer CVA (cerebral vascular accident) Brother Kidney disease Surgical History History of esophagogastroduodenoscopy (EGD) History of colectomy H/O basal cell carcinoma excision History of cataract extraction History of colonoscopy (~05/2022) History of appendectomy Status post surgical removal of malignant neoplasm of skin Social History household members: significant other Smoking Status: Never smoker alcohol intake: never substance use type: does not use seatbelt use: always do you feel safe at home: Yes additional social history: Ambulates with a wheeled walker. Review of Systems (Anesthesia) ROS Narrative System reviewed and no additional complaints, except as documented.
--- NOTE | 2025-05-14 11:41 | PCM.HP.STD ---
HPI - General General Date of Admission: 05/14/25 Date of Service: 05/14/25 Chief Complaint: Esophageal dysphagia HPI Narrative ALCIDES LOREDO, is a 84 M who presents today for evaluation and treatment of esophageal dysphagia. He has a past medical history of nonalcoholic therapy Burke with cirrhosis complicated by portal gastropathy. He also has a history of colon cancer status post right hemicolectomy. [facility] Medical History History of edema Chronic anticoagulation History of diabetes mellitus Nonallergic vasomotor rhinitis Esophageal motility disorder Macular degeneration Compression fracture of L2 Cancer Hypertension Dementia TIA (transient ischemic attack) Current use of retirement anticoagulation Dysphagia Atrial fibrillation Longstanding persistent atrial fibrillation Skin tear Insulin dependent diabetes mellitus Colonic mass History of echocardiogram History of stress test Cardiology follow-up encounter Short-term memory loss Wears glasses Wears hearing aid Urinary incontinence Walker as ambulation aid Prostate disease Hepatitis Parkinson's disease Stroke/cerebrovascular accident Difficulty swallowing History of GI bleed Gastric reflux BiPAP (biphasic positive airway pressure) dependence Non-smoker Restless legs History of atrial fibrillation Colon cancer Ocular rosacea Diabetes mellitus, type II Carotid artery disease Essential hypertension Paroxysmal atrial fibrillation History of CVA (cerebrovascular accident) (2007) Hyperlipidemia Hypothyroidism Obstructive sleep apnea History of pericarditis (08/2017) Venous (peripheral) insufficiency Peripheral vascular disease due to secondary diabetes DM (diabetes mellitus), type 2 with peripheral vascular complications Diabetes mellitus type 2 with neurological manifestations Home Medications ?Medication ?Instructions ?Recorded ?Last Taken ?Type allopurinol 100 mg tablet 100 mg PO DAILYCM gout 05/10/15 12/31/24 History finasteride 5 mg tablet 5 mg PO DAILY prostate 05/10/15 12/31/24 History tamsulosin 0.4 mg capsule 0.4 mg PO QHS prostate 05/10/15 12/31/24 History trazodone 100 mg tablet 100 mg PO QHS sleep/mental health 05/10/15 12/31/24 History trospium 20 mg tablet 20 mg PO QHS bladder 05/10/15 12/31/24 History cyanocobalamin (vitamin B-12) 500 1,000 mcg PO DAILY supplement 09/24/17 12/31/24 History mcg tablet ipratropium bromide 42 mcg (0.06 2 spray NS TID PRN ALLERGIES 09/24/17 12/31/24 History %) nasal spray levothyroxine 150 mcg tablet 225 mcg PO MOWEFR thyroid 03/06/19 05/14/25 08:00 History magnesium oxide 400 mg (241.3 mg 400 mg PO BID supplement 11/30/19 12/31/24 History magnesium) tablet atorvastatin 20 mg tablet 20 mg PO QHS cholesterol 06/19/22 12/31/24 History propranolol 20 mg tablet 20 mg PO BID BP 06/19/22 05/14/25 08:00 History levothyroxine 150 mcg tablet 150 mcg PO SUTUTHSA thyroid 07/13/22 12/31/24 History wmsqcmyx-xiwjewgdj-fbsnlzkqg 3.5 1 applic topical DAILY JENNIFER EYES 07/13/22 12/31/24 History mg-10,000 unit-10 mg/gram top cream donepezil 5 mg tablet (Aricept) 5 mg PO DAILY memory 07/24/22 05/14/25 08:00 History pioglitazone 45 mg tablet (Actos) 45 mg PO DAILY diabetes 07/24/22 12/31/24 History glipizide 5 mg tablet 5 mg PO BID 08/27/22 12/31/24 History lisinopril 20 mg tablet 20 mg PO DAILY 03/29/23 12/31/24 History acetaminophen 500 mg tablet 1,000 mg PO BID 06/07/23 06/06/23 History apixaban 5 mg tablet (Eliquis) 5 mg PO BID BLOOD THINNER 06/07/23 05/11/25 History insulin glargine 100 unit/mL (3 30 unit subcut QHS DM 06/07/23 05/13/25 History mL) subcutaneous pen (Lantus 15 unit Solostar U-100 Insulin) loratadine 10 mg tablet 20 mg PO DAILY ALLERGIES 06/07/23 12/31/24 History qapmdklq-it-jhady 300 mcg-K 60 1 tab PO DAILY 06/07/23 12/31/24 History mcg-lycop 600 mcg-lutein 300 mcg tablet (Men 50 Plus Multivitamin) ropinirole 1 mg tablet 1 mg PO BID 06/07/23 05/14/25 08:00 History ascorbate calcium (vitamin C) 500 500 mg PO DAILY 09/21/23 12/31/24 History mg tablet ferrous sulfate 325 mg (65 mg 325 mg PO TID iron 07/25/24 05/13/25 History iron) tablet cholecalciferol (vitamin D3) 50 50 mcg PO DAILY 01/01/25 12/31/24 History mcg (2,000 unit) capsule furosemide 20 mg tablet 20 mg PO DAILY PRN edema 01/01/25 Unknown History psyllium husk 0.4 gram capsule 0.4 g PO DAILY 01/01/25 12/31/24 History (Daily Fiber) sucralfate 1 gram tablet (Carafate) 1 g PO BID 01/01/25 12/31/24 History vitamin B complex (Complex B-100 1 tab PO DAILY 01/01/25 12/31/24 History tablet,extended release) calcium carbonate (Calcium 500) 500 mg PO TID 05/10/25 Unknown History pantoprazole 40 mg tablet,delayed 40 mg PO QHS 05/10/25 05/14/25 08:00 History release Allergy/AdvReac Type Severity Reaction Status Date / Time niacin Allergy Intermediate rash Verified 05/14/25 10:46 adhesive AdvReac Other: Verified 05/14/25 10:46 takes skin off, inflamed Family History Father CAD (coronary artery disease) Hypertension Heart disease Mother Hypertension Sister Breast cancer CVA (cerebral vascular accident) Brother Kidney disease Surgical History History of esophagogastroduodenoscopy (EGD) History of colectomy H/O basal cell carcinoma excision History of cataract extraction History of colonoscopy (~05/2022) History of appendectomy Status post surgical removal of malignant neoplasm of skin Social History household members: significant other Smoking Status: Never smoker alcohol intake: never substance use type: does not use seatbelt use: always do you feel safe at home: Yes additional social history: Ambulates with a wheeled walker. ROS Constitutional Constitutional: Denies fatigue, fever(s), poor appetite, weight gain or weight loss Gastrointestinal Gastrointestinal: Denies belching, bloating, change in bowel habits, change in stool character, chewing difficulty, coffee ground emesis, constipation, cramping, diarrhea, dyspepsia, dysphagia, early satiety, excessive flatus, fecal incontinence, heartburn, hematemesis, hematochezia, hemorrhoids, loose stools, melena, nausea, odynophagia, rectal bleeding, tenesmus, vomiting or weight changes Vital Signs Vital Signs Vital Signs: 05/14/25 10:49 05/14/25 10:49 05/14/25 11:40 Temperature 97.8 F 97.8 F Temperature Source Temporal Pulse Rate 79 79 Respiratory Rate 16 16 Respiratory Pattern Normal Blood Pressure 114/70 114/70 Blood Pressure Mean 84 Blood Pressure Source Monitor Blood Pressure Position Sitting Blood Pressure Location Left Arm Pulse Ox 98 98 Oxygen Delivery Method Room Air Room Air Weight Weight: 286 lb 9.615 oz Body Mass Index (BMI) 34.9 Physical Exam Const alert, oriented x3, no apparent distress and healthy appearing General Appearance: cooperative GI normal to inspection, nondistended, normoactive bowel sounds, soft to palpation, non-tender and non-distended Percussion: normal to percussion Rectal Exam: deferred Results Lab / Micro Data Labs: Laboratory Results - last 24 hr 05/14/25 10:43: POC Glucose 140 H Assessment & Plan Assessment/Plan (1) Dysphagia: PLAN: He is explained alternatives, risk and benefits include not withstanding bleeding, infection, subs, perforation, need for surgery and . He will undergo EGD with possible esophageal dilation.
--- NOTE | 2025-05-14 12:20 | PCM.POST.ANE ---
Anesthesia: Postop Eval I Current Vital Signs Temperature: 97 F Pulse Rate: 79 Blood Pressure: 95/61 Respiratory Rate: 16 Pulse Ox: 94 Oxygen Delivery Method: Room Air Assessment Airway patent: Yes Spontaneous unlabored respirations: Yes Mental status: Asleep nausea: No Vomiting: No Anesthesia Complication: No Fluid Hydration Crystalloid volume administer (ml): 300 Total IV fluid infused: 300 Progress Note Anesthesia document: Postop Eval 1 completed: Yes
--- NOTE | 2025-05-14 12:24 | OP.EGD_ITS ---
Patient Name: Polo Guerrero Procedure Date: 05/14/2025 11:45 AM Date of : 1940 Age: 84 Procedure: Upper GI endoscopy Indications: Oropharyngeal phase dysphagia, Esophageal dysphagia, Neurogenic dysphagia, Dysphagia Providers: Ez Stanley DO Referring MD: Randell Sparks MD Medicines: Monitored Anesthesia Care Patient Profile: This is an 84 year old male. Refer to note in patient chart for documentation of history and physical. Patient has symptoms of dysphagia with both liquids and solids. Complications: No immediate complications. Procedure: Pre-Anesthesia Assessment: - Prior to the procedure, a History and Physical was performed, and patient medications and allergies were reviewed. The patient is competent. The risks and benefits of the procedure and the sedation options and risks were discussed with the patient. All questions were answered and informed consent was obtained. Patient identification and proposed procedure were verified by the physician in the pre-procedure area. Mental Status Examination: alert and oriented. Airway Examination: normal oropharyngeal airway and neck mobility. Respiratory Examination: clear to auscultation. CV Examination: normal. Prophylactic Antibiotics: The patient does not require prophylactic antibiotics. Prior Anticoagulants: The patient has taken no anticoagulant or antiplatelet agents except for NSAID medication. ASA Grade Assessment: II - A patient with mild systemic disease. After reviewing the risks and benefits, the patient was deemed in satisfactory condition to undergo the procedure. The anesthesia plan was to use monitored anesthesia care (MAC). Immediately prior to administration of medications, the patient was re-assessed for adequacy to receive sedatives. The heart rate, respiratory rate, oxygen saturations, blood pressure, adequacy of pulmonary ventilation, and response to care were monitored throughout the procedure. The physical status of the patient was re-assessed after the procedure. After obtaining informed consent, the endoscope was passed under direct vision. Throughout the procedure, the patient's blood pressure, pulse, and oxygen saturations were monitored continuously. The Endoscope was introduced through the mouth, and advanced to the second part of duodenum. The upper GI endoscopy was accomplished without difficulty. The patient tolerated the procedure well. Scope In: 12:05:04 PM Scope Out: 12:08:32 PM Total Procedure Duration Time 0 hours 3 minutes 28 seconds Findings: Abnormal motility was noted in the esophagus. The cricopharyngeus was abnormal. There are extra peristaltic waves in the esophageal body. The distal esophagus/lower esophageal sphincter is spastic, but gives up passage to the endoscope. Tertiary peristaltic waves are noted. A guidewire was placed and the scope was withdrawn. Dilation was performed with a Savary dilator with no resistance at 57 Fr. The dilation site was examined and showed moderate improvement in luminal narrowing. Estimated blood loss was minimal. Suspect gastroparesis due to absence of peristalsis, patient symptoms and retained gastric contents. No gross lesions were noted in the duodenal bulb. Impression: - Abnormal esophageal motility. Dilated. - Gastroparesis, secondary to diabetes mellitus type II. - No gross lesions in the duodenal bulb. - No specimens collected. Recommendation: - Discharge patient to home [Means]. - Resume previous diet. - Continue present medications. Procedure Code(s): --- Professional --- 94881, Esophagogastroduodenoscopy, flexible, transoral; with insertion of guide wire followed by passage of dilator(s) through esophagus over guide wire CPT copyright 2021 [employer]. All rights reserved. The codes documented in this report are preliminary and upon procurement technician review may be revised to meet current compliance requirements. Ez Stanley DO 05/14/2025 12:24:27 PM This report has been signed electronically. Number of Addenda: 0 Note Initiated On: 05/14/2025 11:45 AM
--- NOTE | 2025-05-14 12:25 | OP.CCLET_ITS ---
05/14/2025 Randell Sparks MD [address] [id number] Re : Upper GI endoscopy procedure for Polo Yolanda Dear Dr. Sparks This procedure was performed on Wednesday, May 14, 2025. My impressions and recommendations are as follows: Impressions : - Abnormal esophageal motility. Dilated. - Gastroparesis, secondary to diabetes mellitus type II. - No gross lesions in the duodenal bulb. - No specimens collected. Recommendations : - Discharge patient to home [Means]. - Resume previous diet. - Continue present medications. My findings are described in the full procedure note, which is enclosed. If I can be of further assistance, please feel free to contact me at . Sincerely, Ez Stanley, 05/14/2025 12:24:27 PM This report has been signed electronically.
--- NOTE | 2025-05-14 14:03 | PCM.POSTANE2 ---
Anesthesia Postop Eval I Sum Postop Eval Completion status Anesthesia document: Postop Eval 1 completed: Yes Anesthesia Postop Eval I Summary Anesthesia Postop Eval I Summary: Anesthesia Postop Eval I: Assessment Summary Airway patent Yes 05/14/25 12:21 [email or web address] Spontaneous unlabored Yes 05/14/25 12:21 [email or web address] respirations Mental status Asleep 05/14/25 12:21 [email or web address] nausea No 05/14/25 12:21 [email or web address] Vomiting No 05/14/25 12:21 [email or web address] Anesthesia Postop Eval I: Fluid Summary Crystalloid volume administer 300 05/14/25 12:21 [email or web address] (ml) Colloids volume administered ( ml) Blood Product volume administered (ml) Total IV fluid infused 300 05/14/25 12:21 [email or web address] Anesthesia Postop Eval I: Summary Notes Anesthesia Complication No 05/14/25 12:21 [email or web address] Anesthesia Complication Comment: Post-operative progress note Anesthesia: Postop Eval II Evaluation Mental status: Awake Pain Level: 0 nausea: No Vomiting: No
== END 2025-05-14 13:07 | disposition home or self-care (01) ==
LOC: EN 10:15 → AC 10:17
PROVIDERS: PCP Family Medicine; Referring Provider Family Medicine; Visit Provider Internal Medicine Gastroenterology
PROC: 0DJ08ZZ Inspection of Upper Intestinal Tract, Via Natural or Artificial Opening Endoscopic (ICD-10-PCS; CPT 43235; principal; 2025-05-14 11:25)
DX: E11.43 Type 2 diabetes mellitus with diabetic autonomic (poly)neuropathy (principal); G20.A1 Parkinson's disease without dyskinesia, without mention of fluctuations; F02.80 Dementia in other diseases classified elsewhere, unspecified severity, without behavioral disturbance, psychotic disturbance, mood disturbance, and anxiety; I48.11 Longstanding persistent atrial fibrillation; I48.0 Paroxysmal atrial fibrillation; Z79.4 Long term (current) use of insulin; K31.84 Gastroparesis; E78.5 Hyperlipidemia, unspecified; I10 Essential (primary) hypertension; K21.9 Gastro-esophageal reflux disease without esophagitis; Z79.890 Hormone replacement therapy; E03.9 Hypothyroidism, unspecified; Z79.01 Long term (current) use of anticoagulants; Z79.899 Other long term (current) drug therapy; R13.12 Dysphagia, oropharyngeal phase; K30 Functional dyspepsia
CPT/HCPCS: 43248; 82962; C1769; J2405

== ENCOUNTER → 2025-05-17 | Outpatient (CLI) | payer MEDICARE, SELFPAY ==
--- NOTE | 2025-05-17 17:12 | CT_ITS ---
PROCEDURE: CHEST WITH CONTRAST 05/17/2025 REASON FOR EXAM: ASPIRATION PHENUMONIA, DYSPHAGIA TECHNIQUE: CHEST WITH CONTRAST Coronal and Sagittal reconstruction series were provided. CONTRAST: Isovue 370 VOLUME: 100 mL One or more dose reduction techniques were used (e.g., Automated exposure control, adjustment of the mA and/or kV according to patient size, use of iterative reconstruction technique). RADIATION DOSE SUMMARY: CTDlvol: 22 mGy DLP: 968.35 mGycm COMPARISON: Prior study dated April 10, 2025. FINDINGS: Hardware: None Lymph nodes: Small benign-appearing mediastinal lymph nodes. Heart and Vasculature: Coronary artery calcification. Lungs and Airways: Elevation of the left hemidiaphragm. Mild increased linear markings in the lung bases slightly worse on the left lung base. This is essentially unchanged and most likely represents scarring. Pleura: No pleural effusion. Upper Abdomen: The esophagus is distended with the moderate amount of residual food particle down to the gastroesophageal junction. Clinical correlation recommended. Bones: Almost complete collapse of the T11-T12 vertebrae. CT/Chest WITH Contrast IMPRESSION: Coronary artery calcification (CAC) is is present Stable examination. Reading Location: [place] [id number]
== END | disposition home or self-care (01) ==
PROVIDERS: PCP Family Medicine; Referring Provider Internal Medicine Gastroenterology; Visit Provider Internal Medicine Gastroenterology
DX: J18.9 Pneumonia, unspecified organism (principal); R13.10 Dysphagia, unspecified
CPT/HCPCS: 71260; Q9967

== ENCOUNTER → 2025-10-12 | Outpatient (CLI) | payer MEDICARE, OTHER, SELFPAY ==
[2025-10-12 13:02] LABS: AST(SGOT) 31 U/L (<=37); Alanine Aminotransfer ALT/SGPT 20 U/L (<=46); Albumin, Serum 4.0 g/dL (3.4-4.8); Alkaline Phosphatase 134 U/L (40-129); Anion Gap 10 (5-15); BUN 25 mg/dL (4-19); BUN/Creat Ratio 27.4 RATIO (10-20); Calcium,Total 9.8 mg/dL (7.6-11.0); Carbon Dioxide 25.9 mmol/L (21.0-32.0); Chloride 102 mmol/L (98-108); Cholesterol 94 mg/dL (<=200); Free T3 2.3 pg/mL (2.18-3.98); Globulin 3.1 g/dL (2.2-4.2); Glucose 128 mg/dL (70-99); Low Density Lipoprotein Calc. 31 mg/dL; Potassium 4.1 mmol/L (3.3-5.1); Triglycerides 132 mg/dL; Very Low Density Lipoprotein 26 mg/dL (5-40); cholesterol:hdl ratio screen 2.40
== END | disposition home or self-care (01) ==
LOC: MFPLAB 10:05
PROVIDERS: PCP Family Medicine; Visit Provider Family Medicine
DX: E03.9 Hypothyroidism, unspecified (principal); E78.5 Hyperlipidemia, unspecified
CPT/HCPCS: 36415; 80053; 80061; 84439; 84443; 84481